=== PATIENT | male | born 1960 | race Caucasian/White ===

== ENCOUNTER 2023-07-12 06:28 | Outpatient (OUT) | payer OTHER, SELFPAY ==
--- NOTE | 2023-07-12 07:52 | CA_ITS ---
Patient Name: GINA DAVIES MR#: [id number] : 1960 Exam Date: 07/12/2023 Ordering Doctor: CAROL CONTRERAS ECHOCARDIOGRAM REPORT PROCEDURE: CA ECHO DOPPLER COMPLETE INDICATIONS: Paroxysmal atrial fibrillation COMPARISON: None. DESCRIPTION: COMPLETE ECHOCARDIOGRAM Real-time transthoracic echocardiography with 2D, M-mode, spectral and color flow Doppler performed. QUALITY: Technical quality was good. LEFT VENTRICLE: Normal chamber size. Normal left ventricular wall thickness. LV EF: Global left ventricular systolic function is low normal limits; visually estimated ejection fraction is 50 to 55%. The septum is abnormal and motion; this is not an unusual finding in the post open palpation. DIASTOLIC: Unable to assess diastolic function given history of mitral valve ring. ATRIAL SEPTUM: Visually appears intact. LEFT ATRIUM: Moderate dilatation. RIGHT ATRIUM: Mild dilatation. RIGHT VENTRICLE: Mild dilatation. Normal right ventricular systolic function. TRICUSPID VALVE: Normal mobility and thickness. No stenosis with trivial regurgitation. No evidence of pulmonary hypertension. RVSP 21mmHg MITRAL VALVE: Trivial mitral regurgitation. 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 Mean gradient is 3mmHg at a heart rate of 50 bpm. AORTIC VALVE: Normal trileaflet appearance. No visible sclerosis. Normal leaflet mobility. No evidence of aortic valve stenosis. Trivial aortic regurgitation. AORTIC ROOT: Moderately dilated. Measuring 4.4 cm which is unchanged from previous exam. Ascending aorta measures 4.1 cm. PULMONIC VALVE: Normal thickness and mobility. Trivial regurgitation. PERICARDIUM: Anterior free space; trivial effusion versus fat pad. IVC: Collapses with inspirations. Normal size. CONCLUSION: 1. Global left ventricular systolic function is lower normal limits; visually estimated ejection fraction is 50 to 55% 2. The right ventricle is mildly dilated with normal systolic function 3. Biatrial enlargement 4. Mitral valve annuloplasty ring is seen; no significant regurgitation or stenosis 5. The aortic root is is moderately dilated; ascending aorta is mildly dilated 6. Anterior free space; trivial effusion versus fat pad Adult Echocardiography Procedure Report Left Ventricle LVEDD (3.7 - 5.6 cm): 5.48 cm LVESD (2.2 - 4.0 cm): 4.30 cm LVIVS thickness (0.6 - 1.2 cm): 1.24 cm LVPW thickness (0.5 - 1.0 cm): 0.95 cm e': 0.09 m/s E - e': 14.00 LVOT Max Gradient: 3.34 mm[Hg] LVOT Area (cm2): 0.91 m/s Peak Velocity (LVOT): 0.91 m/s Mean Velocity (LVOT): 0.64 m/s LVOT Diameter 2.32 cm Left Ventricular Ejection Fraction: 51.29 % Left Atrium LA Volume Index (2D A2C): 45.69 ml/m2 Left Atrium Systolic Dimension: 4.80 cm Mitral Valve MV E to A Ratio: 1.08 Mitral Valve A-Wave Peak Velocity: 1.17 m/s Mitral Valve E-Wave Peak Velocity: 1.27 m/s Right Ventricle RV Internal Diastolic Dimension: 4.19 cm Aorta AO Root Diam: 4.38 cm Ascending Ao Diam: 4.14 cm Aortic Valve AoV Area (Peak Martin): 3.48 cm2, 3.48 cm2 AoV Area (VTI): 3.48 cm2, 3.48 cm2 Peak Velocity(Antegrade Flow): 1.11 m/s Peak Gradient(Antegrade Flow): 4.95 mm[Hg] Mean Velocity(Antegrade Flow): 0.79 m/s Mean Gradient(Antegrade Flow): 2.73 mm[Hg] Velocity Time Integral: 24.37 cm Tricuspid Valve Peak Velocity (Regurgitant Flow): 1.43 m/s, 2.14 m/s Pulmonic Valve Mean Gradient: 1.86 mm[Hg], 1.78 mm[Hg] Mean Velocity: 0.64 m/s, 0.62 m/s Peak Velocity: 0.92 m/s Peak Gradient: 3.48 mm[Hg], 3.27 mm[Hg] Right Atrium Right Atrium Systolic Pressure: 54.62 ml, 54.62 ml Dictated by: Julissa Quintana M.D. on 07/14/2023 at 11:16 Approved by: Julissa Quintana M.D. on 07/14/2023 at 11:22
== END 2023-07-12 06:29 | disposition home or self-care (01) ==
LOC: CARD 06:33
PROVIDERS: PCP Family Medicine; Visit Provider Internal Medicine Cardiovascular Disease
DX: I48.0 Paroxysmal atrial fibrillation (principal)
CPT/HCPCS: 93306; 93356

== ENCOUNTER 2023-08-09 08:02 | Outpatient (OUT) | payer OTHER, SELFPAY ==
--- OUTSIDE RECORDS SUMMARY | 2023-08-09 08:05 | XMS_ITS | CCD ---
Author Name Unknown Address [address] [place] [address] Organization [facility] Care Team Providers Care Supervisor Cemetery Workers Name Role Phone COMPANY, [employer] Unavailable Unavailable COMPANY, [employer] Unavailable Unavailable NO, DR Unavailable Unavailable PHYSICIAN, DEFAULT Admitting Unavailable PHYSICIAN, DEFAULT Attending Unavailable KIRSTIN HUGHES Admitting Unavailable KIRSTIN HUGHES Attending Unavailable KIRSTIN HUGHES Admitting Unavailable KIRSTIN HUGHES Attending Unavailable MISC, DR HSIEH Attending Unavailable MISC, DR HSIEH Consulting Unavailable MISC, DR HSIEH Admitting Unavailable HOUSE, DR CONNORS Primary Care Unavailable HOUSE, DR CONNORS Consulting Unavailable HOUSE, DR CONNORS Primary Care Unavailable HOUSE, DR CONNORS Admitting Unavailable HOUSE, DR CONNORS Attending Unavailable [place], DR ROSY Muhammad Consulting Unavailable HOUSE, DR CONNORS Primary Care Unavailable MOUKARBEL, DR BERNSTEIN Attending Unavailable MOUKARBEL, DR BERNSTEIN Admitting Unavailable MOUKARBEL, DR BERNSTEIN Consulting Unavailable MISC, DR HSIEH Attending Unavailable MISC, DR HSIEH Admitting Unavailable HOUSE, DR CONNORS Primary Care Unavailable SHERYL ., MIHAI Attending Unavailable SHERYL ., MIHAI Consulting Unavailable SHERYL ., MIHAI Admitting Unavailable HOUSE, DR CONNORS Primary Care Unavailable PAULINO, IGOR Consulting Unavailable WILLI, DR KOKO Canales Admitting Unavailabl e MACIEL, DR CONNORS Primary Care Unavailable SHANTHI ., DARRICK TIMMONS Consulting Unavailsandor MÁRQUEZ, DR KOKO Canales Attending Unavailabl e MINERVA, BRENDA Consulting Unavailable ERICA ., DR PECK Attending Unavailable ERICA ., DR PECK Consulting Unavailable ERICA ., DR PECK Admitting Unavailable MACIEL, DR CONNORS Primary Care Unavailable MACIEL, DR CONNORS Primary Care Unavailable WILLI, DR KOKO Canales Attending Unavailabl josé miguel MÁRQUEZ, DR KOKO Canales Consulting Unavailabl josé miguel MÁRQUEZ, DR KOKO Canales Admitting UnavailRANULFO Schultz Consulting Unavailable Jake St Primary Care Physician [phone] Amy Goldstein Referring Unavailable Timmis, Amy H Attending Unavailable Amy Goldstein H Admitting Unavailable DIANE, NIKHIL Referring Unavailable CARRIZO, LIZETH Referring Unavailable CARRIZO, LIZETH Attending Unavailable DENISE HIGGINS Attending Unavailable DIANE, NIKHIL Attending Unavailable DIANE, NIKHIL Admitting Unavailable DIANE, NIKHIL Attending Unavailable DIANE, NIKHIL Attending Unavailable AURELIO COYNE Attending Unavailable DIANE, NIKHIL Referring Unavailable DIANE, NIKHIL Referring Unavailable Allergies Allergy Classification Reported Allergen(s) Allergy Type Date of Onset Reaction(s) Facility (1 source) Erythromycin Drug Allergy 02-07-2015 [facility] Repository (1 source) Niacin Drug Allergy 05-11-2014 [facility] Repository (1 source) Azithromycin; Translations: [AZITHROMYCIN] Drug Allergy 07-28-2022 [facility] Repository Problems Active Problems Problem Classification Problem Date Documented Da te Episodic/Chronic Abdominal pain (5 sources) Unspecified abdominal pain; Translations: [UNSPECIFIED ABDOMINAL PAIN] Onset: 06-25-2022 Episodic Administrative/social admission (1 source) Encounter for pre-employment examination; Translations: [Encounter for pre-employment examination] Onset: 11-03-2017 Episodic Cardiac dysrhythmias (5 sources) Unspecified atrial fibrillation; Translations: [Paroxysmal atrial fibrillation] Onset: 09-15-2022 Chronic Cataract (2 sources) Cataract; Translations: [AGE RELATED NUCLEAR CATARACT-LEFT EYE, 2+NS 2+CS] Onset: 08-01-2018 Chronic obstructive pulmonary disease and bronchiectasis (3 sources) Chronic obstructive pulmonary disease, unspecified; Translations: [COPD UNSPECIFIED] Onset: 04-28-2022 Chronic Congestive heart failure; nonhypertensive (2 sources) Unspecified systolic (congestive) heart failure; Translations: [Unspecified systolic (congestive) heart failure] Onset: 10-20-2022 Chronic Essential hypertension (2 sources) Essential (primary) hypertension; Translations: [Essential (primary) hypertension] Onset: 04-28-2022 Chronic Heart valve disorders (1 source) Presence of prosthetic heart valve; Translations: [PRESENCE OF PROSTHETIC HEART VALVE] Onset: 09-15-2022 Chronic Hypertension with complications and secondary hypertension (2 sources) Hypertensive heart disease without heart failure; Translations: [Hypertensive heart disease without heart failure] Onset: 10-20-2022 Chronic Nausea and vomiting (5 sources) Nausea; Translations: [Vomiting, unspecified] Onset: 06-23-2022 Episodic Other aftercare (1 source) Other sports team manager (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; Translations: [OTH INSECTICIDE MIXER CURRENT DRUG THERAPY] Onset: 09-15-2022 Episodic Other lower respiratory disease (1 source) Personal history of pneumonia (recurrent); Translations: [PERSONAL HX OF PNEUMONIA RECURRENT] Onset: 09-15-2022 Episodic Norma-; endo-; and myocarditis; cardiomyopathy (except that caused by tuberculosis or sexually transmitted disease) (2 sources) Cardiomyopathy, unspecified; Translations: [Cardiomyopathy, unspecified] Onset: 10-12-2022 Chronic Unclassified (2 sources) AGE RELATED NUCLEAR CAT- 2+NS, 2+CS; Translations: [AGE RELATED NUCLEAR CAT- 2+NS, 2+CS] Onset: 08-22-2018 Unclassified (3 sources) THORAC AORTC ANEURYSM W/O RUPTR UNS; Translations: [THORAC AORTC ANEURYSM W/O RUPTR UNS] Onset: 09-25-2022 Unclassified (3 sources) CONTACT W/AND (SUSP) EXPOS COVID-19; Translations: [CONTACT W/AND (SUSP) EXPOS COVID-19] Onset: 01-27-2022 Unclassified (2 sources) COUGH, UNSPECIFIED; Translations: [COUGH, UNSPECIFIED] Onset: 01-19-2022 Unclassified (2 sources) Other persistent atrial fibrillation; Translations: [Other persistent atrial fibrillation] Onset: 04-12-2023 Unclassified (1 source) Aneurysm of the ascending aorta, without rupture; Translations: [Aneurysm of the ascending aorta, without rupture] Onset: 04-28-2022 Viral infection (1 source) COVID-19; Translations: [COVID-19] Onset: 01-19-2022 Past or Other Problems Problem Classification Problem Date Documented Da te Episodic/Chronic Malaise and fatigue (4 sources) Other malaise; Translations: [Other fatigue] Onset: 09-14-2022 Episodic Other gastrointestinal disorders (1 source) Diarrhea, unspecified; Translations: [DIARRHEA UNSPECIFIED] Onset: 06-25-2022 Episodic Other lower respiratory disease (2 sources) Other forms of dyspnea; Translations: [Other forms of dyspnea] Onset: 09-14-2022 Episodic Other male genital disorders (1 source) Scrotal pain; Translations: [SCROTAL PAIN] Onset: 04-23-2022 Episodic Other upper respiratory disease (3 sources) Nasal congestion; Translations: [NASAL CONGESTION] Onset: 04-21-2022 Episodic Other upper respiratory infections (1 source) Acute sinusitis, unspecified; Translations: [ACUTE SINUSITIS UNSPECIFIED] Onset: 04-23-2022 Episodic Residual codes; unclassified (2 sources) Other specified postprocedural states; Translations: [Other specified postprocedural states] Onset: 04-28-2022 Episodic Unclassified (1 source) THORAC AORTC ANEURYSM W/O RUPTR UNS; Translations: [THORAC AORTC ANEURYSM W/O RUPTR UNS] Onset: 09-21-2022 Unclassified (1 source) CONTACT W/AND (SUSP) EXPOS COVID-19; Translations: [CONTACT W/AND (SUSP) EXPOS COVID-19] Onset: 01-23-2022 Unclassified (1 source) COUGH, UNSPECIFIED; Translations: [COUGH, UNSPECIFIED] Onset: 01-18-2022 Unclassified (1 source) Aneurysm of the ascending aorta, without rupture; Translations: [Aneurysm of the ascending aorta, without rupture] Onset: 10-20-2022 Urinary tract infections (1 source) Tubulo-interstitial nephritis, not specified as acute or chronic; Translations: [TUBULO-INTERST NEPHRIT NOT AC/CHRN] Onset: 06-25-2022 Episodic Results Test Name Value Interpretation Reference Range Facility Prep for Procedureon 024 Prep for Procedure [id number] Lilibeth Daviesy D 1960 M Date Provider Department Center [facility] Family History Problem Relation Age of Onset Other Mother Coronary artery disease Mother Family Status - Relation Status Age at Mother Normal [facility] Prep for Procedureon 024 Prep for Procedure [id number] Lilibeth Daviesy D 1960 M Date Provider Department Center 07/22/20[facility] Family History Problem Relation Age of Onset Other Mother Coronary artery disease Mother Family Status - Relation Status Age at Mother Normal [facility] Prep for Procedureon 024 Prep for Procedure [id number] Lilibeth Davies cky D 1960 M Date Provider Department Center 06/10/2023 [facility] Family History Problem Relation Age of Onset Other Mother Coronary artery disease Mother Family Status - Relation Status Age at Mother Normal [facility] Orders Onlyon 06-08-2023 Orders Only [id number] NabilRi cky D 1960 M Date Provider Department Center 06/08/2023 MARIBETH GUAMAN [facility]URIE [facility] Family History Problem Relation Age of Onset Other Mother Coronary artery disease Mother Family Status - Relation Status Age at Mother Normal [facility] Telemedicineon 06-08-2023 Telemedicine [id number] NabilRi cky D 1960 M Date Provider Department Center 06/08/2023 NIKHIL SANDERS [facility]URIE [facility] Family History Problem Relation Age of Onset Other Mother Coronary artery disease Mother Family Status - Relation Status Age at Mother Level of Service:98340 SC PHYS/QHP TELEPHONE EVALUATION 5-10 MIN Normal [facility] BASIC METABOLIC PANELon 12-1 Anion gap [Moles/Vol] 11 mmol/L Normal 7-20 [facility] Comment on above: Performed By: #### L [id number] ####[facility] (BEAKER)[address] [place] [address] Calcium [Mass/Vol] 8.1 mg/dL Low 8.6-10.3 [facility] Comment on above: Performed By: #### L [id number] ####[facility] (BEAKER)[address] [place] [address] Chloride [Moles/Vol] 109 mmol/L High 98-107 [facility] Comment on above: Performed By: #### L [id number] ####[facility] (BE[facility]ER)[address] [place] [address] CO2 [Moles/Vol] 22 mmol/L Normal 21-31 [facility] Comment on above: Performed By: #### L [id number] ####[facility] ([facility])[address] [place] [address] Creatinine [Mass/Vol] 1.38 mg/dL High 0.70-1.30 [facility] Comment on above: Performed By: #### L [id number] ####[facility] ([facility])[address] [place] [address] Performed By: #### L [id number] ####[facility] ([facility])[address] [place] [address] GLOMERULAR FILTRATION RATE ML/MIN/1.73 SQ M.PREDICTED 56.7 mL/min/1.73m*2 Low >60.0 [facility] Comment on above: Result Comment: The [facility]???s estimated glomerular filtration rate (eGFR) will no longer include consideration of race in its calculation. The National Kidney Foundation???s eGFR Task Force developed new recommendations for the estimation of the glomerular filtration rate in the [place] They recommend immediate implementation of the new equation refit without the race variable in all laboratories because the calculation does not include race. In addition to not including race in the calculation and reporting, it included diversity in its development, and has acceptable performance characteristics and potential consequences that do not disproportionately affect any one group of individuals. Performed By: #### L [id number] ####[facility] ([facility])[address] [place] [address] Performed By: #### L [id number] ####[facility] ([facility])[address] [place] [address] Glucose [Mass/Vol] 91 mg/dL Normal 70-100 [facility] Comment on above: Performed By: #### L [id number] ####[facility] ([facility])[address] [place] [address] Potassium [Moles/Vol] 4.1 mmol/L Normal 3.5-5.1 [facility] Comment on above: Performed By: #### L [id number] ####[facility] ([facility])[address] [place] [address] Sodium [Moles/Vol] 138 mmol/L Normal 136-145 [facility] Comment on above: Performed By: #### L [id number] ####[facility] ([facility])[address] [place] [address] Urea nitrogen [Mass/Vol] 16 mg/dL Normal 7-25 [facility] Comment on above: Performed By: #### L [id number] ####[facility] ([facility])[address] [place] [address] UREA NITROGEN/CREATININ E (MASS RATIO) IN SER/PLAS 11.6 Normal [facility] Comment on above: Performed By: #### L [id number] ####[facility] ([facility])[address] [place] [address] CBCon 05-10-2023 Erythrocyte distribution width (RBC) [Ratio] 13.9 % Normal 11.5-15.0 [facility] Comment on above: Performed By: #### L [id number] ####[facility] ([facility])[address] [place] [address] ERYTHROCYTE MEAN CORPUSCULAR HEMOGLOBIN CONCENTRATION (G/DL) BY AUTOMATED 32.8 g/dL Normal 32.0-35.0 [facility] Comment on above: Performed By: #### L [id number] ####[facility] ([facility])[address] [place] [address] Hematocrit (Bld) [Volume fraction] 44.8 % Normal 39.0-55.0 [facility] Comment on above: Performed By: #### L [id number] ####[facility] ([facility])[address] [place] [address] Hemoglobin (Bld) [Mass/Vol] 14.7 g/dL Normal 13.0-17.0 [facility] Comment on above: Performed By: #### L [id number] ####[facility] (BEAKER)[address] [place] [address] MCH (RBC) [Entitic mass] 29.3 pg Normal 27.0-33.0 [facility] Comment on above: Performed By: #### L [id number] ####[facility] ([facility])[address] [place] [address] MCV (RBC) [Entitic vol] 89.4 fL Normal 82.0-98.0 [facility] Comment on above: Performed By: #### L [id number] ####[facility] ([facility])[address] [place] [address] PLATELETS (10*3/UL) IN BLOOD AUTOMATED COUNT 256 10*3/uL Normal 150-400 [facility] Comment on above: Performed By: #### L [id number] ####[facility] ([facility])[address] [place] [address] RBC (Bld) [#/Vol] 5.01 10*6/uL Normal 4.20-5.70 [facility] Comment on above: Performed By: #### L [id number] ####[facility] ([facility])[address] [place], [place] [address] WBC (Bld) [#/Vol] 6.76 10*3/uL Normal 4.00-10.60 [facility] Comment on above: Performed By: #### L [id number] ####[facility] ([facility])[address] [place] [address] HPon 05-10-2023 --- Attestation signed by Nikhil Benson MD at 05/19/2023 5:43 PM By using the attestations below, the signing clinician agrees that I have read and verify that the documentation has been personally reviewed by me and ensure that the documentation accurately reflects the encounter. GC: I personally saw this patient on the day of the encounter, performed the parker portion(s) of the service and participated in the management and confirm the resident's documentation. Please note there may be an additional personal documentation from me. H&P reviewed. The patient was examined and there are no changes to the H&P. Normal [facility] LIPID PANELon 05-10-2023 CHOL/HDL 5.4 mg/dL Normal [facility] Comment on above: Performed By: #### L [id number] #### [facility] ([facility]) [address] [place] [address] Cholesterol [Mass/Vol] 135 mg/dL Normal 120-200 [facility] Comment on above: Performed By: #### L [id number] #### [facility] ([facility]) [address] [place] [address] Magnesium [Mass/Vol] 126 mg/dL Normal 40-149 [facility] Comment on above: Result Comment: TRIG LYCERIDE REFERENCE RANGE: 20 YEARS AND OLDER CARDIOVASCULAR RISK LESS THAN 150 mg/dL LOW RISK 150 TO 199 mg/dL BORDERLINE RISK 200 mg/dL AND GREATER HIGH RISK Performed By: #### L [id number] #### [facility] ([facility]) [address] [place] [address] Magnesium [Mass/Vol] 85 mg/dL Normal 0-160 [facility] Comment on above: Performed By: #### L [id number] #### [facility] ([facility]) [address] [place] [address] Magnesium [Mass/Vol] 25 mg/dL Normal 23-92 [facility] Comment on above: Performed By: #### L [id number] #### [facility] ([facility]) [address] [place] [address] NON HDL CHOL. (LDL+VLDL) 110 Normal [facility] Comment on above: Performed By: #### L [id number] #### [facility] ([facility]) [address] [place] [address] TOTAL VLDL-C 25 mg/dL Normal 0-40 [facility] Comment on above: Performed By: #### L [id number] #### [facility] ([facility]) [address] [place] [address] NURSNOTEon 05-10-2023 NURSNOTE RN educated pt on d/ c instructions. RN encouraged pt to voice any questions or concerns. Pt verbalizes no questions or concerns at this time. Pt was wheeled off of unit with all of belongings. Normal [facility] TSH3 REFLEX TO FT4on 023 THYROTROPIN (MIU/L) IN SER/PLAS BY DETECTION LIMIT <= 0.05 MIU/L 5.16 mIU/L Normal 0.34-5.60 [facility] Comment on above: Performed By: #### L [id number] #### [facility] ([facility]) [address] [place] [address] HPon 04-12-2023 [facility] Electrophysiology Consult Note Reason for visit: 6 month follow up 04/12/23: He is here for 6-month follow-up Previously was started on amiodarone with plans for cardioversion. Patient was started on amiodarone but for some reason no cardioversion done He has been feeling well with complaints of CP, SOTOMAYOR, LE edema, palpitations ECG 04/12/2023 AF VR controlled 09/22/22 dr. benson HPI: Ede Davies is a 63 y.o. year old with past medical history of ascending aortic aneurysm, mitral valve repair at [facility] 2004 and hypertension seen in ED follow-up for new onset atrial fibrillation. He presented to the [facility] emergency department where he was found to be in rate controlled atrial fibrillation. He reports experiencing left flank symptoms consistent with his prior urinary tract infection prior to ED presentation. He reports feeling poorly intermittently, having to take aspirin once in a while unable to describe symptoms, reports his general malaise/fatigue. Denies chest pain, shortness of breath or palpitations. He was seen by the nurse practitioner Jj who had ordered an echocardiogram as well as stress test. stress test was denied by the insurance company but the echo which has not been officially read is suggestive of cardiomyopathy as well as ascending aortic aneurysm. he is unsure as to how long he has been in A-fib. today's pulse check revealed that he is in A-fib with variable ventricular rate. He has moderate dyspnea on exertion, relived by rest and by inhalers. He has no leg swelling. No claudication. PMH: Past Medical History: Diagnosis Date Abnormal ECG Aneurysm ([facility]/HCC) Arrhythmia Atrial fibrillation ([facility]/HCC) COPD (chronic obstructive pulmonary disease) ([facility]) Heart valve disease Hypertension PSH: Past Surgical History: Procedure Laterality Date CARDIAC VALVE REPLACEMENT CATARACT EXTRACTION SH: Social Determinants of Health Tobacco Use: Low Risk (10/20/2022) Patient History Smoking Tobacco Use: Never Smokeless Tobacco Use: Never Passive Exposure: Not on file Alcohol Use: Not on file Financial Resource Strain: Not on file Food Insecurity: Not on file Transportation Needs: Not on file Physical Activity: Not on file Stress: Not on file Social Connections: Not on file Intimate Partner Violence: Not on file Depression: Not on file Housing Stability: Not on file Allergies: Allergies Allergen Reactions Azithromycin Weight: 113kg Visit Vitals Ht 1.829 m (6') Wt 113 kg (249 lb) BMI 33.77 kg/m??? Smoking Status Never BSA 2.4 m??? Meds: Current Outpatient Medications on File Prior to Visit Medication Sig Dispense Refill amiodarone (Pacerone) 200 mg tablet Take 2 tablets (400 mg) by mouth in the morning and at bedtime for 10 days, THEN 1 tablet (200 mg) in the morning. 400 each 0 apixaban (Eliquis) 5 mg tablet Take 1 tablet (5 mg) by mouth in the morning and at bedtime. 180 tablet 3 aspirin 81 mg chewable tablet Chew 1 tablet every day by oral route. ipratropium-albuteroL (Duo-Neb) 0.5-2.5 mg/3 mL nebulizer solution INHALE 1 vial BY MOUTH via NEBULIZER EVERY 8 HOURS NEEDED for SHORTNESS OF BREATH lisinopril 5 mg tablet Take 1 tablet (5 mg) by mouth twice a day. 180 tablet 3 metoprolol tartrate (Lopressor) 25 mg tablet Take 1 tablet (25 mg) by mouth in the morning and at bedtime. 180 tablet 3 No current facility-administered medications on file prior to visit. ROS: Constitutional: Positive for malaise/fatigue. Musculoskeletal: Positive for arthritis, back pain and joint pain. All other systems reviewed and are negative. Physical Exam: Constitutional General Appearance: well-nourished, well-developed, appears stated age Level of Distress: comfortable Psychiatric Mental Status: alert, normal affect Orientation: oriented to time, place, and person Insight: good judgement Eyes Lids and Conjunctivae: non-injected, no xanthelasma ENMT Ears: no lesions on external ear Nose: no lesions on external nose Oropharynx: no cyanosis, no pallor Neck Neck: supple, trachea midline Carotid Arteries: bilateral normal upstroke, no bruits Jugular Veins: normal jugular venous pressure Thyroid: not enlarged Lungs Respiratory Effort: unlabored Chest Exam: normal curvature, no thoracic deformity Auscultation: clear, no wheezing, no rales, no rhonchi Cardiovascular Rate And Rhythm: regular Heart Sounds: normal S1, normal s2, no gallop Systolic Murmur: not heard Diastolic Murmur: not heard Extremities: no cyanosis, no edema, no peripheral signs of emboli Peripheral Pulses Radial Pulse: normal Abdomen Inspection and Palpation: soft, non distended, no bruit, non tender Musculoskeletal Inspection: no joint swelling Neurologic Gait: normal gait Skin Inspection and Palpation: warm and dry Nails: no clubbing Labs: @LABRESULTS@ No results found for: (more content not included)... Normal [facility] Office Visiton 04-12-2023 Follow-up visit [id number] Lilibeth Davies 1960 M Date Provider Department Center 04/12/2023 [facility] Family History Problem Relation Age of Onset Other Mother Coronary artery disease Mother Family Status - Relation Status Age at Mother Level of Service:03960 SC OFFICE/OUTPATIENT ESTABLISHED MOD MDM 30-39 MIN Normal [facility] CT Maxillofacial w/o Contras ton 11-23-2022 CT Maxillofacial w/o Contrast Exam Date/Time: 11/23/2022 07:03 EDT Reason for Exam: J32.[address] maxillofacial without intravenous contrast medium. HISTORY: Surgery. FINDINGS: Imaging guidance was obtained for surgical procedure. Radiopaque marker was placed on the right lateral cheek beneficial and just inferior to the right zygomaticomaxillary junction. IMPRESSION: Imaging guidance for surgery as discussed. Ordering Provider: Amy Goldstein FINAL REPORT Dictated: 11/23/2022 3:10 pm Toney Kamara MD Signed (Electronic Signature): 11/23/2022 3:10 pm Signed by: Toney Kamara MD Transcribed by: ERWIN Technologist: [facility] Consent for Treatmenton Consent for Treatment [id number] D:127 [facility] Physician Orderon 11-05-2022 Physician Order [id number] D:127 [facility] Office Visiton 10-20-2022 Follow-up visit [id number] Lilibeth Davies D 1960 M Date Provider Department Center 10/20/2022 [id number]-CRKMYVALIZETH FLORES HVCVASENDO [facility] Family History Problem Relation Age of Onset Other Mother Coronary artery disease Mother Family Status - Relation Status Age at Mother Level of Service:98133 SC IP/OBS CONSLTJ NEW/EST PT HIGH MDM 80 MINUTES Reason for Visit and Comments: New Patient [632] - Thoracic Aortic Aneurysm Normal [facility] Orders Onlyon 10-13-2022 Orders Only [id number] Lilibeth Davies D 1960 M Date Provider Department Center 10/13/2022 Wanda8-MADHAVI MORENO LAURIE Day Family History Problem Relation Age of Onset Other Mother Coronary artery disease Mother Family Status - Relation Status Age at Mother Normal [facility] Office Visiton 09-22-2022 Follow-up visit [id number] Lilibeth Daviesy D 1960 M Date Provider Department Center 09/22/2022 NIKHIL SANDERS LAURIE Day Family History Problem Relation Age of Onset Other Mother Coronary artery disease Mother Family Status - Relation Status Age at Mother Level of Service:84673 SC OFFICE/OUTPATIENT NEW HIGH [facility] 60-74 MINUTES Reason for Visit and Comments: Atrial Fibrillation [80] Normal [facility] ECHOCARDIO M/2D COMPLETEon 0 09-21-2022 ECHOCARDIO M/2D COMPLETE Patient: EDE DAVIES Exam Date: 09/21/2022 : 1960 Gender:M Ordering : MRS. DENISE MALDONADOMARCO ANTONIO LEWIS Admission #: [id number] Family : DR JAKE ST D.OMague Order #: [id number] CLICK HERE TO VIEW EXAM ECHOCARDIOGRAM REPORT PROCEDURE: CARDIO PULMONARY ECHOCARDIO M/2D COMP INDICATIONS: Aortic aneurysm with no rupture, mitral valve repair, hypertension COMPARISON: None. DESCRIPTION: COMPLETE ECHOCARDIOGRAM Real-time transthoracic echocardiography with 2D, M-mode, spectral and color flow Doppler performed. QUALITY: Technical quality was good. LEFT VENTRICLE: Mild dilatation. Borderline left ventricular hypertrophy. RWT is 0.41 which is suggestive of eccentric LVH. LV EF: Moderately reduced left ventricular ejection fraction, (35-40%). DIASTOLIC: Not adequately assessed due to heart rhythm (Afib). ATRIAL SEPTUM: Visually appears intact. LEFT ATRIUM: Mild dilatation. RIGHT ATRIUM: Moderate dilatation. RIGHT VENTRICLE: Normal chamber size. Decreased right ventricular systolic function. TRICUSPID VALVE: Normal mobility and thickness. No stenosis with trivial regurgitation. No evidence of pulmonary hypertension.RVSP 28 mmHg MITRAL VALVE: Mitral Valve is status post repair. Trivial mitral regurgitation. Mean gradient is 4 mmHg at heart rate of 72. AORTIC VALVE: Normal trileaflet appearance. No visible sclerosis. Normal leaflet mobility. No evidence of aortic valve stenosis. Trivial aortic regurgitation. AORTIC ROOT: Aortic root is dilated (4.5 cm) which is known from prior study PULMONIC VALVE: Normal thickness and mobility. No stenosis. Trivial regurgitation. PERICARDIUM: No evidence of pericardial effusion. IVC: Collapes with inspirations. PLEURA: CONCLUSION: LV function is reduced with EF 35-40% visually. s/p Mitral valve repair with functional MS Dilated ascending aorta and aortic root. Adult Echocardiography Procedure Report Left Ventricle LVEDD (3.7 - 5.6 cm): 6.08 cm LVESD (2.2 - 4.0 cm): 5.07 cm LVIVS thickness (0.6 - 1.2 cm): 1.15 cm LVPW thickness (0.5 - 1.0 cm): 1.04 cm LVOT Max Gradient: 2.03 mm[Hg] Peak Velocity (LVOT): 0.71 m/s Mean Velocity (LVOT): 0.50 m/s LVOT Diameter 2.51 cm Left Ventricular Ejection Fraction: 34.17 %, 34.17 % Left Atrium LA Volume Index (2D A2C): 83.84 ml, 83.84 ml Left Atrium Systolic Dimension: 5.55 cm Mitral Valve Mitral Valve E-Wave Peak Velocity: 1.49 m/s Right Ventricle Aorta AO Root Diam: 4.47 cm Aortic Valve AoV Area (Peak Martin): 3.74 cm2, 3.74 cm2 AoV Area (VTI): 3.52 cm2, 3.52 cm2 Peak Velocity(Antegrade Flow): 0.94 m/s Peak Gradient(Antegrade Flow): 3.55 mm[Hg] Mean Velocity(Antegrade Flow): 0.69 m/s Mean Gradient(Antegrade Flow): 2.18 mm[Hg] Velocity Time Integral: 19.57 cm Tricuspid Valve Peak Velocity (Regurgitant Flow): 2.49 m/s Pulmonic Valve Peak Velocity: 0.84 m/s, 0.68 m/s Peak Gradient: 2.80 mm[Hg], 1.84 mm[Hg] Right Atrium Right Atrium Systolic Pressure: 69.40 ml, 69.40 ml Dictated by: Nikhil Benson on 09/22/2022 at 12:04 Approved by: Nikhil Benson on 09/22/2022 at 12:18 Normal [facility] Office Visiton 09-14-2022 Follow-up visit [id number] Lilibeth Davies 1960 M Date Provider Department Center 09/14/2022 [id number]-NPVEUWKDCDENISE HIGGINS [facility] Family History Problem Relation Age of Onset Other Mother Coronary artery disease Mother Family Status - Relation Status Age at Mother Level of Service:57974 SC OFFICE/OUTPATIENT ESTABLISHED MOD MDM 30-39 MIN Reason for Visit and Comments: Atrial Fibrillation [80] Hypertension [187898] Valve Disorder [3372] Normal [facility] CBC AUTO DIFFon 09-13-2022 BASO # 0.1 103/ul Normal 0.0-0.1 [facility] Comment on above: Performed By: #### C BC #### [facility] [address] [address] [address] Reynaldo Liu Basophils/100 WBC (Bld) 0.6 % Normal 0.2-2.0 [facility] Comment on above: Performed By: #### C BC #### [facility] [address] [address] [address] Reynaldo Liu EO # 0.5 103/ul Normal 0.0-0.7 [facility] Comment on above: Performed By: #### C BC #### [facility] [address] [address] [address] Reynaldo Liu Eosinophils/100 WBC (Bld) 4.4 % Normal 0.9-7.0 [facility] Comment on above: Performed By: #### C BC #### [facility] [address] [address] [address] Reynaldo Liu Erythrocyte distribution width (RBC) [Ratio] 13.5 % Normal 11.0-15.0 [facility] Comment on above: Performed By: #### C BC #### [facility] [address] [place] [address] Dr. Reynaldo Liu Hematocrit (Bld) [Volume fraction] 44.5 % Normal 42.0-54.0 [facility] Comment on above: Performed By: #### C BC #### [facility] [address] [address] [address] Reynaldo Liu Hemoglobin (Bld) [Mass/Vol] 14.5 g/dL Normal 14.0-18.0 [facility] Comment on above: Performed By: #### C BC #### [facility] [address] [address] [address] Reynaldo Liu IG # 0.03 10e3/ul Normal 0.00-0.03 [facility] Comment on above: Performed By: #### C BC #### [facility] [address] [place] [address] Dr. Reynaldo Liu IG % 0.3 % Normal 0.0-0.5 [facility] Comment on above: Performed By: #### C BC #### [facility] [address] [place] [address] Dr. Reynaldo Liu LYMPH # 2.7 103/ul Normal 1.2-3.8 [facility] Comment on above: Performed By: #### C BC #### [facility] [address] [place] [address] Dr. Reynaldo Liu Lymphocytes/100 WBC (Bld) 25.0 % Normal 20.5-60.0 [facility] Comment on above: Performed By: #### C BC #### [facility] [address] [place] [address] Dr. Reynaldo Liu MANUAL DIFF REQ NO Normal [facility] Comment on above: Performed By: #### C BC #### [facility] [address] [place] [address] Dr. Reynaldo Liu MCH (RBC) [Entitic mass] 29.6 pg Normal 25.9-34.0 [facility] Comment on above: Performed By: #### C BC #### [facility] [address] [place] [address] Dr. Reynaldo Liu MCHC (RBC) [Mass/Vol] 32.6 g/dL Normal 29.9-35.2 [facility] Comment on above: Performed By: #### C BC #### [facility] [address] [place] [address] Dr. Reynaldo Liu MCV (RBC) [Entitic vol] 90.8 fL Normal 80.0-94.0 [facility] Comment on above: Performed By: #### C BC #### [facility] [address] [place] [address] Dr. Reynaldo Liu MONO # 1.0 103/ul Critically high 0.3-0.8 [facility] Comment on above: Performed By: #### C BC #### [facility] [address] [address] [address] Reynaldo Liu Monocytes/100 WBC (Bld) 9.3 % Normal 1.7-12.0 [facility] Comment on above: Performed By: #### C BC #### [facility] [address] [address] [address] Reynaldo Liu NEUT # 6.6 103/ul Critically high 1.4-6.5 [facility] Comment on above: Performed By: #### C BC #### [facility] [address] [address] [address] Reynaldo Liu Neutrophils/100 WBC (Bld) 60.4 % Normal 43.0-75.0 [facility] Comment on above: Performed By: #### C BC #### [facility] [address] [place] [address] Dr. Reynaldo Liu Platelet mean volume (Bld) [Entitic vol] 10.6 fL Normal 9.5-13.5 [facility] Comment on above: Performed By: #### C BC #### [facility] [address] [address] [address] Reynaldo Liu PLT 298 103/ul Normal 150-450 [facility] Comment on above: Performed By: #### C BC #### [facility] [address] [place] [address] Dr. Reynaldo Liu RBC 4.90 106/ul Normal 4.70-6.10 [facility] Comment on above: Performed By: #### C BC #### [facility] [address] [place] [address] Dr. Reynaldo Liu WBC 10.9 103/ul Normal 4.0-11.0 [facility] Comment on above: Performed By: #### C BC #### [facility] [address] [place] [address] Dr. Reynaldo Liu ER URINE PROFILEon 3 Bilirubin Ql (U) Negative Normal NEGATIVE [facility] Comment on above: Performed By: #### E RUR ####[facility] [address] [place], [place] [address]Dr. Reynaldo Liu Clarity (U) CLEAR Normal CLEAR [facility] Comment on above: Performed By: #### E RUR ####[facility] [address] [place], [place] [address]Dr. Randimolly Liu Color (U) LT. YELLOW Normal YELLOW [facility] Comment on above: Performed By: #### E RUR ####[facility] [address] [place], [place] [address]Dr. Reynaldo Liu ERUAHD A micrscopic examination will be performed if indicated. Normal [facility] Comment on above: Performed By: #### E RUR ####[facility] Empmoa[address] [place], [place] [address]Dr. Randimolly Noe Glucose Ql (U) Negative Normal NEGATIVE [facility] Comment on above: Performed By: #### E RUR ####[facility] Sz[address]ow[address] [place], [place] [address]Dr. Reynaldo Liu Hemoglobin Ql (U) Negative Normal NEGATIVE [facility] Comment on above: Performed By: #### E RUR ####[facility] J[address]ert[address] [place], [place] [address]Dr. Reynaldo Liu Ketones Ql (U) Negative Normal NEGATIVE [facility] Comment on above: Performed By: #### E RUR ####[facility] [address] [place], [place] [address]Dr. Reynaldo Liu LEUKOCYTES Negative Normal NEGATIVE [facility] Comment on above: Performed By: #### E RUR ####[facility] I[address] [place], [place] [address]Dr. Reynaldo Liu Nitrite Ql (U) Negative Normal NEGATIVE [facility] Comment on above: Performed By: #### E RUR ####[facility] Eovhteimpr[address] [place], [place] [address]Dr. Reynaldo Liu pH (U) 6.5 [pH] Normal 5-9 [facility] Comment on above: Performed By: #### E RUR ####[facility] [address] [place], [place] [address]DrMague Liu SPEC GRAVITY 1.015 Normal 1.005-<=1.025 [facility] Comment on above: Performed By: #### E RUR ####[facility] [address] [address]DrMague Liu UA PROTEIN Negative Normal NEGATIVE/ TRACE [facility] Comment on above: Performed By: #### E RUR ####[facility] [address] [address]DrMague Liu UR MICRO IND NOT INDICATED Normal [facility] Comment on above: Performed By: #### E RUR ####[facility] [address] [address]DrMague Liu Urobilinogen Qn (U) 0.2 {Pastor'U}/dL Normal 0.2 - 1.0 [facility] Comment on above: Performed By: #### E RUR ####[facility] [address] [address]DrMague Liu PROF CHEM 8 (BAS METB)on Anion gap [Moles/Vol] 11.9 mmol/L Normal [facility] Comment on above: Performed By: #### B MP #### [facility] [address] [address] [address] Reynaldo Liu Calcium [Mass/Vol] 8.7 mg/dL Normal 8.5-10.1 [facility] Comment on above: Performed By: #### B MP #### [facility] [address] [address] [address] Reynaldo Liu Chloride [Moles/Vol] 105 mmol/L Normal 98-107 [facility] Comment on above: Performed By: #### B MP #### [facility] [address] [address] [address] Reynaldo Liu CO2 [Moles/Vol] 27.5 mmol/L Normal 21.0-32.0 [facility] Comment on above: Performed By: #### B MP #### [facility] [address] [address] [address] Reynaldo Liu Creatinine [Mass/Vol] 1.67 mg/dL Critically high 0.70-1.30 [facility] Comment on above: Performed By: #### B MP #### [facility] [address] [address] [address] Reynaldo Liu EGFR-AF JAMAICAN 50 mL/min/1.73m2 Critically low >=60 [facility] Comment on above: Performed By: #### B MP #### [facility] [address] [address] [address] Reynaldo Liu EGFR-NON AF JAMAICAN 42 mL/min/1.73m2 Critically low >=60 [facility] Comment on above: Performed By: #### B MP #### [facility] [address] [address] [address] Reynaldo Liu Glucose [Mass/Vol] 96 mg/dL Normal 74-106 [facility] Comment on above: Performed By: #### B MP #### [facility] [address] [address] [address] Reynaldo Liu Potassium [Moles/Vol] 4.4 mmol/L Normal 3.5-5.1 [facility] Comment on above: Performed By: #### B MP #### [facility] [address] [address] [address] Reynaldo Liu Sodium [Moles/Vol] 140 mmol/L Normal 136-145 [facility] Comment on above: Performed By: #### B MP #### [facility] [address] [address] [address] Reynaldo Liu Urea nitrogen [Mass/Vol] 18.0 mg/dL Normal 7.0-18.0 [facility] Comment on above: Performed By: #### B MP #### [facility] [address] [place] [address] Dr. Reynaldo Liu Urea nitrogen/Creatinin e [Mass ratio] 10.8 mg/mg Normal [facility] Comment on above: Performed By: #### B MP #### [facility] [address] [place] [address] Dr. Reynaldo Liu CREATININEon 07-24-2022 Creatinine [Mass/Vol] 1.34 mg/dL Critically high 0.70-1.30 [facility] Comment on above: Performed By: #### C JAQUI #### [facility] [address] [address] [address] Reynaldo Liu EGFR-AF JAMAICAN >60 Normal >=60 [facility] Comment on above: Performed By: #### C JAQUI #### [facility] [address] [address] [address] Reynaldo Liu EGFR-NON AF JAMAICAN 54 mL/min/1.73m2 Critically low >=60 [facility] Comment on above: Performed By: #### C JAQUI #### [facility] [address] [address] [address] Reynaldo Liu CTA CHEST WO W CONon 023 CTA CHEST WO W CON EXAMINATION: CTA JUMA ST WO W CON HISTORY: Thoracic aortic aneurysm without rupture COMPARISON: 08/19/2021 TECHNIQUE: Axial, Coronal, and Sagittal images were created without and with IV contrast. Dose reduction techniques were achieved by using automated exposure control and/or adjustment of mA and/or kV according to patient size and/or use of iterative reconstruction technique. FINDINGS: LUNGS: 8mm solid noncalcified pulmonary nodule left lower lobe axial image 75, stable. No new significant pulmonary nodule or mass PLEURA: No mass, effusion, or pneumothorax. VASCULATURE: No abnormality. GIANLUCA: Small lymph nodes. No pathologic lymphadenopathy MEDIASTINUM: No pathologic lymphadenopathy CARDIAC: No enlargement, pericardial thickening, or significant calcification. AORTA: Aneurysm of the ascending thoracic aorta measuring a maximum of 4.3 cm in diameter. No aortic dissection. CHEST WALL: No mass or axillary adenopathy. BONES: No bone lesion or fracture. LIMITED ABDOMEN: No suspicious findings. Limited images of the upper abdomen. OTHER: Negative. IMPRESSION: 4.3 cm aneurysm of the ascending thoracic aorta Stable 8 mm left lower lobe pulmonary nodule Electronically authenticated by: ROSY ROLAND Date: 2022-07-24 15:42 Normal [facility] CBC W MANUAL DIFFon 06-23-19 23 ATYPICAL LYMPH # Normal [facility] Comment on above: Performed By: #### C BCMAN ####[facility] [address] [address]Dr. Reynaldo Liu ATYPICAL LYMPH % Normal [facility] Comment on above: Performed By: #### C BCMAN ####[facility] [address] [address]Dr. Yilan Liu BAND # 0.0 103/ul Normal 0.0-0.3 [facility] Comment on above: Performed By: #### C BCMAN ####[facility] [address] [address]Dr. Yilan Liu BAND % 0 % Normal 0-5 [facility] Comment on above: Performed By: #### C BCMAN ####[facility] [address] [place], [place] [address]Dr. Yimolly Liu BASOM # 0.00 103/ul Normal 0.00-0.10 [facility] Comment on above: Performed By: #### C BCANDIE ####[facility] [address] [place], [place] [address]Dr. Reynaldo Liu BASOM % 0.0 % Critically low 0.2-2.0 [facility] Comment on above: Performed By: #### C DEVONTE ####[facility] [address] [place], [place] [address]Dr. Yimloly Liu BLAST # Normal [facility] Comment on above: Performed By: #### C DEVONTE ####[facility] [address] [place], [place] [address]Dr. Reynaldo Liu BLAST % Normal [facility] Comment on above: Performed By: #### C BCANDIE ####[facility] [address] [place], [place] [address]Dr. Reynaldo Liu CORRECTED WBC Normal 4.0-11.0 [facility] Comment on above: Performed By: #### C BCANDIE ####[facility] [address] [place], [place] [address]Dr. Reynaldo Liu EOS # 0.00 103/ul Normal 0.00-0.70 [facility] Comment on above: Performed By: #### C BCANDIE ####[facility] [address] [id number]. Reynaldo Liu EOS% 0.0 % Critically low 0.9-7.0 [facility] Comment on above: Performed By: #### C DEVONTE ####[facility] [address] [id number]. Reynaldo Liu HCT 43.6 % Normal 42.0-54.0 [facility] Comment on above: Performed By: #### C DEVONTE ####[facility] [address] [id number]. Reynaldo Liu HGB 14.5 g/dl Normal 14.0-18.0 [facility] Comment on above: Performed By: #### C DEVONTE ####[facility] [address] [place], [place] [address]Dr. Reynaldo Liu LYMPHM # 1.34 103/ul Normal 1.20-3.80 [facility] Comment on above: Performed By: #### C DEVONTE ####[facility] [address] [id number]. Reynaldo Liu LYMPHM% 7.0 % Critically low 20.5-60.0 [facility] Comment on above: Performed By: #### C DEVONTE ####[facility] [address] [place], [place] [address]Dr. Reynaldo Liu MCH 29.0 pg Normal 25.9-34.0 [facility] Comment on above: Performed By: #### C DEVONTE ####[facility] [address] [id number]. Reynaldo Liu MCHC 33.3 g/dl Normal 29.9-35.2 [facility] Comment on above: Performed By: #### C DEVONTE ####[facility] [address] [place], [place] [address]Dr. Reynaldo Liu MCV 87.2 fL Normal 80.0-94.0 [facility] Comment on above: Performed By: #### C DEVONTE ####[facility] [address] [place], [place] [address]Dr. Reynaldo Liu METAMYELOCYTE # Normal [facility] Comment on above: Performed By: #### Shola WHITNEY ####[facility] [address] [id number]. Reynaldo Liu METAMYELOCYTE % Normal [facility] Comment on above: Performed By: #### C DEVONTE ####[facility] [address] [id number]. Randimolly Liu MONOM# 1.72 103/ul Critically high 0.30-0.80 [facility] Comment on above: Performed By: #### C DEVONTE ####[facility] [address] [id number]. Reynaldo Liu MONOM% 9.0 % Normal 1.7-12.0 [facility] Comment on above: Performed By: #### C DEVONTE ####[facility] [address] [id number]. Reynaldo Liu MPV 10.9 fL Normal 9.5-13.5 [facility] Comment on above: Performed By: #### Shola WHITNEY ####[facility] [address] [id number]. Reynaldo Liu MYELOCYTE # Normal [facility] Comment on above: Performed By: #### Shola WHITNEY ####[facility] [address] [id number]. Reynaldo Liu MYELOCYTE % Normal [facility] Comment on above: Performed By: #### Shola WHITNEY ####[facility] [address] [phone]. Reynaldo Liu NRBC Normal [facility] Comment on above: Performed By: #### Shola WHITNEY ####[facility] [address] [id number]. Reynaldo Liu PLT 279 103/ul Normal 150-450 [facility] Comment on above: Performed By: #### C DEVONTE ####[facility] [address] [id number]. Reynaldo Liu RBC 5.00 106/ul Normal 4.70-6.10 [facility] Comment on above: Performed By: #### C DEVONTE ####[facility] [address] [place] [address]Dr. Reynaldo Liu RDW 14.7 % Normal 11.0-15.0 [facility] Comment on above: Performed By: #### C DEVONTE ####[facility] [address] [place] [id number]. Reynaldo Liu SEG # 16.04 103/ul Critically high 1.40-6.50 [facility] Comment on above: Performed By: #### C DEVONTE ####[facility] [address] [place] [address]Dr. Reynaldo Liu SEG % 84.0 % Critically high 43.0-75.0 [facility] Comment on above: Performed By: #### C DEVONTE ####[facility] [address] [place] [address]Dr. Reynaldo Liu TOXIC GRANULATION 2+ Normal [facility] Comment on above: Performed By: #### C DEVONTE ####[facility] [address] [place] [address]Dr. Reynaldo Liu WBC 19.1 103/ul Critically high 4.0-11.0 [facility] Comment on above: Performed By: #### C DEVONTE ####[facility] Xkl[address] [place] [address]DrMague Liu ER URINE PROFILEon 3 Bilirubin Ql (U) Negative Normal NEGATIVE [facility] Comment on above: Performed By: #### U MICRO, ERUR #### [facility] [address] [address] [address] Reynaldo Liu Clarity (U) CLEAR Normal CLEAR [facility] Comment on above: Performed By: #### U MICRO, ERUR #### [facility] [address] [address] [address] Reynaldo Liu Color (U) LT. YELLOW Normal YELLOW [facility] Comment on above: Performed By: #### U MICRO, ERUR #### [facility] [address] [address] [address] Reynaldo HIRSCH A micrscopic examination will be performed if indicated. Normal [facility] Comment on above: Performed By: #### U MICRO, ERUR #### [facility] [address] [place] [address] Dr. Reynaldo Liu Glucose Ql (U) Negative Normal NEGATIVE [facility] Comment on above: Performed By: #### U MICRO, ERUR #### [facility] [address] [address] [address] Reynaldo Liu Hemoglobin Ql (U) TRACE-INTACT Abnormal NEGATIVE [facility] Comment on above: Performed By: #### U MICRO, ERUR #### [facility] [address] [place] [address] Dr. Reynaldo Liu Ketones Ql (U) 15 mg/dl Abnormal NEGATIVE [facility] Comment on above: Performed By: #### U MICRO, ERUR #### [facility] [address] [place] [address] Dr. Reynaldo Liu LEUKOCYTES Negative Normal NEGATIVE [facility] Comment on above: Performed By: #### U MICRO, ERUR #### [facility] [address] [address] [address] Reynaldo Liu Nitrite Ql (U) Negative Normal NEGATIVE [facility] Comment on above: Performed By: #### U MICRO, ERUR #### [facility] [address] [place] [address] Dr. Reynaldo Liu pH (U) 6.0 [pH] Normal 5-9 [facility] Comment on above: Performed By: #### U MICRO, ERUR #### [facility] [address] [place] [address] Dr. Reynaldo Liu Protein (U) [Mass/Vol] 30 mg/dL Abnormal NEGATIVE/ TRACE [facility] Comment on above: Performed By: #### U MICRO, ERUR #### [facility] [address] [place] [address] Dr. Reynaldo Liu SPEC GRAVITY 1.010 Normal 1.005-<=1.025 [facility] Comment on above: Performed By: #### U MICRO, ERUR #### [facility] [address] [address] [address] Reynaldo Liu UR MICRO IND INDICATED Normal [facility] Comment on above: Performed By: #### U MICRO, ERUR #### [facility] [address] [address] [address] Reynaldo Liu Urobilinogen Qn (U) 0.2 {Pastor'U}/dL Normal 0.2 - 1.0 [facility] Comment on above: Performed By: #### U MICRO, ERUR #### [facility] [address] [address] [address] Reynaldo Liu LACTATE/LACTIC ACIDon 2022 Lactate [Moles/Vol] 1.4 mmol/L Normal 0.4-1.9 [facility] Comment on above: Performed By: #### L ACT #### [facility] [address] [place] [address] Dr. Reynaldo Liu LIPASEon 06-23-2022 Lipase [Catalytic activity/Vol] 80.0 U/L Normal 73.0-393.0 [facility] Comment on above: Performed By: #### C MP, LIPA ####[facility] [address] [place] [address]DrMague Liu PROF 14(COMP METB)on 023 Albumin [Mass/Vol] 3.8 g/dL Normal 3.4-5.0 [facility] Comment on above: Performed By: #### C MP, LIPA ####[facility] [address] [place] [address]DrMague Liu Albumin/Globulin [Mass ratio] 1.0 {ratio} Normal [facility] Comment on above: Performed By: #### C MP, LIPA ####[facility] [address] [place] [address]DrMague Liu ALP [Catalytic activity/Vol] 72 U/L Normal 46-116 [facility] Comment on above: Performed By: #### C MP, LIPA ####[facility] [address] [place] [address]Dr. Reynaldo Liu ALT [Catalytic activity/Vol] 71 U/L Critically high 16-63 [facility] Comment on above: Performed By: #### C WINNIE, LIPA ####[facility] [address] [place], [place] [address]Dr. Reynaldo Liu Anion gap [Moles/Vol] 19.5 mmol/L Normal [facility] Comment on above: Performed By: #### C WINNIE, LIPA ####[facility] X[address] [place], [place] [address]Dr. Reynaldo Liu AST [Catalytic activity/Vol] 96 U/L Critically high 15-37 [facility] Comment on above: Performed By: #### C WINNIE, LIPA ####[facility] Lv[address] [place], [place] [address]Dr. Reynaldo Liu Bilirubin [Mass/Vol] 1.0 mg/dL Normal 0.2-1.0 [facility] Comment on above: Performed By: #### C WINNIE, LIPA ####[facility] [address] [place], [place] [address]Dr. Reynaldo Liu Calcium [Mass/Vol] 9.1 mg/dL Normal 8.5-10.1 [facility] Comment on above: Performed By: #### C WINNIE, LIPA ####[facility] [address] [place], [place] [address]Dr. Reynaldo Liu Chloride [Moles/Vol] 100 mmol/L Normal 98-107 [facility] Comment on above: Performed By: #### C WINNIE, LIPA ####[facility] We[address] [place], [place] [address]Dr. Reynaldo Liu CO2 [Moles/Vol] 21.5 mmol/L Normal 21.0-32.0 [facility] Comment on above: Performed By: #### C WINNIE, LIPA ####[facility] [address] [place], [place] [address]Dr. Reynaldo Liu Creatinine [Mass/Vol] 1.89 mg/dL Critically high 0.70-1.30 [facility] Comment on above: Performed By: #### C WINNIE, LIPA ####[facility] [address] [place] [id number]. Reynaldo Liu EGFR-AF JAMAICAN 44 mL/min/1.73m2 Critically low >=60 [facility] Comment on above: Performed By: #### C MP, LIPA ####[facility] [address] [place] [id number]. Reynaldo Liu EGFR-NON AF JAMAICAN 36 mL/min/1.73m2 Critically low >=60 [facility] Comment on above: Performed By: #### C MP, LIPA ####[facility] [address] [place] [address]Dr. Reynaldo Liu Globulin (S) [Mass/Vol] 3.9 g/dL Normal [facility] Comment on above: Performed By: #### C MP, LIPA ####[facility] [address] [place] [address]Dr. Reynaldo Liu Glucose [Mass/Vol] 117 mg/dL Critically high 74-106 [facility] Comment on above: Performed By: #### C MP, LIPA ####[facility] [address] [place] [address]Dr. Reynaldo Liu Potassium [Moles/Vol] 4.0 mmol/L Normal 3.5-5.1 [facility] Comment on above: Performed By: #### C MP, LIPA ####[facility] [address] [place] [address]Dr. Reynaldo Liu Protein [Mass/Vol] 7.7 g/dL Normal 6.4-8.2 [facility] Comment on above: Performed By: #### C MP, LIPA ####[facility] [address] [place] [address]Dr. Reynaldo Liu Sodium [Moles/Vol] 137 mmol/L Normal 136-145 [facility] Comment on above: Performed By: #### C MP, LIPA ####[facility] [address] [place] [address]Dr. Reynaldo Liu Urea nitrogen [Mass/Vol] 22.0 mg/dL Critically high 7.0-18.0 [facility] Comment on above: Performed By: #### C MP, LIPA ####[facility] [address] [place] [address]Dr. Reynaldo Liu Urea nitrogen/Creatinin e [Mass ratio] 11.6 mg/mg Normal [facility] Comment on above: Performed By: #### C MP, LIPA ####[facility] [address] [place] [id number]. Reynaldo Liu URINE MICROSCOPIC ONLYon BACTERIA NONE SEEN Normal NONE SEEN [facility] Comment on above: Performed By: #### U MICRO, ERUR #### [facility] [address] [place] [address] Dr. Reynaldo Liu Bacteria identified Cx Nom (U) NOT INDICATED Normal [facility] Comment on above: Performed By: #### U MICRO, ERUR #### [facility] [address] [place] [address] Dr. Reynaldo Liu CAST NONE SEEN Normal NONE SEEN [facility] Comment on above: Performed By: #### U MICRO, ERUR #### [facility] [address] [address] [address] Reynaldo Liu Crystals LM Nom (Urine sed) NONE SEEN Normal NONE SEEN [facility] Comment on above: Performed By: #### U MICRO, ERUR #### [facility] [address] [place] [address] Dr. Reynaldo Liu Epithelial cells LM Ql (Urine sed) FEW Abnormal NONE SEEN /RARE [facility] Comment on above: Performed By: #### U MICRO, ERUR #### [facility] [address] [address] [address] Reynaldo Liu MUCOUS NONE SEEN Normal NONE SEEN [facility] Comment on above: Performed By: #### U MICRO, ERUR #### [facility] [address] [place] [address] Dr. Reynaldo Liu RBC 2-5 Abnormal 0-2 [facility] Comment on above: Performed By: #### U MICRO, ERUR #### [facility] [address] [address] [address] Reynaldo Liu WBC 5-10 Abnormal NONE SEEN [facility] Comment on above: Performed By: #### U MICRO, ERUR #### [facility] [address] [place] [address] Dr. Reynaldo Liu Covid-19 PCR (CVDTBH)on SARS-CoV-2 (COVID-19) RNA SARANYA+probe Ql (Unsp spec) Not detected Normal NOT DETECTED [facility] Comment on above: Result Comment: This test is not yet approved or cleared by the [place] FDA. When there are no FDA-approved or cleared tests available, and other criteria are met, FDA can make tests available under an emergency access mechanism called an Emergency Use Authorization (EUA). The EUA for this test is supported by the [place] of Health and Human Service's (HHS's) declaration that circumstances exist to justify the emergency use of in vitro diagnostics for the detection and/or diagnosis of the virus that causes COVID-19. This EUA will remain in effect (meaning this test can be used) for the duration of the COVID-19 declaration justifying emergency of IVDs, unless it is terminated or revoked by FDA (after which the test may no longer be used). When diagnostic testing is negative, the possibility of a false negative should be considered in the context of a patient's recent exposures and the presence of clinical signs and symptoms consistent with SARS-CoV-2. Performed By: #### C VDTBH #### [facility] [address] [place] [address] Dr. Reynaldo Liu Covid-19 PCR (CVDTB)on 12-23 SARS-CoV-2 (COVID-19) RNA SARANYA+probe Ql (Unsp spec) Detected Critically abnormal NOT DETECTED [facility] Comment on above: Result Comment: This test is not yet approved or cleared by the [place] FDA. When there are no FDA-approved or cleared tests available, and other criteria are met, FDA can make tests available under an emergency access mechanism called an Emergency Use Authorization (EUA). The EUA for this test is supported by the [place] of Health and Human Service's declaration that circumstances exist to justify the emergency use of in vitro diagnostics for the detection and/or diagnosis of the virus that causes COVID-19. This EUA will remain in effect for the duration of the COVID-19 declaration justifying emergency of IVDs, unless it is terminated or revoked by the FDA (after which the test may no longer be used). Performed By: #### C VDTB #### [facility] [address] [place], [place] [address] Dr. Reynaldo Liu PROF CHEM 8 (BAS METB)on Anion gap [Moles/Vol] 16.2 mmol/L Normal [facility] Comment on above: Performed By: #### B MP ####[facility] [address] [place] [address]Dr. Reynaldo Liu Calcium [Mass/Vol] 8.3 mg/dL Critically low 8.5-10.1 Th e [facility] Comment on above: Performed By: #### B MP ####[facility] [address] [place] [address]Dr. Reynaldo Liu Chloride [Moles/Vol] 101 mmol/L Normal 98-107 [facility] Comment on above: Performed By: #### B MP ####[facility] [address] [place] [address]DrMague Liu CO2 [Moles/Vol] 20.9 mmol/L Critically low 21.0-32.0 [facility] Comment on above: Performed By: #### B MP ####[facility] [address] [place] [address]Dr. Reynaldo Liu Creatinine [Mass/Vol] 1.55 mg/dL Critically high 0.70-1.30 [facility] Comment on above: Performed By: #### B MP ####[facility] [address] [place] [address]Dr. Reynaldo Liu EGFR-AF JAMAICAN 55 mL/min/1.73m2 Critically low >=60 [facility] Comment on above: Performed By: #### B MP ####[facility] [address] [place] [address]Dr. Reynaldo Liu EGFR-NON AF JAMAICAN 46 mL/min/1.73m2 Critically low >=60 [facility] Comment on above: Performed By: #### B MP ####[facility] [address] [place] [address]Dr. Reynaldo Liu Glucose [Mass/Vol] 110 mg/dL Critically high 74-106 [facility] Comment on above: Performed By: #### B MP ####[facility] [address] [place] [id number]. Reynaldo Noe Potassium [Moles/Vol] 4.1 mmol/L Normal 3.5-5.1 [facility] Comment on above: Performed By: #### B MP ####[facility] [address] [place] [address]Dr. Randimolly Noe Sodium [Moles/Vol] 134 mmol/L Critically low 136-145 [facility] Comment on above: Performed By: #### B MP ####[facility] [address] [place] [address]Dr. Reynaldo Liu Urea nitrogen [Mass/Vol] 23.0 mg/dL Critically high 7.0-18.0 [facility] Comment on above: Performed By: #### B MP ####[facility] Cl[address]ks[address] [place], [place] [address]Dr. Reynaldo Liu Urea nitrogen/Creatinin e [Mass ratio] 14.8 mg/mg Normal [facility] Comment on above: Performed By: #### B MP ####[facility] [address] [place], [place] [address]Dr. Reynaldo Liu XR CHEST 1 Von 01-18-2022 XR CHEST 1 V EXAM: XR CHEST 1 V INDICATION: SHORTNESS OF BREATH. COMPARISON: Chest radiograph 09/30/2019 TECHNIQUE: Single frontal view of the chest FINDINGS: Changes of median sternotomy and valvuloplasty. Normal cardiomediastinal contours. Clear lungs. No pleural effusion or pneumothorax. No acute osseous abnormality. IMPRESSION: No acute cardiopulmonary process. Electronically authenticated by: RANULFO BREWER Date: 2022-01-18 14:27 Normal [facility] DRUG SCREEN DOT COMPANYon Age at Specimen Collection = Normal [facility] Comment on above: Order Comment: [employer] Performed By: #### [id number] ####[facility] [place] [id number] [employer] Sent to reference lab. See separate report. [facility] Comment on above: Order Comment: [facility] Performed By: #### [id number] ####[address] [address] Encounters Encounter Date Encounter Type Care Provider Facility Start: 06-08-2023 End: 06-08-2023 ambulatory [facility] Start: 05-10-2023 ambulatory [facility] Start: 05-10-2023 End: 05-10-2023 ambulatory [facility] Start: 05-10-2023 End: 05-10-2023 Encounter for preprocedural laboratory examination [facility] Start: 04-12-2023 End: 04-12-2023 [facility] Start: 11-23-2022 End: 11-24-2022 ambulatory Amy Goldstein Facility:[facility] Start: 11-23-2022 End: 11-23-2022 Patient encounter procedure Amy Goldstein [facility] Start: 10-20-2022 ambulatory LIZETH FLOR[facility] Start: 10-14-2022 End: 10-15-2022 ambulatory LIZETH [facility] Start: 10-12-2022 End: 10-13-2022 ambulatory [facility] Start: 09-22-2022 End: 09-22-2022 ambulatory [facility] Start: 09-21-2022 End: 09-22-[address] DOCTOR BREWSTER Facility: Start: 09-14-2022 End: 09-14-2022 ambulatory DENISE HIGGINS [facility] Start: 09-13-2022 End: 09-13-2022 ambulatory MIHAI SAUCEDO . Facility:[facility] Start: 08-17-[address] DOCTOR BREWSTER Facility :[facility] Start: 07-27-2022 Encounter for preprocedural laboratory examination DR AMANDEEP STONE [facility] Start: 07-24-2022 End: 07-25-[address] ROSY ROLAND Facility:[facility] Start: 06-23-2022 End: 06-24-[address] KOKO MÁRQUEZ Facility:[facility] Start: 04-21-2022 End: 04-21-[address] LIV MALDONADO . Facility:[facility] Start: 01-23-2022 End: 01-23-[address] Facility:[facility] Start: 01-18-2022 End: 01-18-[address] Facility:[facility] Start: 08-22-2018 End: 08-22-2018 Patient encounter procedure KIRSTIN Denney [facility] Start: 08-01-2018 End: 08-01-2018 Patient encounter procedure KIRSTIN Y [facility] Start: 07-26-2018 End: 07-27-2018 Patient encounter procedure DEFAULT PHYSICIAN Facility:[facility] Start: 11-03-2017 End: 11-03-2017 Unknown [employer] Facility:[facility] Procedures Date Procedure Procedure Detail Performing Clinician Start: 08-22-2018 DIET GENERAL KIRSTIN CLAR K Start: 08-22-2018 FULL CODE KIRSTIN CLAR K Start: 08-22-2018 INITIATE OXYGEN THER APY PROTOCOL KIRSTIN ELLEN Start: 08-22-2018 NURSING COMMUNICATION B ELIZABETH HUGHES Start: 08-22-2018 VITAL SIGNS KIRSTIN CLAR K Start: 08-22-2018 DISCHARGE PATIENT KIRSTIN ELLEN Start: 08-22-2018 INITIATE OXYGEN THER APY PROTOCOL KIRSTIN ELLEN Start: 08-22-2018 NURSING COMMUNICATION B CECIR ELLEN Start: 08-22-2018 VERIFY INFORMED CONSENT KIRSTIN ELLEN Start: 08-01-2018 DIET GENERAL KIRSTIN CLAR K Start: 08-01-2018 DISCHARGE PATIENT KIRSTIN ELLEN Start: 08-01-2018 FULL CODE KIRSTIN CLAR K Start: 08-01-2018 INITIATE OXYGEN THER APY PROTOCOL KIRSTIN ELLEN Start: 08-01-2018 NURSING COMMUNICATION B CECIR ELLEN Start: 08-01-2018 VITAL SIGNS KIRSTIN CLAR K Start: 08-01-2018 INITIATE OXYGEN THER APY PROTOCOL KIRSTIN ELLEN Start: 08-01-2018 NURSING COMMUNICATION B ELIZABETH HUGHES Start: 08-01-2018 VERIFY INFORMED CONSENT KIRSTIN HUGHES Payers Date Payer Category Payer Medicare [id number] 2018 Medicaid [id number] 2017 Unknown 1961 Private Health Insurance [id number] 1960 Unknown [id number] 2.16.8 [id number] 1958 Unknown [id number] 2.16.8 [id number] 1958 Unknown [id number] 2.16.8 [id number] 1958 Unknown [id number] 2.16.84 [id number] 1958 Unknown [id number] 2.16.84 [id number] 1958 Unknown [id number] 2.16.84 [id number] 1958 Unknown [id number] 2.16.84 [id number] 1958 Unknown [id number] 2.16.84 [id number] 1958 Unknown [id number] 2.16.84 [id number] 1958 Unknown [id number] 2.16.84 [id number] 1958 Unknown [id number] 2.16.84 [id number] 1958 Unknown [id number] 2.16.8 [id number] Social History Date Type Detail Facility Tobacco smoking status No Smoking Status Entered [facility] Sex Assigned At Male [facility] Clinical Notes 06-23-2022 to 06-08-2023 Note Date & Type Note Facility 06-08-2023 Note [place] Electrophysiology Consult Note Reason for visit: s/p DCCV Date of Telehealth Visit: 06/08/2023 The patient was notified that using 3rd green party telecommunication application (e.g., FireScope) is not HIPPA compliant and may carry some privacy risks. Yes The visit was conducted [id number] with the use of audio and video technology Paula. between patient and provider for a virtual visit. Verbal consent to provide and bill this service was obtained on 06/08/2023. No signature was obtained due to the COVID-19 pandemic. Patient Location: Outpatient [facility] I spent 9 minutes of total time on the day of the visit. This time was spent preparing for the visit, obtaining and reviewing any outside history/data, taking a history, performing an exam/evaluation, counseling and educating patient/family about the diagnosis and plan, performing medical decision making, referring to and communicating with other health care referrals, independently interpreting results and documenting in the EMR, and coordinating care. Please see the additional documentation in this note for specific details. 06/08/23 Pt is s/p DCCV and is doing better. Has more energy and ability to do. He is symptomatic with Afib and feels much better in sinus. He is concerned about Amio and given adverse side effects would like to proceed with alternative choice of ablation. EKG : 04/08/24 SR 04/12/23: He is here for 6-month follow-up Previously was started on amiodarone with plans for cardioversion. Patient was started on amiodarone but no cardioversion done as he reverted to SR. He has been feeling well with complaints of CP, SOTOMAYOR, LE edema, palpitations ECG 06/08/23 SR 04/12/2023 AF VR controlled 09/22/22 HPI: Ede Davies is a 63 y.o. year old with past medical history of ascending aortic aneurysm, mitral valve repair at [facility] 2004 and hypertension seen in ED follow-up for new onset atrial fibrillation. He presented to the [facility] emergency department where he was found to be in rate controlled atrial fibrillation. He reports experiencing left flank symptoms consistent with his prior urinary tract infection prior to ED presentation. He reports feeling poorly intermittently, having to take aspirin once in a while unable to describe symptoms, reports his general malaise/fatigue. Denies chest pain, shortness of breath or palpitations. He was seen by the nurse practitioner Jj who had ordered an echocardiogram as well as stress test. stress test was denied by the insurance company but the echo which has not been officially read is suggestive of cardiomyopathy as well as ascending aortic aneurysm. he is unsure as to how long he has been in A-fib. today's pulse check revealed that he is in A-fib with variable ventricular rate. He has moderate dyspnea on exertion, relived by rest and by inhalers. He has no leg swelling. No claudication. PMH: Past Medical History: Diagnosis Date Abnormal ECG Aneurysm (CMS/HCC) Arrhythmia Atrial fibrillation (CMS/HCC) COPD (chronic obstructive pulmonary disease) (CMS/HCC) Heart valve disease Hypertension PSH: Past Surgical History: Procedure Laterality Date CARDIAC VALVE REPLACEMENT CATARACT EXTRACTION SH: Social Determinants of Health Tobacco Use: Low Risk (10/20/2022) Patient History Smoking Tobacco Use: Never Smokeless Tobacco Use: Never Passive Exposure: Not on file Alcohol Use: Not on file Financial Resource Strain: Not on file Food Insecurity: Not on file Transportation Needs: Not on file Physical Activity: Not on file Stress: Not on file Social Connections: Not on file Intimate Partner Violence: Not on file Depression: Not on file Housing Stability: Not on file Utilities: Not on file Allergies: Allergies Allergen Reactions Azithromycin Weight: 115kg Visit Vitals BP 143/88 (BP Location: Left arm, Patient Position: Sitting) Pulse 50 Ht 1.829 m (6') Wt 115 kg (253 lb) SpO2 99% BMI 34.31 kg/m??? Smoking Status Never BSA 2.42 m??? Meds: Current Outpatient Medications on File Prior to Visit Medication Sig Dispense Refill amiodarone (Pacerone) 200 mg tablet Take 2 tablets (400 mg) by mouth in the morning and at bedtime for 10 days, THEN 1 tablet (200 mg) in the morning. (Patient taking differently: Take 1 tablet twice a day) 400 each 0 apixaban (Eliquis) 5 mg tablet Take 1 tablet (5 mg) by mouth in the morning and at bedtime. 180 tablet 3 aspirin 81 mg chewable tablet Chew 1 tablet every day by oral route. Dupixent Pen 300 mg/2 mL pen injector ipratropium-albuteroL (Duo-Neb) 0.5-2.5 mg/3 mL nebulizer solution INHALE 1 vial BY MOUTH via NEBULIZER EVERY 8 HOURS NEEDED for SHORTNESS OF BREATH lisinopril 5 mg tablet Take 1 tablet (5 mg) by mouth twice a day. 180 tablet 3 metoprolol tartrate (Lopressor) 25 mg tablet Take 1 tablet (25 mg) by mouth in the morning and at bedtime. 180 tab (more content not included)... [facility] 05-10-2023 Note Patient: Ede kim Procedure Information Date/Time: 05/10/23 1030 Procedure: Cardioversion Location: [facility] EXERCISE EQUIPMENT REPAIR TECHNICIAN HOLDING ROOM / [facility] (Cath) Providers: Nikhil Benson MD Clinical information reviewed: Allergies Meds Physical Exam Airway Mallampati: III Cardiovascular Rhythm: irregular Rate: normal Dental Pulmonary Breath sounds clear to auscultation Abdominal Anesthesia Plan ASA 3 other (Moderate sedation) Anesthetic plan and risks discussed with patient. Use of blood products discussed with patient who consented to blood products. Plan discussed with fellow and attending. Additional Equipment Requests [facility] 04-12-2023 Note Patient here for 6 m o follow up persistent afib and hx of mitral valve repair. He is tolerating Eliquis and amiodarone well. Denies chest pain, palpitations, and bleeding on Eliquis. His SOB w/ exertion remains unchanged. No recent labs/imaging. Review of Systems Constitutional: Positive for malaise/fatigue. Cardiovascular: Positive for dyspnea on exertion. All other systems reviewed and are negative. [facility] 04-12-2023 Note [place] Electrophysiology Consult Note Reason for visit: 6 month follow up 04/12/23: He is here for 6-month follow-up Previously was started on amiodarone with plans for cardioversion. Patient was started on amiodarone but for some reason no cardioversion done He has been feeling well with complaints of CP, SOTOMAYOR, LE edema, palpitations ECG 04/12/2023 AF VR controlled 09/22/22 dr. benson HPI: Ede Davies is a 63 y.o. year old with past medical history of ascending aortic aneurysm, mitral valve repair at [facility] 2004 and hypertension seen in ED follow-up for new onset atrial fibrillation. He presented to the [facility] emergency department where he was found to be in rate controlled atrial fibrillation. He reports experiencing left flank symptoms consistent with his prior urinary tract infection prior to ED presentation. He reports feeling poorly intermittently, having to take aspirin once in a while unable to describe symptoms, reports his general malaise/fatigue. Denies chest pain, shortness of breath or palpitations. He was seen by the nurse practitioner Jj who had ordered an echocardiogram as well as stress test. stress test was denied by the insurance company but the echo which has not been officially read is suggestive of cardiomyopathy as well as ascending aortic aneurysm. he is unsure as to how long he has been in A-fib. today's pulse check revealed that he is in A-fib with variable ventricular rate. He has moderate dyspnea on exertion, relived by rest and by inhalers. He has no leg swelling. No claudication. PMH: Past Medical History: Diagnosis Date Abnormal ECG Aneurysm ([facility]/HCC) Arrhythmia Atrial fibrillation ([facility]/HCC) COPD (chronic obstructive pulmonary disease) ([facility]) Heart valve disease Hypertension PSH: Past Surgical History: Procedure Laterality Date CARDIAC VALVE REPLACEMENT CATARACT EXTRACTION SH: Social Determinants of Health Tobacco Use: Low Risk (10/20/2022) Patient History Smoking Tobacco Use: Never Smokeless Tobacco Use: Never Passive Exposure: Not on file Alcohol Use: Not on file Financial Resource Strain: Not on file Food Insecurity: Not on file Transportation Needs: Not on file Physical Activity: Not on file Stress: Not on file Social Connections: Not on file Intimate Partner Violence: Not on file Depression: Not on file Housing Stability: Not on file Allergies: Allergies Allergen Reactions Azithromycin Weight: 113kg Visit Vitals Ht 1.829 m (6') Wt 113 kg (249 lb) BMI 33.77 kg/m??? Smoking Status Never BSA 2.4 m??? Meds: Current Outpatient Medications on File Prior to Visit Medication Sig Dispense Refill amiodarone (Pacerone) 200 mg tablet Take 2 tablets (400 mg) by mouth in the morning and at bedtime for 10 days, THEN 1 tablet (200 mg) in the morning. 400 each 0 apixaban (Eliquis) 5 mg tablet Take 1 tablet (5 mg) by mouth in the morning and at bedtime. 180 tablet 3 aspirin 81 mg chewable tablet Chew 1 tablet every day by oral route. ipratropium-albuteroL (Duo-Neb) 0.5-2.5 mg/3 mL nebulizer solution INHALE 1 vial BY MOUTH via NEBULIZER EVERY 8 HOURS NEEDED for SHORTNESS OF BREATH lisinopril 5 mg tablet Take 1 tablet (5 mg) by mouth twice a day. 180 tablet 3 metoprolol tartrate (Lopressor) 25 mg tablet Take 1 tablet (25 mg) by mouth in the morning and at bedtime. 180 tablet 3 No current facility-administered medications on file prior to visit. ROS: Constitutional: Positive for malaise/fatigue. Musculoskeletal: Positive for arthritis, back pain and joint pain. All other systems reviewed and are negative. Physical Exam: Constitutional General Appearance: well-nourished, well-developed, appears stated age Level of Distress: comfortable Psychiatric Mental Status: alert, normal affect Orientation: oriented to time, place, and person Insight: good judgement Eyes Lids and Conjunctivae: non-injected, no xanthelasma ENMT Ears: no lesions on external ear Nose: no lesions on external nose Oropharynx: no cyanosis, no pallor Neck Neck: supple, trachea midline Carotid Arteries: bilateral normal upstroke, no bruits Jugular Veins: normal jugular venous pressure Thyroid: not enlarged Lungs Respiratory Effort: unlabored Chest Exam: normal curvature, no thoracic deformity Auscultation: clear, no wheezing, no rales, no rhonchi Cardiovascular Rate And Rhythm: regular Heart Sounds: normal S1, normal s2, no gallop Systolic Murmur: not heard Diastolic Murmur: not heard Extremities: no cyanosis, no edema, no peripheral signs of emboli Peripheral Pulses Radial Pulse: normal Abdomen Inspection and Palpation: soft, non distended, no bruit, non tender Musculoskeletal Inspection: no joint swelling Neurologic Gait: normal gait Skin Inspection and Palpation: warm and dry Nails: no clubbing Labs: @LABRESULTS@ No results found for: (more content not included)... [facility] 10-20-2022 Note Subjective Patient ID: Ede Davies is a 62 y.o. male who presents for New Patient (Thoracic Aortic Aneurysm ). HPI 62-year-old male with past medical history of COPD, asthma, hypertension, and new onset atrial fibrillation (diagnosed 3 weeks ago, on apixaban for stroke prophylaxis). He has a known ascending thoracic aneurysm for which he has been getting surveillance CT scans of the chest. He is here for new patient evaluation He has no complaints today. Denies dizziness lightheadedness. Denies chest pain. No back or shoulder pain. No syncopal history. No numbness, tingling, or weakness of bilateral upper or lower extremities. No family history of connective tissue disorder or family history of an aneurysm. He does not smoke, quit in 1984. Take all medications daily as prescribed. Does not check blood pressure at home. Measurements of aneurysm by CT Chest: 2013 4.0cm 2016 4.7cm 2021 4.3cm 2022 4.3cm Review of Systems Constitutional: Negative for chills, diaphoresis, fatigue and fever. HENT: Negative. Eyes: Negative. Respiratory: Negative for chest tightness, shortness of breath and wheezing. Cardiovascular: Negative for chest pain, palpitations and leg swelling. Gastrointestinal: Negative for abdominal distention, abdominal pain, nausea and vomiting. Endocrine: Negative. Musculoskeletal: Negative. Negative for back pain and neck pain. Skin: Negative for wound. Neurological: Negative for dizziness, syncope, weakness, light-headedness, numbness and headaches. Hematological: Does not bruise/bleed easily. Psychiatric/Behavioral: Negative. Objective Visit Vitals BP 162/81 (BP Location: Right arm, Patient Position: Sitting, BP Cuff Size: Large adult) Pulse 75 Temp 36.3 ???C (97.3 ???F) (temporal artery) Resp 16 Physical Exam Constitutional: Appearance: Normal appearance. HENT: Head: Normocephalic. Mouth/Throat: Mouth: Mucous membranes are moist. Eyes: Extraocular Movements: Extraocular movements intact. Pupils: Pupils are equal, round, and reactive to light. Cardiovascular: Rate and Rhythm: Normal rate and regular rhythm. Heart sounds: No murmur heard. Pulmonary: Effort: Pulmonary effort is normal. No respiratory distress. Breath sounds: Normal breath sounds. No wheezing or rales. Abdominal: General: Abdomen is flat. Palpations: Abdomen is soft. Musculoskeletal: General: No swelling or deformity. Normal range of motion. Cervical back: Normal range of motion. Skin: General: Skin is warm and dry. Capillary Refill: Capillary refill takes less than 2 seconds. Coloration: Skin is not jaundiced. Neurological: General: No focal deficit present. Mental Status: He is alert and oriented to person, place, and time. Psychiatric: Mood and Affect: Mood normal. Behavior: Behavior normal. Assessment/Plan Diagnosis Plan 1. Aneurysm of ascending aorta without rupture ([facility]) 2. Atrial fibrillation, unspecified type ([facility]) 3. Primary hypertension 4. Benign hypertensive heart disease without congestive heart failure lisinopril 5 mg tablet 5. Chronic obstructive pulmonary disease, unspecified COPD type ([facility]/HCC) 6. HFrEF (heart failure with reduced ejection fraction) ([facility]) Plan: --Available medical records, Report for CT Scan of the chest, echocardiogram and other diagnostics reviewed. Patient has a stable ascending thoracic aneurysm. Was referred to CT surgery for new patient evaluation. He has no complaints today. Findings discussed with the patient. Education provided on thoracic aneurysm and treatment options. The aneurysm measures 4.3cm. No indication for surgery at this time. -Blood pressure 162/81 today. Will increase Lisinopril from 5mg once a day to 5mg twice daily for better blood pressure control. Explained importance of good blood pressure control with aneurysm. Recommend SBP 120mmHg or less. -Encouraged patient to get blood pressure cuff for home use and monitor blood pressure daily. Keep close follow up with PCP for blood pressure management. -Recommend follow up in [address] Surgery, CT Chest with contrast prior. -Request recent CT Chest from [facility], from 07/2022 [facility] 09-22-2022 Note [facility] 09-22-2022 Note [place] Electrophysiology Consult Note Reason for visit: HPI: Ede Davies is a 62 y.o. year old with past medical history of ascending aortic aneurysm, mitral valve repair at [facility] 2004 and hypertension seen in ED follow-up for new onset atrial fibrillation. He presented to the [facility] emergency department where he was found to be in rate controlled atrial fibrillation. He reports experiencing left flank symptoms consistent with his prior urinary tract infection prior to ED presentation. He reports feeling poorly intermittently, having to take aspirin once in a while unable to describe symptoms, reports his general malaise/fatigue. Denies chest pain, shortness of breath or palpitations. He was seen by the nurse practitioner Jj who had ordered an echocardiogram as well as stress test. stress test was denied by the insurance company but the echo which has not been officially read is suggestive of cardiomyopathy as well as ascending aortic aneurysm. he is unsure as to how long he has been in A-fib. today's pulse check revealed that he is in A-fib with variable ventricular rate. He has moderate dyspnea on exertion, relived by rest and by inhalers. He has no leg swelling. No claudication. PMH: Past Medical History: Diagnosis Date Abnormal ECG Aneurysm (CMS/HCC) Arrhythmia Atrial fibrillation (CMS/HCC) COPD (chronic obstructive pulmonary disease) (CMS/HCC) Heart valve disease Hypertension PSH: Past Surgical History: Procedure Laterality Date CARDIAC VALVE REPLACEMENT CATARACT EXTRACTION SH: Social Determinants of Health Tobacco Use: Low Risk Smoking Tobacco Use: Never Smokeless Tobacco Use: Never Passive Exposure: Not on file Alcohol Use: Not on file Financial Resource Strain: Not on file Food Insecurity: Not on file Transportation Needs: Not on file Physical Activity: Not on file Stress: Not on file Social Connections: Not on file Intimate Partner Violence: Not on file Depression: Not on file Housing Stability: Not on file Allergies: Allergies Allergen Reactions Azithromycin Weight: 110kg Visit Vitals BP 141/86 (BP Location: Right arm, Patient Position: Sitting) Pulse 61 Ht 1.803 m (5' 11 ) Wt 110 kg (243 lb) SpO2 97% BMI 33.89 kg/m??? Smoking Status Never BSA 2.35 m??? Meds: Current Outpatient Medications on File Prior to Visit Medication Sig Dispense Refill apixaban (Eliquis) 5 mg tablet Take 1 tablet (5 mg) by mouth in the morning and at bedtime. 180 tablet 3 aspirin 81 mg chewable tablet Chew 1 tablet every day by oral route. ipratropium-albuteroL (Duo-Neb) 0.5-2.5 mg/3 mL nebulizer solution INHALE 1 vial BY MOUTH via NEBULIZER EVERY 8 HOURS NEEDED for SHORTNESS OF BREATH lisinopril 5 mg tablet Take 1 tablet (5 mg) by mouth in the morning. 90 tablet 2 metoprolol tartrate (Lopressor) 25 mg tablet Take 1 tablet (25 mg) by mouth in the morning and at bedtime. 180 tablet 3 No current facility-administered medications on file prior to visit. ROS: Constitutional: Positive for malaise/fatigue. Musculoskeletal: Positive for arthritis, back pain and joint pain. All other systems reviewed and are negative. Physical Exam: Constitutional General Appearance: well-nourished, well-developed, appears stated age Level of Distress: comfortable Psychiatric Mental Status: alert, normal affect Orientation: oriented to time, place, and person Insight: good judgement Eyes Lids and Conjunctivae: non-injected, no xanthelasma ENMT Ears: no lesions on external ear Nose: no lesions on external nose Oropharynx: no cyanosis, no pallor Neck Neck: supple, trachea midline Carotid Arteries: bilateral normal upstroke, no bruits Jugular Veins: normal jugular venous pressure Thyroid: not enlarged Lungs Respiratory Effort: unlabored Chest Exam: normal curvature, no thoracic deformity Auscultation: clear, no wheezing, no rales, no rhonchi Cardiovascular Rate And Rhythm: regular Heart Sounds: normal S1, normal s2, no gallop Systolic Murmur: not heard Diastolic Murmur: not heard Extremities: no cyanosis, no edema, no peripheral signs of emboli Peripheral Pulses Radial Pulse: normal Abdomen Inspection and Palpation: soft, non distended, no bruit, non tender Musculoskeletal Inspection: no joint swelling Neurologic Gait: normal gait Skin Inspection and Palpation: warm and dry Nails: no clubbing Labs: @LABRESULTS@ No results found for: CHOLESTEROL TOTAL, HDL, LDL CALC, LDL DIRECT, TRIGLYCERIDES, TSH, T3 TOTAL, T4 TOTAL, THYROID PEROXIDASE AB, BNP, BNP, BNP Recent Labs 09/13/2022 WBC 10.9, hemoglobin 14.5, hematocrit 44.5, platelets 298 Sodium 140, potassium 4.4, chloride 105, CO2 27.5, BUN 18, creatinine 1.67 06/23/2022 CBC: WBC 19.1, hemoglobin 14.5, hematocrit 43.6, platelets 279 CMP: Sodium 137, potassium 4.0, chloride 100, CO2 21.5, creatinine 1.89, GFR 36 (more content not included)... [facility] 09-14-2022 Note Cardiology Clinic No te Subjective Ede Davies is a 62 y.o. year old male patient with ascending aortic aneurysm, valve repair, and hypertension seen in ED follow-up for new onset atrial fibrillation. He felt poorly yesterday and presented to the [facility] emergency department where he was found to be in rate controlled atrial fibrillation. He reports experiencing left flank symptoms consistent with his prior urinary tract infection prior to ED presentation. He reports feeling poorly intermittently, having to take aspirin once in a while unable to describe symptoms, reports his general malaise/fatigue. Denies chest pain, shortness of breath or palpitations. Patient Active Problem List Diagnosis Aneurysm of thoracic aorta (CMS/HCC) Chronic obstructive lung disease (CMS/HCC) History of repair of mitral valve Hypertensive disorder Solitary pulmonary nodule Family History Problem Relation Name Age of Onset Other (CABG) Mother Coronary artery disease Mother Social History Tobacco Use Smoking status: Never Smokeless tobacco: Never Substance Use Topics Alcohol use: Not Currently HPI Ede is seen in follow-up. He is a 62-year-old man with prior history of hypertension, aneurysm of the ascending aorta, and mitral valve repair in [address] [facility]. Visit of 07/25/2018: Mr Davies is seen as new patient. He has history of ascending aortic aneurysm, measured 4 cm in 2013 by CTA at the [facility]. He most recently had a CTA on 03/25/2018 in [facility] that showed it to be 4.7 cm, stable from the study of 12/10/2016. He was also found to have lung nodules that he is to follow up with Dr Skaggs for that. He has COPD and is on treatment. 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 He has no chest pain. He has moderate dyspnea on exertion, relived by rest and by inhalers. He has no leg swelling. No claudication. Update: 07/28/2022 He reports he is doing quite well without cardiac concerns. Reviewed recent chest CTA which showed stable thoracic aneurysm. Reports good BP control. Review of Systems Constitutional: Positive for malaise/fatigue. Cardiovascular: Negative for chest pain, claudication, dyspnea on exertion, irregular heartbeat, leg swelling, near-syncope, orthopnea, palpitations, paroxysmal nocturnal dyspnea and syncope. Objective Visit Vitals BP 136/82 (BP Location: Right arm, Patient Position: Sitting) Pulse 64 Ht 1.803 m (5' 11 ) Wt 112 kg (246 lb) SpO2 96% BMI 34.31 kg/m??? Smoking Status Never BSA 2.37 m??? Physical Exam General: Awake, alert, good spirits. NAD Pulm: Breath sounds clear to ascultation bilaterally with no wheeze, crackles or rhonchi Cards: Regular rate and rhythm, S1, S2. No S3 or S4 gallop. Murmur: none Abd: Soft, Nontender, physiologic bowel sounds are present Extr: Lower extremity edema: None. Skin: warm, dry, well perfused Neuro: A&Ox3, No gross deficits Allergies Allergies Allergen Reactions Azithromycin Medications Current Outpatient Medications: apixaban (Eliquis) 5 mg tablet, Take 1 tablet (5 mg) by mouth in the morning and at bedtime., Disp: 180 tablet, Rfl: 3 aspirin 81 mg chewable tablet, Chew 1 tablet every day by oral route., Disp: , Rfl: ipratropium-albuteroL (Duo-Neb) 0.5-2.5 mg/3 mL nebulizer solution, INHALE 1 vial BY MOUTH via NEBULIZER EVERY 8 HOURS NEEDED for SHORTNESS OF BREATH, Disp: , Rfl: lisinopril 5 mg tablet, Take 1 tablet (5 mg) by mouth in the morning., Disp: 90 tablet, Rfl: 2 metoprolol tartrate (Lopressor) 25 mg tablet, Take 1 tablet (25 mg) by mouth in the morning and at bedtime., Disp: 180 tablet, Rfl: 3 Recent Labs 09/13/2022 WBC 10.9, hemoglobin 14.5, hematocrit 44.5, platelets 298 Sodium 140, potassium 4.4, chloride 105, CO2 27.5, BUN 18, creatinine 1.67 06/23/2022 CBC: WBC 19.1, hemoglobin 14.5, hematocrit 43.6, platelets 279 CMP: Sodium 137, potassium 4.0, chloride 100, CO2 21.5, creatinine 1.89, GFR 36% 01/18/2022 Sodium 134, potassium 4.1, chloride 101, CO2 20.9, glucose 110, BUN 23, serum creatinine 1.55, GFR 46% Imaging and other tests Chest CTA: 07/24/2022 4.3 cm aneurysm of the ascending thoracic aorta Stable 8 mm left lower lobe pulmonary nodule Echocardiogram 07/26/2020: 1. Low normal LV systolic function- 50-55% 2. Normal RV ventricular systolic function 3. Mitral valve s/p repair, mild MV stenosis- mean gradient 5 mmhg 4. Normal right sided pressures 5. no pericardial effusion Stress test 08/14/2019: Abnormal myocardial perfusion study. There is a small moderate intensity apical perfusion defect without reversibility and with associated regional motion abnormalities suggestive of a prior apical infarct without superimposed ischemia. Otherwise normal left ventricular function ejection fraction estimated at 60%. No TID noted. Treadmill stress test 08/19/2018: - Overall interpretation: Normal ECG stress test - intermediate R (more content not included)... [facility] 09-13-2022 Note PROCEDURE: CT ABD/PE LVIS WO CON DATE: 09/13/2022 12:22 PM CDT COMPARISONS: 06/23/2022 CLINICAL INDICATION: 62 years Male Left flank pain TECHNIQUE: Axial images were obtained. Coronal and sagittal reformations were created. Individualized dose optimization technique was used for the procedure performed. FINDINGS: There is a 10 mm nodule of the posterior lower left chest which is stable from multiple previous exams even dating back to 12/16/2019. Its stability is consistent with benign finding. The lower lungs are otherwise clear. There are no focal hepatic abnormalities. The liver has a normal appearance on these unenhanced images. The spleen, pancreas and adrenals are within normal limits. The gallbladder and biliary tree appear normal. There is no evidence of significant renal cysts. No renal masses are identified on these unenhanced images. There was evidence of heterogeneity of the left kidney on postcontrast images done 06/23/2022. These findings cannot be identified on today's unenhanced images. Correlation with clinical history is necessary with respect to these previous findings. If there is concern for ongoing findings of this left kidney based on clinical history, a follow-up CT with contrast should be carried out. There is no hydronephrosis. There is no evidence of nephrolithiasis. There is no ureterolithiasis. The urinary bladder shows no abnormalities on these unenhanced images. The aorta is normal in caliber. The inferior vena cava appears unremarkable. There is no evidence of abdominal or pelvic adenopathy. The visualized bowel loops show no abnormal dilatation or wall thickening. There is no evidence of colitis, enteritis or appendicitis. There is no evidence of significant free fluid, no evidence of abnormal fluid collections and no evidence of free intraperitoneal air. No significant abnormalities are identified of the visualized osseous structures. IMPRESSION: There is no evidence of significant abnormalities on this CT of the abdomen and pelvis. On the previous enhanced studies there was abnormality of the left kidney. This cannot be seen on today's unenhanced images as discussed above. Follow-up imaging as clinically felt necessary. Today's exam does not show evidence of nephrolithiasis, ureterolithiasis or hydronephrosis. Electronically authenticated by: IGOR BOB Date: 2022-09-13 14:23 [facility] 06-23-2022 Note Indication: Divertic ulitis. Comparison: 05/22/2019 exam. Procedure: Axial images were made from the diaphragms through the symphysis pubis. No oral contrast was given prior to scanning. 100 mL Omnipaque 300 Intravenous contrast was given. Dose reduction techniques were achieved by using automated exposure control and/or adjustment of mA and/or kV according to patient size and/or use of iterative reconstruction technique. Findings: Liver/Biliary System: No liver masses. Mild diffuse fatty infiltration of the liver. No intra or extrahepatic biliary dilatation. No gallstones or cholecystitis. Pancreas/Spleen: No pancreatic masses. No pancreatic ductal dilatation. No evidence of acute pancreatitis. No splenomegaly or splenic lesions. Kidneys/Adrenals: Diffusely heterogeneous nephrogram bilaterally, more marked in the left kidney, concerning for pyelonephritis. Please correlate clinically. No renal stones or hydronephrosis. No adrenal nodules. Aorta/Vessels: No evidence of aortic aneurysm. Patent renal arteries bilaterally. Patent SMA, celiac artery and DOTTIE. Patent IVC, renal veins, hepatic veins and portal venous system. Bowel/Fluid/Nodes: No bowel dilatation. No bowel wall thickening. Colonic diverticulosis with no evidence of diverticulitis. Small hiatus hernia. Normal appendix. No ascites or fluid collections. No adenopathy. Lung bases: Clear. Other findings: No aggressive osseous lesions are seen. Pelvis: No pelvic masses or adenopathy. Bladder, seminal vesicles and prostate are unremarkable. Small left fat-containing inguinal hernia. Other Findings: No aggressive osseous lesions are seen. Impression: 1. Diffusely heterogeneous nephrogram bilaterally, more marked in the left kidney, concerning for pyelonephritis. Please correlate clinically. I would recommend follow-up CT in 2 months to confirm resolution of findings in the kidneys and to rule out less likely possibility of infiltrative process in the kidneys which may give same picture. 2. Colonic diverticulosis with no evidence of diverticulitis. 3. Mild diffuse fatty infiltration of the liver. Small hiatus hernia. Small left fat-containing inguinal hernia. Electronically authenticated by: BRENDA PALMA Date: 2022-06-23 20:47 [facility] Evaluation + Plan note No data available for this section [facility] Hospital Discharge instructions No data available for this section [facility] Progress note No data available for this section [facility] Summary Purpose Family History No Family History Records FoundNo Family History Records FoundNo Family History Records FoundNo Family History Records FoundNo Family History Records FoundNo Family History Records Found Advance Directives No Advanced Directives Records FoundNo Advanced Directives Records FoundNo Advanced Directives Records FoundNo Advanced Directives Records FoundNo Advanced Directives Records FoundNo Advanced Directives Records Found Additional Source Comments (unrecognized sect ion and content) No Status Records FoundNo Status Records FoundNo Status Records FoundNo Status Records FoundNo Status Records FoundNo Status Records Found INFORMATION SOURCE (unrecogn ized section and content) DATE CREATED AUTHOR 11/09/2017 [facility] DATE CREATED AUTHOR AUTHOR'S ORGANIZ ATION 07/28/2018 [facility] DATE CREATED AUTHOR AUTHOR'S ORGANIZ ATION 08/25/2018 [facility] DATE CREATED AUTHOR AUTHOR'S ORGANIZ ATION 10/02/2022 [facility] DATE CREATED AUTHOR AUTHOR'S ORGANIZ ATION 11/24/2022 [facility] DATE CREATED AUTHOR AUTHOR'S ORGANIZ ATION 08/02/2023 [facility] Patient Care team informatio n (unrecognized section and content) Personnel Name: Jake St DO Address: Address: [address] [place] [address] FOR RECORDS PERTAINING TO PATIENTS WHO ARE OR HAVE BEEN ENROLLED IN A CHEMICAL DEPENDENCY/SUBSTANCEABUSE PROGRAM, SOME INFORMATION MAY BE OMITTED. This clinical summary was aggregated from multiple sources. Caution should be exercised in using it in the provision of clinical care. This summary normalizes information from multiple sources, and as a consequence, information in this document may materially change the coding, format and clinical context of patient data. In addition, data may be omitted in some cases. CLINICAL DECISIONS SHOULD BE BASED ON THE PRIMARY CLINICAL RECORDS. [facility] [employer] [facility]. provides no warranty or guarantee of the accuracy or completeness of information in this document.
== END 2023-08-09 08:03 | disposition home or self-care (01) ==
LOC: SLEEP 08:02
PROVIDERS: PCP Internal Medicine Cardiovascular Disease; Visit Provider Internal Medicine Cardiovascular Disease
DX: G47.33 Obstructive sleep apnea (adult) (pediatric) (principal)

== ENCOUNTER 2023-08-17 20:57 | Outpatient (OUT) | payer OTHER, SELFPAY ==
--- OUTSIDE RECORDS SUMMARY | 2023-08-17 21:00 | XMS_ITS | CCD ---
Author Organization [facility] Care Team Providers Care Conference Producer Name Role Phone COMPANY, [employer] Unavailable Unavailable COMPANY, [employer] Unavailable Unavailable NO, DR Unavailable Unavailable PHYSICIAN, DEFAULT Admitting Unavailable PHYSICIAN, DEFAULT Attending Unavailable KIRSTIN HUGHES Admitting Unavailable KIRSTIN HUGHES Attending Unavailable KIRSTIN HUGHES Admitting Unavailable KIRSTIN HUGHES Attending Unavailable MISC, DR HSIEH Attending Unavailable MISC, DR HSIEH Consulting Unavailable MISC, DR HSIEH Admitting Unavailable HOUSE, DR CONNORS Primary Care Unavailable MACIEL, DR CONNORS Consulting Unavailable MACIEL, DR CONNORS Primary Care Unavailable MACIEL, DR CONNORS Admitting Unavailable HOUSE, DR CONNORS Attending Unavailable GASSVILLE, DR ROSY Muhammad Consulting Unavailable HOUSE, DR CONNORS Primary Care Unavailable MOUKARBEL, DR BERNSTEIN Attending Unavailable MOUKARBEL, DR BERNSTEIN Admitting Unavailable MOUKARBEL, DR BERNSTEIN Consulting Unavailable MISC, DR HSIEH Attending Unavailable MISC, DR HSIEH Admitting Unavailable HOUSE, DR CONNORS Primary Care Unavailable SHERYL ., MIHAI Attending Unavailable SHERYL ., MIHAI Consulting Unavailable SHERYL ., MIHAI Admitting Unavailable MACIEL, DR CONNORS Primary Care Unavailable IGOR BOB Consulting Unavailable WILLI, DR KOKO Canales Admitting Unavailsandor ST, DR CONNORS Primary Care Unavailable SHANTHI ., DARRICK TIMMONS Consulting Unavailsandor MÁRQUEZ, DR KOKO Canales Attending Unavailabl BRENDA Rees Consulting Unavailable ERICA ., DR PECK Attending Unavailable ERICA ., DR PECK Consulting Unavailable ERICA ., DR PECK Admitting Unavailable MACIEL, DR CONNORS Primary Care Unavailable MACIEL, DR CONNORS Primary Care Unavailable WILLI, DR KOKO Canales Attending Unavailsandor MÁRQUEZ, DR KOKO Canales Consulting Unavailsandor MÁRQUEZ, DR KOKO Canales Admitting UnavailRANULFO Schultz Consulting Unavailable Jake St Primary Care Physician [phone] Amy Goldstein Referring Unavailable Danycinthias, Amy Pearson Attending Unavailable Amy Goldstein Admitting Unavailable NIKHIL BENSON Referring Unavailable CARRIZO, LIZETH Referring Unavailable MARK, LIZETH Attending Unavailable DENISE HIGGINS Attending Unavailable NIKHIL BENSON Attending Unavailable NIKHIL BENSON Admitting Unavailable DIANE, NIKHIL Attending Unavailable NIKHIL BENSON Attending Unavailable AURELIO COYNE Attending Unavailable DIANE, NIKHIL Referring Unavailable DIANE, NIKHIL Referring Unavailable Allergies Allergy Classification Reported Allergen(s) Allergy Type Date of Onset Reaction(s) Facility (1 source) Erythromycin Drug Allergy 02-07-2015 [facility] Repository (1 source) Niacin Drug Allergy 05-11-2014 [facility] Repository (1 source) Azithromycin; Translations: [AZITHROMYCIN] Drug Allergy 07-28-2022 [facility] Repository Problems Active Problems Problem Classification Problem [...] 06-23-2022 Episodic Other aftercare (1 source) 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; Translations: [OTH RESIDENTIAL CURRENT DRUG THERAPY] Onset: 09-15-2022 Episodic Other [...] Prep for Procedureon 024 Prep for Procedure [id number] Lilibeth Davies cky D 1960 M Date Provider Department Center 07/28/20231986-[facility] VASC LAB CT [facility] Family History Problem Relation Age of Onset Other Mother Coronary artery disease Mother Family Status - Relation Status Age at Mother Normal [facility] Prep for Procedureon 024 Prep for Procedure [id number] Lilibeth Davies cky D 1960 M Date Provider Department Center 07/22/20231986-WILLIS RUBALCAVA [facility] VASC LAB CT Heart[facility]AS Family History Problem Relation Age of Onset Other Mother Coronary artery disease Mother Family Status - Relation Status Age at Mother Normal [facility] Prep for Procedureon 024 Prep for Procedure [id number] Lilibeth Davies cky D 1960 M Date Provider Department Center 06/10/2023 1987-[facility]IS [facility]AL[facility] VASC LAB CT [facility] Family History Problem Relation Age of Onset Other Mother Coronary artery disease Mother Family Status - Relation Status Age at Mother Normal [facility] Orders Onlyon 06-08-2023 Orders Only [id number] Lilibeth Davies cky D 1960 M Date Provider Department Center 06/08/2023 89Eddie-MARIBETH ROBLERO [facility] Family History Problem Relation Age of Onset Other Mother Coronary artery disease Mother Family Status - Relation Status Age at Mother Normal [facility] Telemedicineon 06-08-2023 Telemedicine [id number] iLlibeth Davies cky D 1960 M Date Provider Department Center 06/08/2023 241-NIKHIL BENSON [facility] Family History Problem Relation Age of Onset Other Mother Coronary artery disease Mother Family Status - Relation Status Age at Mother Level of Service:90662 NC PHYS/QHP TELEPHONE EVALUATION 5-10 MIN Normal [facility] BASIC METABOLIC PANELon 12- Anion gap [Moles/Vol] 11 mmol/L Normal 7-20 [facility] Comment on above: Performed By: #### L AB15 ####[facility] (BEAKER)[address] [place] [address] Calcium [Mass/Vol] 8.1 mg/dL Low 8.6-10.3 [facility] Comment on above: Performed By: #### L AB15 ####[facility] ([facility])[address] [place] [address] Chloride [Moles/Vol] 109 mmol/L High 98-107 [facility] Comment on above: Performed By: #### L AB15 ####[facility] ([facility]ER)[address] [place] [address] CO2 [Moles/Vol] 22 mmol/L Normal 21-31 [facility] Comment on above: Performed By: #### L AB15 ####[facility] ([facility])[address] [place] [address] Creatinine [Mass/Vol] 1.38 mg/dL High 0.70-1.30 [facility] Comment on above: Performed By: #### L AB15 ####[facility] ([facility])[address] [place] [address] Performed By: #### L [id number] ####[facility] ([facility])[address] [place] [address] GLOMERULAR FILTRATION RATE ML/MIN/1.73 SQ M.PREDICTED 56.7 mL/min/1.73m*2 Low >60.0 [facility] Comment on above: Result Comment: [facility]???s estimated glomerular filtration rate (eGFR) will no [...] of individuals. Performed By: #### L AB15 ####[facility] ([facility])[address] [place] [address] Performed By: #### L [id number] ####[facility] ([facility])[address] [place] [address] Glucose [Mass/Vol] 91 mg/dL Normal 70-100 [facility] Comment on above: Performed By: #### L AB15 ####[facility] ([facility])[address] [place] [address] Potassium [Moles/Vol] 4.1 mmol/L Normal 3.5-5.1 [facility] Comment on above: Performed By: #### L AB15 ####[facility] ([facility]ER)[address] [place] [address] Sodium [Moles/Vol] 138 mmol/L Normal 136-145 [facility] Comment on above: Performed By: #### L AB15 ####[facility] ([facility]ER)[address] [place] [address] Urea nitrogen [Mass/Vol] 16 mg/dL Normal 7-25 [facility] Comment on above: Performed By: #### L AB15 ####[facility] [place] [address] UREA NITROGEN/CREATININ E (MASS RATIO) IN SER/PLAS 11.6 Normal [facility] Comment on above: Performed By: #### L AB15 ####[facility] ([facility])[address] [place] [address] CBCon 05-10-2023 Erythrocyte distribution width (RBC) [Ratio] 13.9 % Normal 11.5-15.0 [facility] Comment on above: Performed By: #### L AB294 ####[facility] ([facility])[address] [place] [address] ERYTHROCYTE MEAN CORPUSCULAR HEMOGLOBIN CONCENTRATION (G/DL) BY AUTOMATED 32.8 g/dL Normal 32.0-35.0 [facility] Comment on above: Performed By: #### L [id number] ####[facility] ([facility])[address] [place], [place] [address] Hematocrit (Bld) [Volume fraction] 44.8 % Normal 39.0-55.0 [facility] Comment on above: Performed By: #### L [id number] ####[facility] ([facility] [place], [place] [address] Hemoglobin (Bld) [Mass/Vol] 14.7 g/dL Normal 13.0-17.0 [facility] Comment on above: Performed By: #### L AB294 ####[facility] ([facility]ER)[address] [place] [address] MCH (RBC) [Entitic mass] 29.3 pg Normal 27.0-33.0 [facility] Comment on above: Performed By: #### L AB294 ####[facility] ([facility])[address] [place] [address] MCV (RBC) [Entitic vol] 89.4 fL Normal 82.0-98.0 [facility] Comment on above: Performed By: #### L [id number] ####[facility] ([facility])[address] [place] [address] PLATELETS (10*3/UL) IN BLOOD AUTOMATED COUNT 256 10*3/uL Normal 150-400 [facility] Comment on above: Performed By: #### L [id number] ####[facility] ([facility])[address] [place] [address] RBC (Bld) [#/Vol] 5.01 10*6/uL Normal 4.20-5.70 [facility] Comment on above: Performed By: #### L [id number] ####[facility] ([facility])[address] [place] [address] WBC (Bld) [#/Vol] 6.76 10*3/uL Normal 4.00-10.60 [facility] Comment on above: Performed By: #### L AB294 ####[facility] ([facility])[address] [place] [address] HP 05-10-2023 --- Attestation signed by Nikhil Benson [...] are no changes to the H&P. Normal [facility] LIPID PANELon 05-10-2023 CHOL/HDL 5.4 mg/dL Normal [facility] Comment on above: Performed By: #### L AB18 #### [facility] ([facility]) [address] [place] [address] Cholesterol [Mass/Vol] 135 mg/dL Normal 120-200 [facility] Comment on above: Performed By: #### L AB18 #### [facility] ([facility]) [address] [place] [address] Magnesium [Mass/Vol] 126 mg/dL Normal 40-149 [facility] Comment on above: Result Comment: TRIG LYCERIDE REFERENCE RANGE: 20 YEARS AND OLDER CARDIOVASCULAR RISK LESS THAN 150 mg/dL LOW RISK 150 TO 199 mg/dL BORDERLINE RISK 200 mg/dL AND GREATER HIGH RISK Performed By: #### L AB18 #### [facility] ([facility]) [address] [place] [address] Magnesium [Mass/Vol] 85 mg/dL Normal 0-160 [facility] Comment on above: Performed By: #### L AB18 #### [facility] ([employer]) [address] [place] [address] Magnesium [Mass/Vol] 25 mg/dL Normal 23-92 [facility] Comment on above: Performed By: #### L AB18 #### [facility] ([employer]) [address] [place] [address] NON HDL CHOL. (LDL+VLDL) 110 Normal [facility] Comment on above: Performed By: #### L AB18 #### [facility] ([facility]) [address] [place] [address] TOTAL VLDL-C 25 mg/dL Normal 0-40 [facility] Comment on above: Performed By: #### L AB18 #### [facility] ([facility]) [address] [place] [address] NURSNOTEon 05-10-2023 NURSNOTE RN educated pt on d/ c instructions. RN encouraged pt to voice any questions or concerns. Pt verbalizes no questions or concerns at this time. Pt was wheeled off of unit with all of belongings. Normal [facility] TSH3 REFLEX TO FT4on 023 THYROTROPIN (MIU/L) IN SER/PLAS BY DETECTION LIMIT <= 0.05 MIU/L 5.16 mIU/L Normal 0.34-5.60 [facility] Comment on above: Performed By: #### L [id number] #### [facility] ([facility]) [address] [place] [address] HPon 04-12-2023 [facility] Electrophysiology Consult Note Reason for visit: 6 [...] ascending aortic aneurysm, mitral valve repair at [facility] 2004 and hypertension seen in ED follow-up for new onset atrial fibrillation. He presented to the [facility] emergency department where he was found [...] found for: (more content not included)... Normal [facility] Office Visiton 04-12-2023 Follow-up visit [id number] Lilibeth Davies 1960 M Date Provider Department Center 04/12/2023 Jose M-AURELIO COYNE Family History Problem Relation Age of Onset Other Mother Coronary artery disease Mother Family Status - Relation Status Age at Mother Level of Service:31655 NC OFFICE/OUTPATIENT ESTABLISHED MOD MDM 30-39 MIN Normal [facility] CT Maxillofacial w/o Contras ton 11-23-2022 CT [...] Kamara MD Transcribed by: ERWIN Technologist: [place] [facility] Consent for Treatmenton Consent for Treatment [id number] D:127 [facility] Physician Orderon 11-05-2022 Physician Order [id number] D:127 [facility] Office Visiton 10-20-2022 Follow-up visit [id number] Lilibeth Daviesy D 1960 Date Provider Department Center 10/20/2022 84212-OILQENGLIZETH FLORES HVCVASENDAyad [facility] Family History Problem Relation Age of Onset Other Mother Coronary artery disease Mother Family Status - Relation Status Age at Mother Level of Service:10028 NC IP/OBS CONSLTJ NEW/EST PT HIGH MDM 80 MINUTES Reason for Visit and Comments: New Patient [632] - Thoracic Aortic Aneurysm Normal [facility] Orders Onlyon 10-13-2022 Orders Only [id number] Lilibeth Davies D 1960 Date Provider Department Center 10/13/2022 Wanda8-MADHAVI MORENO LAURIE Day Family History Problem Relation Age of Onset Other Mother Coronary artery disease Mother Family Status - Relation Status Age at Mother Normal [facility] Office Visiton 09-22-2022 Follow-up visit [id number] Lilibeth Davies D 1960 Date Provider Department Center 09/22/2022 NIKHIL SANDERS [facility] Family History Problem Relation Age of Onset Other Mother Coronary artery disease Mother Family Status - Relation Status Age at Mother Level of Service:50752 NC OFFICE/OUTPATIENT [facility] 60-74 MINUTES Reason for Visit and Comments: Atrial Fibrillation [80] Normal [facility] ECHOCARDIO M/2D COMPLETEon 0 09-21-2022 ECHOCARDIO M/2D COMPLETE Patient: EDE DAVIES Exam Date: 09/21/2022 : 1960 Gender:M Ordering : MRS. DENISE HIGGINS [employer] Admission #: [id number] Family : DR JAKE ST D.[place] Order #: [id number] CLICK HERE TO VIEW EXAM ECHOCARDIOGRAM REPORT [...] Nikhil Benson on 09/22/2022 at 12:18 Normal [facility] Office Visiton 09-14-2022 Follow-up visit [id number] Lilibeth Davies 1960 M Date Provider Department Center 09/14/2022 07604-LRXQWOVZHDENISE HIGGINS [facility] Family History Problem Relation Age of Onset Other Mother Coronary artery disease Mother Family Status - Relation Status Age at Mother Level of Service:39304 NC OFFICE/OUTPATIENT ESTABLISHED MOD MDM 30-39 MIN Reason for Visit and Comments: Atrial Fibrillation [80] Hypertension [245175] Valve Disorder [8782] Normal [facility] CBC AUTO DIFFon 09-13-2022 BASO # 0.1 103/ul Normal 0.0-0.1 [facility] Comment on above: Performed By: #### C BC #### [facility] [address] [address] [address] Reynaldo Liu Basophils/100 WBC (Bld) 0.6 % Normal 0.2-2.0 [facility] Comment on above: Performed By: #### C BC #### [facility] [address] [address] [address] Reynaldo Liu EO # 0.5 103/ul Normal 0.0-0.7 [facility] Comment on above: Performed By: #### C BC #### [facility] [address] [place] [address] Dr. Reynaldo Liu Eosinophils/100 WBC (Bld) 4.4 % Normal 0.9-7.0 [facility] Comment on above: Performed By: #### C BC #### [facility] [address] [address] [address] Reynaldo Liu Erythrocyte distribution width (RBC) [Ratio] 13.5 % Normal 11.0-15.0 [facility] Comment on above: Performed By: #### C BC #### [facility] [address] [place] [address] Dr. Reynaldo Liu Hematocrit (Bld) [Volume fraction] 44.5 % Normal 42.0-54.0 [facility] Comment on above: Performed By: #### C BC #### [facility] [address] [address] [address] Reynaldo Liu Hemoglobin (Bld) [Mass/Vol] 14.5 g/dL Normal 14.0-18.0 [facility] Comment on above: Performed By: #### C BC #### [facility] [address] [address] [address] Reynaldo Liu IG # 0.03 10e3/ul Normal 0.00-0.03 [facility] Comment on above: Performed By: #### C BC #### [facility] [address] [place] [address] Dr. Reynaldo Liu IG % 0.3 % Normal 0.0-0.5 [facility] Comment on above: Performed By: #### C BC #### [facility] [address] [place] [address] Dr. Reynaldo Liu LYMPH # 2.7 103/ul Normal 1.2-3.8 [facility] Comment on above: Performed By: #### C BC #### [facility] [address] [place] [address] Dr. Reynaldo Liu Lymphocytes/100 WBC (Bld) 25.0 % Normal 20.5-60.0 [facility] Comment on above: Performed By: #### C BC #### [facility] [address] [place] [address] Dr. Reynaldo Liu MANUAL DIFF REQ NO Normal [facility] Comment on above: Performed By: #### C BC #### [facility] [address] [place] [address] Dr. Reynaldo Liu MCH (RBC) [Entitic mass] 29.6 pg Normal 25.9-34.0 [facility] Comment on above: Performed By: #### C BC #### [facility] [address] [place] [address] Dr. Reynaldo Liu MCHC (RBC) [Mass/Vol] 32.6 g/dL Normal 29.9-35.2 [facility] Comment on above: Performed By: #### C BC #### [facility] [address] [place] [address] Dr. Reynaldo Liu MCV (RBC) [Entitic vol] 90.8 fL Normal 80.0-94.0 [facility] Comment on above: Performed By: #### C BC #### [facility] [address] [place] [address] Dr. Reynaldo Liu MONO # 1.0 103/ul Critically high 0.3-0.8 [facility] Comment on above: Performed By: #### C BC #### [facility] [address] [place] [address] Dr. Reynaldo Liu Monocytes/100 WBC (Bld) 9.3 % Normal 1.7-12.0 [facility] Comment on above: Performed By: #### C BC #### [facility] [address] [address] [address] Reynaldo Liu NEUT # 6.6 103/ul Critically high 1.4-6.5 [facility] Comment on above: Performed By: #### C BC #### [facility] [address] [address] [address] Reynaldo Liu Neutrophils/100 WBC (Bld) 60.4 % Normal 43.0-75.0 [facility] Comment on above: Performed By: #### C BC #### [facility] [address] [place] [address] Dr. Reynaldo Liu Platelet mean volume (Bld) [Entitic vol] 10.6 fL Normal 9.5-13.5 [facility] Comment on above: Performed By: #### C BC #### [facility] [address] [place] [address] Dr. Reynaldo Liu PLT 298 103/ul Normal 150-450 [facility] Comment on above: Performed By: #### C BC #### [facility] [address] [place] [address] Dr. Reynaldo Liu RBC 4.90 106/ul Normal 4.70-6.10 [facility] Comment on above: Performed By: #### C BC #### [facility] [address] [place] [address] Dr. Reynaldo Liu WBC 10.9 103/ul Normal 4.0-11.0 [facility] Comment on above: Performed By: #### C BC #### [facility] [address] [place], [place] [address] Dr. Reynaldo Liu ER URINE PROFILEon 3 Bilirubin Ql (U) Negative Normal NEGATIVE [facility] Comment on above: Performed By: #### E RUR ####[facility] [address] [address]Dr. Reynaldo Liu Clarity (U) CLEAR Normal CLEAR [facility] Comment on above: Performed By: #### E RUR ####[facility] [address] [place], [place] [address]Dr. Reynaldo Liu Color (U) LT. YELLOW Normal YELLOW [facility] Comment on above: Performed By: #### E RUR ####[facility] [address] [place], [place] [address]Dr. Reynaldo Liu ERUAHD A micrscopic examination will be performed if indicated. Normal [facility] Comment on above: Performed By: #### E RUR ####[facility] [address] [place], [place] [address]Dr. Randimolly Liu Glucose Ql (U) Negative Normal NEGATIVE The [facility] Comment on above: Performed By: #### E RUR ####[facility] [address] [place], [place] [address]Dr. Reynaldo Liu Hemoglobin Ql (U) Negative Normal NEGATIVE [facility] Comment on above: Performed By: #### E RUR ####[facility] [address] [place], [place] [address]Dr. Reynaldo Liu Ketones Ql (U) Negative Normal NEGATIVE [facility] Comment on above: Performed By: #### E RUR ####[facility] [address] [place], [place] [address]Dr. Reynaldo Liu LEUKOCYTES Negative Normal NEGATIVE [facility] Comment on above: Performed By: #### E RUR ####[facility] [address] [place], [place] [address]Dr. Reynaldo Liu Nitrite Ql (U) Negative Normal NEGATIVE The [facility] Comment on above: Performed By: #### E RUR ####[facility] [address] [place], [place] [address]Dr. Reynaldo Liu pH (U) 6.5 [pH] Normal 5-9 [facility] Comment on above: Performed By: #### E RUR ####[facility] [address] [place], [place] [address]Dr. Reynaldo Liu SPEC GRAVITY 1.015 Normal 1.005-<=1.025 [facility] Comment on above: Performed By: #### E RUR ####[facility] [address] [address]Dr. Reynaldo Liu UA PROTEIN Negative Normal NEGATIVE/ TRACE [facility] Comment on above: Performed By: #### E RUR ####[facility] [address] [address]Dr. Reynaldo Liu UR MICRO IND NOT INDICATED Normal [facility] Comment on above: Performed By: #### E RUR ####[facility] [address] [address]Dr. Reyanldo Liu Urobilinogen Qn (U) 0.2 {Pastor'U}/dL Normal 0.2 - 1.0 [facility] Comment on above: Performed By: #### E RUR ####[facility] [address] [address]Dr. Reynaldo Liu PROF CHEM 8 (BAS METB)on Anion gap [Moles/Vol] 11.9 mmol/L Normal [facility] Comment on above: Performed By: #### B MP #### [facility] [address] [address] [address] Reynaldo Liu Calcium [Mass/Vol] 8.7 mg/dL Normal 8.5-10.1 [facility] Comment on above: Performed By: #### B MP #### [facility] [address] [address] [address] Reynaldo Liu Chloride [Moles/Vol] 105 mmol/L Normal 98-107 [facility] Comment on above: Performed By: #### B MP #### [facility] [address] [address] [address] Reynaldo Liu CO2 [Moles/Vol] 27.5 mmol/L Normal 21.0-32.0 [facility] Comment on above: Performed By: #### B MP #### [facility] [address] [address] [address] Reynaldo Liu Creatinine [Mass/Vol] 1.67 mg/dL Critically high 0.70-1.30 [facility] Comment on above: Performed By: #### B MP #### [facility] [address] [address] [address] Reynaldo Liu EGFR-AF SPANISH 50 mL/min/1.73m2 Critically low >=60 [facility] Comment on above: Performed By: #### B MP #### [facility] [address] [address] [address] Reynaldo Liu EGFR-NON AF SPANISH 42 mL/min/1.73m2 Critically low >=60 [facility] Comment on above: Performed By: #### B MP #### [facility] [address] [address] [address] Reynaldo Liu Glucose [Mass/Vol] 96 mg/dL Normal 74-106 [facility] Comment on above: Performed By: #### B MP #### [facility] [address] [address] [address] Reynaldo Liu Potassium [Moles/Vol] 4.4 mmol/L Normal 3.5-5.1 [facility] Comment on above: Performed By: #### B MP #### [facility] Laboratory [address] [address] [address] Reynaldo Liu Sodium [Moles/Vol] 140 mmol/L Normal 136-145 [facility] Comment on above: Performed By: #### B MP #### [facility] [address] [address] [address] Reynaldo Liu Urea nitrogen [Mass/Vol] 18.0 mg/dL Normal 7.0-18.0 [facility] Comment on above: Performed By: #### B MP #### [facility] [address] [address] [address] Reynaldo Liu Urea nitrogen/Creatinin e [Mass ratio] 10.8 mg/mg Normal [facility] Comment on above: Performed By: #### B MP #### [facility] [address] [address] [address] Reynaldo Liu CREATININEon 07-24-2022 Creatinine [Mass/Vol] 1.34 mg/dL Critically high 0.70-1.30 [facility] Comment on above: Performed By: #### C JAQUI #### [facility] [address] [address] [address] Reynaldo Liu EGFR-AF SPANISH >60 Normal >=60 [facility] Comment on above: Performed By: #### C JAQUI #### [facility] [address] [place], [place] [address] Dr. Reynaldo Liu EGFR-NON AF SPANISH 54 mL/min/1.73m2 Critically low >=60 [facility] Comment on above: Performed By: #### C JAQUI #### [facility] [id number] Reynaldo Liu CTA CHEST WO W [...] ROSY ROLAND Date: 2022-07-24 15:42 Normal [facility] CBC W MANUAL DIFFon 06-23-19 23 ATYPICAL LYMPH # Normal [facility] Comment on above: Performed By: #### C BCMAN ####[facility] [address] [address]Dr. Reynaldo Liu ATYPICAL LYMPH % Normal [facility] Comment on above: Performed By: #### C BCMAN ####[facility] [address] [address]Dr. Yilan Liu BAND # 0.0 103/ul Normal 0.0-0.3 [facility] Comment on above: Performed By: #### C BCMAN ####[facility] [address] [address]Dr. Yilan Liu BAND % 0 % Normal 0-5 [facility] Comment on above: Performed By: #### C BCMAN ####[facility] [address] [address]Dr. Yilan Liu BASOM # 0.00 103/ul Normal 0.00-0.10 [facility] Comment on above: Performed By: #### C BCANDIE ####[facility] [address] [address]Dr. Yilan Liu BASOM % 0.0 % Critically low 0.2-2.0 The [facility] Comment on above: Performed By: #### C BCANDIE ####[facility] [address] [address]Dr. Yilan Liu BLAST # Normal [facility] Comment on above: Performed By: #### C BCANDIE ####[facility] [address] [address]Dr. Yilan Liu BLAST % Normal [facility] Comment on above: Performed By: #### C BCANDIE ####[facility] [address] [address]Dr. Yilan Liu CORRECTED WBC Normal 4.0-11.0 The [facility] Comment on above: Performed By: #### C BCANDIE ####[facility] Z[address] [place], [place] [address]Dr. Yilan Liu EOS # 0.00 103/ul Normal 0.00-0.70 [facility] Comment on above: Performed By: #### C BCMAN ####[facility] [address] [place], [place] [address]Dr. Yilan Liu EOS% 0.0 % Critically low 0.9-7.0 [facility] Comment on above: Performed By: #### C DEVONTE ####[facility] [address] [address]Dr. Renyaldo Liu HCT 43.6 % Normal 42.0-54.0 [facility] Comment on above: Performed By: #### C DEVONTE ####[facility] [address]onpslpp[address] [place], [place] [address]Li. Reynaldo Liu HGB 14.5 g/dl Normal 14.0-18.0 [facility] Comment on above: Performed By: #### C DEVONTE ####[facility] [address] [address]Dr. Reynaldo Liu LYMPHM # 1.34 103/ul Normal 1.20-3.80 [facility] Comment on above: Performed By: #### C DEVONTE ####[facility] [address] [address]Dr. Reynaldo Liu LYMPHM% 7.0 % Critically low 20.5-60.0 [facility] Comment on above: Performed By: #### C DEVONTE ####[facility] [address] [address]Dr. Reynaldo Liu MCH 29.0 pg Normal 25.9-34.0 [facility] Comment on above: Performed By: #### C DEVONTE ####[facility] [address] [address]Dr. Reynaldo Liu MCHC 33.3 g/dl Normal 29.9-35.2 [facility] Comment on above: Performed By: #### C DEVONTE ####[facility] [address]oz[address] [place], [place] [address]Gf. Reynaldo Liu MCV 87.2 fL Normal 80.0-94.0 [facility] Comment on above: Performed By: #### C DEVONTE ####[facility] [address] [address]Dr. Reynaldo Liu METAMYELOCYTE # Normal [facility] Comment on above: Performed By: #### C DEVONTE ####[facility] [address] [address]Dr. Reynaldo Liu METAMYELOCYTE % Normal The [facility] Comment on above: Performed By: #### C DEVONTE ####[facility] [address] [address]Dr. Reynaldo Liu MONOM# 1.72 103/ul Critically high 0.30-0.80 [facility] Comment on above: Performed By: #### C DEVONTE ####[facility] X[address] [address]Dr. Reynaldo Liu MONOM% 9.0 % Normal 1.7-12.0 [facility] Comment on above: Performed By: #### C DEVONTE ####[facility] [address] [address]Dr. Reynaldo Liu MPV 10.9 fL Normal 9.5-13.5 [facility] Comment on above: Performed By: #### C DEVONTE ####[facility] [address] [place], [place] [address]Dr. Reynaldo Liu MYELOCYTE # Normal [facility] Comment on above: Performed By: #### C DEVONTE ####[facility] O[address] [place], [place] [address]Dr. Reynaldo Liu MYELOCYTE % Normal [facility] Comment on above: Performed By: #### C DEVONTE ####[facility] [address] [place], [place] [address]Dr. Reynaldo Liu NRBC Normal [facility] Comment on above: Performed By: #### C DEVONTE ####[facility] [address] [address]Dr. Reynaldo Liu PLT 279 103/ul Normal 150-450 [facility] Comment on above: Performed By: #### C DEVONTE ####[facility] [address]xf[address] [place], [place] [address]Dr. Reynaldo Liu RBC 5.00 106/ul Normal 4.70-6.10 [facility] Comment on above: Performed By: #### C DEVONTE ####[facility] [address] [address]Dr. Reynaldo Liu RDW 14.7 % Normal 11.0-15.0 [facility] Comment on above: Performed By: #### C DEVONTE ####[facility] [address] [address]Dr. Reynaldo Liu SEG # 16.04 103/ul Critically high 1.40-6.50 The [facility] Comment on above: Performed By: #### C DEVONTE ####[facility] [address] [address]Dr. Reynaldo Liu SEG % 84.0 % Critically high 43.0-75.0 The [facility] Comment on above: Performed By: #### C DEVONTE ####[facility] [address] [address]Dr. Reynaldo Liu TOXIC GRANULATION 2+ Normal [facility] Comment on above: Performed By: #### C DEVONTE ####[facility] [address] [address]Dr. Reynaldo Liu WBC 19.1 103/ul Critically high 4.0-11.0 The [facility] Comment on above: Performed By: #### C DEVONTE ####[facility] [address]uc[address] [place], [place] [address]Dr. Reynaldo Liu ER URINE PROFILEon 3 Bilirubin Ql (U) Negative Normal NEGATIVE [facility] Comment on above: Performed By: #### U MICRO, ERUR #### [facility] [address] [place] [address] Dr. Reynaldo Liu Clarity (U) CLEAR Normal CLEAR [facility] Comment on above: Performed By: #### U MICRO, ERUR #### [facility] [address] [address] [address] Reynaldo Liu Color (U) LT. YELLOW Normal YELLOW [facility] Comment on above: Performed By: #### U MICRO, ERUR #### [facility] [address] [place] [address] Dr. Reynaldo Liu ERUAHD A micrscopic examination will be performed if indicated. Normal [facility] Comment on above: Performed By: #### U MICRO, ERUR #### [facility] [address] [address] [address] Reynaldo Liu Glucose Ql (U) Negative Normal NEGATIVE [facility] Comment on above: Performed By: #### U MICRO, ERUR #### [facility] [address] [place] [address] Dr. Reynaldo Liu Hemoglobin Ql (U) TRACE-INTACT Abnormal NEGATIVE [facility] Comment on above: Performed By: #### U MICRO, ERUR #### [facility] [address] [address] [address] Reynaldo Liu Ketones Ql (U) 15 mg/dl Abnormal NEGATIVE [facility] Comment on above: Performed By: #### U MICRO, ERUR #### [facility] [address] [place] [address] Dr. Reyanldo Liu LEUKOCYTES Negative Normal NEGATIVE [facility] Comment on above: Performed By: #### U MICRO, ERUR #### [facility] [address] [place] [address] Dr. Reynaldo Liu Nitrite Ql (U) Negative Normal NEGATIVE [facility] Comment on above: Performed By: #### U MICRO, ERUR #### [facility] [address] [place] [address] Dr. Reynaldo Liu pH (U) 6.0 [pH] Normal 5-9 [facility] Comment on above: Performed By: #### U MICRO, ERUR #### [facility] [address] [address] [address] Reynaldo Liu Protein (U) [Mass/Vol] 30 mg/dL Abnormal NEGATIVE/ TRACE [facility] Comment on above: Performed By: #### U MICRO, ERUR #### [facility] [address] [place] [address] Dr. Reynaldo Liu SPEC GRAVITY 1.010 Normal 1.005-<=1.025 [facility] Comment on above: Performed By: #### U MICRO, ERUR #### [facility] [address] [place] [address] Dr. Reynaldo Liu UR MICRO IND INDICATED Normal [facility] Comment on above: Performed By: #### U MICRO, ERUR #### [facility] [address] [place] [address] Dr. Reynaldo Liu Urobilinogen Qn (U) 0.2 {Pastor'U}/dL Normal 0.2 - 1.0 [facility] Comment on above: Performed By: #### U MICRO, ERUR #### [facility] [address] [address] [address] Reynaldo Liu LACTATE/LACTIC ACIDon 2022 Lactate [Moles/Vol] 1.4 mmol/L Normal 0.4-1.9 [facility] Comment on above: Performed By: #### L ACT #### [facility] [address] [place] [address] Dr. Reynaldo Liu LIPASEon 06-23-2022 Lipase [Catalytic activity/Vol] 80.0 U/L Normal 73.0-393.0 [facility] Comment on above: Performed By: #### C MP, LIPA ####[facility] [address] [address]DrMague Liu PROF 14(COMP METB)on 023 Albumin [Mass/Vol] 3.8 g/dL Normal 3.4-5.0 [facility] Comment on above: Performed By: #### C MP, LIPA ####[facility] [address] [address]DrMague Liu Albumin/Globulin [Mass ratio] 1.0 {ratio} Normal [facility] Comment on above: Performed By: #### C MP, LIPA ####[facility] [address]cl[address] [address]DrMague Liu ALP [Catalytic activity/Vol] 72 U/L Normal 46-116 [facility] Comment on above: Performed By: #### C MP, LIPA ####[facility] [address] [address]DrMague Liu ALT [Catalytic activity/Vol] 71 U/L Critically high 16-63 [facility] Comment on above: Performed By: #### C MP, LIPA ####[facility] [address] [address]Dr. Reynaldo Liu Anion gap [Moles/Vol] 19.5 mmol/L Normal [facility] Comment on above: Performed By: #### C MP, LIPA ####[facility] [address] [address]Dr. Reynaldo Liu AST [Catalytic activity/Vol] 96 U/L Critically high 15-37 [facility] Comment on above: Performed By: #### C MP, LIPA ####[facility] Hzp[address]wkxy[address] [place], [place] [address]Dr. Reynaldo Liu Bilirubin [Mass/Vol] 1.0 mg/dL Normal 0.2-1.0 [facility] Comment on above: Performed By: #### C MP, LIPA ####[facility] Utnib[address]om[address] [place], [place] [address]Dr. Reynaldo Liu Calcium [Mass/Vol] 9.1 mg/dL Normal 8.5-10.1 [facility] Comment on above: Performed By: #### C MP, LIPA ####[facility] F[address] [place], [place] [address]Dr. Reynaldo Liu Chloride [Moles/Vol] 100 mmol/L Normal 98-107 [facility] Comment on above: Performed By: #### C MP, LIPA ####[facility] Es[address]sermzn[address] [place], [place] [address]Dr. Reynaldo Liu CO2 [Moles/Vol] 21.5 mmol/L Normal 21.0-32.0 The [facility] Comment on above: Performed By: #### C MP, LIPA ####[facility] [address]mi[address] [place], [place] [address]Dr. Reynaldo Liu Creatinine [Mass/Vol] 1.89 mg/dL Critically high 0.70-1.30 [facility] Comment on above: Performed By: #### C MP, LIPA ####[facility] [address] [place], [place] [address]Dr. Reynaldo Liu EGFR-AF SPANISH 44 mL/min/1.73m2 Critically low >=60 [facility] Comment on above: Performed By: #### C MP, LIPA ####[facility] [address] [address]Dr. Reynaldo Liu EGFR-NON AF SPANISH 36 mL/min/1.73m2 Critically low >=60 [facility] Comment on above: Performed By: #### C MP, LIPA ####[facility] X[address]ae[address] [place], [place] [address]Dr. Reynaldo Liu Globulin (S) [Mass/Vol] 3.9 g/dL Normal [facility] Comment on above: Performed By: #### C MP, LIPA ####[facility] F[address]om[address] [place], [place] [address]Dr. Reynaldo Liu Glucose [Mass/Vol] 117 mg/dL Critically high 74-106 [facility] Comment on above: Performed By: #### C MP, LIPA ####[facility] Cl[address]tyvi[address] [place], [place] [address]Dr. Reynaldo Liu Potassium [Moles/Vol] 4.0 mmol/L Normal 3.5-5.1 [facility] Comment on above: Performed By: #### C MP, LIPA ####[facility] J[address]qdzzy[address] [place], [place] [address]Dr. Reynaldo Liu Protein [Mass/Vol] 7.7 g/dL Normal 6.4-8.2 The [facility] Comment on above: Performed By: #### C MP, LIPA ####[facility] [address]lic[address]jtei[address] [place], [place] [address]Dr. Reynaldo Liu Sodium [Moles/Vol] 137 mmol/L Normal 136-145 [facility] Comment on above: Performed By: #### C MP, LIPA ####[facility] [address] [address]Dr. Reynaldo Liu Urea nitrogen [Mass/Vol] 22.0 mg/dL Critically high 7.0-18.0 [facility] Comment on above: Performed By: #### C MP, LIPA ####[facility] [address] [address]Dr. Reynaldo Liu Urea nitrogen/Creatinin e [Mass ratio] 11.6 mg/mg Normal [facility] Comment on above: Performed By: #### C MP, LIPA ####[facility] [address] [place], [place] [address]RpDr. Reynaldo Liu URINE MICROSCOPIC ONLYon BACTERIA NONE SEEN Normal NONE SEEN [facility] Comment on above: Performed By: #### U MICRO, ERUR #### [facility] [address] [address] [address] Reynaldo Liu Bacteria identified Cx Nom (U) NOT INDICATED Normal [facility] Comment on above: Performed By: #### U MICRO, ERUR #### [facility] [address] [address] [address] Reynaldo Liu CAST NONE SEEN Normal NONE SEEN [facility] Comment on above: Performed By: #### U MICRO, ERUR #### [facility] [address] [address] [address] Reynaldo Liu Crystals LM Nom (Urine sed) NONE SEEN Normal NONE SEEN [facility] Comment on above: Performed By: #### U MICRO, ERUR #### [facility] [address] [address] [address] Reynaldo Liu Epithelial cells LM Ql (Urine sed) FEW Abnormal NONE SEEN /RARE [facility] Comment on above: Performed By: #### U MICRO, ERUR #### [facility] [address] [address] [address] Reynaldo Liu MUCOUS NONE SEEN Normal NONE SEEN [facility] Comment on above: Performed By: #### U MICRO, ERUR #### [facility] [address] [address] [address] Reynaldo Liu RBC 2-5 Abnormal 0-2 [facility] Comment on above: Performed By: #### U MICRO, ERUR #### [facility] [address] [address] [address] Reynaldo Liu WBC 5-10 Abnormal NONE SEEN [facility] Comment on above: Performed By: #### U MICRO, ERUR #### [facility] [address] [address] [address] Reynaldo Liu Covid-19 PCR (CVDTB)on SARS-CoV-2 (COVID-19) RNA SARANYA+probe Ql (Unsp spec) Not detected Normal NOT DETECTED [facility] Comment on above: Result Comment: This test is not yet approved or cleared by the [place] FDA. When there are no FDA-approved or cleared tests available, and other criteria are met, FDA can make tests available under an emergency access mechanism called an Emergency Use Authorization (EUA). The EUA for this test is supported by the [place] of Health and Human Service's (HHS's) declaration [...] SARS-CoV-2. Performed By: #### C VDTBH #### [facility] [address] [address] [address] Reynaldo Liu Covid-19 PCR (CVDTB)on 12-23 SARS-CoV-2 (COVID-19) RNA SARANYA+probe Ql (Unsp spec) Detected Critically abnormal NOT DETECTED [facility] Comment on above: Result Comment: This test is not yet approved or cleared by the [place] FDA. When there are no FDA-approved or cleared tests available, and other criteria are met, FDA can make tests available under an emergency access mechanism called an Emergency Use Authorization (EUA). The EUA for this test is supported by the [place] of Health and Human Service's declaration that [...] used). Performed By: #### C VDTB #### [facility] [id number] Reynaldo Liu PROF CHEM 8 (BAS METB)on Anion gap [Moles/Vol] 16.2 mmol/L Normal [facility] Comment on above: Performed By: #### B MP ####[facility] [address] [address]Dr. Reynaldo Liu Calcium [Mass/Vol] 8.3 mg/dL Critically low 8.5-10.1 [facility] Comment on above: Performed By: #### B MP ####[facility] [address] [address]Dr. Reynaldo Liu Chloride [Moles/Vol] 101 mmol/L Normal 98-107 [facility] Comment on above: Performed By: #### B MP ####[facility] [address] [address]Dr. Reynaldo Liu CO2 [Moles/Vol] 20.9 mmol/L Critically low 21.0-32.0 [facility] Comment on above: Performed By: #### B MP ####[facility] [address] [address]Dr. Reynaldo Liu Creatinine [Mass/Vol] 1.55 mg/dL Critically high 0.70-1.30 [facility] Comment on above: Performed By: #### B MP ####[facility] [address] [address]Dr. Reynaldo Liu EGFR-AF SPANISH 55 mL/min/1.73m2 Critically low >=60 [facility] Comment on above: Performed By: #### B MP ####[facility] [address] [address]Dr. Reynaldo Liu EGFR-NON AF SPANISH 46 mL/min/1.73m2 Critically low >=60 [facility] Comment on above: Performed By: #### B MP ####[facility] [address] [place], [place] [address]Qu. Reynaldo Liu Glucose [Mass/Vol] 110 mg/dL Critically high 74-106 [facility] Comment on above: Performed By: #### B MP ####[facility] [address] [address]Dr. Reynaldo Liu Potassium [Moles/Vol] 4.1 mmol/L Normal 3.5-5.1 [facility] Comment on above: Performed By: #### B MP ####[facility] [address] [address]Dr. Reynaldo Liu Sodium [Moles/Vol] 134 mmol/L Critically low 136-145 [facility] Comment on above: Performed By: #### B MP ####[facility] [address] [address]Dr. Reynaldo Liu Urea nitrogen [Mass/Vol] 23.0 mg/dL Critically high 7.0-18.0 [facility] Comment on above: Performed By: #### B MP ####[facility] [address]ib[address] [address]Dr. Reynaldo Liu Urea nitrogen/Creatinin e [Mass ratio] 14.8 mg/mg Normal [facility] Comment on above: Performed By: #### B MP ####[facility] [address] [place], [place] [address]Dr. 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 See separate report. Normal [facility] Comment on above: Order Comment: tri n ational [employer] Performed By: #### [id number] ####[address] [address] Encounters Encounter Date Encounter Type Care Provider Facility Start: 06-08-2023 End: 06-08-2023 ambulatory [facility] Start: 05-10-2023 ambulatory [facility] Start: 05-10-2023 End: 05-10-2023 ambulatory [facility] Start: 05-10-2023 End: 05-10-2023 Encounter for preprocedural laboratory examination [facility] Start: 04-12-2023 End: 04-12-2023 ambulatory AURELIO [facility] Start: 11-23-2022 End: 11-24-2022 ambulatory Amy Goldstein Facility:[facility] [place] [place] Start: 11-23-2022 End: 11-23-2022 Patient encounter procedure Amy Goldstein [facility] Start: 10-20-2022 ambulatory LIZETH FLORES [facility] Start: 10-14-2022 End: 10-15-2022 ambulatory LIZETH [facility] Start: 10-12-2022 End: 10-13-2022 ambulatory [facility] Start: 09-22-2022 End: 09-22-2022 ambulatory NIKHIL [facility] Start: 09-21-2022 End: 09-22-[address] DOCTOR BREWSTER Facility:[facility] Start: 09-14-2022 End: 09-14-2022 ambulatory DENISE HIGGINS [facility] Start: 09-13-2022 End: 09-13-2022 ambulatory MIHAI Bowser Facility:[facility] Start: 08-17-[address] DOCTOR BREWSTER Facility :[facility] Start: 07-27-2022 Encounter for preprocedural laboratory examination DR AMANDEEP STONE [facility] Start: 07-24-2022 End: 07-25-[address] ROSY ROLAND Facility:[facility] Start: 06-23-2022 End: 06-24-[address] KOKO MÁRQUEZ Facility:[facility] Start: 04-21-2022 End: 04-21-[address] LIV Bowser Facility:[facility] Start: 01-23-2022 End: 01-23-[address] Facility:[facility] Start: 01-18-2022 End: 01-18-[address] Facility:[facility] Start: 08-22-2018 End: 08-22-2018 Patient encounter procedure KIRSTIN Denney [facility] Start: 08-01-2018 End: 08-01-2018 Patient encounter procedure KIRSTIN Denney [facility] Start: 07-26-2018 End: 07-27-2018 Patient encounter procedure DEFAULT PHYSICIAN Facility:[facility] Start: 11-03-2017 End: 11-03-2017 Unknown [employer] Facility:[facility] Procedures Date Procedure Procedure Detail Performing Clinician [...] NURSING COMMUNICATION B ELIZABETH HUGHES Start: 08-22-2018 VERIFY INFORMED CONSENT KIRSTIN HUGHES Start: 08-01-2018 DIET GENERAL KIRSTIN CLAR K Start: 08-01-2018 DISCHARGE PATIENT KIRSTIN ELLEN Start: 08-01-2018 FULL CODE KIRSTIN CLAR K Start: 08-01-2018 INITIATE OXYGEN THER APY PROTOCOL KIRSTIN ELLEN Start: 08-01-2018 NURSING COMMUNICATION B CECIR ELLEN Start: 08-01-2018 VITAL SIGNS KIRSTIN CLAR K Start: 08-01-2018 INITIATE OXYGEN THER APY PROTOCOL KIRSTIN HUGHES Start: 08-01-2018 NURSING COMMUNICATION B ELIZABETH HUGHES Start: 08-01-2018 VERIFY INFORMED CONSENT KIRSTIN HUGHES Payers Date Payer Category Payer Medicare [id number] 2018 Medicaid [id number] 2017 Unknown 1961 Private Health Insurance [id number] 1960 Unknown [id number] 2.16.8 [id number] 1958 Unknown [id number] 2.16.8 [id number] 1958 Unknown [id number] 2.16.8 [id number] 1958 Unknown [id number] 2.16.84 [id number] 1958 Unknown [id number] 2.16.84 [id number] 1958 Unknown [id number] 2.16.84 [id number] 1958 Unknown [id number] 2.16.84 [id number] 1958 Unknown [id number] 2.16.84 [id number] 1958 Unknown [id number] 2.16.84 [id number] 1958 Unknown [id number] 2.16.84 [id number] 1958 Unknown [id number] 2.16.84 [id number] 1958 Unknown [id number] 2.16.8 [id number] Social History Date Type Detail Facility Tobacco smoking status No Smoking Status Entered [facility] Sex Assigned At Male [facility] Clinical Notes 06-23-2022 to 06-08-2023 Note Date & Type Note Facility 06-08-2023 Note [facility] Electrophysiology Consult Note Reason for visit: s/p DCCV Date of Telehealth Visit: 06/08/2023 The patient was notified that using 3rd republican telecommunication application (e.g., [employer]il) is not HIPPA compliant and may carry some privacy risks. Yes The visit was conducted [id number] with the use of audio and video technology between patient and provider for a virtual [...] ascending aortic aneurysm, mitral valve repair at [facility] 2004 and hypertension seen in ED follow-up for new onset atrial fibrillation. He presented to the [facility] emergency department where he was found [...] bedtime. 180 tab (more content not included)... 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 Additional Equipment Requests [facility] 04-12-2023 Note Patient here for 6 m o follow up persistent afib and hx of mitral valve repair. He is tolerating Eliquis and amiodarone well. Denies chest pain, palpitations, and bleeding on Eliquis. His SOB w/ exertion remains unchanged. No recent labs/imaging. Review of Systems Constitutional: Positive for malaise/fatigue. Cardiovascular: Positive for dyspnea on exertion. All other systems reviewed and are negative. [facility] 04-12-[address] Electrophysiology Consult Note Reason for visit: 6 [...] ascending aortic aneurysm, mitral valve repair at [facility] 2004 and hypertension seen in ED follow-up for new onset atrial fibrillation. He presented to the [facility] emergency department where he was found [...] Medical History: Diagnosis Date Abnormal ECG Aneurysm ([facility]/HCC) Arrhythmia Atrial fibrillation ([facility]/HCC) COPD (chronic obstructive pulmonary disease) ([facility]) Heart valve disease Hypertension PSH: Past Surgical [...] results found for: (more content not included)... [facility] 10-20-2022 Note Subjective Patient ID: Ede Davies [...] 1. Aneurysm of ascending aorta without rupture ([facility]/HCC) 2. Atrial fibrillation, unspecified type (CMS/HCC) 3. Primary hypertension 4. Benign hypertensive heart disease without congestive heart failure lisinopril 5 mg tablet 5. Chronic obstructive pulmonary disease, unspecified COPD type (CMS/HCC) 6. HFrEF (heart failure with reduced ejection fraction) ([facility]) Plan: --Available medical records, Report for CT [...] contrast prior. -Request recent CT Chest from [facility], from 07/2022 [facility] 09-22-2022 Note ca [facility] 09-22-[address] Electrophysiology Consult Note Reason for visit: HPI: Ede Davies is a 62 y.o. year old with past medical history of ascending aortic aneurysm, mitral valve repair at [facility] 2004 and hypertension seen in ED follow-up for new onset atrial fibrillation. He presented to the [facility] emergency department where he was found [...] 1.89, GFR 36 (more content not included)... [facility] 09-14-2022 Note Cardiology Clinic No te Subjective Ede Davies is a 62 y.o. year old male patient with ascending aortic aneurysm, valve repair, and hypertension seen in ED follow-up for new onset atrial fibrillation. He felt poorly yesterday and presented to the [facility] emergency department where he was found [...] and mitral valve repair in 2004 at [facility]. Visit of 07/25/2018: Mr Davies is seen as new patient. He has history of ascending aortic aneurysm, measured 4 cm in 2013 by CTA at the [facility]. He most recently had a CTA on 03/25/2018 in [facility] that showed it to be 4.7 cm, stable from the study of 12/10/2016. He was also found to have lung nodules that he is to follow up with Dr Skaggs for that. He has COPD and is on treatment. 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 He has no chest pain. He has [...] - intermediate R (more content not included)... [facility] 09-13-2022 Note PROCEDURE: CT ABD/PE LVIS WO [...] authenticated by: IGOR BOB Date: 2022-09-13 14:23 [facility] 06-23-2022 Note Indication: Divertic ulitis. Comparison: 05/22/2019 [...] by: BRENDA PALMA Date: 2022-06-23 20:47 [facility] Evaluation + Plan note No data available for this section [facility] Discharge instructions No data available for this section [facility] Progress note No data available for this section [facility] Summary Purpose Family History No Family History [...] section and content) DATE CREATED AUTHOR 11/09/2017 [facility] DATE CREATED AUTHOR AUTHOR'S ORGANIZ ATION 07/28/2018 [facility] DATE CREATED AUTHOR AUTHOR'S ORGANIZ ATION 08/25/2018 [facility] DATE CREATED AUTHOR AUTHOR'S ORGANIZ ATION 10/02/2022 [facility] DATE CREATED AUTHOR AUTHOR'S ORGANIZ ATION 11/24/2022 [facility] DATE CREATED AUTHOR AUTHOR'S ORGANIZ ATION 08/02/2023 [facility] Patient Care team informatio n (unrecognized section and content) Personnel Name: Jake St DO Address: Address: [address] [place] [address] FOR RECORDS PERTAINING TO PATIENTS WHO ARE [...] BE BASED ON THE PRIMARY CLINICAL RECORDS. [facility] [employer] [facility]. provides no warranty or guarantee of the accuracy or completeness of information in this document.
== END 2023-08-17 20:58 | disposition home or self-care (01) ==
LOC: SLEEP 20:57
PROVIDERS: PCP Internal Medicine Cardiovascular Disease; Visit Provider Internal Medicine Cardiovascular Disease
DX: G47.33 Obstructive sleep apnea (adult) (pediatric) (principal)
CPT/HCPCS: 95810

== ENCOUNTER 2024-02-29 11:46 | Outpatient (OUT) | payer OTHER, SELFPAY ==
--- NOTE | 2024-02-29 11:57 | XR_ITS ---
[address] [address] Patient Name: GINA DAVIES MRN: [id number] date: 1960 Sex: M Assigned Patient Location: [facility] Current Patient Location: [facility] Accession/Order Number: [id number] Exam Date: 02/29/2024 12:03 Report Date: 02/29/2024 16:35 At the request of: CAROL CONTRERAS Procedure: XR chest 2V EXAM: XR chest 2V CLINICAL INDICATION: Other Longterm Drug Therapy COMPARISON: None TECHNIQUE: 2 views of chest performed. FINDINGS: Lungs: No convincing focal infiltrates. No pleural effusion or pneumothorax. Heart: Stable enlargement of the cardiomediastinal silhouette. No overt pulmonary vascular congestion. Osseous structures: No acute abnormalities. XR/XR chest 2V IMPRESSION: No acute cardiopulmonary process. Electronically authenticated by: YANELI COCHRAN Date: 02/29/2024 16:35
--- OUTSIDE RECORDS SUMMARY | 2024-02-29 12:00 | XMS_ITS | CCD ---
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 Name Role Phone COMPANY, [employer] Unavailable Unavailable [...] Care Unavailable MACIEL, DR CONNORS Admitting Unavailable HENRICO, DR CONNORS Attending Unavailable LA HABRA, DR ROSY Muhammad Consulting Unavailable HENRICO, DR CONNORS Primary Care Unavailable MOUKARBEL, DR [...] Unavailable WILLI, DR KOKO Canales Admitting Unavailsandor e MACIEL, DR CONNORS Primary Care Unavailable SHANTHI ., DARRICK TIMMONS Consulting Unavailabl josé miguel MÁRQUEZ, DR KOKO Canales Attending Unavailabl e BRENDA PALMA Consulting Unavailable ERICA ., DR PECK Attending Unavailable ERICA ., DR PECK Consulting Unavailable ERICA ., DR PECK Admitting Unavailable MACIEL, DR CONNORS Primary Care Unavailable MACIEL, DR CONNORS Primary Care Unavailable WILLI, DR KOKO Canales Attending Unavailsandor MÁRQUEZ, DR KOKO Canales Consulting Unavailabl josé miguel MÁRQUEZ, DR KOKO Canales Admitting Unavailabl e RANULFO BREWRE Consulting Unavailable Jake St Primary Care Physician Amy Goldstein Referring Unavailable Timmis, Amy Pearson Attending Unavailable DanymisAmy Admitting Unavailable DIANE, NIKHIL Admitting Unavailable DIANE, NIKHIL Attending Unavailable ALLI PASCUAL Attending Unavailable AURELIO COYNE Attending Unavailable DIANE, NIKHIL Attending Unavailable CARRIZO, LIZETH Referring Unavailable DIANE, NIKHIL Referring Unavailable CARRIZO, LIZETH Referring Unavailable DIANE, NIKHIL Attending Unavailable DIANE, NIKHIL Referring Unavailable DIANE, NIKHIL Referring Unavailable CARRIZO, LIZETH Attending Unavailable TIMMIS, AMY Pearson Attending Unavailable TIMMIS, AMY Pearson Attending Unavailable NICOLAS MEJIA Attending Unavailable Allergies Allergy Classification Reported Allergen(s) Allergy Type Date of Onset Reaction(s) Facility (1 source) Erythromycin Drug Allergy 02-07-2015 [facility] Repository (1 source) Niacin Drug Allergy 05-11-2014 [facility] Repository (1 source) Azithromycin; Translations: [AZITHROMYCIN] Drug Allergy 07-28-2022 [facility] Repository Problems Active Problems Problem Classification Problem [...] 06-23-2022 Episodic Other aftercare (1 source) Other oil heaterman (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; Translations: [OTH RISK CONTROL FIELD REPRESENTATIVE CURRENT DRUG THERAPY] Onset: 09-15-2022 Episodic Other lower respiratory disease (1 source) Personal history of pneumonia (recurrent); Translations: [PERSONAL HX OF PNEUMONIA RECURRENT] Onset: 09-15-2022 Episodic Norma-; endo-; and myocarditis; cardiomyopathy (except that caused by tuberculosis or sexually transmitted disease) (2 sources) Cardiomyopathy, unspecified; Translations: [Cardiomyopathy, unspecified] Onset: 10-12-2022 Chronic Residual codes; unclassified (2 sources) Other specified postprocedural states; Translations: [Other specified postprocedural states] Onset: 04-28-2022 Episodic Unclassified (2 sources) AGE RELATED NUCLEAR CAT- 2+NS, 2+CS; Translations: [AGE RELATED NUCLEAR CAT- 2+NS, 2+CS] Onset: 08-22-2018 Unclassified (3 sources) THORAC AORTC ANEURYSM W/O RUPTR UNS; Translations: [THORAC AORTC ANEURYSM W/O RUPTR UNS] Onset: 09-25-2022 Unclassified (3 sources) CONTACT W/AND (SUSP) EXPOS COVID-19; Translations: [CONTACT W/AND (SUSP) EXPOS COVID-19] Onset: 01-27-2022 Unclassified (2 sources) COUGH, UNSPECIFIED; Translations: [COUGH, UNSPECIFIED] Onset: 01-19-2022 Unclassified (1 source) Aneurysm of the ascending aorta, without rupture; Translations: [Aneurysm of the ascending aorta, without rupture] Onset: 04-28-2022 Unclassified (2 sources) Other persistent atrial fibrillation; Translations: [Other persistent atrial fibrillation] Onset: 06-10-2023 Viral infection (1 source) COVID-19; Translations: [COVID-19] Onset: 01-19-2022 Past or Other Problems Problem Classification Problem Date Documented Da te Episodic/Chronic Other gastrointestinal disorders (1 source) Diarrhea, unspecified; Translations: [DIARRHEA UNSPECIFIED] Onset: 06-25-2022 Episodic Other male genital disorders (1 source) Scrotal pain; Translations: [SCROTAL PAIN] Onset: 04-23-2022 Episodic Other upper respiratory disease (3 sources) Nasal congestion; Translations: [NASAL CONGESTION] Onset: 04-21-2022 Episodic Other upper respiratory infections (1 source) Acute sinusitis, unspecified; Translations: [ACUTE SINUSITIS UNSPECIFIED] Onset: 04-23-2022 Episodic Unclassified (1 source) THORAC AORTC ANEURYSM [...] of the ascending aorta, without rupture] Onset: 10-05-2023 Urinary tract infections (1 source) Tubulo-interstiti al nephritis, not specified as acute or chronic; Translations: [TUBULO-INTERST NEPHRIT NOT AC/CHRN] Onset: 06-25-2022 Episodic Results Test Name Value Interpretation Reference Range Facility Orders Onlyon 10-08-2023 Orders Only [id number] Lilibeth Davies D 1960 M Date Provider Department Center 10/08/2023 2020-WALTER ALAN [facility] [place] [facility] Family History Problem Relation Age of Onset Other Mother Coronary artery disease Mother Family Status - Relation Status Age at Mother Normal [facility] Telemedicineon 10-05-2023 Telemedicine [id number] Lilibeth Davies D 1960 M Date Provider Department Center 10/05/2023 54495-YOBOLALLI PASCUAL [facility] [place] [facility] Family History Problem Relation Age of Onset Other Mother Coronary artery disease Mother Family Status - Relation Status Age at Mother Level of Service:74186 DC OFFICE/OP CONSLTJ NEW/EST PT LOW MDM 30 MINUTES Reason for Visit and Comments: Follow-up [[id number]] [facility] [id number] 09-23-2023 [id number] ARRIVAL TIME GIVEN 1 030 HOLD ELIQUIS 5/7 MEDICATIONS TO TAKE DAY OF SURGERY WITH SIP OF WATER AMIODARONE METOPROLOL HOLD VITAMINS AND SUPPLEMENTS 5 DAYS PRIOR TO PROCEDURE HOLD ALL ANTI INFLAMMATORIES ETC:MOTRIN, ADVIL, ALEVE, FOR 5 DAYS PRIOR TO PROCEDURE IF YOU ARE GOING HOME AFTER YOUR SURGERY OR PROCEDURE, FOR YOUR SAFETY, YOUR SURGERY WILL BE CANCELLED IF BOTH OF THE FOLLOWING ARE NOT AVAILABLE: An adult piledriver carpenter over the age of 18, that can receive information about your care after surgery, and drive you home. A responsible adult to stay with you for 24 hours in case of an emergency. Can be same as above. The highest risk of complications is within the first 24 hours after sedation/anesthesia. Nothing to eat or drink after midnight the night before surgery. This includes gum, candy, mints, and lozenges. No alcohol, marijuana, or tobacco products including vaping for 24 hours. Please brush your teeth; don't swallow the toothpaste or water. If you use dentures, wear them but do not use paste. Please leave any other removable dental hardware at home. Do not put in contact lenses. Do not wear perfume, make-up, nail luxembourgish, or lotions on the day of your surgery or procedure. Follow skin-prep/wipe instructions as below if required. Bring with you: *Insurance card *Photo ID *Medication list *Co-pay for visit/prescriptions If applicable: *Rescue inhalers *Green bracelet from lab *CPAP or BiPAP machine, if staying overnight *Any braces, splints, or equipment ordered preoperatively *Remote controls for implanted devices Leave at home: *Purse/Wallet/Mathew- unless needed for co-pay *Cell phone (can leave with family/friend or place in locker if needed) *Jewelry (including piercings and wedding bands) *If not possible, ask the person who is waiting with you to keep them Children under the age of 12 will not be allowed into patient care areas. We will call you between 3pm and 4pm the day before your surgery to give you an arrival time. If you do not receive this call, have any questions, or need to make any changes, please call [phone]. Notify your surgeon if you develop any illness such as a cold, cough, fever, sore throat or vomiting between now and your surgery. Thank you for entrusting us with your care. [facility] Surgical Services Team Normal [facility] BASIC METABOLIC PANELon 04-2 Anion gap [Moles/Vol] 11 mmol/L Normal 7-20 [facility] Comment on above: Performed By: #### L [id number] #### [facility] (BEAKER) [address] [place] [address] Calcium [Mass/Vol] 9.0 mg/dL Normal 8.6-10.3 [facility] Comment on above: Performed By: #### L [id number] #### [facility] (BEAKER) [address] [place] [address] Chloride [Moles/Vol] 105 mmol/L Normal 98-107 [facility] Comment on above: Performed By: #### L [id number] #### [facility] (BEAKER) [address] [place] [address] CO2 [Moles/Vol] 25 mmol/L Normal 21-31 [facility] Comment on above: Performed By: #### L [id number] #### [facility] (BEAKER) [address] [place] [address] Creatinine [Mass/Vol] 1.59 mg/dL High 0.70-1.30 [facility] Comment on above: Performed By: #### L [id number] #### [facility] (BEAKER) [address] [facility] [place] [address] GLOMERULAR FILTRATION RATE ML/MIN/1.73 SQ M.PREDICTED 47.9 mL/min/1.73m*2 Low >60.0 [facility] Comment on above: Result Comment: The [facility]???s estimated glomerular filtration rate (eGFR) will no [...] of individuals. Performed By: #### L [id number] #### [facility] ([facility]) [address] [place] [address] Glucose [Mass/Vol] 102 mg/dL High 70-100 [facility] Comment on above: Performed By: #### L [id number] #### [facility] ([facility]) [address] [place] [address] Potassium [Moles/Vol] 4.9 mmol/L Normal 3.5-5.1 [facility] Comment on above: Performed By: #### L [id number] #### [facility] ([facility]) [address] [place] [address] Sodium [Moles/Vol] 136 mmol/L Normal 136-145 [facility] Comment on above: Performed By: #### L [id number] #### [facility] ([facility]) [address] [place] [address] Urea nitrogen [Mass/Vol] 24 mg/dL Normal 7-25 [facility] Comment on above: Performed By: #### L [id number] #### [facility] ([facility]) [address] [place] [address] UREA NITROGEN/CREATININ E (MASS RATIO) IN SER/PLAS 15.1 Normal [facility] Comment on above: Performed By: #### L [id number] #### [facility] ([facility]) [address] [place] [address] CBCon 09-17-2023 Erythrocyte distribution width (RBC) [Ratio] 14.1 % Normal 11.5-15.0 [facility] Comment on above: Performed By: #### L [id number] #### [facility] ([facility]) [address] [place] [address] ERYTHROCYTE MEAN CORPUSCULAR HEMOGLOBIN CONCENTRATION (G/DL) BY AUTOMATED 33.8 g/dL Normal 32.0-35.0 [facility] Comment on above: Performed By: #### L [id number] #### [facility] [address] [place] [address] Hematocrit (Bld) [Volume fraction] 40.2 % Normal 39.0-55.0 [facility] Comment on above: Performed By: #### L [id number] #### [facility] ([facility]) [address] [place] [address] Hemoglobin (Bld) [Mass/Vol] 13.6 g/dL Normal 13.0-17.0 [facility] Comment on above: Performed By: #### L [id number] #### [facility] ([facility]) [address] [address] MCH (RBC) [Entitic mass] 30.1 pg Normal 27.0-33.0 [facility] Comment on above: Performed By: #### L [id number] #### [facility] ([facility]) [address] [place] [address] MCV (RBC) [Entitic vol] 88.9 fL Normal 82.0-98.0 [facility] Comment on above: Performed By: #### L [id number] #### [facility] ([facility]) [address] [place] [address] PLATELETS (10*3/UL) IN BLOOD AUTOMATED COUNT 255 10*3/uL Normal 150-400 [facility] Comment on above: Performed By: #### L [id number] #### [facility] ([facility]) [address] [place] [address] RBC (Bld) [#/Vol] 4.52 10*6/uL Normal 4.20-5.70 [facility] Comment on above: Performed By: #### L [id number] #### [facility] ([facility]) [address] [place] [address] WBC (Bld) [#/Vol] 8.28 10*3/uL Normal 4.00-10.60 [facility] Comment on above: Performed By: #### L [id number] #### [facility] ([place]) [address] [place] [address] CTA CHEST W IV CONTRASTon CTA CHEST W IV CONTRAST CTA CHEST HISTORY: History of mitral valve repair, ascending aortic aneurysm COMPARISON: 12/10/2016 TECHNIQUE: Routine CTA chest. 3-D maximum intensity projection reconstructions constructed under concurrent physician supervision on a independent workstation. 3-D images obtained to improve visualization of vascular detail. All CT scans at this facility use dose modulation, iterative reconstruction, and/or weight based dosing when appropriate to reduce radiation dose to as low as reasonably achievable. FINDINGS: Aortic measurements are as follows: Aortic sinuses 4.9 cm Sinotubular junction 3.5 cm Mid ascending aorta 4.3 cm Mid descending thoracic aorta 2.9 cm Coronary artery calcifications. Postoperative changes from previous mitral valve repair. Visualized portions of the great vessels are patent. Sternotomy wires. Cortical scarring in the right and left kidneys No pleural or pericardial effusions. The central pulmonary arteries are unremarkable. No enlarged thoracic lymph nodes. Visualized structures in the lower neck are unremarkable. Visualized chest wall structures are unremarkable. Noncalcified left lower lobe nodule measuring 0.8 cm, larger than on previous study. No acute osseous abnormalities or aggressive osseous lesions. 3D reformatted images confirm the source data findings. IMPRESSION: *Fusiform ascending thoracic aortic aneurysm measuring 4.9 cm at the level of the sinuses and 4.3 cm in the mid ascending aorta. Aortic sinus measurement appears minimally larger than on previous study (previously 4.7 cm). *Left lower lobe lung nodule measuring 0.8 cm appears slightly larger than on previous study. This nodule is likely too small for PET assessment (particularly given lower lobe location near the diaphragm). Therefore recommend follow-up chest CT in 3 months to reassess. Electronically signed: Lucas Craig. Normal [facility] Comment on above: Order Comment: To be completed in 1 year 09/2023 Labon 09-17-2023 Lab [id number] Lilibeth Davies 1960 Date Provider Department Center 09/17/2023 2245-[facility] OPD LAB RESOURCE [facility] OPD [facility] C Family History Problem Relation Age of Onset Other Mother Coronary artery disease Mother Family Status - Relation Status Age at Mother Normal [facility] T4, FREEon 09-17-2023 THYROXINE (T4) FREE (NG/DL) IN SER/PLAS 0.84 ng/dL Normal 0.71-1.85 [facility] Comment on above: Performed By: #### L [id number] #### [facility] (BEAKER) [address] [place] [address] TSH3 REFLEX TO FT4on 024 THYROTROPIN (MIU/L) IN SER/PLAS BY DETECTION LIMIT <= 0.05 MIU/L 6.13 mIU/L High 0.34-5.60 [facility] Comment on above: Performed By: #### L [id number] #### [facility] (BEAKER) [address] [place] [address] Prep for Procedureon 024 Prep for Procedure [id number] Lilibeth Davies cky D 1960 M Date Provider Department Center 09/07/20231986-[facility]UB[facility] [place] [facility] Family History Problem Relation Age of Onset Other Mother Coronary artery disease Mother Family Status - Relation Status Age at Mother Normal [facility] Office Visiton 08-17-2023 Follow-up visit [id number] Lilibeth Davies cky D 1960 M Date Provider Department Center 08/17/2023 241-[facility]IL BENSON [facility] Family History Problem Relation Age of Onset Other Mother Coronary artery disease Mother Family Status - Relation Status Age at Mother Level of Service:37980 DC OFFICE/OUTPATIENT ESTABLISHED MOD MDM 30 MIN Normal [facility] Prep for Procedureon 024 Prep for Procedure [id number] Lilibeth Davies cky D 1960 M Date Provider Department Center 07/28/2023 1987-W[facility]IS [facility]CA[facility] [place] [facility] Family History Problem Relation Age of Onset Other Mother Coronary artery disease Mother Family Status - Relation Status Age at Mother Normal [facility] Prep for Procedureon 024 Prep for Procedure [id number] Lilibeth Davies cky D 1960 M Date Provider Department Center 07/22/20231986-WILLIS RUBALCAVA [facility] [place] [facility] Family History Problem Relation Age of Onset Other Mother Coronary artery disease Mother Family Status - Relation Status Age at Mother Normal [facility] Prep for Procedureon 024 Prep for Procedure [id number] NabilRi cky D 1960 M Date Provider Department Center 06/10/2023 1987-WILLIS [facility]UBALCA[facility] [place] [facility] Family History Problem Relation Age of Onset Other Mother Coronary artery disease Mother Family Status - Relation Status Age at Mother Normal [facility] Orders Onlyon 06-08-2023 Orders Only [id number] Lilibeth Davies cky D 1960 M Date Provider Department Center 06/08/2023 MARIBETH GUAMAN [facility] Family History Problem Relation Age of Onset Other Mother Coronary artery disease Mother Family Status - Relation Status Age at Mother Normal [facility] Telemedicineon 06-08-2023 Telemedicine [id number] Lilibeth Davies cky D 1960 M Date Provider Department Center 06/08/2023 NIKHIL SANDERS [facility] Family History Problem Relation Age of Onset Other Mother Coronary artery disease Mother Family Status - Relation Status Age at Mother Level of Service:27176 DC PHYS/QHP TELEPHONE EVALUATION 5-10 MIN Normal [facility] BASIC METABOLIC PANELon 12- Anion gap [Moles/Vol] 11 mmol/L Normal 7-20 [facility] Comment on above: Performed By: #### L [id number] #### [facility] ([facility]) [address] [place] [address] Calcium [Mass/Vol] 8.1 mg/dL Low 8.6-10.3 [facility] Comment on above: Performed By: #### L [id number] #### [facility] (BEAKER) [address] [place] [address] Chloride [Moles/Vol] 109 mmol/L High 98-107 [facility] Comment on above: Performed By: #### L [id number] #### [facility] ([facility]) [address] [place] [address] CO2 [Moles/Vol] 22 mmol/L Normal 21-31 [facility] Comment on above: Performed By: #### L [id number] #### [facility] ([facility]) [address] [place] [address] Glucose [Mass/Vol] 91 mg/dL Normal 70-100 [facility] Comment on above: Performed By: #### L [id number] #### [facility] ([facility]) [address] [place] [address] Potassium [Moles/Vol] 4.1 mmol/L Normal 3.5-5.1 [facility] Comment on above: Performed By: #### L [id number] #### [facility] ([facility]) [address] [place] [address] Sodium [Moles/Vol] 138 mmol/L Normal 136-145 [facility] Comment on above: Performed By: #### L [id number] #### [facility] ([facility]) [address] [place] [address] Urea nitrogen [Mass/Vol] 16 mg/dL Normal 7-25 [facility] Comment on above: Performed By: #### L [id number] #### [facility] ([facility]) [address] [place] [address] UREA NITROGEN/CREATININ E (MASS RATIO) IN SER/PLAS 11.6 Normal [facility] Comment on above: Performed By: #### L [id number] #### [facility] ([facility]) [address] [place] [address] CBCon 05-10-2023 Erythrocyte distribution width (RBC) [Ratio] 13.9 % Normal 11.5-15.0 [facility] Comment on above: Performed By: #### L [id number] ####[facility] (BEAKER)[address] [place] [address] ERYTHROCYTE MEAN CORPUSCULAR HEMOGLOBIN CONCENTRATION (G/DL) BY AUTOMATED 32.8 g/dL Normal 32.0-35.0 [facility] Comment on above: Performed By: #### L [id number] ####[facility] (BEAKER)[address] [place] [address] Hematocrit (Bld) [Volume fraction] 44.8 % Normal 39.0-55.0 [facility] Comment on above: Performed By: #### L [id number] ####[facility] ([facility] [place] [address] Hemoglobin (Bld) [Mass/Vol] 14.7 g/dL Normal 13.0-17.0 [facility] Comment on above: Performed By: #### L [id number] ####[facility] ([facility])[address] [place] [address] MCH (RBC) [Entitic mass] 29.3 pg Normal 27.0-33.0 [facility] Comment on above: Performed By: #### L [id number] ####[facility] ([facility])[address] [place] [address] MCV (RBC) [Entitic vol] 89.4 fL Normal 82.0-98.0 [facility] Comment on above: Performed By: #### L [id number] ####[facility] (BEAKER)[address] [place] [address] PLATELETS (10*3/UL) IN BLOOD AUTOMATED COUNT 256 10*3/uL Normal 150-400 [facility] Comment on above: Performed By: #### L [id number] ####[facility] (BEAKER)[address] [place] [address] RBC (Bld) [#/Vol] 5.01 10*6/uL Normal 4.20-5.70 [facility] Comment on above: Performed By: #### L [id number] ####[facility] ([facility])[place] [address] WBC (Bld) [#/Vol] 6.76 10*3/uL Normal 4.00-10.60 [facility] Comment on above: Performed By: #### L [id number] ####[facility] ([facility])[place] [address] CREATININE, SERUMon 05-10-20 Creatinine [Mass/Vol] 1.38 mg/dL High 0.70-1.30 [facility] Comment on above: Performed By: #### L [id number] #### [facility] ([facility]) [place] [address] Performed By: #### L [id number] #### [facility] ([facility]) [place] [address] GLOMERULAR FILTRATION RATE ML/MIN/1.73 SQ M.PREDICTED 56.7 mL/min/1.73m*2 Low >60.0 [facility] Comment on above: Result Comment: The [facility]???s estimated glomerular filtration rate (eGFR) will no [...] group of individuals. Performed By: #### L [id number] #### [facility] ([facility]) [place] [address] Performed By: #### L [id number] #### [facility] ([facility]) [place] [address] HPon 05-10-2023 HP --- Attestation signed by Nikhil Benson MD [...] are no changes to the H&P. Normal [facility] LIPID PANELon 05-10-2023 CHOL/HDL 5.4 mg/dL Normal [facility] Comment on above: Performed By: #### L [id number] ####[facility] ([facility])[address] [place] [address] Cholesterol [Mass/Vol] 135 mg/dL Normal 120-200 [facility] Comment on above: Performed By: #### L [id number] ####[facility] ([facility])[address] [place] [address] Magnesium [Mass/Vol] 126 mg/dL Normal 40-149 [facility] Comment on above: Result Comment: TRIG LYCERIDE REFERENCE RANGE: 20 YEARS AND OLDER CARDIOVASCULAR RISK LESS THAN 150 mg/dL LOW RISK 150 TO 199 mg/dL BORDERLINE RISK 200 mg/dL AND GREATER HIGH RISK Performed By: #### L [id number] ####[facility] (BEOdimax)[address] [facility] [address] Magnesium [Mass/Vol] 85 mg/dL Normal 0-160 [facility] Comment on above: Performed By: #### L [id number] ####[facility] ([facility])[address] [place] [address] Magnesium [Mass/Vol] 25 mg/dL Normal 23-92 [facility] Comment on above: Performed By: #### L [id number] ####[facility] ([facility])[address] [place] [address] NON HDL CHOL. (LDL+VLDL) 110 Normal [facility] Comment on above: Performed By: #### L AB18 ####[facility] ([facility])[address] [place] [address] TOTAL VLDL-C 25 mg/dL Normal 0-40 [facility] Comment on above: Performed By: #### L AB18 ####[facility] ([facility])[address] [place] [address] NURSNOTEon 05-10-2023 NURSNOTE RN educated pt on d/ c instructions. RN encouraged pt to voice any questions or concerns. Pt verbalizes no questions or concerns at this time. Pt was wheeled off of unit with all of belongings. Normal [facility] TSH3 REFLEX TO FT4on 023 THYROTROPIN (MIU/L) IN SER/PLAS BY DETECTION LIMIT <= 0.05 MIU/L 5.16 mIU/L Normal 0.34-5.60 [facility] Comment on above: Performed By: #### L [id number] #### [facility] ([facility]) [address] [place] [address] HPon 04-12-2023 [facility] Electrophysiology Consult Note Reason for visit: [...] ascending aortic aneurysm, mitral valve repair at [facility] 2004 and hypertension seen in ED follow-up for new onset atrial fibrillation. He presented to the [facility] emergency department where he was found to [...] He was seen by the nurse practitioner jJ who had ordered an echocardiogram as well [...] Medical History: Diagnosis Date Abnormal ECG Aneurysm ([facility]) Arrhythmia Atrial fibrillation ([facility]) COPD (chronic obstructive pulmonary disease) ([facility]) Heart valve disease Hypertension PSH: Past Surgical [...] found for: (more content not included)... Normal [facility] Office Visiton 04-12-2023 Follow-up visit [id number] Lilibeth Davies 1960 M Date Provider Department Center 04/12/2023 AURELIO JUAN LAURIE [facility] Family History Problem Relation Age of Onset Other Mother Coronary artery disease Mother Family Status - Relation Status Age at Mother Level of Service:23792 DC OFFICE/OUTPATIENT ESTABLISHED MOD MDM 30-39 MIN Normal [facility] CT Maxillofacial w/o Contras ton [...] Kamara MD Transcribed by: ERWIN Technologist: [place] Normal [facility] Consent for Treatmenton Consent for Treatment [id number] D:127 [facility] Physician Orderon 11-05-2022 Physician Order [id number] D:127 Normal [facility] Office Visiton 10-20-2022 Follow-up visit [id number] Lilibeth Davies D 1960 M Date Provider Department Center 10/20/2022 [id number]-VKQSNPALIZETH FLORES HVCVASENDO [facility] Family History Problem Relation Age of Onset Other Mother Coronary artery disease Mother Family Status - Relation Status Age at Mother Level of Service:34750 DC IP/OBS CONSLTJ NEW/EST PT HIGH MDM 80 MINUTES Reason for Visit and Comments: New Patient [632] - Thoracic Aortic Aneurysm Normal [facility] Orders Onlyon 10-13-2022 Orders Only [id number] Lilibeth Davies D 1960 M Date Provider Department Center 10/13/2022 8-MADHAVI MORENO CARD [facility] Family History Problem Relation Age of Onset Other Mother Coronary artery disease Mother Family Status - Relation Status Age at Mother Normal [facility] ECHOCARDIO M/2D COMPLETEon 0 09-21-2022 ECHOCARDIO M/2D COMPLETE Patient: EDE DAVIES Exam Date: 09/21/2022 : 1960 Gender:M 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 Order #: [id number] CLICK HERE TO VIEW EXAM ECHOCARDIOGRAM REPORT [...] Nikhil Benson on 09/22/2022 at 12:18 Normal The [facility] CBC AUTO DIFFon 09-13-2022 BASO # 0.1 103/ul Normal 0.0-0.1 [facility] Comment on above: Performed By: #### C BC #### [facility] Laboratory [address] [address] [address] Reynaldo Liu Basophils/100 WBC (Bld) 0.6 % Normal 0.2-2.0 [facility] Comment on above: Performed By: #### C BC #### [facility] Laboratory [address] [address] [address] Reynaldo Liu EO # 0.5 103/ul Normal 0.0-0.7 [facility] Comment on above: Performed By: #### C BC #### [facility] Laboratory [address] [place] [address] Dr. Reynaldo Liu Eosinophils/100 WBC (Bld) 4.4 % Normal 0.9-7.0 [facility] Comment on above: Performed By: #### C BC #### [facility] Laboratory [address] [place] [address] Dr. Reynaldo Liu Erythrocyte distribution width (RBC) [Ratio] 13.5 % Normal 11.0-15.0 [facility] Comment on above: Performed By: #### C BC #### [facility] Laboratory [address] [place] [address] Dr. Reynaldo Liu Hematocrit (Bld) [Volume fraction] 44.5 % Normal 42.0-54.0 [facility] Comment on above: Performed By: #### C BC #### [facility] Laboratory [address] [place] [address] Dr. Reynaldo Liu Hemoglobin (Bld) [Mass/Vol] 14.5 g/dL Normal 14.0-18.0 [facility] Comment on above: Performed By: #### C BC #### [facility] Laboratory [address] [place] [address] Dr. Reynaldo Liu IG # 0.03 10e3/ul Normal 0.00-0.03 [facility] Comment on above: Performed By: #### C BC #### [facility] Laboratory [address] [place] [address] Dr. Reynaldo iLu IG % 0.3 % Normal 0.0-0.5 [facility] Comment on above: Performed By: #### C BC #### [facility] Laboratory [address] [place] [address] Dr. Reynaldo Liu LYMPH # 2.7 103/ul Normal 1.2-3.8 [facility] Comment on above: Performed By: #### C BC #### [facility] Laboratory [address] [place] [address] Dr. Reynaldo Liu Lymphocytes/100 WBC (Bld) 25.0 % Normal 20.5-60.0 [facility] Comment on above: Performed By: #### C BC #### [facility] Laboratory [address] [place] [address] Dr. Reynaldo Liu MANUAL DIFF REQ NO Normal [facility] Comment on above: Performed By: #### C BC #### [facility] Laboratory [address] [place] [address] Dr. Reynaldo Liu MCH (RBC) [Entitic mass] 29.6 pg Normal 25.9-34.0 [facility] Comment on above: Performed By: #### C BC #### [facility] Laboratory [address] [place] [address] Dr. Reynaldo Liu MCHC (RBC) [Mass/Vol] 32.6 g/dL Normal 29.9-35.2 [facility] Comment on above: Performed By: #### C BC #### [facility] Laboratory [address] [place] [address] Dr. Reynaldo Liu MCV (RBC) [Entitic vol] 90.8 fL Normal 80.0-94.0 [facility] Comment on above: Performed By: #### C BC #### [facility] Laboratory [address] [place] [address] Dr. Reynaldo Liu MONO # 1.0 103/ul Critically high 0.3-0.8 [facility] Comment on above: Performed By: #### C BC #### [facility] Laboratory [address] [place] [address] Dr. Reynaldo Liu Monocytes/100 WBC (Bld) 9.3 % Normal 1.7-12.0 [facility] Comment on above: Performed By: #### C BC #### [facility] [address] [place] [address] Dr. Reynaldo Liu NEUT # 6.6 103/ul Critically high 1.4-6.5 [facility] Comment on above: Performed By: #### C BC #### [facility] Laboratory [address] [place] [address] Dr. Reynaldo Liu Neutrophils/100 WBC (Bld) 60.4 % Normal 43.0-75.0 [facility] Comment on above: Performed By: #### C BC #### [facility] Laboratory [address] [address] [address] Reynaldo Liu Platelet mean volume (Bld) [Entitic vol] 10.6 fL Normal 9.5-13.5 [facility] Comment on above: Performed By: #### C BC #### [facility] Laboratory [address] [address] [address] Reynaldo Liu PLT 298 103/ul Normal 150-450 [facility] Comment on above: Performed By: #### C BC #### [facility] Laboratory [address] [address] [address] Reynaldo Liu RBC 4.90 106/ul Normal 4.70-6.10 [facility] Comment on above: Performed By: #### C BC #### [facility] Laboratory [address] [place] [address] Dr. Reynaldo Liu WBC 10.9 103/ul Normal 4.0-11.0 [facility] Comment on above: Performed By: #### C BC #### [facility] Laboratory [address] [address] [address] Reynaldo Liu ER URINE PROFILEon 3 Bilirubin Ql (U) Negative Normal NEGATIVE [facility] Comment on above: Performed By: #### E RUR ####[facility] [address] [place], [place] [address]DrMague Liu Clarity (U) CLEAR Normal CLEAR [facility] Comment on above: Performed By: #### E RUR ####[facility] [address] [place], [place] [address]DrMague Liu Color (U) LT. YELLOW Normal YELLOW [facility] Comment on above: Performed By: #### E RUR ####[facility] [address] [place], [place] [address]DrMague Liu ERUAHD A micrscopic examination will be performed if indicated. Normal [facility] Comment on above: Performed By: #### E RUR ####[facility] [address] [place], [place] [address]Dr. Reynaldo Liu Glucose Ql (U) Negative Normal NEGATIVE [facility] Comment on above: Performed By: #### E RUR ####[facility] [address] [address]Dr. Reynaldo Liu Hemoglobin Ql (U) Negative Normal NEGATIVE [facility] Comment on above: Performed By: #### E RUR ####[facility] [address] [address]Dr. Reynaldo Liu Ketones Ql (U) Negative Normal NEGATIVE [facility] Comment on above: Performed By: #### E RUR ####[facility] [address] [place], [place] [address]Dr. Reynaldo Noe LEUKOCYTES Negative Normal NEGATIVE [facility] Comment on above: Performed By: #### E RUR ####[facility] [address]iae[address] [place], [place] [address]Dr. Reynaldo Liu Nitrite Ql (U) Negative Normal NEGATIVE [facility] Comment on above: Performed By: #### E RUR ####[facility] [address] [place], [place] [address]Dr. Reynaldo Liu pH (U) 6.5 [pH] Normal 5-9 [facility] Comment on above: Performed By: #### E RUR ####[facility] [address] [place], [place] [address]Dr. Reynaldo Liu SPEC GRAVITY 1.015 Normal 1.005-<=1.025 [facility] Comment on above: Performed By: #### E RUR ####[facility] [address]hs[address] [place], [place] [address]Dr. Reynaldo Noe UA PROTEIN Negative Normal NEGATIVE/ TRACE [facility] Comment on above: Performed By: #### E RUR ####[facility] [address] [place], [place] [address]Dr. Reynaldo Liu UR MICRO IND NOT INDICATED Normal [facility] Comment on above: Performed By: #### E RUR ####[facility] [address] [place], [place] [address]Dr. Reynaldo Liu Urobilinogen Qn (U) 0.2 {Pastor'U}/dL Normal 0.2 - 1.0 [facility] Comment on above: Performed By: #### E RUR ####[facility] [address] [address]Dr. Reynaldo Liu PROF CHEM 8 (BAS METB)on Anion gap [Moles/Vol] 11.9 mmol/L Normal [facility] Comment on above: Performed By: #### B MP #### [facility] Laboratory [address] [address] [address] Reynaldo Liu Calcium [Mass/Vol] 8.7 mg/dL Normal 8.5-10.1 [facility] Comment on above: Performed By: #### B MP #### [facility] Laboratory [address] [address] [address] Reynaldo Liu Chloride [Moles/Vol] 105 mmol/L Normal 98-107 [facility] Comment on above: Performed By: #### B MP #### [facility] Laboratory [address] [address] [address] Reynaldo Liu CO2 [Moles/Vol] 27.5 mmol/L Normal 21.0-32.0 [facility] Comment on above: Performed By: #### B MP #### [facility] Laboratory [address] [address] [address] Reynaldo Liu Creatinine [Mass/Vol] 1.67 mg/dL Critically high 0.70-1.30 [facility] Comment on above: Performed By: #### B MP #### [facility] Laboratory [address] [address] [address] Reynaldo Liu EGFR-AF ZAMBIAN 50 mL/min/1.73m2 Critically low >=60 [facility] Comment on above: Performed By: #### B MP #### [facility] Laboratory [address] [address] [address] Reynaldo Liu EGFR-NON AF ZAMBIAN 42 mL/min/1.73m2 Critically low >=60 [facility] Comment on above: Performed By: #### B MP #### [facility] Laboratory [address] [address] [address] Reynaldo Liu Glucose [Mass/Vol] 96 mg/dL Normal 74-106 [facility] Comment on above: Performed By: #### B MP #### [facility] Laboratory [address] [address] [address] Reynaldo Liu Potassium [Moles/Vol] 4.4 mmol/L Normal 3.5-5.1 [facility] Comment on above: Performed By: #### B MP #### [facility] Laboratory [address] [address] [address] Reynaldo Liu Sodium [Moles/Vol] 140 mmol/L Normal 136-145 [facility] Comment on above: Performed By: #### B MP #### [facility] Laboratory [address] [place] [address] Dr. Reynaldo Liu Urea nitrogen [Mass/Vol] 18.0 mg/dL Normal 7.0-18.0 [facility] Comment on above: Performed By: #### B MP #### [facility] Laboratory [address] [place] [address] Dr. Reynaldo Liu Urea nitrogen/Creatinin e [Mass ratio] 10.8 mg/mg Normal [facility] Comment on above: Performed By: #### B MP #### [facility] Laboratory [address] [place] [address] Dr. Reynaldo Liu CREATININEon 07-24-2022 Creatinine [Mass/Vol] 1.34 mg/dL Critically high 0.70-1.30 [facility] Comment on above: Performed By: #### C JAQUI #### [facility] Laboratory [address] [place] [address] Dr. Reynaldo Liu EGFR-AF ZAMBIAN >60 Normal >=60 [facility] Comment on above: Performed By: #### C JAQUI #### [facility] Laboratory [address] [place] [address] Dr. Reynaldo Liu EGFR-NON AF ZAMBIAN 54 mL/min/1.73m2 Critically low >=60 [facility] Comment on above: Performed By: #### C JAQUI #### [facility] Laboratory [address] [place] [address] Dr. Reynaldo Liu CTA CHEST WO W [...] ROSY ROLAND Date: 2022-07-24 15:42 Normal [facility] CBC W MANUAL DIFFon 06-23-19 23 ATYPICAL LYMPH # Normal [facility] Comment on above: Performed By: #### Shola WHITNEY ####[facility] [address] [place], [place] [address]Dr. Reynaldo Liu ATYPICAL LYMPH % Normal [facility] Comment on above: Performed By: #### Shola WHITNEY ####[facility] [address] [address]DrMague Liu BAND # 0.0 103/ul Normal 0.0-0.3 [facility] Comment on above: Performed By: #### Shola WHITNEY ####[facility] [address] [address]DrMague Liu BAND % 0 % Normal 0-5 [facility] Comment on above: Performed By: #### Shola WHITNEY ####[facility] [address] [address]DrMague Liu BASOM # 0.00 103/ul Normal 0.00-0.10 [facility] Comment on above: Performed By: #### C DEVONTE ####[facility] [address] [address]Dr. Reynaldo Liu BASOM % 0.0 % Critically low 0.2-2.0 [facility] Comment on above: Performed By: #### C DEVONTE ####[facility] [address] [address]Dr. Reynaldo Liu BLAST # Normal [facility] Comment on above: Performed By: #### C DEVONTE ####[facility] [address] [address]Dr. Reynaldo Liu BLAST % Normal [facility] Comment on above: Performed By: #### C DEVONTE ####[facility] Dr[address] [place], [place] [address]Dr. Reynaldo Liu CORRECTED WBC Normal 4.0-11.0 [facility] Comment on above: Performed By: #### C DEVONTE ####[facility] [address] [place], [place] [address]Dr. Reynaldo Liu EOS # 0.00 103/ul Normal 0.00-0.70 [facility] Comment on above: Performed By: #### C DEVONTE ####[facility] [address] [place], [place] [address]Dr. Reynaldo Liu EOS% 0.0 % Critically low 0.9-7.0 [facility] Comment on above: Performed By: #### C DEVONTE ####[facility] [address] [place], [place] [address]Dr. Reynaldo Liu HCT 43.6 % Normal 42.0-54.0 [facility] Comment on above: Performed By: #### C DEVONTE ####[facility] [address] [place], [place] [address]Dr. Reyanldo Liu HGB 14.5 g/dl Normal 14.0-18.0 [facility] Comment on above: Performed By: #### C DEVONTE ####[facility] [address] [place], [place] [address]Dr. Reynaldo Liu LYMPHM # 1.34 103/ul Normal 1.20-3.80 [facility] Comment on above: Performed By: #### C DEVONTE ####[facility] [address] [address]Dr. Reynaldo Liu LYMPHM% 7.0 % Critically low 20.5-60.0 [facility] Comment on above: Performed By: #### C DEVONTE ####[facility] [address] [address]Dr. Reynaldo Liu MCH 29.0 pg Normal 25.9-34.0 [facility] Comment on above: Performed By: #### C DEVONTE ####[facility] [address] [address]Dr. Reynaldo Liu MCHC 33.3 g/dl Normal 29.9-35.2 [facility] Comment on above: Performed By: #### Shola WHITNEY ####[facility] [address] [place], [place] [address]Dr. Reynaldo Liu MCV 87.2 fL Normal 80.0-94.0 [facility] Comment on above: Performed By: #### Shola WHITNEY ####[facility] [address] [place], [place] [address]Dr. Reynaldo Liu METAMYELOCYTE # Normal [facility] Comment on above: Performed By: #### C DEVONTE ####[facility] [address] [address]Dr. Reynaldo Liu METAMYELOCYTE % Normal [facility] Comment on above: Performed By: #### C DEVONTE ####[facility] [address] [address]Dr. Reynaldo Liu MONOM# 1.72 103/ul Critically high 0.30-0.80 [facility] Comment on above: Performed By: #### C DEVONTE ####[facility] [address] [address]Dr. Reynaldo Liu MONOM% 9.0 % Normal 1.7-12.0 [facility] Comment on above: Performed By: #### C DEVONTE ####[facility] [address] [place], [place] [address]Jv. Reynaldo Liu MPV 10.9 fL Normal 9.5-13.5 [facility] Comment on above: Performed By: #### C DEVONTE ####[facility] [address] [place], [place] [address]Fi. Reynaldo Liu MYELOCYTE # Normal [facility] Comment on above: Performed By: #### C DEVONTE ####[facility] [address] [address]Dr. Reynaldo Liu MYELOCYTE % Normal [facility] Comment on above: Performed By: #### C DEVONTE ####[facility] [address] [address]Dr. Reynaldo Liu NRBC Normal [facility] Comment on above: Performed By: #### C DEVONTE ####[facility] [address] [address]Dr. Reynaldo Liu PLT 279 103/ul Normal 150-450 [facility] Comment on above: Performed By: #### C DEVONTE ####[facility] [address] [address]Dr. Reynaldo Liu RBC 5.00 106/ul Normal 4.70-6.10 [facility] Comment on above: Performed By: #### C DEVONTE ####[facility] [address] [address]Dr. Reynaldo Liu RDW 14.7 % Normal 11.0-15.0 [facility] Comment on above: Performed By: #### C DEVONTE ####[facility] [address] [address]Dr. Reynaldo Liu SEG # 16.04 103/ul Critically high 1.40-6.50 [facility] Comment on above: Performed By: #### C DEVONTE ####[facility] [address] [address]Dr. Reynaldo Liu SEG % 84.0 % Critically high 43.0-75.0 [facility] Comment on above: Performed By: #### C DEVONTE ####[facility] [address] [address]DrMague Liu TOXIC GRANULATION 2+ Normal [facility] Comment on above: Performed By: #### C DEVONTE ####[facility] [address] [address]DrMague Liu WBC 19.1 103/ul Critically high 4.0-11.0 [facility] Comment on above: Performed By: #### C DEVONTE ####[facility] [address] [id number] Liu ER URINE PROFILEon 3 Bilirubin Ql (U) Negative Normal NEGATIVE [facility] Comment on above: Performed By: #### U MICRO, ERUR #### [facility] Laboratory [address] [address] [address] Reynaldo Liu Clarity (U) CLEAR Normal CLEAR [facility] Comment on above: Performed By: #### U MICRO, ERUR #### [facility] Laboratory [address] [address] [address] Reynaldo Liu Color (U) LT. YELLOW Normal YELLOW [facility] Comment on above: Performed By: #### U MICRO, ERUR #### [facility] Laboratory [address] [address] [address] Reynaldo HIRSCH A micrscopic examination will be performed if indicated. Normal The [facility] Comment on above: Performed By: #### U MICRO, ERUR #### [facility] Laboratory [address] [address] [address] Reynaldo Liu Glucose Ql (U) Negative Normal NEGATIVE [facility] Comment on above: Performed By: #### U MICRO, ERUR #### [facility] Laboratory [address] [address] [address] Reynaldo Liu Hemoglobin Ql (U) TRACE-INTACT Abnormal NEGATIVE [facility] Comment on above: Performed By: #### U MICRO, ERUR #### [facility] Laboratory [address] [address] [address] Reynaldo Liu Ketones Ql (U) 15 mg/dl Abnormal NEGATIVE [facility] Comment on above: Performed By: #### U MICRO, ERUR #### [facility] Laboratory [address] [place] [address] Dr. Reynaldo Liu LEUKOCYTES Negative Normal NEGATIVE [facility] Comment on above: Performed By: #### U MICRO, ERUR #### [facility] Laboratory [address] [place] [address] Dr. Reynaldo Liu Nitrite Ql (U) Negative Normal NEGATIVE [facility] Comment on above: Performed By: #### U MICRO, ERUR #### [facility] Laboratory [address] [place] [address] Dr. Reynaldo Liu pH (U) 6.0 [pH] Normal 5-9 [facility] Comment on above: Performed By: #### U MICRO, ERUR #### [facility] Laboratory [address] [place] [address] Dr. Reynaldo Liu Protein (U) [Mass/Vol] 30 mg/dL Abnormal NEGATIVE/ TRACE The [facility] Comment on above: Performed By: #### U MICRO, ERUR #### [facility] Laboratory [address] [place] [address] Dr. Reynaldo Liu SPEC GRAVITY 1.010 Normal 1.005-<=1.025 [facility] Comment on above: Performed By: #### U MICRO, ERUR #### [facility] [address] [place] [address] Dr. Reynaldo Liu UR MICRO IND INDICATED Normal The [facility] Comment on above: Performed By: #### U MICRO, ERUR #### [facility] Laboratory [address] [place] [address] Dr. Reynaldo Liu Urobilinogen Qn (U) 0.2 {Pastor'U}/dL Normal 0.2 - 1.0 [facility] Comment on above: Performed By: #### U MICRO, ERUR #### [facility] Laboratory [address] [place] [address] Dr. Reynaldo Liu LACTATE/LACTIC ACIDon 2022 Lactate [Moles/Vol] 1.4 mmol/L Normal 0.4-1.9 [facility] Comment on above: Performed By: #### L ACT #### [facility] Laboratory [address] [address] [address] Reynaldo Liu LIPASEon 06-23-2022 Lipase [Catalytic activity/Vol] 80.0 U/L Normal 73.0-393.0 [facility] Comment on above: Performed By: #### C MP, LIPA ####[facility] [address] [address]DrMague Liu PROF 14(COMP METB)on 023 Albumin [Mass/Vol] 3.8 g/dL Normal 3.4-5.0 [facility] Comment on above: Performed By: #### C WINNIE LIPA ####[facility] [address] [address]DrMague Liu Albumin/Globulin [Mass ratio] 1.0 {ratio} Normal [facility] Comment on above: Performed By: #### C WINNIE, LIPA ####[facility] [address] [address]DrMague Liu ALP [Catalytic activity/Vol] 72 U/L Normal 46-116 [facility] Comment on above: Performed By: #### C WINNIE, LIPA ####[facility] [address] [address]Dr. Reynaldo Liu ALT [Catalytic activity/Vol] 71 U/L Critically high 16-63 [facility] Comment on above: Performed By: #### C MP, LIPA ####[facility] [address] [address]DrMague Liu Anion gap [Moles/Vol] 19.5 mmol/L Normal [facility] Comment on above: Performed By: #### C MP, LIPA ####[facility] [address] [address]Dr. Reynaldo Liu AST [Catalytic activity/Vol] 96 U/L Critically high 15-37 [facility] Comment on above: Performed By: #### C MP, LIPA ####[facility] [address] [address]Dr. Reynaldo Liu Bilirubin [Mass/Vol] 1.0 mg/dL Normal 0.2-1.0 The [facility] Comment on above: Performed By: #### C MP, LIPA ####[facility] [address] [place], [place] [address]Dr. Reynaldo Liu Calcium [Mass/Vol] 9.1 mg/dL Normal 8.5-10.1 [facility] Comment on above: Performed By: #### C MP, LIPA ####[facility] [address] [place], [place] [address]Dr. Reynaldo Liu Chloride [Moles/Vol] 100 mmol/L Normal 98-107 [facility] Comment on above: Performed By: #### C MP, LIPA ####[facility] [address] [place], [place] [address]Dr. Reynaldo Liu CO2 [Moles/Vol] 21.5 mmol/L Normal 21.0-32.0 [facility] Comment on above: Performed By: #### C MP, LIPA ####[facility] [address] [place], [place] [address]Dr. Reynaldo Liu Creatinine [Mass/Vol] 1.89 mg/dL Critically high 0.70-1.30 [facility] Comment on above: Performed By: #### C MP, LIPA ####[facility] [address] [place], [place] [address]Dr. Reynaldo Liu EGFR-AF ZAMBIAN 44 mL/min/1.73m2 Critically low >=60 The [facility] Comment on above: Performed By: #### C MP, LIPA ####[facility] [address] [place], [place] [address]Dr. Reynaldo Liu EGFR-NON AF ZAMBIAN 36 mL/min/1.73m2 Critically low >=60 The [facility] Comment on above: Performed By: #### C MP, LIPA ####[facility] [address] [place], [place] [address]Dr. Reynaldo Liu Globulin (S) [Mass/Vol] 3.9 g/dL Normal [facility] Comment on above: Performed By: #### C MP, LIPA ####[facility] [address] [id number]. Reynaldo Liu Glucose [Mass/Vol] 117 mg/dL Critically high 74-106 [facility] Comment on above: Performed By: #### C MP, LIPA ####[facility] [address] [address]Dr. Reynaldo Liu Potassium [Moles/Vol] 4.0 mmol/L Normal 3.5-5.1 [facility] Comment on above: Performed By: #### C MP, LIPA ####[facility] [address] [address]Dr. Reynaldo Liu Protein [Mass/Vol] 7.7 g/dL Normal 6.4-8.2 [facility] Comment on above: Performed By: #### C WINNIE, LIPA ####[facility] [address] [address]Dr. Reynaldo Liu Sodium [Moles/Vol] 137 mmol/L Normal 136-145 [facility] Comment on above: Performed By: #### C MP, LIPA ####[facility] [address] [address]Dr. Reynaldo Liu Urea nitrogen [Mass/Vol] 22.0 mg/dL Critically high 7.0-18.0 [facility] Comment on above: Performed By: #### C WINNIE, LIPA ####[facility] [address] [address]Dr. Reynaldo Liu Urea nitrogen/Creatinin e [Mass ratio] 11.6 mg/mg Normal [facility] Comment on above: Performed By: #### C MP, LIPA ####[facility] [address] [address]DrMague Liu URINE MICROSCOPIC ONLYon BACTERIA NONE SEEN Normal NONE SEEN The [facility] Comment on above: Performed By: #### U MICRO, ERUR #### [facility] Laboratory [address] [address] [address] Reynaldo Liu Bacteria identified Cx Nom (U) NOT INDICATED Normal The [facility] Comment on above: Performed By: #### U MICRO, ERUR #### [facility] Laboratory [address] [place] [address] Dr. Reynaldo Liu CAST NONE SEEN Normal NONE SEEN The [facility] Comment on above: Performed By: #### U MICRO, ERUR #### [facility] Laboratory [address] [place] [address] Dr. Reynaldo Liu Crystals LM Nom (Urine sed) NONE SEEN Normal NONE SEEN The [facility] Comment on above: Performed By: #### U MICRO, ERUR #### [facility] Laboratory [address] [place] [address] Dr. Reynaldo Liu Epithelial cells LM Ql (Urine sed) FEW Abnormal NONE SEEN /RARE The [facility] Comment on above: Performed By: #### U MICRO, ERUR #### [facility] [address] [place] [address] Dr. Reynaldo Liu MUCOUS NONE SEEN Normal NONE SEEN The [facility] Comment on above: Performed By: #### U MICRO, ERUR #### [facility] [address] [place] [address] Dr. Reynaldo Liu RBC 2-5 Abnormal 0-2 The [facility] Comment on above: Performed By: #### U MICRO, ERUR #### [facility] [address] [place] [address] Dr. Reynaldo Liu WBC 5-10 Abnormal NONE SEEN The [facility] Comment on above: Performed By: #### U MICRO, ERUR #### [facility] [address] [place] [address] Dr. Reynaldo iLu Covid-19 PCR (CVDTBH)on SARS-CoV-2 (COVID-19) RNA SARANYA+probe Ql (Unsp spec) Not detected Normal NOT DETECTED The [facility] Comment on above: Result Comment: This test is not yet approved or cleared by the [place] FDA. When there are no FDA-approved or cleared tests available, and other criteria are met, FDA can make tests available under an emergency access mechanism called an Emergency Use Authorization (EUA). The EUA for this test is supported by the Project Development Manager of Health and Human Service's (HHS's) declaration [...] SARS-CoV-2. Performed By: #### C VDTBH #### [facility] [address] [address] [address] Reynaldo Liu Covid-19 PCR ([facility])on 12-23 SARS-CoV-2 (COVID-19) RNA SARANYA+probe Ql (Unsp spec) Detected Critically abnormal NOT DETECTED The [facility] Comment on above: Result Comment: This test is not yet approved or cleared by the [place] FDA. When there are no FDA-approved or cleared tests available, and other criteria are met, FDA can make tests available under an emergency access mechanism called an Emergency Use Authorization (EUA). The EUA for this test is supported by the Project Development Manager of Health and Human Service's declaration that [...] longer be used). Performed By: #### C VDTBH #### [facility] [address] [place], [place] [address] Dr. Reynaldo Liu PROF CHEM 8 (BAS METB)on Anion gap [Moles/Vol] 16.2 mmol/L Normal The [facility] Comment on above: Performed By: #### B MP ####[facility] [address] [place], [place] [address]Dr. Reynaldo Liu Calcium [Mass/Vol] 8.3 mg/dL Critically low 8.5-10.1 Th e [facility] Comment on above: Performed By: #### B MP ####[facility] [address] [address]Dr. Reynaldo Liu Chloride [Moles/Vol] 101 mmol/L Normal 98-107 [facility] Comment on above: Performed By: #### B MP ####[facility] [address] [place], [place] [address]Dr. Reynaldo Liu CO2 [Moles/Vol] 20.9 mmol/L Critically low 21.0-32.0 [facility] Comment on above: Performed By: #### B MP ####[facility] [address] [place], [place] [address]Dr. Reynaldo Liu Creatinine [Mass/Vol] 1.55 mg/dL Critically high 0.70-1.30 [facility] Comment on above: Performed By: #### B MP ####[facility] [address] [place], [place] [address]Dr. Reynaldo Liu EGFR-AF ZAMBIAN 55 mL/min/1.73m2 Critically low >=60 [facility] Comment on above: Performed By: #### B MP ####[facility] [address] [place], [place] [address]Dr. Reynaldo Liu EGFR-NON AF ZAMBIAN 46 mL/min/1.73m2 Critically low >=60 [facility] Comment on above: Performed By: #### B MP ####[facility] [address] [place], [place] [address]Dr. Reynaldo Liu Glucose [Mass/Vol] 110 mg/dL Critically high 74-106 [facility] Comment on above: Performed By: #### B MP ####[facility] [address] [place], [place] [address]Dr. Reynaldo Liu Potassium [Moles/Vol] 4.1 mmol/L Normal 3.5-5.1 [facility] Comment on above: Performed By: #### B MP ####[facility] [address] [place], [place] [address]Dr. Reynaldo Liu Sodium [Moles/Vol] 134 mmol/L Critically low 136-145 Th e [facility] Comment on above: Performed By: #### B MP ####[facility] [address] [place], [place] [address]Ej. Reynaldo Liu Urea nitrogen [Mass/Vol] 23.0 mg/dL Critically high 7.0-18.0 [facility] Comment on above: Performed By: #### B MP ####[facility] [address] [place], [place] [address]Jp. Reynaldo Liu Urea nitrogen/Creatinin e [Mass ratio] 14.8 mg/mg Normal [facility] Comment on above: Performed By: #### B MP ####[facility] [address] [place], [place] [address]Kq. 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 Comment on above: Order Comment: tri n ational inc Performed By: #### [id number] ####[facility] [place], [place] [address] [employer] Sent to reference lab. See separate report. Normal [facility] Comment on above: Order Comment: tri n ational inc Performed By: #### [id number] ####[facility] [place], [place] [address] Encounters Encounter Date Encounter Type Care Provider Facility Start: 01-26-2024 End: 01-26-2024 ambulatory NICOLAS MEJIA Not Available Start: 01-19-2024 End: 01-19-2024 ambulatory AMY H TIMMIS Not Available Start: 12-21-2023 End: 12-21-2023 ambulatory AMY H TIMMIS Not Available Start: 10-05-2023 ambulatory ALLI PASCUAL [facility] Start: 09-17-2023 End: 09-18-[address] [facility] Start: 08-17-2023 End: 08-17-2023 ambulatory [facility] Start: 06-08-2023 End: 06-08-2023 ambulatory [facility] Start: 05-10-2023 ambulatory [facility] Start: 05-10-2023 End: 05-10-2023 ambulatory [facility] Start: 05-10-2023 End: 05-10-2023 Encounter for preprocedural laboratory examination [facility] Start: 04-12-2023 End: 04-12-2023 [facility]: 11-23-2022 End: 11-24-2022 ambulatory Amy Goldstein Facility:[facility] Start: 11-23-2022 End: 11-23-2022 Patient encounter procedure Amy Goldstein [facility] Start: 10-20-2022 ambulatory LIZETH WALLACESOCORRO [facility] Start: 10-14-2022 End[facility]: 10-12-2022 End: 10-13-2022 ambulatory NIKHIL [facility] Start: 09-21-2022 End: 09-22-[address] DOCTOR BREWSTER Facility:[facility] Start: 09-13-2022 End: 09-13-2022 ambulatory MIHAI Bowser Facility:[facility] Start: 08-17-[address] DOCTOR BREWSTER Facility :[facility] Start: 07-27-2022 Encounter for preprocedural laboratory examination DR AMANDEEP STONE [facility] Start: 07-24-2022 End: 07-25-[address] ROSY ROLAND Facility:[facility] Start: 06-23-2022 End: 02-01-[address] KOKO MÁRQUEZ Facility:[facility] Start: 04-21-2022 End: 04-21-[address] LIV Bowser Facility:[facility] Start: 01-23-2022 End: 01-23-[address] Facility:[facility] Start: 01-18-2022 End: 01-18-[address] Facility:[facility] Start: 08-22-2018 End: 08-22-2018 Patient encounter procedure KIRSTIN HUGHES [facility] Start: 08-01-2018 End: 08-01-2018 Patient encounter procedure KIRSTIN Y ELLEN [facility] Start: 07-26-2018 End: 07-27-2018 Patient encounter procedure DEFAULT PHYSICIAN Facility:[facility] Start: 11-03-2017 End: 11-03-2017 Unknown [employer] Facility:[facility] Procedures Date Procedure Procedure Detail Performing Clinician Start: 08-22-2018 DIET GENERAL KIRSTIN CLAR K Start: 08-22-2018 FULL CODE KIRSTIN CLAR K Start: 08-22-2018 INITIATE OXYGEN THER APY PROTOCOL KIRSTIN HUGHES Start: 08-22-2018 NURSING COMMUNICATION B ELIZABETH HUGHES Start: 08-22-2018 VITAL SIGNS IKRSTIN CLAR K Start: 08-22-2018 DISCHARGE PATIENT KIRSTIN [...] NURSING COMMUNICATION B ELIZABETH HUGHES Start: 08-01-2018 VITAL SIGNS KIRSTIN CLAR K Start: 08-01-2018 INITIATE OXYGEN THER APY PROTOCOL KIRSTIN ELLEN Start: 08-01-2018 NURSING COMMUNICATION B ELIZABETH HUGHES Start: 08-01-2018 VERIFY INFORMED CONSENT KIRSTIN HUGHES Payers Date Payer Category Payer Medicare [id number] 2018 Medicaid [id number] 2017 Unknown 1961 Private Health Insurance [id number] 1960 Unknown [id number] 2.16.8 [id number] 1958 Unknown [id number] 2.16.8 [id number] 1958 Unknown [id number] 2.16.8 [id number] 1958 Unknown [id number] 2.16.84 [id number] 1958 Unknown [id number] 2.16.84 [id number] 1958 Unknown [id number] 2.16.84 0.1.426392.3.579.2.593 1958 Unknown [id number] 2.16.84 0.1.120618.3.579.2.593 1958 Unknown [id number] 2.16.84 0.1.079528.3.579.2.593 1958 Unknown [id number] 2.16.84 0.1.923065.3.579.2.593 1958 Unknown [id number] 2.16.84 0.1.893766.3.579.2.593 1958 Unknown [id number] 2.16.84 0.1.445975.3.579.2.593 1958 Unknown [id number] 2.16.8 40.1.913483.3.579.2.727 1958 Unknown [id number] 2.16.84 0.1.402445.3.579.2.1259 1958 Unknown [id number] 2.16.84 0.1.514014.3.579.2.1259 1958 Unknown [id number] 2.16.84 [id number] Social History Date Type Detail Facility Tobacco smoking status No Smoking Status Entered [facility] Sex Assigned At Male [facility] Clinical Notes 06-23-2022 to 10-05-2023 Note Date & Type Note Facility 10-05-2023 Note ARRIVAL GIVEN 0700 F OR PROCEDURE DATE 10/12 HOLD ELIQUIS 10/10 MEDICATIONS TO TAKE DAY OF SURGERY WITH SIP OF WATER AMIODARONE USE DUO NEB METOPROLOL HOLD VITAMINS AND SUPPLEMENTS 5 DAYS PRIOR TO PROCEDURE HOLD ALL ANTI INFLAMMATORIES ETC:MOTRIN, ADVIL, ALEVE, FOR 5 DAYS PRIOR TO PROCEDURE IF YOU ARE GOING HOME AFTER YOUR SURGERY OR PROCEDURE, FOR YOUR SAFETY, YOUR SURGERY WILL BE CANCELLED IF BOTH OF THE FOLLOWING ARE NOT AVAILABLE: An adult piledriver carpenter over the age of 18, that can receive information about your care after surgery, and drive you home. A responsible adult to stay with you for 24 hours in case of an emergency. Can be same as above. The highest risk of complications is within the first 24 hours after sedation/anesthesia. Nothing to eat or drink after midnight the night before surgery. This includes gum, candy, mints, and lozenges. No alcohol, marijuana, or tobacco products including vaping for 24 hours. Please brush your teeth; don't swallow the toothpaste or water. If you use dentures, wear them but do not use paste. Please leave any other removable dental hardware at home. Do not put in contact lenses. Do not wear perfume, make-up, nail luxembourgish, or lotions on the day of your surgery or procedure. Follow skin-prep/wipe instructions as below if required. Bring with you: *Insurance card *Photo ID *Medication list *Co-pay for visit/prescriptions If applicable: *Rescue inhalers *Green bracelet from lab *CPAP or BiPAP machine, if staying overnight *Any braces, splints, or equipment ordered preoperatively *Remote controls for implanted devices Leave at home: *Purse/Wallet/Mathew- unless needed for co-pay *Cell phone (can leave with family/friend or place in locker if needed) *Jewelry (including piercings and wedding bands) *If not possible, ask the person who is waiting with you to keep them Children under the age of 12 will not be allowed into patient care areas. We will call you between 3pm and 4pm the day before your surgery to give you an arrival time. If you do not receive this call, have any questions, or need to make any changes, please call [phone]. Notify your surgeon if you develop any illness such as a cold, cough, fever, sore throat or vomiting between now and your surgery. Thank you for entrusting us with your care. [facility] Surgical Services Team [facility] 10-05-2023 Note Attestation signed by Alli Pascual MD at 10/06/2023 8:57 AM I agree with the above findings and plan of care. 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 He follows with cardiology which he underwent cardioversion in April 2023. He is scheduled for an ablation in September. He has a known ascending thoracic aneurysm for which he has been getting surveillance CT scans of the chest. He is here via televisit for yearly follow up for the thoracic aortic aneurysm. CTA chest was done in the end of August 2023 showing Fusiform ascending thoracic aortic aneurysm measuring 4.9 cm at the level of the sinuses and 4.3 cm in the mid ascending aorta. Aortic sinus measurement appears minimally larger than on previous study (previously 4.7 cm). Left lower lobe lung nodule measuring 0.8 cm appears slightly larger than on previous study. Echo done [facility] 07[facility]17 showing EF of 50-55%, mitral valve annuloplasty is seen, no significant regurgitation or stenosis. The aortic root is moderately dilated, ascending aorta is mildly dilated. He has no complaints today. Denies dizziness lightheadedness. Denies chest pain or shortness of breath. No syncopal history. No numbness, tingling, or weakness of bilateral upper or lower extremities. No family history of connective tissue disorder or family history of an aneurysm. He does not smoke, quit in 1984. Take all medications daily as prescribed. Does not check blood pressure at home. Objective ROS General: No fever, chills Eyes: No headaches, vision changes, blurry vision ENT: No sore throat, cough or runny nose Neuro: No focal deficits Neck: No lymphadenopathy, no pain CV: No chest pain, palpitations Lungs: No shortness of breath, no wheezing Abd: no abdominal pain. No nausea, vomiting, diarrhea, melena, hematochezia. : Denies any dysuria, hematuria Skin: Denies any new rashes/lesions/ulcerations Endo: No heat or cold intolerance MS: Denies any myalgias, gross deformities Psych: No depression, no anxiety Heme: No easy bruising Lymph: Denies any lymphadenopathy Physical Exam Unable to obtain over the phone Lab Results Component Value Date NA 136 09/17/2023 K 4.9 09/17/2023 CL 105 09/17/2023 ANIONGAP 11 09/17/2023 BUN 24 09/17/2023 CREATININE 1.59 (H) 09/17/2023 CALCIUM 9.0 09/17/2023 No results found for: BILITOT , BILIDIR , ALKPHOS , AST , ALT , PROT , ALBUMIN Lab Results Component Value Date WBC 8.28 09/17/2023 RBC 4.52 09/17/2023 HGB 13.6 09/17/2023 HCT 40.2 09/17/2023 PLT 255 09/17/2023 No results found for this or any previous visit from the past 1 day. Assessment/Plan Active Problems: There are no active Hospital Problems. Ede Davies is a 63 year old M presenting for follow up of a Thoracic aortic aneurysm measuring 4.9 cm and also found to have a left lobe nodule measure 0.8 cm. Plan: - Maintain blood pressure control. Follow up with PCP for blood pressure management - Obtain genetic testing - Repeat CTA chest and AP to follow up size of TAA in 6 months and rule out abdominal aneurysm - Follow up in the Clinic in 6 months Cardiothoracic Surgery outpatient Office Number [phone]. Cardiothoracic Surgery outpatient . 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 His insurance denied his afib ablation, which was planned for mid July 2023. Denies chest pain, SOB, palpitations, lightheadedness/syncope, and bleeding on Eliquis. He completed a home sleep study but was told by the sleep center that it wasn't able to get the correct data. His repeat echocardiogram done in June 2023 has shown improvement of EF to normal levels having maintain sinus rhythm. patient is currently on amiodarone and wants to come off the medication due to the concern of adverse effects. he wants to proceed with ablation ECHO 07/22/23 06/08/23 Pt is s/p DCCV and is [...] ascending aortic aneurysm, mitral valve repair at [facility] 2004 and hypertension seen in ED follow-up for new onset atrial fibrillation. He presented to the [facility] emergency department where he was found to [...] fibrillation (CMS/HCC) COPD (chronic obstructive pulmonary disease) (CMS/[facility]) Heart valve disease Hypertension PSH: Past Surgical [...] Connections: Not on file Intimate Partner Violence: Unknown (07/15/2023) [place] Safety & Environment Fear of Current or Ex-Partner: Not on file Emotionally Abused: Not on file Physically Abused: Not on file Sexually Abused: Not on file Physically or Sexually Abused: Not on file Depression: Not on file Housing Stability: Not on file Utilities: Not on file Allergies: Allergies Allergen Reactions Azithromycin Weight: 114kg Visit Vitals BP 144/85 (BP Location: Left arm, Patient Position: Sitting) Pulse 51 Ht 1.829 m (6') Wt 114 kg (251 lb) SpO2 96% BMI 34.04 kg/m??? Smoking Status Never BSA 2.41 m??? Meds: Current Outpatient Medications on File Prior to Visit Medication Sig Dispense Refill amiodarone (Pacerone) 200 mg tablet TAKE 1 TABLET BY MOUTH IN THE MORNING 90 tablet 3 apixaban (Eliquis) 5 mg tablet Take 1 [...] medications on file prior to visit. ROS: Review of Systems Constitutional: Positive for malaise/fatigue. Cardiovascular: Positive for dyspnea on exertion. All other systems reviewed and are negative. Physical Exam: Telemed Labs: @LABRESULTS@ Lab Results (more content not included)... [facility] 06-08-2023 Note [facility] Consult Note Reason for visit: s/p DCCV Date of Telehealth Visit: 06/08/2023 The patient was notified that using 3rd alliance party telecommunication application (e.g., [employer]) is not HIPPA compliant and may carry some privacy risks. Yes The visit was conducted [id number] with the use of audio and video technology Doxy.me between patient and provider for a virtual [...] ascending aortic aneurysm, mitral valve repair at [facility] 2004 and hypertension seen in ED follow-up for new onset atrial fibrillation. He presented to the [facility] emergency department where he was found to [...] bedtime. 180 tab (more content not included)... [facility] 05-10-2023 Note Patient: Ede kim Procedure Information Date/Time: 05/10/23 1030 Procedure: Cardioversion Location: [facility]ING RO[facility] / [facility]ULAR [facility] (Cath) Providers: Nikhil Benson MD [...] with fellow and attending. Additional Equipment Requests [facility] 04-12-2023 Note [place] Electrophysiology Consult Note Reason for visit: 6 [...] ascending aortic aneurysm, mitral valve repair at [facility] 2004 and hypertension seen in ED follow-up for new onset atrial fibrillation. He presented to the [facility] emergency department where he was found to [...] results found for: (more content not included)... [facility] 04-12-2023 Note Patient here for 6 m o follow up persistent afib and hx of mitral valve repair. He is tolerating Eliquis and amiodarone well. Denies chest pain, palpitations, and bleeding on Eliquis. His SOB w/ exertion remains unchanged. No recent labs/imaging. Review of Systems Constitutional: Positive for malaise/fatigue. Cardiovascular: Positive for dyspnea on exertion. All other systems reviewed and are negative. [facility] 10-20-2022 Note Subjective Patient ID: Ede Davies [...] 1. Aneurysm of ascending aorta without rupture (CMS/HCC) 2. Atrial fibrillation, unspecified type (CMS/HCC) 3. Primary hypertension 4. Benign hypertensive heart disease without congestive heart failure lisinopril 5 mg tablet 5. Chronic obstructive pulmonary disease, unspecified COPD type (CMS/HCC) 6. HFrEF (heart failure with reduced ejection fraction) (CMS/HCC) Plan: --Available medical records, Report for CT [...] contrast prior. -Request recent CT Chest from [facility], from 07/2022 [facility] 09-13-2022 Note PROCEDURE: CT ABD/PE LVIS WO [...] authenticated by: IGOR BOB Date: 2022-09-13 14:23 [facility] 06-23-2022 Note Indication: Divertic ulitis. Comparison: 05/22/2019 [...] authenticated by: BRENDA PALMA Date: 2022-06-23 20:47 [facility] Evaluation + Plan note No data available for this section [facility] Hospital Discharge instructions No data available for this section [facility] Progress note No data available for this section [facility] Summary Purpose Family History No Family [...] section and content) DATE CREATED AUTHOR 11/09/[address] [facility] DATE CREATED AUTHOR AUTHOR'S ORGANIZ ATION 07/28/2018 [facility] DATE CREATED AUTHOR AUTHOR'S ORGANIZ ATION 08/25/2018 [facility] DATE CREATED AUTHOR AUTHOR'S ORGANIZ ATION 10/02/2022 [facility] DATE CREATED AUTHOR AUTHOR'S ORGANIZ ATION 11/24/2022 [facility] DATE CREATED AUTHOR AUTHOR'S ORGANIZ ATION 10/11/2023 [facility] DATE CREATED AUTHOR AUTHOR'S ORGANIZ ATION 01/27/2024 [facility] EPIC Patient Care team informatio n (unrecognized section and content) Personnel Name: Maciel YANG Jake Óscar Address: Address: [address] [place] [address] FOR RECORDS PERTAINING TO PATIENTS WHO ARE [...] BE BASED ON THE PRIMARY CLINICAL RECORDS. [facility] [employer] [facility]. provides no warranty or guarantee of the accuracy or completeness of information in this document.
== END 2024-02-29 11:47 | disposition home or self-care (01) ==
LOC: RAD 11:49
PROVIDERS: PCP Family Medicine; Visit Provider Internal Medicine Cardiovascular Disease
DX: Z79.899 Other long term (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 (principal)
CPT/HCPCS: 71046

== ENCOUNTER 2024-04-03 09:08 | Outpatient (OUT) | payer OTHER, SELFPAY ==
--- NOTE | 2024-04-03 09:26 | CT_ITS ---
The [address] [address] Patient Name: GINA DAVIES MRN: [id number] date: 1960 Sex: M Assigned Patient Location: LAB Current Patient Location: LAB Accession/Order Number: [id number] Exam Date: 04/03/2024 10:08 Report Date: 04/05/2024 10:29 At the request of: LUCIEN PASCUAL Procedure: CT angio abdomen pelvis EXAM: CT angio abdomen pelvis HISTORY: Aneurysm Of Ascending Aorta Without Rupture. COMPARISON: CT abdomen and pelvis 09/13/2022. TECHNIQUE: Contrast enhanced CT scans were obtained of the abdomen and pelvis. CTA is performed. Dose reduction techniques were achieved by using automated exposure control and/or adjustment of mA and/or kV according to patient size and/or use of iterative reconstruction technique. FINDINGS: Coronary artery calcifications are noted. Patient is status post mitral valve replacement. Within the splenic bed there are 2 probable splenules adjacent to the spleen. The adrenal glands are unremarkable. No biliary dilatation is seen. No renal hydronephrosis is present. No fluid is seen within the abdomen or pelvis. Colonic diverticula are noted. Calcifications are noted of the vas deferens. CTA: The celiac and superior mesenteric arteries are widely patent. No significant renal artery stenosis is noted. Plaque is seen within the infrarenal aorta. No aneurysm is seen. The inferior mesenteric artery is widely patent. No significant common or external iliac stenosis is present. Common femoral and profunda femoris bilaterally are widely patent. CT/CT angio abdomen pelvis IMPRESSION: 1. No abdominal aortic aneurysm. 2. No visceral artery stenosis. 3. No renal hydronephrosis. 4. Coronary artery calcifications. 5. Mitral valve replacement. 6. See above for details. Electronically authenticated by: Jordan MELGOZA Date: 04/05/2024 10:29
--- NOTE | 2024-04-03 09:26 | CT_ITS ---
The [address] [address] Patient Name: GINA DAVIES MRN: [id number] date: 1960 Sex: M Assigned Patient Location: LAB Current Patient Location: LAB Accession/Order Number: [id number] Exam Date: 04/03/2024 10:08 Report Date: 04/05/2024 10:28 At the request of: LUCIEN PASCUAL Procedure: CT angio chest EXAM: CT angio chest HISTORY: Aneurysm Of Ascending Aorta Without Rupture. COMPARISON: 07/24/2022. TECHNIQUE: Contrast enhanced CT of the chest obtained. CTA is performed. Dose reduction techniques were achieved by using automated exposure control and/or adjustment of mA and/or kV according to patient size and/or use of iterative reconstruction technique. FINDINGS: CT CHEST: There is redemonstration of an 8 mm left lower lobe pulmonary nodule. Stable since the previous examination. No pleural effusions are seen. Postoperative changes are seen consistent with median sternotomy. Coronary artery calcifications are present. Patient is status post mitral valve replacement. CTA: There is ectasia of the ascending aorta measuring 4.3 cm. Stable since the prior examination. No dissection is noted. The great vessel origins are tortuous but widely patent. The descending thoracic aorta is unremarkable. No dissection is seen. CT/CT angio chest IMPRESSION: 1. Stable ectasia of the ascending aorta measuring 4.3 cm. 2. Stable 8 mm nodule within the left lower lobe. 3. Status post median sternotomy and mitral valve replacement. 4. See above for details. Electronically authenticated by: Jordan MELGOZA Date: 04/05/2024 10:28
[2024-04-03 09:34] LABS: Estimated GFR (African America 42 (>=60 mL/min/1.73m^2); Estimated GFR (Non-African Ame 35 (>=60 mL/min/1.73m^2)
== END 2024-04-03 09:09 | disposition home or self-care (01) ==
LOC: LAB 09:08
PROVIDERS: PCP Family Medicine; Visit Provider Surgery
DX: I71.21 Aneurysm of the ascending aorta, without rupture (principal); Z95.4 Presence of other heart-valve replacement; R91.1 Solitary pulmonary nodule
CPT/HCPCS: 36415; 71275; 74174; 82565; 84520; Q9966

== ENCOUNTER 2024-04-18 13:48 | Outpatient (OUT) | payer OTHER, SELFPAY ==
[2024-04-18 14:32] LABS: Basophils Absolute Auto 0.1 10^3/uL (0.0-0.1); Basophils Percent Auto 0.9 % (0.2-2.0); Eosinophils Absolute Auto 0.2 10^3/uL (0.0-0.7); Eosinophils Percent Auto 2.3 % (0.9-7.0); Hematocrit 44.1 % (42.0-54.0); Hemoglobin 14.4 g/dL (14.0-18.0); Immature Granulocytes Abs Auto 0.02 10^3/uL (0.00-0.03); Immature Granulocytes Pct Auto 0.3 % (0.0-0.5); Lymphocytes Absolute Auto 2.1 10^3/uL (1.2-3.8); Lymphocytes Percent Auto 29.3 % (20.5-60.0); Mean Corpuscular HGB Conc 32.7 g/dL (29.9-35.2); Mean Corpuscular Hemoglobin 30.8 pg (25.9-34.0); Mean Corpuscular Volume 94.2 fL (80.0-94.0); Mean Platelet Volume 12.6 fL (9.5-13.5); Monocytes Absolute Auto 1.1 10^3/uL (0.3-0.8); Monocytes Percent Auto 15.3 % (1.7-12.0); Neutrophils Absolute Auto 3.7 10^3/uL (1.4-6.5); Neutrophils Percent Auto 51.9 % (43.0-75.0); Platelet Count 176 10^3/uL (150-450); Red Blood Count 4.68 10^6/uL (4.70-6.10); Red Cell Distribution Width 13.4 % (11.0-15.0)
[2024-04-18 14:45] LABS: Anion Gap 13.1; BUN Creatinine Ratio 11.7; Calcium 8.7 mg/dL (8.5-10.1); Carbon Dioxide 26.7 mmol/L (21.0-32.0); Chloride 106 mmol/L (98-107); Estimated GFR (African America 46 (>=60 mL/min/1.73m^2); Estimated GFR (Non-African Ame 38 (>=60 mL/min/1.73m^2); Glucose 86 mg/dL (74-106); Potassium 4.8 mmol/L (3.5-5.1); Sodium 141 mmol/L (136-145)
== END 2024-04-18 13:49 | disposition home or self-care (01) ==
LOC: LAB 13:49
PROVIDERS: PCP Family Medicine; Visit Provider Internal Medicine Cardiovascular Disease
DX: I48.0 Paroxysmal atrial fibrillation (principal)
CPT/HCPCS: 36415; 80048; 85025

== ENCOUNTER 2024-04-19 10:25 | Outpatient (OUT) | payer OTHER, SELFPAY ==
--- NOTE | 2024-04-19 10:40 | XR_ITS ---
The [address] [address] Patient Name: GINA DAVIES MRN: [id number] date: 1960 Sex: M Assigned Patient Location: LAB Current Patient Location: Accession/Order Number: [id number] Exam Date: 04/19/2024 10:45 Report Date: 04/22/2024 11:20 At the request of: CAROL CONTRERAS Procedure: XR chest 2V PROCEDURE: XR chest 2V DATE: 04/19/2024 10:45 AM EST COMPARISONS: 02/29/2024 CLINICAL INDICATION: 64 years Male Care Home Use Of Amiodarone FINDINGS: The heart is mildly prominent and stable. Poststernotomy changes are again identified. There is evidence of diffuse increase interstitial markings throughout all lung rodarte likely representing mild chronic lung changes. There is no evidence of pleural effusion or pneumothorax. XR/XR chest 2V IMPRESSION: Evidence of mild chronic lung changes, stable. Stable cardiomegaly and stable poststernotomy chest. Electronically authenticated by: IGOR BOB Date: 04/22/2024 11:20
[2024-04-19 11:18] LABS: Free T4 0.98 ng/dL (0.76-1.46)
== END 2024-04-19 10:26 | disposition home or self-care (01) ==
LOC: LAB 10:27
PROVIDERS: PCP Family Medicine; Visit Provider Internal Medicine Cardiovascular Disease
DX: I48.0 Paroxysmal atrial fibrillation (principal); Z79.899 Other long term (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; I51.7 Cardiomegaly
CPT/HCPCS: 36415; 71046; 84439; 84443

== ENCOUNTER 2024-07-04 09:20 | Emergency (ER) | payer BC, SELFPAY ==
[2024-07-04 09:25] VITALS: BP 117/81; PULSE 74; TEMP 36.4; O2SAT 96; BMI 35.3
[2024-07-04 09:32] VITALS: PULSE 72
--- NOTE | 2024-07-04 09:36 | ED_ITS ---
HPI HPI - General Adult General Chief complaint: Shortness of Breath/Dyspnea Stated complaint: UPPER EXTREMITY PAIN Time Seen by Provider: 07/04/24 09:23 Source: patient Mode of arrival: walk-in Limitations: no limitations History of Present Illness HPI narrative: Patient presents to the emergency department with a 2-week history of dry cough. Today when he coughed he felt a sharp pain in the right lateral chest wall. He denies hemoptysis, chills, fever or bodyaches. 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 He is on anticoagulant therapy as well as a beta-belen. Related Data Home Medications ?Medication ?Instructions ?Recorded ?Confirmed albuterol sulfate 90 mcg/actuation inhalation 07/04/24 aerosol inhaler apixaban 5 mg tablet (Eliquis) mg 07/04/24 famotidine 20 mg tablet mg 07/04/24 lisinopril 20 mg tablet mg 07/04/24 metoprolol tartrate 25 mg tablet mg 07/04/24 omeprazole 40 mg capsule,delayed mg 07/04/24 release Previous Rx's ?Medication ?Instructions ?Recorded dextromethorphan-guaifenesin 30 1 tab PO BID PRN cough #20 tabs 07/04/24 mg-600 mg tablet extended ltovycy90 hr (Mucinex DM) hydrocodone 5 mg-acetaminophen 325 1 tab PO TID PRN pain #15 tabs 07/04/24 mg tablet Allergies Allergy/AdvReac Type Severity Reaction Status Date / Time erythromycin base Allergy Anaphylaxis Verified 07/04/24 09:28 Opioid HPI Opioid Management Most Recent Opioid Data: Last Pain Scale 4 07/04/24 09:32 07/04/24 Review of Systems ROS Status of ROS 10 or more systems reviewed and unremark able except as noted in history and below [facility] Social History Little interest or pleasure in doing things: not at all Feeling down, depressed, or hopeless: not at all Exam Narrative Exam Narrative: Obese in appearance, nondistressed. Vital signs are stable and are as documented. Oxygen saturation is 96% on room air. There is no conversational dyspnea. HEENT exam is normal to inspection. Neck is supple. Lung sounds are grossly clear to auscultation bilaterally. Patient localizes tenderness over the right lateral and posterior lateral chest wall. There is no overlying skin rash and no underlying soft tissue or bony crepitus. Heart has regular rate and rhythm. Abdomen is protuberant, soft nontender. Patient does not have unilateral leg swelling or pedal edema. Speech and mentation are clear and intact. There is no facial asymmetry. He moves all extremities actively. Constitutional Vital Signs, click to edit/add: Last Vital Signs Temp 97.6 F 07/04/24 09:25 Pulse 66 07/04/24 10:51 Resp 18 07/04/24 10:51 BP 121/78 07/04/24 10:51 Pulse Ox 96 07/04/24 10:51 O2 Del Method Room Air 07/04/24 09:25 Course Vital Signs Vital signs: Vital Signs Temperature 97.6 F 07/04/24 09:25 Pulse Rate 74 07/04/24 09:25 Respiratory Rate 20 07/04/24 09:25 Blood Pressure 117/81 07/04/24 09:25 Pulse Oximetry 96 07/04/24 09:25 Oxygen Delivery Method Room Air 07/04/24 09:25 Temperature 97.6 F 07/04/24 09:25 Pulse Rate 66 07/04/24 10:51 Respiratory Rate 18 07/04/24 10:51 Blood Pressure 121/78 07/04/24 10:51 Pulse Oximetry 96 07/04/24 10:51 Oxygen Delivery Method Room Air 07/04/24 09:[address] [facility] Narrative Medical decision making narrative: Patient presents with sharp right-sided chest pain after a bout of coughing there is felt to be musculoskeletal in etiology. I interpreted his twelve-lead EKG and it shows sinus rhythm with a rate of 74 bp m. There is first-degree AV block and incomplete left bundle branch block pattern with no acute ST elevation noted. Chest x-ray does not reveal effusion, infiltrate, pneumothorax or rib fracture. The rest of the patient's workup is benign. My impression is that he has chest wall strain secondary to cough. I am placing him on [place] for pain and Mucinex DM for cough and congestion. Outpatient follow-up with PCP is advised and he may return anytime for worsening symptoms. Lab Data Labs: Lab Results 07/04/24 Range/Units 09:40 WBC 4.3 (4.0-11.0) 10^3/uL RBC 4.92 (4.70-6.10) 10^6/uL Hgb 14.8 (14.0-18.0) g/dL Hct 44.4 (42.0-54.0) % MCV 90.2 (80.0-94.0) fL MCH 30.1 (25.9-34.0) pg MCHC 33.3 (29.9-35.2) g/dL RDW 14.3 (11.0-15.0) % Plt Count 193 (150-450) 10^3/uL MPV 11.0 (9.5-13.5) fL Neut % (Auto) 55.9 (43.0-75.0) % Lymph % (Auto) 24.6 (20.5-60.0) % [place] % (Auto) 18.3 H (1.7-12.0) % Eos % (Auto) 0.7 L (0.9-7.0) % Baso % (Auto) 0.5 (0.2-2.0) % Neut # (Auto) 2.4 (1.4-6.5) 10^3/uL Lymph # (Auto) 1.1 L (1.2-3.8) 10^3/uL [place] # (Auto) 0.8 (0.3-0.8) 10^3/uL Eos # (Auto) 0.0 (0.0-0.7) 10^3/uL Baso # (Auto) 0.0 (0.0-0.1) 10^3/uL Abs Immat Gran (auto) 0.00 (0.00-0.03) 10^3/uL Imm/Tot Granulo (auto) 0.0 (0.0-0.5) % Sodium 138 (136-145) mmol/L Potassium 4.0 (3.5-5.1) mmol/L Chloride 101 (98-107) mmol/L Carbon Dioxide 21.9 (21.0-32.0) mmol/L Anion Gap 19.1 BUN 18.0 (7.0-18.0) mg/dL Creatinine 2.16 H (0.70-1.30) mg/dL Est GFR ( Amer) 37 L (>=60 mL/min/1.73m^2) Est GFR (Non-Af Amer) 31 L (>=60 mL/min/1.73m^2) BUN/Creatinine Ratio 8.3 Glucose 117 H (74-106) mg/dL Calcium 8.6 (8.5-10.1) mg/dL Total Bilirubin 0.7 (0.2-1.0) mg/dL AST 106 H (15-37) U/L ALT 88 H (16-63) U/L Alkaline Phosphatase 65 (46-116) U/L Troponin I High Sens 9.5 (4.0-76.1) pg/mL Total Protein 7.8 (6.4-8.2) g/dL Albumin 3.7 (3.4-5.0) g/dL Globulin 4.1 g/dL Albumin/Globulin Ratio 0.9 Discharge Plan Discharge Chief Complaint: Shortness of Breath/Dyspnea Clinical Impression: Acute chest wall pain URI (upper respiratory infection) Qualifiers: URI type: unspecified viral URI Qualified Code(s): J06.9 - Acute upper respiratory infection, unspecified CKD (chronic kidney disease) Qualifiers: Chronic kidney disease stage: unspecified stage Qualified Code(s): N18.9 - Chronic kidney disease, unspecified Patient Disposition: Home, Self-Care Condition: Good Mode of Transportation: Private Vehicle Prescriptions / Home Meds: New Mucinex DM 30-600 mg tablet extended release 12 hr 1 tab PO BID PRN (Reason: cough) Qty: 20 0RF hydrocodone-acetaminophen 5-325 mg tablet 1 tab PO TID PRN (Reason: pain) Qty: 15 0RF No Action lisinopril 20 mg tablet omeprazole 40 mg capsule,delayed release(DR/EC) famotidine 20 mg tablet albuterol sulfate 90 mcg/actuation HFA aerosol inhaler INHALATION metoprolol tartrate 25 mg tablet Eliquis 5 mg tablet Print Language: Guamanian Instructions: Chronic Kidney Disease (ED), Chronic Kidney Disease Diet (DC), Upper Respiratory Infection (ED), Chest Wall Pain (ED) Additional Instructions: [place] for pain as needed. This medication will cause some sedation and constipation. Take a stool softener if needed. Mucinex DM as prescribed for cough and congestion. You may take it twice a day as needed. Your kidney function is abnormal and I recommend follow-up with a mill roll rewinder. Return anytime for worsening symptoms. Referrals: DORY ST [Primary Care Provider] - 1 week MADIE JARAMILLO [Physician] - 1 week [phone] NEPHROLOGY) Discharge Date/Time: 07/04/24 11:48
--- NOTE | 2024-07-04 09:37 | ECG_ITS ---
The [facility] Test Date: 2024-07-04 Pat Name: GINA DAVIES Department: Room: - Gender: Male Press Assistant: : 1960 Requested By: [id number] Order Number: [id number] Reading MD: LIZY TIM Measurements Intervals [place] Rate: 74 P: 72 [place]: 234 QRS: 45 QRSD: 124 T: 19 QT: 418 QTc: 445 Interpretive Statements 1100 Sinus rhythm 2231 First degree AV block 2540 Incomplete left bundle branch block 9150 abnormal ECG Compared to ECG 09/30/2019 16:24:02 First degree AV block now present Left bundle-branch block now present Sinus tachycardia no longer present Left anterior fascicular block no longer present Myocardial infarct finding no longer present Electronically Signed On 07-07-2024 5:23:47 EST by LIZY TIM
--- OUTSIDE RECORDS SUMMARY | 2024-07-04 09:43 | XMS_ITS | CCD ---
Author Organization [facility] CliniSyva Care Team Providers Care Certified Professional Coder Name Role Phone COMPANY, [employer] Unavailable Unavailable COMPANY, [employer] Unavailable Unavailable NO, Unavailable Unavailable PHYSICIAN, DEFAULT Admitting Unavailable PHYSICIAN, DEFAULT Attending Unavailable KIRSTIN HUGHES Admitting Unavailable KIRSTIN HUGHES Attending Unavailable KIRSTIN HUGHES Admitting Unavailable KIRSTIN HUGHES Attending Unavailable MISC, DR HSIEH Attending Unavailable MISC, DR HSIEH Consulting Unavailable MISC, DR HSIEH Admitting Unavailable HOUSE, DR CONNORS Primary Care Unavailable MACIEL, DR CONNORS Consulting Unavailable FREEPORT, DR CONNORS Primary Care Unavailable FREEPORT, DR CONNORS Admitting Unavailable HOUSE, DR CONNORS Attending Unavailable SEATTLE, DR ROSY Muhammad Consulting Unavailable HOUSE, DR [...] MACIEL, DR CONNORS Primary Care Unavailable SHANTHI .DARRICK Consulting Unavailabl e WILLI, DR KOKO Canales Attending Unavailabl e BRENDA PALMA Consulting Unavailable ERICA ., DR PECK Attending Unavailable ERICA ., DR PECK Consulting Unavailable ERICA ., DR PECK Admitting Unavailable MACIEL, DR CONNORS Primary Care Unavailable MACIEL, DR CONNORS Primary Care Unavailable WILLI, DR KOKO Canales Attending Unavailabl e WILLI, DR KOKO Canales Consulting Unavailabl josé miguel MÁRQUEZ, DR KOKO Canales Admitting Unavailabl RANULFO Hein Consulting Unavailable Maciel, Jake Cantrell Primary Care Physician Juan Barahona Referring Unavailable BulmarosJuan Attending Unavailable Timmis, Juan H Admitting Unavailable TIMMIS, JUAN H Attending Unavailable TIMMIS, JUAN H Attending Unavailable NICOLAS MEJIA Attending Unavailable Jake St MD Primary Care Provider GILBERTO WELSH Attending Unavailable LUCIEN PASCUAL Attending Unavailable JE, CONNIE Referring Unavailable CARRIZOLIZETH Referring Unavailable DERISO, TAMEKA Referring Unavailable JE, CONNIE Attending Unavailable BRODERICK PACK Attending Unavailable DIANE, NIKHIL Attending Unavailable DIANE, NIKHIL Attending Unavailable DIANE, NIKHIL Attending Unavailable DIANE, NIKHIL Referring Unavailable DIANE, NIKHIL Referring Unavailable DIANE, NIKHIL Admitting Unavailable DIANE, NIKHIL Attending Unavailable Allergies Allergy Classification Reported Allergen(s) Allergy Type Date of Onset Reaction(s) Facility (8 sources) Erythromycin Drug Allergy 02-07-2015 [facility] Repository (1 source) Niacin Drug Allergy 05-11-2014 [facility] Repository (8 sources) Azithromycin; Translations: [AZITHROMYCIN] Drug Allergy 07-28-2022 [facility] Healthcare Work Phone: (7 sources) Niacin Drug Allergy 10-13-2022 [facility] (1 source) Erythromycin; Translations: [ERYTHROMYCIN] Drug Allergy 04-27-2024 [facility] Repository Medications Current Medications Medication Drug Class(es) Dates Sig (Normalized) Sig (Original) albuterol 0.833 mg/ml / ipratropium bromide 0.167 mg/ml inhalation solution (7 sources) Anticholinergic, beta2-Adrenergic Agonist ipratropium-albute rol (Duo-Neb) 0.5-2.5 mg/3 mL nebulizer solution Take 3 mL by nebulization in the morning and 3 mL in the evening and 3 mL before bedtime. Active amiodarone hydrochloride 200 mg oral tablet (3 sources) Antiarrhythmic Start: 09-22-2022 End: 01-19-2024 amiodarone (Pacerone) 200 MG tablet Take by mouth. 09/22/2022 01/19/2024 Discontinued (Therapy completed) apixaban 5 mg oral tablet (7 sources) Factor Xa Inhibitor Start: 09-14-2022 apixaban (Eliquis) 5 MG tablet Take by mouth twice a day. 09/14/2022 Active aspirin 81 mg chewable tablet (7 sources) Platelet Aggregation Inhibitor, Nonsteroidal Anti-inflammatory Drug aspirin 81 MG chewable tablet Chew 81 mg 1 (one) time. Active atorvastatin 20 mg oral tablet (3 sources) HMG-CoA Reductase Inhibitor End: 01-19-2024 take 1 tablet by mouth once daily atorvastatin (Lipitor) 20 MG tablet Take 20 mg by mouth 1 (one) time each day at the same time. 01/19/2024 Discontinued (Therapy completed) 2 ml dupilumab 150 mg/ml auto-injector (7 sources) Interleukin-4 Receptor alpha Antagonist Start: 03-18-2023 Dupixent 300 MG/2ML injection Inject 300 mg under the skin every 14 (fourteen) days 03/18/2023 Active fluticasone propionate 0.05 mg/actuat metered dose nasal spray (7 sources) Corticosteroid Start: 12-21-2023 End: 12-20-2024 take 2 spray(s) nasal route once daily fluticasone (Flonase) 50 MCG/ACT nasal spray Indications: Nasal polyposis Administer 2 sprays into each nostril Daily Shake gently. Before first use, prime pump. After use, clean tip and replace cap. 48 g 3 12/21/2023 12/20/2024 Active lisinopril 5 mg oral tablet (7 sources) Angiotensin Converting Enzyme Inhibitor take 1 tablet by mouth in the morning lisinopril 5 MG tablet Take 5 mg by mouth in the morning and 5 mg before bedtime. Active metoprolol tartrate 25 mg oral tablet (7 sources) beta-Adrenergic Dyan Start: 08-27-2022 take 1 tablet by mouth in the morning metoprolol tartrate (Lopressor) 25 MG tablet Take 25 mg by mouth in the morning and 25 mg before bedtime. 08/27/2022 Active montelukast 10 mg oral tablet (3 sources) Leukotriene Receptor Antagonist Start: 12-21-2023 End: 12-20-2024 take 1 tablet by mouth at bedtime montelukast (Singulair) 10 MG tablet Indications: Nasal polyposis Take 1 tablet (10 mg) by mouth at bedtime 90 tablet 3 12/21/2023 01/19/2024 Discontinued (Therapy completed) saccharomyces boulardii 250 mg oral capsule (3 sources) Start: 10-04-2019 End: 01-19-2024 take 1 capsule by mouth in the morning saccharomyces boulardii (Florastor) 250 MG capsule Take 250 mg by mouth in the morning and 250 mg before bedtime. 10/04/2019 01/19/2024 Discontinued (Therapy completed) Problems Active Problems Problem Classification Problem Date Documented Da te Episodic/Chronic Abdominal pain (5 sources) Unspecified abdominal pain; Translations: [UNSPECIFIED ABDOMINAL PAIN] Onset: 06-25-2022 Episodic Administrative/social admission (1 source) Encounter for pre-employment examination; Translations: [Encounter for pre-employment examination] Onset: 11-03-2017 Episodic Aortic; peripheral; and visceral artery aneurysms (7 sources) Aneurysm of thoracic aorta; Translations: [Aneurysm of thoracic aorta] Onset: 01-12-2017 10-13-2022 Chronic Cardiac dysrhythmias (3 sources) Unspecified atrial fibrillation; Translations: [Paroxysmal atrial fibrillation] Onset: 09-15-2022 Chronic Cataract (2 sources) Cataract; Translations: [AGE RELATED NUCLEAR CATARACT-LEFT EYE, 2+NS 2+CS] Onset: 08-01-2018 Chronic obstructive pulmonary disease and bronchiectasis (8 sources) Chronic obstructive pulmonary disease, unspecified; Translations: [Chronic obstructive lung disease] Onset: 09-16-2021 10-13-2022 Chronic Essential hypertension (7 sources) Hypertensive disorder; Translations: [Essential (primary) hypertension] Onset: 09-16-2021 10-13-2022 Chronic Heart valve disorders (1 source) Presence of prosthetic heart valve; Translations: [PRESENCE OF PROSTHETIC HEART VALVE] Onset: 09-15-2022 Chronic Hypertension with complications and secondary hypertension (2 sources) Hypertensive heart disease without heart failure; Translations: [Hypertensive heart disease without heart failure] Onset: 06-05-2024 Chronic Nausea and vomiting (5 sources) Nausea; Translations: [Vomiting, unspecified] Onset: 06-23-2022 Episodic Other lower respiratory disease (1 source) Personal history of pneumonia (recurrent); Translations: [PERSONAL HX OF PNEUMONIA RECURRENT] Onset: 09-15-2022 Episodic Other nervous system disorders (2 sources) Circadian rhythm sleep disorder of shift work type; Translations: [Circadian rhythm sleep disorder, shift work type] 01-26-2024 Chronic Other upper respiratory infections (7 sources) Chronic pansinusitis; Translations: [Chronic pansinusitis] Onset: 10-13-2022 10-13-2022 Chronic Residual codes; unclassified (2 sources) Obstructive sleep apnea syndrome; Translations: [Obstructive sleep apnea (adult) (pediatric)] 01-26-2024 Chronic Residual codes; unclassified (2 sources) Hypersomnia; Translations: [Hypersomnia, unspecified] 01-26-2024 Chronic Unclassified (2 sources) AGE RELATED NUCLEAR [...] Problem Date Documented Da te Episodic/Chronic Other aftercare (3 sources) Other intermodal dispatcher (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; Translations: [OTH CARE HOME CURRENT DRUG THERAPY] Onset: 09-15-2022 Episodic Other aftercare (7 sources) Drug therapy finding; Translations: [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) use of anticoagulants] Onset: 12-07-2022 12-07-2022 Episodic Other gastrointestinal disorders (1 source) Diarrhea, unspecified; Translations: [DIARRHEA UNSPECIFIED] Onset: 06-25-2022 Episodic Other lower respiratory disease (7 sources) Solitary nodule of lung; Translations: [Solitary pulmonary nodule] Onset: 09-16-2021 10-13-2022 Episodic Other lower respiratory disease (2 sources) Snoring; Translations: [Snoring] 01-26-2024 Episodic Other male genital disorders (1 source) Scrotal pain; Translations: [SCROTAL PAIN] Onset: 04-23-2022 Episodic Other non-traumatic joint disorders (7 sources) Arthralgia of the upper arm; Translations: [Pain in unspecified elbow] Onset: 10-13-2022 Resolved: 10-13-2022 10-13-2022 Episodic Other upper respiratory disease (3 sources) Nasal congestion; Translations: [NASAL CONGESTION] Onset: 04-21-2022 Episodic Other upper respiratory disease (9 sources) Polyp of nasal cavity and/or nasal sinus; Translations: [Nasal polyp, unspecified] Onset: 12-07-2022 01-19-2024 Episodic Other upper respiratory infections (1 source) Acute sinusitis, unspecified; Translations: [ACUTE SINUSITIS UNSPECIFIED] Onset: 04-23-2022 Episodic Residual codes; unclassified (7 sources) History of repair of mitral valve; Translations: [Other specified postprocedural states] Onset: 09-16-2021 Resolved: 10-13-2022 10-13-2022 Episodic Residual codes; unclassified (2 sources) Other [...] Onset: 10-05-2023 Urinary tract infections (1 source) Tubulo-interstitial nephritis, not specified as acute or chronic; Translations: [TUBULO-INTERST NEPHRIT NOT AC/CHRN] Onset: 06-25-2022 Episodic Results Test Name Value Interpretation Reference Range Facility Office Visiton 06-05-2024 Follow-up visit [id number] Lilibeth Daviesy D 1960 M Date Provider Department Center 06/05/2024 [id number]-[facility]O [facility] Family History Problem Relation Age of Onset Other Mother Coronary artery disease Mother Family Status - Relation Status Age at Mother Level of Service:36996 AR OFFICE/OUTPATIENT ESTABLISHED MOD MDM 30 MIN Reason for Visit and Comments: Atrial Fibrillation [80] - Denies palpitations, lightheadedness/syncope , and bleeding on Eliquis. Follow up afib ablation [Other] - 1 mo s/p afib ablation on 04/27/2024 Hypertension [036751] - Takes lisinopril and metoprolol both bid. Thoracic aortic aneurysm [Other] [facility] Abstracton 05-25-2024 Abstract [id number] Lilibeth Davies christyy D 1960 M Date Provider Department Center 05/25/2024 [facility] Family History Problem Relation Age of Onset Other Mother Coronary artery disease Mother Family Status - Relation Status Age at Mother [facility] Follow-Upon 05-23-2024 Follow-Up [id number] Lilibeth Davies christyy D 1960 M Date Provider Department Center 05/23/2024 [id number] Family History Problem Relation Age of Onset Other Mother Coronary artery disease Mother Family Status - Relation Status Age at Mother Level of Service:13741 AR OFFICE/OP CONSLTJ NEW/EST PT MOD MDM 40 MINUTES Reason for Visit and Comments: Follow-up [365239] - Aortic Aneurysm Surveilance CT 04/03/24 @ [facility] Reports in Media and images uploaded under imaging. 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 Patient confused and had moved up cardiology appointment not our appointment. I reviewed appointment details again with patient. [facility] 37on 05-05-2024 37 Continue all medications as prescribed. Return to clinic in 2 months. [facility] Follow-Upon 05-05-2024 Follow-Up [id number] Lilibeth Davies cky D 1960 M Date Provider Department Center 05/05/2024 [id number]-VFRMJGYRCONNIE WOOTEN [facility] CARD NM [facility] Family History Problem Relation Age of Onset Other Mother Coronary artery disease Mother Family Status - Relation Status Age at Mother Level of Service:98266 AR OFFICE/OUTPATIENT ESTABLISHED LOW [facility] 20 MIN [facility] HPon 04-27-2024 [facility] Electrophysiology Consult Note Reason for visit: s/p DCCV frp Afib 04/27/24 Pt here for Afib ablation. 04/18/24 Patient here to discuss upcoming afib ablation scheduled on 04/27/2024. Denies chest pain, SOB, palpitations, lightheadedness/syncope , and bleeding on Eliquis. 02/29/24 Pt is here for a six month follow up.Pt denies, sob, chest pain, palpatations . His insuranc e had denied Afib ablation previously. He is using his CPAP but unable to keep it on due to poor contact. His TSH is high from [facility]. 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 His insurance denied his afib ablation, which was planned for mid July 2023. Denies chest pain, SOB, palpitations, lightheadedness/syncope , and bleeding on Eliquis. He completed a [...] controlled 09/22/22 HPI: Ede Davies is a 64 y.o. year old with past medical history of ascending aortic aneurysm, mitral valve repair at [facility] 2004 and hypertension seen in ED follow-up for new onset atrial fibrillation. He presented to the [facility] emergency department where he was found [...] History: Diagnosis Date Abnormal ECG Aneurysm (CMS/HCC) ASCENDING THORACIC AORTA 4.3 CM Arrhythmia Atrial fibrillation (CMS/HCC) COPD (chronic obstructive pulmonary disease) (CMS/HCC) Heart valve disease Hypertension Obesity BMI 34.04 PSH: Past Surgical History: Procedure Laterality Date CARDIAC VALVE REPLACEMENT CATARACT EXTRACTION SH: Social Determinants of Health Tobacco Use: Low Risk (04/27/2024) Patient History Smoking Tobacco Use: Never Smokeless Tobacco Use: Never Passive Exposure: Not on file Alcohol Use: Not At Risk (2018) [facility] Frequency of Alcohol Consumption: Never Average Number of Drinks: Not on file Frequency of Binge Drinking: Not on file Financial Resource Strain: Not on file Food Insecurity: Not on file Transportation Needs: Not on file Physical Activity: Not on file Stress: Not on file Social Connections: Not on file Intimate Partner Violence: Unknown (07/15/2023) NM Safety & Environment Fear of Current or Ex-Partner: Not on file Emotionally Abused: Not on file Physically Abused: Not on file Sexually Abused: Not on file Physically or Sexually Abused: Not on file Depression: Not on file Housing Stability: Not on file Utilities: Not on file Health Literacy: Not on file Allergies: Allergies Allergen Reactions Erythromycin Shortness of breath Azithromycin Weight: 117kg Visit Vitals BP 142/76 Pulse 63 Temp 36.5 ???C (97.7 ???F) (Temporal) Resp 16 Ht 1.829 m (6') Wt 118 kg (259 lb 14.8 oz) SpO2 97% BMI 35.25 kg/m??? Smoking Status Never BSA 2.45 m??? Meds: No current facility-administered medications on file prior to encounter. Current Outpatient Medications on File Prior to Encounter Medication Sig Dispense Refill Dupixent Pen 300 mg/2 mL pen injector 300 mg every 14 (fourteen) days. Last dose 09/20 ipratropium (more content not included)... [facility] NURSNOTEon 04-27-2024 ZANDRA Imeds is at bedside delivering prescriptions [facility] ZANDRA Gave discharge instructions to patient and family [facility] NURSERA Family is at bedside Normal [facility] NURSERA EKG is at bedside Normal [facility] POCT GLUCOSE METER UNSOLICIT ED RESULTSon 04-27-2024 Glucose [Mass/Vol] 108 mg/dL High 70-105 [facility] Comment on above: Order Comment: Waive d Testing in the ED is performed under the ED CLIA certificate #[id number]. Result Comment: brock ng12 Performed By: #### L [id number] #### [facility] (BEAKER) [address] [place] [address] PROTIME-INRon 04-27-2024 INR IN PPP BY COAGULATION ASSAY 1.08 Normal 0.90-1.10 [facility] Comment on above: Result Comment: ACCC P RECOMMENDED INR FOR WARFARIN THERAPY CONDITION INR PROPHYLAXIS OF VENOUS THROMBOSIS 2-3 (HIGH-RISK SURGERY) TREATMENT OF VENOUS THROMBOSIS 2-3 TREATMENT OF PULMONARY EMBOLISM 2-3 PREVENTION OF SYSTEMIC EMBOLISM: 2-3 ACUTE MYOCARDIAL INFARCTION TISSUE HEART VALVES VALVULAR HEART DISEASE ATRIAL FIBRILLATION RECURRENT SYSTEMIC EMBOLISM MECHANICAL HEART VALVE 2.5-3.5 FROM: ORAL ANTICOAGULANTS. MECHANISM OF ACTION, CLINICAL EFFECTIVENESS, AND OPTIMAL THERAPEUTIC RANGE. CHEST 1995;108:231S-246S. Performed By: #### L [id number] #### [facility] ([facility]) [address] [place] [address] PROTHROMBIN TIME (PT) IN PPP BY COAGULATION ASSAY 14.0 Seconds Normal 12.3-14.8 [facility] Comment on above: Performed By: #### L [id number] #### [facility] ([facility]) [address] [place] [address] Prep for Procedureon 024 Prep for Procedure [id number] Lilibeth Davies D 1960 M Date Provider Department Center 04/27/20241986-WILLIS RUBALCAVA [facility] VASC LAB [facility] Family History Problem Relation Age of Onset Other Mother Coronary artery disease Mother Family Status - Relation Status Age at Mother [facility] Follow-Upon 04-18-2024 Follow-Up [id number] Lilibeth Davies D 1960 M Date Provider Department Center 04/18/2024 241-[facility]SON [facility] Family History Problem Relation Age of Onset Other Mother Coronary artery disease Mother Family Status - Relation Status Age at Mother Level of Service:66586 AR OFFICE/OUTPATIENT ESTABLISHED HIGH MDM 40 MIN [facility] Abstracton 03-28-2024 Abstract [id number] Lilibeth Davies cky D 1960 M Date Provider Department Center 03/28/2024 2020-WALTER ALAN [facility] Family History Problem Relation Age of Onset Other Mother Coronary artery disease Mother Family Status - Relation Status Age at Mother [facility] Prep for Procedureon 024 Prep for Procedure [id number] Davies,Ri cky D 1960 M Date Provider Department Center 03/01/2024 1987-WILLIS RUBALCAVA C [facility]ASC LAB [facility] Family History Problem Relation Age of Onset Other Mother Coronary artery disease Mother Family Status - Relation Status Age at Mother [facility] Office Visiton 02-29-2024 Follow-up visit [id number] Davies,Ri cky D 1960 M Date Provider Department Center 02/29/2024 241-NIKHIL [facility]SON [facility] Family History Problem Relation Age of Onset Other Mother Coronary artery disease Mother Family Status - Relation Status Age at Mother Level of Service:40881 AR OFFICE/OUTPATIENT ESTABLISHED LOW MDM 20 MIN [facility] Orders Onlyon 10-08-2023 Orders Only [id number] Davies,Ri cky D 1960 M Date Provider Department Center 10/08/2023 2020-WALTER ALAN HVCVASENDO [facility] Family History Problem Relation Age of Onset Other Mother Coronary artery disease Mother Family Status - Relation Status Age at Mother [facility] Telemedicineon 10-05-2023 Telemedicine [id number] Davies,Ri cky D 1960 M Date Provider Department Center 10/05/2023 [id number]-KWTGBLUCIEN PASCUAL HVCVASENDO [facility] Family History Problem Relation Age of Onset Other Mother Coronary artery disease Mother Family Status - Relation Status Age at Mother Level of Service:18912 AR OFFICE/OP CONSLTJ NEW/EST PT LOW MDM 30 MINUTES Reason for Visit and Comments: Follow-up [[id number]] [facility] [id number] 09-23-2023 [id number] ARRIVAL TIME GIVEN 1 030 HOLD ELIQUIS [...] THE FOLLOWING ARE NOT AVAILABLE: An adult swing driver over the age of 18, that can [...] lenses. Do not wear perfume, make-up, nail telugu, or lotions on the day of your [...] need to make any changes, please call [phone]. Notify your surgeon if you develop any illness such as a cold, cough, fever, sore throat or vomiting between now and your surgery. Thank you for entrusting us with your care. [facility] Surgical Services Team [facility] BASIC METABOLIC PANELon 04-2 Anion gap [Moles/Vol] 11 mmol/L Normal 7-20 [facility] Comment on above: Performed By: #### L [id number] ####[facility] ([facility]ER)[address] [place] [address] Calcium [Mass/Vol] 9.0 mg/dL Normal 8.6-10.3 [facility] Comment on above: Performed By: #### L [id number] ####[facility] (BEAKER)[address] [place] [address] Chloride [Moles/Vol] 105 mmol/L Normal 98-107 [facility] Comment on above: Performed By: #### L [id number] ####[facility] (BEAKER)[address] [place] [address] CO2 [Moles/Vol] 25 mmol/L Normal 21-31 [facility] Comment on above: Performed By: #### L [id number] ####[facility] (BEAKER)[address] [place] [address] Creatinine [Mass/Vol] 1.59 mg/dL High 0.70-1.30 [facility] Comment on above: Performed By: #### L [id number] ####[facility] (BEAKER)[address] [place] [address] GLOMERULAR FILTRATION RATE ML/MIN/1.73 SQ M.PREDICTED 47.9 mL/min/1.73m*2 Low >60.0 [facility] Comment on above: Result Comment: [facility]???s estimated glomerular filtration rate (eGFR) will [...] of individuals. Performed By: #### L [id number] ####[facility] ([facility])[address] [place] [address] Glucose [Mass/Vol] 102 mg/dL High 70-100 [facility] Comment on above: Performed By: #### L [id number] ####[facility] ([facility])[address] [facility] [place] [address] Potassium [Moles/Vol] 4.9 mmol/L Normal 3.5-5.1 [facility] Comment on above: Performed By: #### L [id number] ####[facility] ([facility])[address] [facility] [place] [address] Sodium [Moles/Vol] 136 mmol/L Normal 136-145 [facility] Comment on above: Performed By: #### L [id number] ####[facility] ([facility])[address] [place] [address] Urea nitrogen [Mass/Vol] 24 mg/dL Normal 7-25 [facility] Comment on above: Performed By: #### L [id number] ####[facility] ([facility])[address] [place] [address] UREA NITROGEN/CREATININ E (MASS RATIO) IN SER/PLAS 15.1 [facility] Comment on above: Performed By: #### L [id number] ####[facility] ([facility])[address] [facility] [place] [address] CBCon 09-17-2023 Erythrocyte distribution width (RBC) [Ratio] 14.1 % Normal 11.5-15.0 [facility] Comment on above: Performed By: #### L [id number] #### [facility] ([facility]) [address] [place] [address] ERYTHROCYTE MEAN CORPUSCULAR HEMOGLOBIN CONCENTRATION (G/DL) BY AUTOMATED 33.8 g/dL Normal 32.0-35.0 [facility] Comment on above: Performed By: #### L [id number] #### [facility] [address] [place] [address] Hematocrit (Bld) [Volume fraction] 40.2 % Normal 39.0-55.0 [facility] Comment on above: Performed By: #### L [id number] #### [facility] ([facility]) [address] [place] [address] Hemoglobin (Bld) [Mass/Vol] 13.6 g/dL Normal 13.0-17.0 [facility] Comment on above: Performed By: #### L [id number] #### [facility] ([facility]) [address] [place] [address] MCH (RBC) [Entitic mass] 30.1 pg Normal 27.0-33.0 [facility] Comment on above: Performed By: #### L [id number] #### [facility] ([facility]) [address] [place] [address] MCV (RBC) [Entitic vol] 88.9 fL Normal 82.0-98.0 [facility] Comment on above: Performed By: #### L [id number] #### [facility] ([facility]) [address] [place] [address] PLATELETS (10*3/UL) IN BLOOD AUTOMATED COUNT 255 10*3/uL Normal 150-400 [facility] Comment on above: Performed By: #### L [id number] #### [facility] ([facility]) [address] [place] [address] RBC (Bld) [#/Vol] 4.52 10*6/uL Normal 4.20-5.70 [facility] Comment on above: Performed By: #### L [id number] #### [facility] ([facility] [address] [place] [address] WBC (Bld) [#/Vol] 8.28 10*3/uL Normal 4.00-10.60 [facility] Comment on above: Performed By: #### L [id number] #### [facility] ([place]) [address] [place] [address] CTA CHEST W IV CONTRASTon CTA CHEST [...] to reassess. Electronically signed: Lucas Craig. Normal [facility] Comment on above: Order Comment: To be completed in 1 year 09/2023 Labon 09-17-2023 Lab [id number] Lilibeth Davies 1960 Date Provider Department Center 09/17/2023 2245-[facility] OPD LAB RESOURCE [facility] OPD [facility] C Family History Problem Relation Age of Onset Other Mother Coronary artery disease Mother Family Status - Relation Status Age at Mother Normal [facility] T4, FREEon 09-17-2023 THYROXINE (T4) FREE (NG/DL) IN SER/PLAS 0.84 ng/dL Normal 0.71-1.85 [facility] Comment on above: Performed By: #### L [id number] #### [facility] ([facility]) [address] [place] [address] TSH3 REFLEX TO FT4on 024 THYROTROPIN (MIU/L) IN SER/PLAS BY DETECTION LIMIT <= 0.05 MIU/L 6.13 mIU/L High 0.34-5.60 [facility] Comment on above: Performed By: #### L [id number] ####[facility] ([facility])[address] [place] [address] Prep for Procedureon 024 Prep for Procedure [id number] Lilibeth Davies cky D 1960 M Date Provider Department Center 09/07/2023[facility] V[facility] LAB NM Heart[facility]AS Family History Problem Relation Age of Onset Other Mother Coronary artery disease Mother Family Status - Relation Status Age at Mother Normal [facility] Office Visiton 08-17-2023 Follow-up visit [id number] Lilibeth Davies cky D 1960 M Date Provider Department Center 08/17/2023 [facility]-NIKHIL BENSON LAURIE Day Family History Problem Relation Age of Onset Other Mother Coronary artery disease Mother Family Status - Relation Status Age at Mother Level of Service:20353 AR OFFICE/OUTPATIENT ESTABLISHED MOD MDM 30 MIN Normal [facility] Prep for Procedureon 024 Prep for Procedure [id number] Lilibeth Davies cky D 1960 M Date Provider Department Center 07/28/20231986[facility]ASC [facility] Family History Problem Relation Age of Onset Other Mother Coronary artery disease Mother Family Status - Relation Status Age at Mother Normal [facility] Prep for Procedureon 024 Prep for Procedure [id number] Lilibeth Davies cky D 1960 M Date Provider Department Center 07/22/2023 [facility] NM [facility] Family History Problem Relation Age of Onset Other Mother Coronary artery disease Mother Family Status - Relation Status Age at Mother Normal [facility] Prep for Procedureon 024 Prep for Procedure [id number] Lilibeth Davies cky D 1960 M Date Provider Department Center 06/10/2023 [facility] NM [facility] Family History Problem Relation Age of Onset Other Mother Coronary artery disease Mother Family Status - Relation Status Age at Mother Normal [facility] CT Maxillofacial w/o Contras ton 11-23-2022 CT [...] guidance for surgery as discussed. Ordering Provider: Juan Barahona FINAL REPORT Dictated: 11/23/2022 3:10 pm Toney Kamara MD Signed (Electronic Signature): 11/23/2022 3:10 pm Signed by: Toney Kamara MD Transcribed by: ERWIN Technologist: [place] [facility] Consent for Treatmenton 07- Consent for Treatment [id number] D:127 [facility] Physician Orderon 11-05-2022 Physician Order [id number] D:127 [facility] ECHOCARDIO M/2D COMPLETEon 0 09-21-2022 ECHOCARDIO M/2D COMPLETE Patient: EDE DAVIES Exam Date: 09/21/2022 : 1960 Gender:M 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 Order #: [id number] CLICK HERE TO VIEW EXAM ECHOCARDIOGRAM REPORT [...] Benson on 09/22/2022 at 12:18 Normal [facility] CBC AUTO DIFFon 09-13-2022 BASO # 0.1 103/ul Normal 0.0-0.1 [facility] Comment on above: Performed By: #### C BC #### [facility] [address] [address] [address] Reynaldo Liu Basophils/100 WBC (Bld) 0.6 % Normal 0.2-2.0 [facility] Comment on above: Performed By: #### C BC #### [facility] [address] [address] [address] Reynaldo Liu EO # 0.5 103/ul Normal 0.0-0.7 [facility] Comment on above: Performed By: #### C BC #### [facility] [address] [address] [address] Reynaldo Liu Eosinophils/100 WBC (Bld) 4.4 % Normal 0.9-7.0 [facility] Comment on above: Performed By: #### C BC #### [facility] [address] [place] [address] Dr. Reynaldo Liu Erythrocyte distribution width (RBC) [Ratio] 13.5 % Normal 11.0-15.0 [facility] Comment on above: Performed By: #### C BC #### [facility] [address] [place] [address] Dr. Reynaldo Liu Hematocrit (Bld) [Volume fraction] 44.5 % Normal 42.0-54.0 [facility] Comment on above: Performed By: #### C BC #### [facility] [address] [place] [address] Dr. Reynaldo Liu Hemoglobin (Bld) [Mass/Vol] 14.5 g/dL Normal 14.0-18.0 [facility] Comment on above: Performed By: #### C BC #### [facility] [address] [place] [address] Dr. Reynaldo Liu IG # 0.03 10e3/ul Normal 0.00-0.03 [facility] Comment on above: Performed By: #### C BC #### [facility] [address] [place] [address] Dr. Reynaldo Liu IG % 0.3 % Normal 0.0-0.5 [facility] Comment on above: Performed By: #### C BC #### [facility] [address] [place] [address] Dr. Reynaldo Liu LYMPH # 2.7 103/ul Normal 1.2-3.8 [facility] Comment on above: Performed By: #### C BC #### [facility] [address] [place] [address] Dr. Reynaldo Liu Lymphocytes/100 WBC (Bld) 25.0 % Normal 20.5-60.0 [facility] Comment on above: Performed By: #### C BC #### [facility] [address] [place] [address] Dr. Reynaldo Liu MANUAL DIFF REQ NO Normal [facility] Comment on above: Performed By: #### C BC #### [facility] [address] [place] [address] Dr. Reynaldo Liu MCH (RBC) [Entitic mass] 29.6 pg Normal 25.9-34.0 [facility] Comment on above: Performed By: #### C BC #### [facility] [address] [address] [address] Reynaldo Liu MCHC (RBC) [Mass/Vol] 32.6 g/dL Normal 29.9-35.2 [facility] Comment on above: Performed By: #### C BC #### [facility] [address] [place] [address] Dr. Reynaldo Liu MCV (RBC) [Entitic vol] 90.8 fL Normal 80.0-94.0 [facility] Comment on above: Performed By: #### C BC #### [facility] [address] [place] [address] Dr. Reynaldo Liu MONO # 1.0 103/ul Critically high 0.3-0.8 [facility] Comment on above: Performed By: #### C BC #### [facility] [address] [place] [address] Dr. Reynaldo Liu Monocytes/100 WBC (Bld) 9.3 % Normal 1.7-12.0 [facility] Comment on above: Performed By: #### C BC #### [facility] [address] [place] [address] Dr. Reynaldo Liu NEUT # 6.6 103/ul Critically high 1.4-6.5 [facility] Comment on above: Performed By: #### C BC #### [facility] [address] [place] [address] Dr. Reynaldo Liu Neutrophils/100 WBC (Bld) 60.4 % Normal 43.0-75.0 [facility] Comment on above: Performed By: #### C BC #### [facility] [address] [place] [address] Dr. Reynaldo Liu Platelet mean volume (Bld) [Entitic vol] 10.6 fL Normal 9.5-13.5 [facility] Comment on above: Performed By: #### C BC #### [facility] [address] [address] [address] Reynaldo Liu PLT 298 103/ul Normal 150-450 [facility] Comment on above: Performed By: #### C BC #### [facility] [address] [address] [address] Reynaldo Liu RBC 4.90 106/ul Normal 4.70-6.10 [facility] Comment on above: Performed By: #### C BC #### [facility] [address] [address] [address] Reynaldo Liu WBC 10.9 103/ul Normal 4.0-11.0 [facility] Comment on above: Performed By: #### C BC #### [facility] [address] [place] [address] Dr. Reynaldo Liu ER URINE PROFILEon 3 Bilirubin Ql (U) Negative Normal NEGATIVE [facility] Comment on above: Performed By: #### E RUR ####[facility] Y[address] [place], [place] [address]Dr. Reynaldo Liu Clarity (U) CLEAR Normal CLEAR [facility] Comment on above: Performed By: #### E RUR ####[facility] [address] [place], [place] [address]Dr. Reynaldo Liu Color (U) LT. YELLOW Normal YELLOW [facility] Comment on above: Performed By: #### E RUR ####[facility] [address] [place], [place] [address]DrMague JACQUESD A micrscopic examination will be performed if indicated. Normal [facility] Comment on above: Performed By: #### E RUR ####[facility] [address] [address]Dr. Reynaldo Liu Glucose Ql (U) Negative Normal NEGATIVE [facility] Comment on above: Performed By: #### E RUR ####[facility] Oz[address] [place], [place] [address]Dr. Reynaldo Liu Hemoglobin Ql (U) Negative Normal NEGATIVE [facility] Comment on above: Performed By: #### E RUR ####[facility] [address] [address]Dr. Reynaldo Liu Ketones Ql (U) Negative Normal NEGATIVE [facility] Comment on above: Performed By: #### E RUR ####[facility] [address] [address]Dr. Reynaldo Liu LEUKOCYTES Negative Normal NEGATIVE [facility] Comment on above: Performed By: #### E RUR ####[facility] [address] [place], [place] [address]Dr. Reynaldo Liu Nitrite Ql (U) Negative Normal NEGATIVE [facility] Comment on above: Performed By: #### E RUR ####[facility] [address] [place], [place] [address]Dr. Reynaldo Liu pH (U) 6.5 [pH] Normal 5-9 [facility] Comment on above: Performed By: #### E RUR ####[facility] [address] [place], [place] [address]Dr. Reynaldo Liu SPEC GRAVITY 1.015 Normal 1.005-<=1.025 [facility] Comment on above: Performed By: #### E RUR ####[facility] W[address] [place], [place] [address]Dr. Reynaldo Liu UA PROTEIN Negative Normal NEGATIVE/ TRACE [facility] Comment on above: Performed By: #### E RUR ####[facility] [address] [place], [place] [address]Dr. Reynaldo Liu UR MICRO IND NOT INDICATED Normal [facility] Comment on above: Performed By: #### E RUR ####[facility] [address] [place], [place] [address]Dr. Reynaldo Liu Urobilinogen Qn (U) 0.2 {Pastor'U}/dL Normal 0.2 - 1.0 [facility] Comment on above: Performed By: #### E RUR ####[facility] [address] [place], [place] [address]Dr. Reynaldo Liu PROF CHEM 8 (BAS METB)on Anion gap [Moles/Vol] 11.9 mmol/L Normal [facility] Comment on above: Performed By: #### B MP #### [facility] [address] [address] [address] Reynaldo Liu Calcium [Mass/Vol] 8.7 mg/dL Normal 8.5-10.1 [facility] Comment on above: Performed By: #### B MP #### [facility] [address] [address] [address] Reynaldo Liu Chloride [Moles/Vol] 105 mmol/L Normal 98-107 [facility] Comment on above: Performed By: #### B MP #### [facility] [address] [address] [address] Reynaldo Liu CO2 [Moles/Vol] 27.5 mmol/L Normal 21.0-32.0 [facility] Comment on above: Performed By: #### B MP #### [facility] [address] [address] [address] Reynaldo Liu Creatinine [Mass/Vol] 1.67 mg/dL Critically high 0.70-1.30 [facility] Comment on above: Performed By: #### B MP #### [facility] [address] [address] [address] Reynaldo Liu EGFR-AF EQUATORIAL GUINEAN 50 mL/min/1.73m2 Critically low >=60 [facility] Comment on above: Performed By: #### B MP #### [facility] [address] [address] [address] Reynaldo Liu EGFR-NON AF EQUATORIAL GUINEAN 42 mL/min/1.73m2 Critically low >=60 [facility] Comment on above: Performed By: #### B MP #### [facility] [address] [address] [address] Reynaldo Liu Glucose [Mass/Vol] 96 mg/dL Normal 74-[address] [facility] Comment on above: Performed By: #### B MP #### [facility] [address] [address] [address] Reynaldo Liu Potassium [Moles/Vol] 4.4 mmol/L Normal 3.5-5.1 [facility] Comment on above: Performed By: #### B MP #### [facility] [address] [address] [address] Reynaldo Liu Sodium [Moles/Vol] 140 mmol/L Normal 136-145 [facility] Comment on above: Performed By: #### B MP #### [facility] [address] [address] [address] Reynaldo Liu Urea nitrogen [Mass/Vol] 18.0 mg/dL Normal 7.0-18.0 [facility] Comment on above: Performed By: #### B MP #### [facility] [address] [address] [address] Reynaldo Liu Urea nitrogen/Creatinin e [Mass ratio] 10.8 mg/mg Normal [facility] Comment on above: Performed By: #### B MP #### [facility] [address] [place] [address] Dr. Reynaldo Liu CREATININEon 07-24-2022 Creatinine [Mass/Vol] 1.34 mg/dL Critically high 0.70-1.30 [facility] Comment on above: Performed By: #### C JAQUI #### [facility] [address] [place] [address] Dr. Reynaldo Liu EGFR-AF EQUATORIAL GUINEAN >60 Normal >=60 [facility] Comment on above: Performed By: #### C JAQUI #### [facility] [address] [place] [address] Dr. Reynaldo Liu EGFR-NON AF EQUATORIAL GUINEAN 54 mL/min/1.73m2 Critically low >=60 [facility] Comment on above: Performed By: #### C JAQUI #### [facility] [address] [place] [address] Dr. Reynaldo Liu CTA CHEST WO W [...] mass, effusion, or pneumothorax. VASCULATURE: No abnormality. RENEE: Small lymph nodes. No pathologic lymphadenopathy MEDIASTINUM: [...] ROSY [place]AND Date: 2022-07-24 15:42 Normal [facility] CBC W MANUAL DIFFon 06-23-19 23 ATYPICAL LYMPH # Normal [facility] Comment on above: Performed By: #### C DEVONTE ####[facility] [address] [address]Dr. Randilan Liu ATYPICAL LYMPH % Normal [facility] Comment on above: Performed By: #### C DEVONTE ####[facility] [address] [address]Dr. Yilan Liu BAND # 0.0 103/ul Normal 0.0-0.3 [facility] Comment on above: Performed By: #### C DEVONTE ####[facility] [address] [address]Dr. Randilan Liu BAND % 0 % Normal 0-5 [facility] Comment on above: Performed By: #### C DEVONTE ####[facility] [address] [address]Dr. Yilan Liu BASOM # 0.00 103/ul Normal 0.00-0.10 [facility] Comment on above: Performed By: #### C DEVONTE ####[facility] [address] [address]Dr. Randilan Liu BASOM % 0.0 % Critically low 0.2-2.0 [facility] Comment on above: Performed By: #### C DEVONTE ####[facility] [address] [address]Dr. Reynaldo Liu BLAST # Normal [facility] Comment on above: Performed By: #### C BCANDIE ####[facility] [address] [address]Dr. Reynaldo Liu BLAST % Normal [facility] Comment on above: Performed By: #### C BCANDIE ####[facility] [address] [address]Dr. Reynaldo Liu CORRECTED WBC Normal 4.0-11.0 [facility] Comment on above: Performed By: #### C BCANDIE ####[facility] [address] [address]Dr. Reynaldo Liu EOS # 0.00 103/ul Normal 0.00-0.70 [facility] Comment on above: Performed By: #### C DEVONTE ####[facility] [address] [address]Dr. Reynaldo Liu EOS% 0.0 % Critically low 0.9-7.0 [facility] Comment on above: Performed By: #### C DEVONTE ####[facility] [address] [place], [place] [address]Dr. Reynaldo Liu HCT 43.6 % Normal 42.0-54.0 [facility] Comment on above: Performed By: #### C DEVONTE ####[facility] [address] [place], [place] [address]Dr. Reynaldo Liu HGB 14.5 g/dl Normal 14.0-18.0 [facility] Comment on above: Performed By: #### C BCANDIE ####[facility] [address] [place], [place] [address]Dr. Reynaldo Liu LYMPHM # 1.34 103/ul Normal 1.20-3.80 [facility] Comment on above: Performed By: #### C BCANDIE ####[facility] [address] [address]Dr. Reynaldo Liu LYMPHM% 7.0 % Critically low 20.5-60.0 [facility] Comment on above: Performed By: #### C DEVONTE ####[facility] [address] [address]Dr. Reynaldo Liu MCH 29.0 pg Normal 25.9-34.0 [facility] Comment on above: Performed By: #### C DEVONTE ####[facility] [address] [place], [place] [address]Pb. Reynaldo Liu MCHC 33.3 g/dl Normal 29.9-35.2 [facility] Comment on above: Performed By: #### C DEVONTE ####[facility] [address] [address]Dr. Reynaldo Liu MCV 87.2 fL Normal 80.0-94.0 [facility] Comment on above: Performed By: #### Shola WHITNEY ####[facility] [address] [address]Dr. Reynaldo Liu METAMYELOCYTE # Normal [facility] Comment on above: Performed By: #### Shola WHITNEY ####[facility] [address] [address]Dr. Reynaldo Liu METAMYELOCYTE % Normal [facility] Comment on above: Performed By: #### Shola WHITNEY ####[facility] [address] [address]Dr. Reynaldo Liu MONOM# 1.72 103/ul Critically high 0.30-0.80 [facility] Comment on above: Performed By: #### Shola WHITNEY ####[facility] [address] [address]Dr. Reynaldo Noe MONOM% 9.0 % Normal 1.7-12.0 [facility] Comment on above: Performed By: #### Shola WHITNEY ####[facility] [address] [address]Dr. Reynaldo Liu MPV 10.9 fL Normal 9.5-13.5 [facility] Comment on above: Performed By: #### Shola WHITNEY ####[facility] [address] [address]Dr. Reynaldo Liu MYELOCYTE # Normal [facility] Comment on above: Performed By: #### C DEVONTE ####[facility] [address] [place], [place] [address]Nm. Reynaldo Liu MYELOCYTE % Normal [facility] Comment on above: Performed By: #### C DEVONTE ####[facility] [address] [address]Dr. Reynaldo Liu NRBC Normal [facility] Comment on above: Performed By: #### C DEVONTE ####[facility] [address] [address]Dr. Reynaldo Liu PLT 279 103/ul Normal 150-450 [facility] Comment on above: Performed By: #### C DEVONTE ####[facility] [address] [address]Dr. Reynaldo Liu RBC 5.00 106/ul Normal 4.70-6.10 [facility] Comment on above: Performed By: #### C DEVONTE ####[facility] [address] [address]Dr. Reynaldo Liu RDW 14.7 % Normal 11.0-15.0 [facility] Comment on above: Performed By: #### C DEVONTE ####[facility] [address] [address]Dr. Reynaldo Liu SEG # 16.04 103/ul Critically high 1.40-6.50 [facility] Comment on above: Performed By: #### Shola WHITNEY ####[facility] [address] [address]Dr. Reynaldo Liu SEG % 84.0 % Critically high 43.0-75.0 [facility] Comment on above: Performed By: #### C DEVONTE ####[facility] [address] [address]Dr. Reynaldo Liu TOXIC GRANULATION 2+ Normal [facility] Comment on above: Performed By: #### Shola WHITNEY ####[facility] [address] [address]Dr. Reynaldo Liu WBC 19.1 103/ul Critically high 4.0-11.0 [facility] Comment on above: Performed By: #### C BCMAN ####[facility] [address] [address]Dr. Reynaldo Liu ER URINE PROFILEon 3 Bilirubin Ql (U) Negative Normal NEGATIVE [facility] Comment on above: Performed By: #### U MICRO, ERUR #### [facility] [address] [address] [address] Reynaldo Liu Clarity (U) CLEAR Normal CLEAR [facility] Comment on above: Performed By: #### U MICRO, ERUR #### [facility] [address] [address] [address] Reynaldo Liu Color (U) LT. YELLOW Normal YELLOW [facility] Comment on above: Performed By: #### U MICRO, ERUR #### [facility] [address] [address] [address] Reynaldo JACQUESD A micrscopic examination will be performed if indicated. Normal [facility] Comment on above: Performed By: #### U MICRO, ERUR #### [facility] [address] [address] [address] Reynaldo Liu Glucose Ql (U) Negative Normal NEGATIVE [facility] Comment on above: Performed By: #### U MICRO, ERUR #### [facility] [address] [address] [address] Reynaldo Liu Hemoglobin Ql (U) TRACE-INTACT Abnormal NEGATIVE [facility] Comment on above: Performed By: #### U MICRO, ERUR #### [facility] [address] [address] [address] Reynaldo Liu Ketones Ql (U) 15 mg/dl Abnormal NEGATIVE [facility] Comment on above: Performed By: #### U MICRO, ERUR #### [facility] [address] [address] [address] Reynaldo Liu LEUKOCYTES Negative Normal NEGATIVE [facility] Comment on above: Performed By: #### U MICRO, ERUR #### [facility] [address] [place] [address] Dr. Reynaldo Liu Nitrite Ql (U) Negative Normal NEGATIVE [facility] Comment on above: Performed By: #### U MICRO, ERUR #### [facility] [address] [place] [address] Dr. Reynaldo Liu pH (U) 6.0 [pH] Normal 5-9 [facility] Comment on above: Performed By: #### U MICRO, ERUR #### [facility] [address] [place] [address] Dr. Reynaldo Liu Protein (U) [Mass/Vol] 30 mg/dL Abnormal NEGATIVE/ TRACE [facility] Comment on above: Performed By: #### U MICRO, ERUR #### [facility] [address] [place] [address] Dr. Reynaldo Liu SPEC GRAVITY 1.010 Normal 1.005-<=1.025 [facility] Comment on above: Performed By: #### U MICRO, ERUR #### [facility] [address] [place] [address] Dr. Reynaldo Liu UR MICRO IND INDICATED Normal [facility] Comment on above: Performed By: #### U MICRO, ERUR #### [facility] [address] [place] [address] Dr. Reynaldo Liu Urobilinogen Qn (U) 0.2 {Pastor'U}/dL Normal 0.2 - 1.0 [facility] Comment on above: Performed By: #### U MICRO, ERUR #### [facility] [address] [place] [address] Dr. Reynaldo Liu LACTATE/LACTIC ACIDon 2022 Lactate [Moles/Vol] 1.4 mmol/L Normal 0.4-1.9 [facility] Comment on above: Performed By: #### L ACT #### [facility] [address] [place] [address] Dr. Reynaldo Liu LIPASEon 06-23-2022 Lipase [Catalytic activity/Vol] 80.0 U/L Normal 73.0-393.0 [facility] Comment on above: Performed By: #### C MP, LIPA ####[facility] [address] [address]Dr. Reynaldo Liu PROF 14(COMP METB)on 023 Albumin [Mass/Vol] 3.8 g/dL Normal 3.4-5.0 [facility] Comment on above: Performed By: #### C MP, LIPA ####[facility] [address] [address]Dr. Reynaldo Liu Albumin/Globulin [Mass ratio] 1.0 {ratio} Normal [facility] Comment on above: Performed By: #### C MP, LIPA ####[facility] [address] [address]Dr. Reynaldo Liu ALP [Catalytic activity/Vol] 72 U/L Normal 46-116 [facility] Comment on above: Performed By: #### C MP, LIPA ####[facility] [address] [address]Dr. Reynaldo Liu ALT [Catalytic activity/Vol] 71 U/L Critically high 16-63 [facility] Comment on above: Performed By: #### C MP, LIPA ####[facility] [address] [address]Dr. Reynaldo Liu Anion gap [Moles/Vol] 19.5 mmol/L Normal [facility] Comment on above: Performed By: #### C MP, LIPA ####[facility] [address] [address]Dr. Reynaldo Liu AST [Catalytic activity/Vol] 96 U/L Critically high 15-37 [facility] Comment on above: Performed By: #### C MP, LIPA ####[facility] [address] [address]Dr. Reynaldo Liu Bilirubin [Mass/Vol] 1.0 mg/dL Normal 0.2-1.0 [facility] Comment on above: Performed By: #### C MP, LIPA ####[facility] [address] [address]Dr. Reynaldo Liu Calcium [Mass/Vol] 9.1 mg/dL Normal 8.5-10.1 [facility] Comment on above: Performed By: #### C MP, LIPA ####[facility] [address] [address]Dr. Reynaldo Liu Chloride [Moles/Vol] 100 mmol/L Normal 98-107 [facility] Comment on above: Performed By: #### C MP, LIPA ####[facility] [address] [address]Dr. Reynaldo Liu CO2 [Moles/Vol] 21.5 mmol/L Normal 21.0-32.0 [facility] Comment on above: Performed By: #### C WINNIE, LIPA ####[facility] [address] [place], [place] [address]Dr. Reynaldo Lui Creatinine [Mass/Vol] 1.89 mg/dL Critically high 0.70-1.30 [facility] Comment on above: Performed By: #### C WINNIE, LIPA ####[facility] [address] [place], [place] [address]Dr. Reynaldo Liu EGFR-AF EQUATORIAL GUINEAN 44 mL/min/1.73m2 Critically low >=60 [facility] Comment on above: Performed By: #### C MP, LIPA ####[facility] [address] [place], [place] [address]Dr. Reynaldo Liu EGFR-NON AF EQUATORIAL GUINEAN 36 mL/min/1.73m2 Critically low >=60 [facility] Comment on above: Performed By: #### C MP, LIPA ####[facility] [address] [place], [place] [address]Dr. Reynaldo Liu Globulin (S) [Mass/Vol] 3.9 g/dL Normal [facility] Comment on above: Performed By: #### C MP, LIPA ####[facility] [address] [place], [place] [address]Dr. Reynaldo Liu Glucose [Mass/Vol] 117 mg/dL Critically high 74-106 [facility] Comment on above: Performed By: #### C MP, LIPA ####[facility] [address] [address]Dr. Reynaldo Liu Potassium [Moles/Vol] 4.0 mmol/L Normal 3.5-5.1 [facility] Comment on above: Performed By: #### C MP, LIPA ####[facility] [address] [address]Dr. Reynaldo Liu Protein [Mass/Vol] 7.7 g/dL Normal 6.4-8.[address] [facility] Comment on above: Performed By: #### C MP, LIPA ####[facility] [address] [address]Dr. Reynaldo Liu Sodium [Moles/Vol] 137 mmol/L Normal 136-[address] [facility] Comment on above: Performed By: #### C WINNIE, LIPA ####[facility] [address] [address]Dr. Reynaldo Liu Urea nitrogen [Mass/Vol] 22.0 mg/dL Critically high 7.0-18.0 [facility] Comment on above: Performed By: #### C WINNIE, LIPA ####[facility] [address] [address]Dr. Reynaldo Liu Urea nitrogen/Creatinin e [Mass ratio] 11.6 mg/mg Normal [facility] Comment on above: Performed By: #### C WINNIE, LIPA ####[facility] [address] [address]Dr. Reynaldo Liu URINE MICROSCOPIC ONLYon BACTERIA NONE SEEN Normal NONE SEEN [facility] Comment on above: Performed By: #### U MICRO, ERUR #### [facility] [address] [address] [address] Reynaldo Liu Bacteria identified Cx Nom (U) NOT INDICATED Normal [facility] Comment on above: Performed By: #### U MICRO, ERUR #### [facility] [address] [address] [address] Reynaldo Liu CAST NONE SEEN Normal NONE SEEN [facility] Comment on above: Performed By: #### U MICRO, ERUR #### [facility] [address] [place] [address] Dr. Reynaldo Liu Crystals LM Nom (Urine sed) NONE SEEN Normal NONE SEEN [facility] Comment on above: Performed By: #### U MICRO, ERUR #### [facility] [address] [place] [address] Dr. Reynaldo Liu Epithelial cells LM Ql (Urine sed) FEW Abnormal NONE SEEN /RARE [facility] Comment on above: Performed By: #### U MICRO, ERUR #### [facility] [address] [place] [address] Dr. Reynaldo Liu MUCOUS NONE SEEN Normal NONE SEEN [facility] Comment on above: Performed By: #### U MICRO, ERUR #### [facility] [address] [place] [address] Dr. Reynaldo Liu RBC 2-5 Abnormal 0-2 [facility] Comment on above: Performed By: #### U MICRO, ERUR #### [facility] [address] [place] [address] Dr. Reynaldo Liu WBC 5-10 Abnormal NONE SEEN [facility] Comment on above: Performed By: #### U MICRO, ERUR #### [facility] [address] [place] [address] Dr. Reynaldo Liu Covid-19 PCR ([facility])on SARS-CoV-2 (COVID-19) RNA SARANYA+probe Ql (Unsp spec) Not detected Normal NOT DETECTED [facility] Comment on above: Result Comment: This test is not yet approved or cleared by the [place] FDA. When there are no FDA-approved or cleared tests available, and other criteria are met, FDA can make tests available under an emergency access mechanism called an Emergency Use Authorization (EUA). The EUA for this test is supported by the [place] of Health and Human Service's (HHS's) declaration [...] consistent with SARS-CoV-2. Performed By: #### C VDTB #### [facility] [address] [address] [address] Reynaldo Liu Covid-19 PCR ([facility])on 12-23 SARS-CoV-2 (COVID-19) RNA SARANYA+probe Ql (Unsp spec) Detected Critically abnormal NOT DETECTED [facility] Comment on above: Result Comment: This test is not yet approved or cleared by the [place] FDA. When there are no FDA-approved or cleared tests available, and other criteria are met, FDA can make tests available under an emergency access mechanism called an Emergency Use Authorization (EUA). The EUA for this test is supported by the Rehabilitation Program Coordinator of Health and Human Service's declaration that [...] used). Performed By: #### C VDTB #### [facility] [address] [address] [address] Reynaldo Liu PROF CHEM 8 (BAS METB)on Anion gap [Moles/Vol] 16.2 mmol/L Normal [facility] Comment on above: Performed By: #### B MP ####[facility] [address] [address]DrMague Liu Calcium [Mass/Vol] 8.3 mg/dL Critically low 8.5-10.1 [facility] Comment on above: Performed By: #### B MP ####[facility] [address] [address]DrMague Liu Chloride [Moles/Vol] 101 mmol/L Normal 98-107 [facility] Comment on above: Performed By: #### B MP ####[facility] [address] [address]. Reynaldo Liu CO2 [Moles/Vol] 20.9 mmol/L Critically low 21.0-32.0 [facility] Comment on above: Performed By: #### B MP ####[facility] [address] [address]Dr. Reynaldo Liu Creatinine [Mass/Vol] 1.55 mg/dL Critically high 0.70-1.30 [facility] Comment on above: Performed By: #### B MP ####[facility] [address] [address]Dr. Reynaldo Noe EGFR-AF EQUATORIAL GUINEAN 55 mL/min/1.73m2 Critically low >=60 [facility] Comment on above: Performed By: #### B MP ####[facility] [address] [place], [place] [address]Dr. Reynaldo Liu EGFR-NON AF EQUATORIAL GUINEAN 46 mL/min/1.73m2 Critically low >=60 [facility] Comment on above: Performed By: #### B MP ####[facility] [address] [place], [place] [address]Dr. Reynaldo Liu Glucose [Mass/Vol] 110 mg/dL Critically high 74-106 [facility] Comment on above: Performed By: #### B MP ####[facility] [address] [address]Dr. Reynaldo Liu Potassium [Moles/Vol] 4.1 mmol/L Normal 3.5-5.1 [facility] Comment on above: Performed By: #### B MP ####[facility] [address] [address]Dr. Randimolly Liu Sodium [Moles/Vol] 134 mmol/L Critically low 136-145 [facility] Comment on above: Performed By: #### B MP ####[facility] [address] [place], [place] [address]Dr. Reynaldo Liu Urea nitrogen [Mass/Vol] 23.0 mg/dL Critically high 7.0-18.0 [facility] Comment on above: Performed By: #### B MP ####[facility] [address] [place], [place] [address]Pw. Reynaldo Liu Urea nitrogen/Creatinin e [Mass ratio] 14.8 mg/mg Normal [facility] Comment on above: Performed By: #### B MP ####[facility] [address] [place], [place] [address]Ju. Reynaldo Liu XR CHEST 1 Von 01-18-2022 [...] by: RANULFO BREWER Date: 2022-01-18 14:27 Normal [facility] DRUG SCREEN DOT COMPANYon Age at Specimen Collection = Normal [facility] Comment on above: Order Comment: tri n ational inc Performed By: #### [id number] ####[facility] [place] [id number] [employer] Sent to reference lab. See separate report. Normal [facility] Comment on above: Order Comment: tri n ational inc Performed By: #### [id number] ####[facility] [place] [address] Vital Signs Date Time Vital Sign Value Performing Clinician Lilibeth kelly 01-26-2024 10: Body height 182.9 cm Nicolas Monroe DO Work Phone: [facility] 01-26-2024 10: Body mass index (BMI) [Ratio] 33.91 kg/m2 Nicolas Monroe DO Work Phone: [facility] 01-26-2024 10: Body weight 113.4 kg Nicolas Monroe DO Work Phone: [facility] 01-26-2024 10: Diastolic blood pressure 96 mm[Hg] Nicolas Monroe DO Work Phone: [facility] 01-26-2024 10:13-0400 Heart rate 76 /min Nicolas Monroe DO Work Phone: [facility] 01-26-2024 10:13-0400 SaO2% (BldA) [Mass fraction] 95 % Nicolas Monroe DO Work Phone: [facility] 01-26-2024 10:13-0400 Systolic blood pressure 142 mm[Hg] Nicolas Monroe DO Work Phone: [facility] 01-19-2024 08:00-0400 Body height 182.9 cm Juan Barahona MD Work Phone: [facility] 01-19-2024 08:00-0400 Body mass index (BMI) [Ratio] 33.91 kg/m2 Juan Barahona MD Work Phone: [facility] 01-19-2024 08:00-0400 Body weight 113.4 kg Juan Barahona MD Work Phone: [facility] 01-19-2024 08:00-0400 Diastolic blood pressure 79 mm[Hg] Juan Barahona MD Work Phone: [facility] 01-19-2024 08:00-0400 Systolic blood pressure 137 mm[Hg] Juan Barahona MD Work Phone: [facility] Encounters Encounter Date Encounter Type Care Provider Facility Start: 07-03-2024 End: 07-03-2024 Telephone encounter Juan Barahona MD Work Phone: [facility] Comment on above: Med Refill Start: 06-05-2024 End: 06-05-2024 [facility] [place] [facility] Start: 05-23-2024 ambulatory BRODERICK PACK [facility] Start: 05-05-2024 End: 05-05-2024 ambulatory CONNIE [facility] Start: 04-27-2024 ambulatory [facility] Start: 04-27-2024 End: 04-27-2024 ambulatory [facility] Start: 04-26-2024 End: 04-26-2024 [facility]: 04-18-2024 End: 04-18-2024 ambulatory [facility] Start: 02-29-2024 End: 02-29-2024 ambulatory [facility] Start: 01-26-2024 End: 01-26-2024 Bamboo flowsheet Nicolas Monroe DO Work Phone: [facility] Start: 01-26-2024 End: 01-26-2024 Bamboo flowsheet Nicolas Monroe DO Work Phone: [facility] Start: 01-26-2024 End: 01-26-2024 Office outpatient new 45 minutes Nicolas Monroe DO Work Phone: [facility] Comment on above: RANJANA (obstructive sle ep apnea); Hypersomnia; Snoring; Shift work sleep disorder Start: 01-26-2024 End: 01-26-2024 ambulatory NICOLAS MEJIA Not Available Start: 01-19-2024 End: 01-19-2024 Bamboo flowsheet Juan Barahona MD Work Phone: [facility] Start: 01-19-2024 End: 01-19-2024 Yanira Barahona MD Work Phone: [facility] Start: 01-19-2024 End: 01-19-2024 Office outpatient visit 15 minutes Juan Barahona MD Work Phone: [facility] Comment on above: Nasal polyposis (Penelope salima Dx) Start: 01-19-2024 End: 01-19-2024 ambulatory JUAN BARAHONA Not Available Start: 12-21-2023 End: 12-21-2023 ambulatory JUAN BARAHONA Not Available Start: 10-05-2023 ambulatory LUCIEN PASCUAL [facility] Start: 09-17-2023 End: 09-17-2023 ambulatory LIZETH FLORES [facility] Start: 08-17-2023 End: 08-17-2023 ambulatory NIKHIL BENSON [facility] Start: 11-23-2022 End: 11-24-2022 ambulatory Juan Barahona Facility:[facility] [place] Start: 11-23-2022 End: 11-23-2022 Patient encounter procedure Juan Barahona [facility] Start: 09-21-2022 End: 09-22-[address] DOCTOR BREWSTER Facility:[facility] Start: 09-13-2022 End: 09-13-2022 ambulatory MIHAI SAUCEDO . Facility:[facility] Start: 08-17-[address] DOCTOR BREWSTER Facility :[facility] Start: 07-27-2022 Encounter for preprocedural laboratory examination DR AMANDEEP STONE [facility] Start: 07-24-2022 End: 07-25-[address] ROSY ROLAND Facility:[facility] Start: 06-23-2022 End: 06-24-[address] KOKO MÁRQUEZ Facility:[facility] Start: 04-21-2022 End: 04-21-[address] LIV Bowser Facility:[facility] Start: 01-23-2022 End: 01-23-[address] Facility:[facility] Start: 01-18-2022 End: 01-18-[address] Facility:[facility] Start: 08-22-2018 End: 08-22-2018 Patient encounter procedure KIRSTIN Y [facility] Start: 08-01-2018 End: 08-01-2018 Patient encounter procedure KIRSTIN Y [facility] Start: 07-26-2018 End: 07-27-2018 Patient encounter procedure DEFAULT PHYSICIAN Facility:[facility] Start: 11-03-2017 End: 11-03-2017 Unknown [employer] Facility:[facility] Procedures Date Procedure Procedure Detail Performing Clinician Start: 08-22-2018 DIET GENERAL KIRSTIN CLAR K Start: 08-22-2018 FULL CODE KIRSTIN CLAR K Start: 08-22-2018 INITIATE OXYGEN THER APY PROTOCOL KIRSTIN HUGHES Start: 08-22-2018 NURSING COMMUNICATION B ELIZABETH HUGHES Start: 08-22-2018 VITAL SIGNS KIRSTIN CLAR K Start: 08-22-2018 DISCHARGE PATIENT KIRSTIN HUGHES Start: 08-22-2018 INITIATE OXYGEN THER APY PROTOCOL KIRSTIN HUGHES Start: 08-22-2018 NURSING COMMUNICATION B CECISuly ELLEN Start: 08-22-2018 VERIFY INFORMED CONSENT KIRSTIN HUGHES Start: 08-01-2018 DIET GENERAL KIRSTIN Bucio Start: 08-01-2018 DISCHARGE PATIENT KIRSTIN HUGHES Start: 08-01-2018 FULL CODE KIRSTIN Bucio Start: 08-01-2018 INITIATE OXYGEN THER APY PROTOCOL KIRSTIN ELLEN Start: 08-01-2018 NURSING COMMUNICATION B CECISuly HUGHES Start: 08-01-2018 VITAL SIGNS KIRSTIN Bucio Start: 08-01-2018 INITIATE OXYGEN THER APY PROTOCOL KIRSTIN HUGHES Start: 08-01-2018 NURSING COMMUNICATION B CECISuly HUGHES Start: 08-01-2018 VERIFY INFORMED CONSENT KIRSTIN HUGHES Plan of Treatment Date Care Activity Detail Author Start: 11-07-2024 End: 11-07-2024 Patient encounter procedure 11/07/2024 8:00 AM EDT Office Visit [facility] [address] [place] [address] Juan Barahona MD [address] [place] [address] [facility] Start: 07-04-2024 End: 07-04-2024 Patient encounter procedure 07/04/2024 9:00 AM EST Office Visit [facility] [address] [place] [address] Juan Barahona MD [address] [place] [address] [facility] Start: 01-26-2024 End: 01-26-2024 Patient encounter procedure [facility] Comment on above: Arrived Start: 01-23-2024 Influenza vaccination Influenza Vacc ine (#1) [facility] Start: 01-19-2024 End: 01-19-2024 Patient encounter procedure 01/19/2024 8:00 AM EDT Office Visit [facility] [address] [place] [address] Juan Barahona MD [address] [place] [address] Arrived [facility] Comment on above: Arrived Start: 2023 Pneumococcal Vaccine : 65+ Years (1 of 1 - PCV) Pneumococcal Vaccine: 65+ Years (1 of 1 - PCV) [facility] Start: 1960 Screening for malign ant neoplasm of colon [facility] Immunizations Immunization Date Immunization Notes Care Provider Fa cility 11-17-2020 SARS-CoV-2, Unspecified Renee Barahona MD Work Phone: [facility] 09-28-2020 SARS-CoV-2, Unspecified Renee Barahona MD Work Phone: [facility] 2018 influenza virus vacc ine, unspecified formulation Juan Barahona MD Work Phone: [facility] Payers Date Payer Category [facility]ayer [facility] [id number] 2024 Unknown [id number] 2020 Private Health Insurance [facility] [id number] 2020-Present [address] [address] [place] [address] [id number] 2020 Medicare [id number] 2018 Medicaid [id number] 2017 Unknown 1959 Private Health Insurance [id number] 1958 Unknown [id number] [id number]. 647 1958 Unknown [id number] 2.16.840.1.328634.3.579.2. 173 1958 Unknown [id number] 2.16.840.1.004429.3.579.2. 173 1958 Unknown [id number] 2.16.840.1.593199.3.579.2. 593 1958 Unknown [id number] 2.16.840.1.639620.3.579.2. 593 1958 Unknown [id number] 2.16.840.1.961612.3.579.2. 593 1958 Unknown [id number] 2.16.840.1.751957.3.579.2. 593 1958 Unknown [id number] 2.16.840.1.482349.3.579.2. 593 1958 Unknown [id number] 2.16.840.1.067572.3.579.2. 593 1958 Unknown [id number] 2.16.840.1.590087.3.579.2. 593 1958 Unknown [id number] 2.16.840.1.749569.3.579.2. 593 1958 Unknown [id number] 2.16.840.1.478059.3.579.2. 727 1958 Unknown [id number] 2.16.840.1.880550.3.579.2. 1259 1958 Unknown [id number] 2.16.840.1.820967.3.579.2. 1259 1958 Unknown [id number] 2.16.840.1.734780.3.579.2. 1259 Social History Date Type Detail Facility Tobacco smoking status [facility] Start: 12-21-2023 End: 01-26-2024 Sex Assigned At Male Jose Arenas [facility] Start: 10-13-2022 Tobacco smoking stat us UTIS Never smoked tobacco [facility] Start: 10-13-2022 Tobacco use and exposure Smokeless tobacco non-user [facility] Start: 01-19-2024 End: 01-26-2024 Alcoholic beverage intake Lifetime non-drinker (finding) [facility] Start: 12-21-2023 End: 01-26-2024 History of Social function [facility] Start: 1960 Sex assigned at Not on file [facility] Clinical Notes 06-23-2022 to 07-03-2024 Telephone Encounter - Tricia Barahona - 07/03/2024 2:11 PM ESTTelephone Encounter - Tricia Barahona - 07/03/2024 2:11 PM ESTTelephone Encounter - Juan Barahona MD - 07/03/2024 1:19 PM EST Note Date & Type Note Facility 07-03-2024 Telephone encounter Note Pt is scheduled with Dr Barahona 07/04/24. [facility] 07-03-2024 Miscellaneous Notes Pt is scheduled with Dr Barahona 07/04/24. Move up appt As of beginning of this year pt has not used dupixent due to insurance change. He has an appt scheduled for October for the refill but he needs it sooner. Should we reschedule the appt sooner for the refill. He said he was taking it every other week. documented in this encounter [facility] 07-03-2024 Telephone encounter Note Move up appt [facility] 07-03-2024 Telephone encounter Note As of beginning of this year pt has not used dupixent due to insurance change. He has an appt scheduled for October for the refill but he needs it sooner. Should we reschedule the appt sooner for the refill. He said he was taking it every other week. [facility] 06-05-2024 Note [facility] Consult Note Reason for visit: Follow-up, status post A-fib ablation 06/05/2024 Patient is here today for follow-up visit. He states that he has been doing well. Denies any palpitations. Denies chest pain or shortness of breath at rest or with exertion. Denies orthopnea or paroxysmal nocturnal dyspnea. Denies legs edema or leg discomfort on exertion. He does not check his blood pressure at home 05/05/24 Patient states he is feeling well today. States he is feeling as well as he normally does. Denies chest pain or shortness of breath. No dizziness or lightheadedness. EKG today showed NSR with av block 04/18/24 Patient here to discuss upcoming afib ablation scheduled on 04/27/2024. Denies chest pain, SOB, palpitations, lightheadedness/syncope, and bleeding on Eliquis. 02/29/24 Pt is here for a six month follow up.Pt denies, sob, chest pain, palpatations . His insuranc e had denied Afib ablation previously. He is using his CPAP but unable to keep it on due to poor contact. His TSH is high from [facility]. 08/17/23 Patient here to discuss obtaining clearance [...] effects. he wants to proceed with ablation 06/08/23 Pt is s/p DCCV and is [...] controlled 09/22/22 HPI: Ede Davies is a 64 y.o. year old with past medical history of ascending aortic aneurysm, mitral valve repair at [facility] 2004 and hypertension seen in ED follow-up for new onset atrial fibrillation. He presented to the [facility] emergency department where he was found [...] History: Diagnosis Date Abnormal ECG Aneurysm (CMS/HCC) ASCENDING THORACIC AORTA 4.3 CM Arrhythmia Atrial fibrillation (CMS/HCC) COPD (chronic obstructive pulmonary disease) (CMS/HCC) Heart valve disease Hypertension Obesity BMI 34.04 Sleep apnea PSH: Past Surgical History: Procedure Laterality Date CARDIAC VALVE REPLACEMENT CATARACT EXTRACTION : Social Determinants of Health Tobacco Use: Low Risk (05/05/2024) Patient History Smoking Tobacco Use: Never Smokeless Tobacco Use: Never Passive Exposure: Never Alcohol Use: Not At Risk (2018) Received from [employer], [employer] [facility] Frequency of Alcohol Consumption: Never Average Number of Drinks: Not on file Frequency of Binge Drinking: Not on file Financial Resource Strain: Not on file Food Insecurity: Not on file Transportation Needs: Not on file Physical Activity: Not on file Stress: Not on file Social Connections: Not on file Intimate Partner Violence: Not At Risk (05/05/2024) Humiliation, Afraid, Rape, and Kick questionnaire Fear of Current or Ex-Partner: No Emotionally Abused: No Physically Abused: No Sexually Abused: No Depression: Not at risk (05/23/2024) PHQ-2 PHQ-2 Score: 0 Housing Stability: Not on file Utilities: Not on file Health Literacy: Not on file Allergies: Allergies Allergen Reactions Erythromycin Shortness of (more content not included)... [facility] 05-23-2024 Note Cardiac Surgery Foll ow Up: 62-year-old male with past medical history of COPD, asthma, hypertension, and new onset atrial fibrillation (diagnosed 1 year ago, on apixaban for stroke prophylaxis). He has a known ascending thoracic aneurysm for which he has been getting surveillance CT scans of the chest. He has no complaints today. Denies dizziness lightheadedness. Denies chest pain. No back or shoulder pain. CT scan repeated on 04/26/2024: Ascending aorta measures 4.3cm in diameter No dissection or hematoma Incidental stable 8 mm left lung pulmonary nodule A/P: Stable ascending aortic anuerysm BP control No lifting > [address] scan and follow up in our clinic 12 months [facility] 05-05-2024 Note [facility] Electrophysiology Consult Note Reason for visit: s/p DCCV frp Afib 05/05/24 Patient states he is feeling well today. States he is feeling as well as he normally does. Denies chest pain or shortness of breath. No dizziness or lightheadedness. EKG today showed NSR with av block 04/18/24 Patient here to discuss upcoming afib ablation scheduled on 04/27/2024. Denies chest pain, SOB, palpitations, lightheadedness/syncope, and bleeding on Eliquis. 02/29/24 Pt is here for a six month follow up.Pt denies, sob, chest pain, palpatations . His insuranc e had denied Afib ablation previously. He is using his CPAP but unable to keep it on due to poor contact. His TSH is high from [facility]. 08/17/23 Patient here to discuss obtaining clearance [...] controlled 09/22/22 HPI: Ede Davies is a 64 y.o. year old with past medical history of ascending aortic aneurysm, mitral valve repair at [facility] 2004 and hypertension seen in ED follow-up for new onset atrial fibrillation. He presented to the [facility] emergency department where he was found [...] History: Diagnosis Date Abnormal ECG Aneurysm (CMS/HCC) ASCENDING THORACIC AORTA 4.3 CM Arrhythmia Atrial fibrillation (CMS/HCC) COPD (chronic obstructive pulmonary disease) (CMS/HCC) Heart valve disease Hypertension Obesity BMI 34.04 PSH: Past Surgical History: Procedure Laterality Date CARDIAC VALVE REPLACEMENT CATARACT EXTRACTION SH: Social Determinants of Health Tobacco Use: Low Risk (04/27/2024) Patient History Smoking Tobacco Use: Never Smokeless Tobacco Use: Never Passive Exposure: Not on file Alcohol Use: Not At Risk (2018) Received from [employer], [employer] [facility] Frequency of Alcohol Consumption: Never Average Number of Drinks: Not on file Frequency of Binge Drinking: Not on file Financial Resource Strain: Not on file Food Insecurity: Not on file Transportation Needs: Not on file Physical Activity: Not on file Stress: Not on file Social Connections: Not on file Intimate Partner Violence: Unknown (07/15/2023) NM Safety & Environment Fear of Current or Ex-Partner: Not on file Emotionally Abused: Not on file Physically Abused: Not on file Sexually Abused: Not on file Physically or Sexually Abused: Not on file Depression: Not on file Housing Stability: Not on file Utilities: Not on file Health Literacy: Not on file Allergies: Allergies Allergen Reactions Erythromycin Shortness of breath Azithromycin Weight: No weight available Visit Vitals Smoking Status Never Meds: Current Outpatient Medications on File Prior to Visit Medication Sig Dispense Refill amiodarone (Pacerone) 200 mg tablet TAKE 1 TABLET BY MOUTH IN THE MORNING 90 tablet 3 aspirin 81 mg chewable tablet Chew 1 tablet every day by oral (more content not included)... [facility] 04-27-2024 Note Patient: Ede kim Procedure Summary Date: 04/27/24 Room / Location: [facility] 1 EP / [facility] (Cath) Anesthesia Start: 0800 Anesthesia Stop: 1112 Procedure: Ablation a-fib paroxysmal Diagnosis: Paroxysmal atrial fibrillation (CMS/HCC) (Paroxysmal atrial fibrillation (CMS/HCC) [I48.0]) Providers: Nikhil Benson MD Responsible Provider: Emmett Lewis MD Anesthesia Type: general ASA Status: 3 Anesthesia Type: general Vitals Value Taken Time BP 118/72 04/27/24 1158 Temp 36 ???C (96.8 ???F) 04/27/24 1109 Pulse 72 04/27/24 1140 Resp 20 04/27/24 1140 SpO2 97 % 04/27/24 1140 Anesthesia Post Evaluation Patient location during evaluation: PACU Patient participation: complete - patient participated Level of consciousness: awake and alert Pain management: adequate Multimodal analgesia pain management approach Airway patency: patent Two or more strategies used to mitigate risk of obstructive sleep apnea Cardiovascular status: hemodynamically stable Respiratory status: acceptable, spontaneous ventilation, nonlabored ventilation and nasal cannula Hydration status: euvolemic Patient is hemodynamically stable and is able to be discharged from PACU per anesthesia protocol. There were no known notable events for this encounter. [facility] 04-27-2024 Note ATRIAL FIBRILLATION ABLATION PROCEDURE NOTE DATE OF PROCEDURE: 04/27/2024 PERFORMING PHYSICIAN: Dr. Nikhil Benson CONSENT: Patient NAME OF THE PROCEDURE: Pulmonary Vein Isolation and Comprehensive EP study. INDICATIONS FOR PROCEDURE: 1. Persistent atrial fibrillation. FLUROSCOPY: 2.5min/ 38mGy. EBL: 25cc SPECIMEN REMOVED: None PROCEDURES PERFORMED: 1. Sonosite guided venous access as noted below and images stored in PACS. 2. Comprehensive EP study and catheter ablation for persistent atrial fibrillation through the pulmonary vein isolation technique. This includes right atrial recording and pacing, His bundle recording and right ventricular recording and pacing. 3. Intracardiac EP 3D mapping. 4. Intracardiac echocardiogram 5. Left atrial and coronary sinus recording and pacing to assess ablation results. 6. Left heart pressure measurements and LV pacing and recording. 7. Induction of arrhythmia and testing of ablation results using intravenous adenosine infusion. 8. Fluroscopy. INDICATION: 64year old with past medical history of ascending aortic aneurysm, mitral valve repair at [facility] 2004 and hypertension seen in ED follow-up for new onset atrial fibrillation. He presented to the [facility] emergency department where he was found to be in rate controlled atrial fibrillation. He was seen by the nurse practitioner Jj who had ordered an echocardiogram as well as stress test. stress test was denied by the insurance company but the echo was suggestive of cardiomyopathy as well as ascending aortic aneurysm. He was unsure as to how long he has been in A-fib. He was started on amiodarone with self converted to sinus His repeat echocardiogram done in June 2023 has shown improvement of EF to normal levels having maintain sinus rhythm. Patient is currently on amiodarone and wants to come off the medication due to the concern of adverse effects. he wants to proceed with ablation PROCEDURE NOTE: On the day of presentation, he was noted to be in sinus rhythm following which the GAVIN was deferred. Risks, benefits and alternatives of the procedure were discussed with the patient and family who agreed to proceed. Please refer to my consult note for details of the discussion and of indications. The patient was prepped and draped following which four venous access was procured on right side as noted below. Ultrasound was used to determine the course and patency of the femoral veins on both sides and they were noted to be patent and the image stored in PACS. After infiltration with 1% lidocaine, 4 venous sheaths were placed in the right as noted below and a radial arterial line was placed by ma. RFV: 8Fx3, [employer] ThermoCool SF Bi-Directional over SL1/ Vizigo, SL1: Octoray,, CS Catheter (EZ Steer). 9F: ICE catheter, Following venous access, heparin bolus was given followed by continuous intravenous drip to target ACT around 350. An intracardiac ultrasound catheter was inserted into the right atrium to examine the right atrial anatomy, atrial septum, pulmonary vein anatomy and to monitor for pericardial effusion and guide transseptal access. The LA and RA was only moderately dilated. 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 Transeptal access was procured with ICE guidance using a SL-1 sheath and Siddharth needle. LV pacing was performed and no VA conduction was seen. Following this, Octoray,catheter was advanced and the multipolar mapping performed of the LA creating a geometry as well as bipolar voltage assessment was made. The LA was noted to be healthy. After FAM geometry was performed, a 2nd transseptal was performed with an SL1 sheath using a Siddharth needle. Following transseptal, the SL1 sheath was removed and Vizigo sheath was advanced over which the ablation catheter ST-SF thermocol ablation catheter was advanced. Ablation was then performed. A cooling tube was advanced to the stomach and position confirmed with fluoroscopy and cooling initiated to 4C. Ablation was performed using 40 navarrete for 10-12s in the anterior LA and 5-8seconds in the posterior wall and roof area. After completion of the left sided WACA, no signals were noted in the LSPV or LIPV and entrance and exit block was noted. After this, I proceeded to perform ablation of the right-sided vein. Following right WACA, the veins were isolated. I ensured that on the anterior aspect of right WACA and in bertha area, phrenic capture was ruled out before any ablation was performed. After this, perivenous pacing was performed around each individual vein, ensuring there was isolation. Adenosine was given a 12 mg dose and AV delay and hypotension was noted. No reconnection was seen. Patient went into Atrial flutter with CL of 350ms. Entrainment revealed this to (more content not included)... [facility] 04-27-2024 Note Airway Date/Time: 04/27/2024 8:23 AM Urgency: elective Airway not difficult General Information and Staff Patient location during procedure: OR Anesthesiologist: Emmett Lewis MD Resident/ASP NET PROGRAMMER/CAA: Fallon Jones MD Performed: resident/ASP NET PROGRAMMER/CAA Indications and Patient Condition Indications for airway management: anesthesia Spontaneous Ventilation: absent Sedation level: deep Preoxygenated: yes Patient position: sniffing Mask difficulty assessment: 1 - vent by mask Planned trial extubation Final Airway Details Final airway type: endotracheal airway Successful airway: ETT Cuffed: yes Successful intubation technique: video laryngoscopy Facilitating devices/methods: intubating stylet Endotracheal tube insertion site: oral Blade: Trejo Blade size: #4 ETT size (mm): 7.5 Cormack-Lehane Classification: grade I - full view of glottis Placement verified by: chest auscultation and capnometry Measured from: lips ETT to lips (cm): 22 Number of attempts at approach: 1 Number of other approaches attempted: 0 [facility] 04-27-2024 Note Arterial Line: Date/Time: 04/27/2024 7:40 AM An arterial line was placed Procedure performed using surface landmarks.in the pre-op for the following indication(s): continuous blood pressure monitoring and blood sampling needed. A 20 G (size), 2 inch (length), Angiocath (type) catheter was placed, Seldinger technique used , into the Left radial artery, secured by Biodisc/Biopatch, tape and Tegaderm. Events: patient tolerated procedure well with no complications. Medications Administered lidocaine (XYLOCAINE) 1 % SubQ - infiltration 1 mL - 04/27/2024 7:40:00 AM Staffing Performed: resident/ASP NET PROGRAMMER/CAA Anesthesiologist: Emmett Lewis MD Resident/ASP NET PROGRAMMER: Fallno Jones MD Performed by: Fallon Jones MD Authorized by: Emmett Lewis MD [facility] 04-27-2024 Note Patient: Ede kim Procedure Information Date/Time: 04/27/24 0800 Procedure: Ablation a-fib paroxysmal - PC APPROVED Location: [facility] / [facility] (Cath) Providers: Nikhil eBnson MD Relevant Problems Cardio (+) Aneurysm of thoracic aorta (CMS/HCC) (+) Atrial fibrillation (CMS/HCC) (+) Cardiac murmur (+) Hypertensive disorder (+) Nonrheumatic mitral (valve) insufficiency Pulmonary (+) Chronic obstructive lung disease (CMS/HCC) (+) Severe persistent asthma, uncomplicated Echocardiogram - [place] Name: ZE DAVIES Study Date: 07/26/2018 10:44 AM B/P: 124 mmHg/68 mmHg HR: 53 bpm Date of : 1960 Location: [place] Height: 71 in. Age: 58 year(s) Patient Room: Weight: 242 lb. Gender: Male Patient Status: OutPt BSA: 2.29 m2 Indication: Dyspnea on exertion Examination: Echocardiogram (Complete) Patient Consent: Procedure explained to patient [email or web address] Conclusions Global left ventricular systolic function is normal (Visually estimated EF 55%). The left ventricle is normal size. Left ventricular wall thickness is normal. No regional wall motion abnormality. Grade 2, moderate diastolic dysfunction (pseudonormalized LV filling pattern). Normal right ventricular systolic function. The left atrium is moderately enlarged. Unable to assess right sided pressures due to lack of measurable tricuspid regurgitation. Moderate aortic dilatation . No significant valvular abnormalities No previous study to compare. Recommend alternate imaging modality of the aorta (CTA or MRA) for better assessment. Measurements: Name Value Normal Range l1n3 LVEF (estimated): 55% (>=55 %) LVDd (2D): 5.48 cm (4.2 cm-5.9 cm) LVDs (2D): 4.50 cm (2.1 cm-4 cm) IVSd (2D): 1.03 cm (0.6 cm-1.1 cm) LVPWd (2D): 1.05 cm (0.6 cm-1 cm) RWT (2D): 0.38 (< 0.42) LV Mass Index (2D ASE): 97.5 (50-102.4) LADs (2D): 4.36 cm (3 cm-4 cm) LA Volume Index: 48.5 (<35 ml/m2 ) MV E Vmax: 1.60 (<1.25 m/s) MV E/A: 1.40 Name Value Normal Range l1n3 MV E' Lateral: 0.08 m/sec l1n3 MV E/E' Lateral: 21.38 l1n3 RVDbase: 4.21 cm (< 4.2 cm) TAPSE: 2.30 cm (> 1.9)1.31 cm RA Pressure (est): 3 Ao Diam (sinus): 4.23 cm (1.4 cm - 2.6 cm) Ao Ascendin.21 cm (< 3.5 M, <3.2 F) Ao Arch: 4.06 cm Ao Descending:: 1.31 cm AV DVI 0.88 Valvular Assessment LVOT 0.7 - 1.1 m/sec Aortic Valve 1.0 - 1.7 m/sec Mitral Valve 0.6 - 1.3 m/sec Tricuspid Valve 0.3 - 0.7 m/sec Pulmonic Valve 0.6 - 0.9 m/sec Regurgitation Trivial Trivial Trivial Trivial Stenosis No No Max Velocity 0.81 m/sec 0.92 m/sec 1.60 m/sec 0.58 m/sec 0.85 m/sec Max Gradient 3.41 mmHg 13.46 mmHg 1.36 mmHg 2.90 mmHg Mean Gradient 4.31 mmHg Clinical information reviewed: Tobacco Allergies Meds Problems Med Hx Surg Hx Fam Hx Soc Hx Physical Exam Airway Mallampati: II Cardiovascular - normal exam Rhythm: regular Rate: normal Dental Pulmonary Abdominal (+) obese Other findings: Never smoked; does not drink alcohol, denies marijuana; thoracic aortic aneurysm 4.3 cm; Mitral valve replacement TTH. 2019 myocardial perfusion study showed small apical fixed defect without ischemia. 04/27/24 EKG shows SB. Anesthesia Plan ASA 3 general The patient is not a current smoker. Patient was previously instructed to abstain from smoking on day of procedure. Patient did not smoke on day of procedure. intravenous induction Anesthetic plan and risks discussed with patient. Use of blood products discussed with patient who consented to blood products. Plan discussed with resident. Additional Equipment Requests [facility] 04-18-2024 Note [place] Electrophysiology Consult Note Reason for visit: s/p DCCV frp Afib 04/18/24 Patient here to discuss upcoming afib ablation scheduled on 04/27/2024. Denies chest pain, SOB, palpitations, lightheadedness/syncope, and bleeding on Eliquis. 02/29/24 Pt is here for a six month follow up.Pt denies, sob, chest pain, palpatations . His insuranc e had denied Afib ablation previously. He is using his CPAP but unable to keep it on due to poor contact. His TSH is high from [facility]. 08/17/23 Patient here to discuss obtaining clearance [...] controlled 09/22/22 HPI: Ede Davies is a 64 y.o. year old with past medical history of ascending aortic aneurysm, mitral valve repair at [facility] 2004 and hypertension seen in ED follow-up for new onset atrial fibrillation. He presented to the [facility] emergency department where he was found [...] History: Diagnosis Date Abnormal ECG Aneurysm (CMS/HCC) ASCENDING THORACIC AORTA 4.3 CM Arrhythmia Atrial fibrillation (CMS/HCC) COPD (chronic obstructive pulmonary disease) (CMS/HCC) Heart valve disease Hypertension Obesity BMI 34.04 PSH: Past Surgical History: Procedure Laterality Date CARDIAC VALVE REPLACEMENT CATARACT EXTRACTION SH: Social Determinants of Health Tobacco Use: Low Risk (01/26/2024) Received from [facility], [facility] Patient History Smoking Tobacco Use: Never Smokeless Tobacco Use: Never Passive Exposure: Not on file Alcohol Use: Not At Risk (2018) Received from [employer], [facility] [employer] [facility] Frequency of Alcohol Consumption: Never Average Number of Drinks: Not on file Frequency of Binge Drinking: Not on file Financial Resource Strain: Not on file Food Insecurity: Not on file Transportation Needs: Not on file Physical Activity: Not on file Stress: Not on file Social Connections: Not on file Intimate Partner Violence: Unknown (07/15/2023) [place] Safety & Environment Fear of Current or Ex-Partner: Not on file Emotionally Abused: Not on file Physically Abused: Not on file Sexually Abused: Not on file Physically or Sexually Abused: Not on file Depression: Not on file Housing Stability: Not on file Utilities: Not on file Health Literacy: Not on file Allergies: Allergies Allergen Reactions Azithromycin Weight: 117kg Visit Vitals BP 150/86 (BP Location: Right arm, Patient Position: Sitting) Pulse 54 Ht 1.829 m (6') Wt 117 kg (257 lb) SpO2 96% BMI 34.86 kg/m??? Smoking Status Never BSA 2.44 m??? Meds: Current Outpatient Medications on File Prior to Visit Medication Sig Dispense Refill amiodarone (Pacerone) 200 mg tablet TAKE 1 TABLET BY MOUTH IN THE MORNING 90 tablet 3 aspirin 81 mg chewable tablet Chew 1 tablet every day by oral route. Dupixent Pen 300 mg/2 mL pen injector 300 mg every (more content not included)... [facility] 02-29-2024 Note [facility]rophys[facility] Consult Note Reason for visit: s/p DCCV frp Afib 02/29/24 Pt is here for a six month follow up.Pt denies, sob, chest pain, palpatations . His insuranc e had denied Afib ablation previously. He is using his CPAP but unable to keep it on due to poor contact. His TSH is high from [facility]. 08/17/23 Patient here to discuss obtaining clearance [...] ascending aortic aneurysm, mitral valve repair at [facility] 2004 and hypertension seen in ED follow-up for new onset atrial fibrillation. He presented to the [facility] emergency department where he was found [...] History: Diagnosis Date Abnormal ECG Aneurysm (CMS/HCC) ASCENDING THORACIC AORTA 4.3 CM Arrhythmia Atrial fibrillation (CMS/HCC) COPD (chronic obstructive pulmonary disease) (CMS/HCC) Heart valve disease Hypertension Obesity BMI 34.04 PSH: Past Surgical History: Procedure Laterality Date CARDIAC VALVE REPLACEMENT CATARACT EXTRACTION SH: Social Determinants of Health Tobacco Use: Low Risk (10/05/2023) Patient History Smoking Tobacco Use: Never Smokeless Tobacco Use: Never Passive Exposure: Not on file Alcohol Use: Not on file Financial Resource Strain: Not on file Food Insecurity: Not on file Transportation Needs: Not on file Physical Activity: Not on file Stress: Not on file Social Connections: Not on file Intimate Partner Violence: Unknown (07/15/2023) [place] Safety & Environment Fear of Current or Ex-Partner: Not on file Emotionally Abused: Not on file Physically Abused: Not on file Sexually Abused: Not on file Physically or Sexually Abused: Not on file Depression: Not on file Housing Stability: Not on file Utilities: Not on file Allergies: Allergies Allergen Reactions Azithromycin Weight: 117kg Visit Vitals BP 138/79 Pulse 51 Ht 1.829 m (6') Wt 117 kg (258 lb) SpO2 98% BMI 34.99 kg/m??? Smoking Status Never BSA 2.44 m??? Meds: Current Outpatient Medications on File Prior to Visit Medication Sig Dispense Refill amiodarone (Pacerone) 200 mg tablet TAKE 1 TABLET BY MOUTH IN THE MORNING 90 tablet 3 aspirin 81 mg chewable tablet Chew 1 tablet every day by oral route. Dupixent Pen 300 mg/2 mL pen injector 300 mg every 14 (fourteen) days. Last dose 09/20 Eliquis 5 mg tablet TAKE 1 TABLET BY MOUTH IN THE MORNING then TAKE 1 TABLET BY MOUTH AT BEDTIME 180 tablet 3 ipratropium-albuteroL (Duo-Neb) 0.5-2.5 mg/3 mL nebulizer solution INHALE 1 vial BY MOUTH via NEBULIZER EVERY 8 HOURS NEEDED for SHORTNESS OF BREATH lisinopril 5 mg tablet Take 1 tablet (5 mg) by mouth twice a day. 180 tablet 3 metoprolol tartrate (Lopressor) 25 mg tablet TAKE 1 TABLET BY MOUTH IN THE MORNING then TAKE 1 TABLET BY MOUTH AT BEDTIME 180 (more content not included)... [facility] 01-26-2024 History of Present illness Narrative Images from the original note were not included. Chief Complaint Patient presents with Sleep Apnea Subjective Ede Davies, 63 y.o., male being seen in Sleep Consultation at the request of Dr. Benson. Dr. St was his pcp but he has not found a new one yet. HPI He states he was tired. He has all different sleep schedules. 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 He has AAA and he had A-fib. Sleep ND The patient states that he sleeps well at night. He is sleeping about 9-10 hours. He will have times where he only sleeps 4 hours due to having to get up and go to the bathroom or get a drink. He is sleeping in a truck stop and sometimes the noise outside will wake him up. He is able to go back to sleep after waking up. His sleeping times vary. 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 He has a CPAP machine. He is trying to wear it nightly but has difficulty due to varying sleep times. The patient states that he is having issues with the mask. It is better since he was changed to the smaller mask but thinks that he needs his pressure adjusted lower. He feels like it blows up his cheeks. He has some sinus polyps and was put on a medication and that is better. He was previously sleeping with his mouth open but has been doing better. He states that he needs filters for his machine. 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 Is it hard or easy to fall asleep: Easy Takes naps: Yes Feels better after napping: Yes Sleepwalk: No Sleeptalk: No Vivid Dreams: No Acts out dreams: No Sleep related hallucinations: No Sleep paralysis: No Cataplexy: No Restless Leg: No Kicking/Jerking at night: No TV on while sleeping: Yes Smoke before bed: No Caffeine within 3 hours before bed: No Past Medical History: Diagnosis Date Aneurysm (CMS/HCC) Eosinophilia Epigastric pain Gout History of repair of mitral valve 09/16/2021 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) use of inhaled 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 Moderate persistent asthma, uncomplicated (CMS/HCC) Nasal polyp Obesity Oral candidiasis Severe persistent asthma with exacerbation (CMS/HCC) Severe persistent asthma, uncomplicated (CMS/HCC) Past Surgical History: Procedure Laterality Date CT ANGIOGRAM HEART CORONARY 12/11/2016 CT ANGIOGRAM TAVR 12/11/2016 CT ANGIOGRAM HEART CORONARY 09/17/2023 CT ANGIOGRAM TAVR 09/17/2023 MITRAL VALVE REPLACEMENT TONSILLECTOMY Family History Problem Relation Name Age of Onset Hypertension Mother Coronary artery disease Mother Asthma Father COPD Father COPD Brother Social History Tobacco Use Smoking status: Never Smokeless tobacco: Never Substance Use Topics Alcohol use: Never Allergies: Azithromycin, Erythromycin base, and Niacin General: No fever or chills HEENT: No nasal congestion or runny nose Pulmonary: No shortness of breath or cough Cardiovascular: No chest pain or palpitations GI: No nausea or vomiting : No dysuria or hematuria Musculoskeletal: No new aches or pains or muscle weakness Infectious: no recurrent fevers or infections Dermatologic: No rashes or skin lesions Neurologic: No new headaches or dizziness Vitals: 01/26/24 1013 BP: (!) 142/96 Pulse: 76 SpO2: 95% Body mass index is 33.91 kg/m . weight: 250 lb Neurologic exam: General: Normal body habitus, cooperative, pleasant Mental status: Awake, alert to person, place and time. Recent and remote memory are intact. Attention and concentration are normal. Fund of knowledge is appropriate for level of education. HEENT: NC/AT Cranial nerves: CN II: Visual rodarte full to confrontation. No loss of vision CN III, IV, : pupils equal round and reactive to light. Extraocular movements intact. No ptosis present. CN V: Facial sensation is normal. CN VII: Full and symmetric facial movement. CN VIII: Hearing is normal CN IX and X: Palate elevates symmetrically. CN XI: Shoulder shrug is normal bilaterally. CN XII: Tongue is midline without atrophy or fasciculation. Speech: Clear and fluent no aphasia or dysarthria Pronator drift: Negative bilateral upper extremity Coordination: Intact, no signs of dysmetria Good finger to nose and rapid alternating movements Sensory: Sensation is intact to light, temperature and vibratory touch throughout four extremities. Motor: LUE 5/5 RUE 5/5 LLE 5/5 RLE 5/5 Tone: Physiologic, no tremor, bradykinesia or rigidity DTR: Bilateral Biceps 2/4 Bilateral BR 2/4 Bilateral Patellar 1/4 No spasticity Gait: Normal to casual gait Romberg's Negative Review and summary of old records: Assessment/Plan Diagnoses and all orders for this visit: RANJANA (obstructive sleep apnea) Hypersomnia Snoring Shift work sleep disorder 63-year-old male with a moderate obstructive sleep apnea with an apnea-hypopnea index of 28 leading to daytime hypersomnolence and snoring. Patient now has his CPAP machine and he has seen somewhat of an improvement. 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 He has no set sleep schedule. He is compliant with his machine using 100 percent of the time with 87 percent of the time greater than 4 hours and average nightly usage of 5 hours with a residual AHI of 1.9 therefore it is working when he is using it. He will take it off on his longer our nights and not put it back on. He was counseled he should be wearing this machine whenever sleeping. He has a history of atrial fibrillation and we are trying to prevent him from going back into atrial fibrillation. His most recent compliant was not as good and I did again counseled him he needs to get this mask and machine on every single night all night long. He would benefit from regular sleep schedule however we are not going to convinced some of that. Patient does complain sometimes of too much pressure however he is not even maxing out at 15 cm of water. We could try to lower the top end of the pressure but with him being on auto PAP I am not sure that is going to be helpful. He can get a sleep apnea pillow to help prevent leak and be able to sleep on his side. Plan PSG was reviewed with him He was placed on auto PAP at 5-15 cm of water. Compliance reviewed, his best out of 90 days was compliant but needs to wear it all night every night The patient was counseled on proper sleep hygiene and adequate hours of sleep. The patient was counseled on the risks of stroke, AR, and sudden with RANJANA, along with the need for compliance with the CPAP/BiPAP treatment. Call if having issues. The diagnosis was all discussed with the patient. All questions were answered and they agreed with the treatment plan. Patient will call if there are any new issues or questions. Pt has been fully educated on their diagnosis, treatment options, follow up plan, and return instructions Return to clinic: 1 year documented in this encounter [facility] 01-19-2024 History of Present illness Narrative Subjective Patient ID: Ede Davies is a 63 y.o. male who presents for Sinusitis (1 mo follow up) Pt states sx are improved. Review of Systems Family History Problem Relation Name Age of Onset Hypertension Mother Coronary artery disease Mother Asthma Father COPD Father COPD Brother Active Ambulatory Problems Diagnosis Date Noted Aneurysm of thoracic aorta (CMS/HCC) 01/12/2017 Chronic obstructive lung disease (CMS/HCC) 09/16/2021 Chronic pansinusitis 10/13/2022 Hypertensive disorder (CMS/HCC) 09/16/2021 Solitary pulmonary nodule 09/16/2021 Nasal polyposis 12/07/2022 Anticoagulated 12/07/2022 Resolved Ambulatory Problems Diagnosis Date Noted Arthralgia of upper arm 10/13/2022 History of repair of mitral valve 09/16/2021 Past Medical History: Diagnosis Date Aneurysm (CMS/HCC) Eosinophilia Epigastric pain 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 Moderate persistent asthma, uncomplicated (CMS/HCC) Nasal polyp Obesity Oral candidiasis Severe persistent asthma with exacerbation (CMS/HCC) Severe persistent asthma, uncomplicated (CMS/HCC) Past Surgical History: Procedure Laterality Date CT ANGIOGRAM HEART CORONARY 12/11/2016 CT ANGIOGRAM TAVR 12/11/2016 CT ANGIOGRAM HEART CORONARY 09/17/2023 CT ANGIOGRAM TAVR 09/17/2023 MITRAL VALVE REPLACEMENT TONSILLECTOMY Allergies Allergen Reactions Azithromycin Erythromycin Base Other Reaction(s): drug allergy Niacin Other Reaction(s): vitamins Current Outpatient Medications on File Prior to Visit Medication Sig Dispense Refill apixaban (Eliquis) 5 MG tablet Take by mouth twice a day. aspirin 81 MG chewable tablet Chew 81 mg 1 (one) time. Dupixent 300 MG/2ML injection Inject 300 mg under the skin every 14 (fourteen) days fluticasone (Flonase) 50 MCG/ACT nasal spray Administer 2 sprays into each nostril Daily Shake gently. Before first use, prime pump. After use, clean tip and replace cap. 48 g 3 ipratropium-albuterol (Duo-Neb) 0.5-2.5 mg/3 mL nebulizer solution Take 3 mL by nebulization in the morning and 3 mL in the evening and 3 mL before bedtime. lisinopril 5 MG tablet Take 5 mg by mouth in the morning and 5 mg before bedtime. metoprolol tartrate (Lopressor) 25 MG tablet Take 25 mg by mouth in the morning and 25 mg before bedtime. [DISCONTINUED] amiodarone (Pacerone) 200 MG tablet Take by mouth. [DISCONTINUED] atorvastatin (Lipitor) 20 MG tablet Take 20 mg by mouth 1 (one) time each day at the same time. [DISCONTINUED] montelukast (Singulair) 10 MG tablet Take 1 tablet (10 mg) by mouth at bedtime 90 tablet 3 [DISCONTINUED] saccharomyces boulardii (Florastor) 250 MG capsule Take 250 mg by mouth in the morning and 250 mg before bedtime. No current facility-administered medications on file prior to visit. Objective Last Recorded Vitals Vitals: 01/19/24 0800 BP: 137/79 ENT Physical Exam Constitutional Appearance: patient appears well-developed, well-nourished and well-groomed, Communication/Voice: communication appropriate for developmental age; vocal quality normal; Nose Nose comments: Chicho moderate polyposis Assessment/Plan Diagnoses and all orders for this visit: Nasal polyposis Still some residual polyposis but sx much improved. Given comorbidities will defer surgery. 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 Do not wear perfume, make-up, nail telugu, or lotions on the day of your [...] need to make any changes, please call [phone]. Notify your surgeon if you develop any illness such as a cold, cough, fever, sore throat or vomiting between now and your surgery. Thank you for entrusting us with your care. [facility] Surgical Services Team [facility] 10-05-2023 Note Attestation signed by Lucien Pascual MD at 10/06/2023 8:57 AM I agree with the above findings and plan of care. Lucien Pascual Time Spent 25min Cardiothoracic Surgery Progress [...] than on previous study. Echo done at [place] 07/17 showing EF of 50-55%, mitral valve [...] 6 months Cardiothoracic Surgery outpatient Office Number [phone]. Cardiothoracic Surgery outpatient . [facility] 08-17-2023 Note [facility]rophys[facility] Consult Note Reason [...] ascending aortic aneurysm, mitral valve repair at [facility] 2004 and hypertension seen in ED follow-up for new onset atrial fibrillation. He presented to the [facility] emergency department where he was found [...] on file Intimate Partner Violence: Unknown (07/15/2023) [place] Safety & Environment Fear of Current or [...] @LABRESULTS@ Lab Results (more content not included)... [facility] 09-13-2022 Note PROCEDURE: CT ABD/PE LVIS [...] authenticated by: IGOR BOB Date: 2022-09-13 14:23 [facility] 06-23-2022 Note Indication: Divertic ulitis. Comparison: [...] authenticated by: BRENDA PALMA Date: 2022-06-23 20:47 [facility] Evaluation + Plan note No data available for this section [facility] Evaluation note Diagnosis Nasal polyposis- Primary Unspecified nasal polyp [facility] Diagnosis RANJANA (obstructive sleep apnea) Obstructive sleep apnea (adult) (pediatric) Hypersomnia Hypersomnia, unspecified Snoring Other dyspnea and respiratory abnormality Shift work sleep disorder Circadian rhythm sleep disorder, shift work type [facility] No data available for this section [facility] data available for this section [facility] Summary Purpose Family History No Family History [...] section and content) DATE CREATED AUTHOR 11/09/2017 [facility] DATE CREATED AUTHOR AUTHOR'S ORGANIZ ATION 07/28/2018 [facility] DATE CREATED AUTHOR AUTHOR'S ORGANIZ ATION 08/25/2018 [facility] DATE CREATED AUTHOR AUTHOR'S ORGANIZ ATION 10/02/2022 [facility] pital DATE CREATED AUTHOR AUTHOR'S ORGANIZ ATION 11/24/2022 [facility] DATE CREATED AUTHOR AUTHOR'S ORGANIZ ATION 01/27/2024 [facility] dical Specialists [facility] DATE CREATED AUTHOR AUTHOR'S ORGANIZ ATION 06/08/2024 [facility] Patient Care team informatio n (unrecognized section and content) Certified Professional Coder Relationship Specialty Start Date End Date Jake St MD [address] [place] [address] PCP - General Family Medicine 10/26/22 Certified Professional Coder Relationship Specialty Start Date End Date Jake St MD [address] [place] [address] PCP - General Family Medicine 10/26/22 Certified Professional Coder Relationship Specialty Start Date End Date Jake St MD [address] [place] [address] PCP - General Family Medicine 10/26/22 Certified Professional Coder Relationship Specialty Start Date End Date Jake St MD [address] [place] [address] PCP - General Family Medicine 10/26/22 Certified Professional Coder Relationship Specialty Start Date End Date Jake St MD [address] [place] [id number] PCP - General Family Medicine 10/26/22 Reason for Visit (unrecogniz ed section and content) Reason Comments Sinusitis 1 mo follow up Reason Comments Sleep Apnea Reason Onset Date Comments Med Refill 07/03/2024 FOR RECORDS PERTAINING TO PATIENTS WHO ARE [...] BE BASED ON THE PRIMARY CLINICAL RECORDS. [facility]. provides no warranty or guarantee of the accuracy or completeness of information in this document.
[2024-07-04 09:46] LABS: Basophils Percent Auto 0.5 % (0.2-2.0); Eosinophils Percent Auto 0.7 % (0.9-7.0); Hematocrit 44.4 % (42.0-54.0); Hemoglobin 14.8 g/dL (14.0-18.0); Lymphocytes Absolute Auto 1.1 10^3/uL (1.2-3.8); Lymphocytes Percent Auto 24.6 % (20.5-60.0); Mean Corpuscular HGB Conc 33.3 g/dL (29.9-35.2); Mean Corpuscular Hemoglobin 30.1 pg (25.9-34.0); Mean Corpuscular Volume 90.2 fL (80.0-94.0); Monocytes Absolute Auto 0.8 10^3/uL (0.3-0.8); Monocytes Percent Auto 18.3 % (1.7-12.0); Neutrophils Absolute Auto 2.4 10^3/uL (1.4-6.5); Neutrophils Percent Auto 55.9 % (43.0-75.0); Platelet Count 193 10^3/uL (150-450); Red Blood Count 4.92 10^6/uL (4.70-6.10); Red Cell Distribution Width 14.3 % (11.0-15.0); White Blood Count 4.3 10^3/uL (4.0-11.0)
--- NOTE | 2024-07-04 09:52 | XR_ITS ---
The [address] [address] Patient Name: GINA DAVIES MRN: [id number] date: 1960 Sex: M Assigned Patient Location: ER Current Patient Location: ER Accession/Order Number: [id number] Exam Date: 07/04/2024 09:40 Report Date: 07/04/2024 10:15 At the request of: KATLIN ZELAYA Procedure: XR chest 2V EXAMINATION: XR chest 2V HISTORY: Cough, chest wall pain COMPARISON: 04/09/2024 TECHNIQUE: PA and lateral FINDINGS: LUNGS: No significant pulmonary parenchymal abnormalities. VASCULATURE: No increased pulmonary vasculature. PLEURA: No pneumothorax, effusion, or pleural thickening. CARDIAC: No cardiomegaly or cardiac silhouette abnormality. MEDIASTINUM: No visible mass or adenopathy. Median sternotomy wires. Valve replacement. BONES: No fracture or visible bone lesion. Remote healed left mid clavicle fracture OTHER: Negative. XR/XR chest 2V IMPRESSION: No acute disease. Electronically authenticated by: ROSY ROLAND Date: 07/04/2024 10:15
[2024-07-04 10:49] LABS: Alanine Aminotransferase 88 U/L (16-63); Albumin Globulin Ratio 0.9; Albumin Level 3.7 g/dL (3.4-5.0); Alkaline Phosphatase 65 U/L (46-116); Anion Gap 19.1; Aspartate Amino Transferase 106 U/L (15-37); BUN Creatinine Ratio 8.3; Bilirubin Total 0.7 mg/dL (0.2-1.0); Calcium 8.6 mg/dL (8.5-10.1); Carbon Dioxide 21.9 mmol/L (21.0-32.0); Chloride 101 mmol/L (98-107); Estimated GFR (African America 37 (>=60 mL/min/1.73m^2); Estimated GFR (Non-African Ame 31 (>=60 mL/min/1.73m^2); Globulin 4.1 g/dL; Glucose 117 mg/dL (74-106); Sodium 138 mmol/L (136-145); Total Protein 7.8 g/dL (6.4-8.2)
[2024-07-04 10:51] VITALS: BP 121/78; PULSE 66; O2SAT 96
[2024-07-04 10:51] LABS: Troponin I High Sensitivity 9.5 pg/mL (4.0-76.1)
== END 2024-07-04 11:48 | disposition home or self-care (01) ==
PROVIDERS: Emergency Provider Emergency Medicine; PCP Family Medicine
DX: R07.89 Other chest pain (principal); J06.9 Acute upper respiratory infection, unspecified; N18.9 Chronic kidney disease, unspecified; I71.21 Aneurysm of the ascending aorta, without rupture; Z79.01 Long term (current) use of anticoagulants; Z79.899 Other long term (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
CPT/HCPCS: 36415; 71046; 80053; 84484; 85025; 93005; 99285

== ENCOUNTER 2025-04-02 08:15 | Outpatient (OUT) | payer BC, SELFPAY ==
--- OUTSIDE RECORDS SUMMARY | 2024-01-10 02:30 | XMS_ITS ---
Author Organization [facility] in [place] Address [address] [place] [address] Care Team Providers Care Autocad Operator Name Role Phone Jake Delong DO Primary Care Provider Lucas Abad Unavailable [phone] REASON FOR VISIT 1 YEAR-ASTHMA Encounters Encounter Location Date Provider Diagnosis Pulmonary Medicine [place] [address] [place] [address] 01/10/2024 Lucas Skaggs Plan Of Treatment No Information Progress Notes * Ede DAVIES DDOB: [birth year] (65 yo M)Acc No.[id number]:01/10/2024 UNLOCKED PROGRESS NOTE Follow Up Patient: Hany CROUCH Ede Eva :?Lucas Skaggs DODOB:1960???Age:63 Y ???Sex:MaleDate:4Phone:[phone]:[address] [place] [id number]:Jake Delong DO Subjective: * Chief Complaints: * 1 . 1 YEAR-ASTHMA. * Medical History: Objective: * Vitals: Assessment: Plan: * Treatment: * * Electronic signature of Lucas Skaggs DO on 04/02/2025 at 08:18 AM ESTSign off status: PendingVisit Status:?OFF CANC (OFFICE CANCEL) * Provider: Panfilo Skaggs DO Date: 0 01/10/2024 Generated for Printing/Faxing/eTransmitting on:?04/02/2025 08:18 AM EST
--- OUTSIDE RECORDS SUMMARY | 2025-04-02 08:18 | XMS_ITS | Patient Health Record ---
Author Organization [facility] [place] Address [address] [place] [address] Care Team Providers Care Health And Physical Education Teacher Name Role Phone Jake Delong DO Primary Care Provider Unavaila ble Allergies Allergen (clinical drug ingredient) Drug/Non Drug Allergy documented on EMR Reaction Allergy Type Onset Date Status niacin Niacin Unknown Drug Allergy ActiveerythromycinErythromycinUnknownDrug AllergyActive Reason For Referral No Information Medications Medication SIG (Take, Route, Frequency, Duration) Notes Start Date End Date Status Amiodarone HCl 200 MG Oral; Duration: 90 Days ActiveBreo Ellipta 200-25 MCG/ACT1 puff Inhalation QD; Duration: 30 daysRinse after useActiveIpratropium-Albuterol 0.5-2.5 (3) MG/3ML3mL Inhalation QID; Duration: 90 daysActiveFluticasone Propionate 50 MCG/ACTNasal; Duration: 30 Days ActiveEliquis 5 MGOral; Duration: 30 DaysActiveIpratropium Shelby 0.02 % Inhalation; Duration: 30 DaysNot-TakingLisinopril 5 MGOral; Duration: 18 Days ActiveMetoprolol Tartrate 25 MGOral; Duration: 30 DaysActiveAlbuterol Sulfate HFA 108 (90 Base) MCG/ACT2 puffs as needed for SOB Inhalation Q4H; Duration: 30 daysActive Immunizations Vaccine Route Administration Date Status Comme nts SARS-COV-2 (COVID 19 Pfizer 30mcg/0.3mL) Unknown 11/17/2020 Administered Social History Tobacco Use: Social History Observation Description Date Details (start date - stop date) Never Smoker NA - NA Tobacco Use/Smoking Question Answer Notes Patient is a nonsmoker Problems Problem Type SNOMED Code ICD Code Onset Dates Problem Status W/U Status Risk Notes Problem Obesity (383680388) Obesity, unspecified (E66.9) ActiveconfirmedProblemUncomplicated severe persistent asthma (497272813)Severe persistent asthma, uncomplicated (J45.50)ActiveconfirmedProblemLong-term current use of inhaled steroid (882245923)skilled nursing (current) use of inhaled steroids (Z79.51)ActiveconfirmedProblemMultiple polyps of nasal cavity and/or nasal sinus (disorder) (2441210248)Nasal polyps (J33.9)ActiveconfirmedProblemPeripheral eosinophilia (D72.19)Activeconfirmed Plan Of Treatment No Information Insurance Providers Payer Name Payer Address Payer Phone Subscriber Number Group Number Insured Name Patient Relationship to Insured Coverage Start Date Coverage End Date [employer] PPO PLUS LOCAL PLAN [address] [place] [address] [id number] Ludy Ferrerelf - patient is the insured Medical (General) History Medical History History ICD Code Severe persistent asthma, uncomplicated J45.50 skilled nursing (current) use of inhaled stero ids Z79.51 Peripheral eosinophilia D72.19 Nasal polyps J33.9 Gout M10.9 Thoracic aortic aneurysm without rupture , unspecified part I71.20 Hiatal hernia K44.9 Surgical History Surgery Date(Month/Year) tonsillectomy mitral valve replacement
--- OUTSIDE RECORDS SUMMARY | 2025-04-02 08:19 | XMS_ITS | Clinical Summary ---
Author Organization [facility] Address [address] [place] [address] Care Team Providers Care Bathhouse Keeper Name Role Phone House, Jake Cantrell MD Primary Care Provider [phone] Allergies Active AllergyReactionsCriticalityNoted NhwxOcsmacdiGnntkdrbxekl89/07/2023 Erythromycin Base10/13/2022 Other Reaction(s): drug allergy Ywichj8010/13/2022 Other Reaction(s): vitamins Medications MedicationSigDispense QuantityRefillsLast FilledStart DateEnd DateStatus apixaban (Eliquis) 5 MG tablet Take by mouth twice a day.09/14/2022ctive aspirin 81 MG chewable tablet Chew 81 mg 1 (one) time.Active ipratropium-albuterol (Duo-Neb) 0.5-2.5 mg/3 mL nebulizer solution Take 3 mL by nebulization in the morning and 3 mL in the evening and 3 mL before bedtime.Active lisinopril 5 MG tablet Take 5 mg by mouth in the morning and 5 mg before bedtime.Active metoprolol tartrate (Lopressor) 25 MG tablet Take 25 mg by mouth in the morning and 25 mg before bedtime.08/27/2022ctive fluticasone (Flonase) 50 MCG/ACT nasal spray Indications:Nasal polyposisAdminister 2 sprays into each nostril Daily Shake gently. Before first use, prime pump. After use, clean tip and replace cap. 48 g ctive Dupilumab (Dupixent) 300 MG/2ML solution auto-injector Indications:Nasal polyposisINJECT 1 PEN UNDER THE SKIN EVERY OTHER WEEK 12 mL 5Active Active Problems ProblemNoted DateDiagnosed DateAtrial btqkubuhpopo93/11/2025enign hypertensive heart disease without congestive heart hrfoerq6106/05/2024Gout04/12/2023Heart riorcr1406/12/2022 Overview (07/04/2024): Apr 15, 2005 Entered By: OCTAVIO LOUIS Comment: dental abx prophylaxis advised Mitral valve uxcefus9404/12/2023Nonrheumatic mitral (valve) insufficiency 04/12/2023Obesity, tuoqevqgers40/20/7527Ullwusbhbffqxl51/20/2023 Overview (07/04/2024): Apr 14, 2005 Entered By: OCTAVIO LOUIS Comment: bilateral knees Peripheral cycxloohnvom23/20/2023resence of prosthetic heart valve04/12/2023 Nasal fnljqotfm82/17/4328Rtdzanhqgzjdqa32/17/2023hronic sydvzzbeowwt06/23/2023 Chronic obstructive lung mcdjzcj7709/16/2021Hypertensive dyofnygw38/26/2022 Solitary pulmonary rstold7109/16/20218206Ibdkohm26/07/2018Elevated IgE level04/29/2018 Rpdwfviyjdcv17/07/2018Positive radioallergosorbent test (RAST)04/29/2018Aneurysm of thoracic aorta01/12/2017 Resolved Problems ProblemNoted DateDiagnosed DateResolved DateArthralgia of upper arm10/13/2022 10/13/2022History of repair of mitral valve Immunizations ImmunizationAdministration DatesNext VrqWBZC-SfC-4, Yruvzpjqqno03/27/2021, 09/28/2020 Family History Medical HistoryRelationNameCommentsCOPDBrotherAsthmaFatherCOPDFatherCoronary artery diseaseMotherHypertensionMotherRelationNameStatusCommentsBrotherFather DeceasedMotherDeceased Social History Tobacco UseTypesPacks/DayYears UsedDateSmoking Tobacco: NeverSmokeless Tobacco: Never Tobacco Cessation:Counseling Given: Not Answered Alcohol UseStandard Drinks/WeekCommentsNever0 (1 standard drink = 0.6 oz pure alcohol)Sex and Gender InformationValueDate RecordedSex Assigned at BirthNot on fileLegal KkrCclh1408/05/2022 10:12 PM EDTGender IdentityNot on fileSexual OrientationNot on file Last Filed Vital Signs Vital SignReadingTime TakenCommentsBlood Ypsevmhw884/72007/04/2024 8:47 AM EST Gwotj712007/04/2024 8:47 AM ESTTemperature--Respiratory Rate--Oxygen Vsrponxomg21% 01/26/2024 10:13 AM EDTInhaled Oxygen Concentration--Uhguqt627 kg (250 lb) 07/04/2024 8:47 AM JHHRfxuwk476.9 cm (6')07/04/2024 8:47 AM ESTBody Mass Index 33.9107/04/2024 8:47 AM EST Plan of Treatment DateTypeDepartmentCare Team (Latest Contact Info)Wcqplobbule93/10/2026 8:30 AM ESTOffice Visit [facility] [address] [facility] [address] [place] [id number] Amy Goldstein MD [address] [facility] [address] [place] [address] Insurance Care Teams Team MemberRelationshipSpecialtyStart Date Jake Delong MD PCP - GeneralFamily Medicine10/26/22
--- OUTSIDE RECORDS SUMMARY | 2025-04-02 08:19 | XMS_ITS | Clinical Summary ---
Author Organization [facility] Address [id number] [place] [address] Care Team Providers Care Feed Handler Name Role Phone Baljeet, Jake Cantrell DO Primary Care Provider [phone] Allergies Active AllergyReactionsCriticalityNoted RtciCptkeiysWgvnrwqtwbqd47/16/2018 Medications MedicationSigDispense QuantityRefillsLast FilledStart DateEnd DateStatus albuterol (PROVENTIL,VENTOLIN) 2.5 mg /3 mL (0.083 %) nebulizer solution Inhale 3 mL by nebulization every 6 (six) hours as needed.Active PROAIR HFA 90 mcg/actuation inhaler Inhale 2 puffs every 6 (six) hours as needed.Active metoprolol tartrate (LOPRESSOR) 50 mg tablet Take 50 mg by mouth daily.5001/09/2018Active montelukast (SINGULAIR) 10 mg tablet Take 1 tablet (10 mg total) by mouth nightly. 30 tablet 111Active azithromycin (ZITHROMAX Z-ELISSA) 250 mg tablet Take 2 tablets the first day then 1 tablet every day for 4 days. 6 tablet 05/09/2018Active Active Problems Patient Care Coordination No te Formatting of this note migh t be different from the original. Cardiac Cath 03/21/10 MVR 03/24/10 Echo 55% 08/10/14 Holter 05/08/10 Carotid 03/21/10 CHADS 2 Score 1 CHADS2-VASc Score 1 ProblemNoted DateDiagnosed DatePulmonary moucea3604/29/2018Elevated IgE level 04/29/2018Positive radioallergosorbent test (RAST)04/29/2018Eosinophilia 04/29/20180774Iysecqi74/07/2018Cardiac murmurHypertensionPresence of prosthetic heart valveNonrheumatic mitral (valve) insufficiencyThoracic aortic aneurysm without ruptureAtrial fibrillation Immunizations ImmunizationAdministration DatesNext DueInfluenza, Injectable, quadrivalent (PF) 2018 Social History Tobacco UseTypesPacks/DayYears UsedDateSmoking Tobacco: NeverSmokeless Tobacco: NeverAlcohol UseStandard Drinks/WeekCommentsNo0 (1 standard drink = 0.6 oz pure alcohol)AUDIT-CAnswerDate RecordedFrequency of Alcohol ConsumptionNever 2018Average Number of DrinksNot on file2018Frequency of Binge DrinkingNot on file2018ChildcareAnswerDate RecordedChildcareUnknown 10/27/2018EmploymentAnswerDate AioqfzqhKowgvnjiabBhicpzy55/06/2019Purpose - Life AnswerDate RecordedPurpose and direction in wxqbQglnfxb95/11/2021Sex and Gender InformationValueDate RecordedSex Assigned at BirthNot on fileLegal SexMale 12/27/2014 11:23 AM EDTGender IdentityNot on fileSexual OrientationNot on file Last Filed Vital Signs Vital SignReadingTime TakenCommentsBlood Crfmrjjo852/7605/09/2018 12:03 AM EST Xbigs451605/09/2018 12:03 AM ZWRRmqmtrggmaj75.7 ??C (98 ??F)05/08/2018 9:37 PM EST Respiratory Frlu075607/10/2017 12:03 AM ESTOxygen Yzwylrceiq12%05/08/2018 10:05 PM ESTInhaled Oxygen Concentration--Pdaafy645.1 kg (225 lb)05/08/2018 9:34 PM EST Dodiva329.3 cm (5' 11 )05/08/2018 9:34 PM ESTBody Mass Index31.38107/09/2017 9:34 PM EST Plan of Treatment Health MaintenanceDue DateLast DoneCommentsDepression Zpajjmhfl68/24/1970Tobacco Auwuddxgj04/24/1970Adult BMI Xzpxlaynm30/24/1976DTaP,Tdap and Td Vaccines (1 - Tdap)1977Zoster (Shingles) Vaccine (1 of 2)2008Fall Risk Screening 2023Influenza Fdnqacq74RSV ( or age 60+ yrs) (1 - 1-dose 75+ series)2033 Medical Devices Not on file Insurance Care Teams Team MemberRelationshipSpecialtyStart DateEnd Date Jake Delong DO PCP - [facility]11/29/16
--- OUTSIDE RECORDS SUMMARY | 2025-04-02 08:19 | XMS_ITS | Clinical Summary ---
Author Organization [facility] Address [address] [place] [address] Care Team Providers Care Shaper Machine Hand Name Role Phone Jake Delong DO Primary Care Provider [phone] Allergies Active AllergyReactionsCriticalityNoted SeniVfvhwivlMmtbgexmdrjm08/07/2023 ErythromycinShortness of chbogkOcxp35/05/2024 Medications MedicationSigDispense QuantityRefillsLast FilledStart DateEnd DateStatus Dupixent Pen 300 mg/2 mL pen injector 300 mg every 14 (fourteen) days. Last dose 08/3009/3Active lisinopril 20 mg tablet Indications:Benign hypertensive heart disease without congestive heart failure Take 1 tablet (20 mg) by mouth once daily as directed. 90 tablet 501/6Active metoprolol tartrate (Lopressor) 25 mg tablet Indications:PalpitationsTake 1 tablet (25 mg) by mouth two times daily. 180 tablet 5Active apixaban (Eliquis) 5 mg tablet Indications:Persistent atrial fibrillation (CMS/HCC)Take 1 tablet (5 mg) by mouth two times daily. 180 tablet 5Active Active Problems ProblemNoted DateDiagnosed DateBenign hypertensive heart disease without congestive heart vilclwz1206/05/2024Other bursitis mnzmplufx57 Cardiac plqfov62AF (paroxysmal atrial fibrillation)04/12/2023 GoutLong term current use of inhaled ikaxaru98/ 11/20/2023Mitral valve poevbub69Nonrheumatic mitral (valve) mswsesnatztkb83Nasal polypObesity, aothfghgexb58Osteoarthritis Overview (04/12/2023): Apr 14, 2005 Entered By: OCTAVIO LOUIS Comment: bilateral knees Peripheral aksbzgpmudrh13Severe persistent asthma, yeukunuphkssr77nticoagulatedhronic kveonetzebbl64hronic obstructive lung zvivrwp4909/16/2021 History of repair of mitral valve09/16/2021Hypertensive /26/2022 Solitary pulmonary ubckxj5309/16/20211278Gmsuehl76Elevated IgE level Eosinophiliaositive radioallergosorbent test (RAST)neurysm of thoracic aorta01/12/2017 Resolved Problems ProblemNoted DateDiagnosed DateResolved DatePresence of prosthetic heart valve /01/2025 Encounters DateTypeDepartmentCare XkbpFmmewaedhuy44/22/2025Telephone [facility] [place] [address] [place] [address] Anna Valverde MA from Last 3 Months Family History Medical HistoryRelationNameCommentsCABGMotherCoronary artery diseaseMother RelationNameStatusCommentsFatherDeceasedMotherDeceased Social History Tobacco UseTypesPacks/DayYears UsedDateSmoking Tobacco: NeverPassive Smoke Exposure: NeverSmokeless Tobacco: Never Tobacco Cessation:Counseling Given: Not Answered Alcohol UseStandard Drinks/WeekCommentsNot Currently0 (1 standard drink = 0.6 oz pure alcohol)Humiliation, Afraid, Rape, and Kick questionnaireAnswerDate RecordedWithin the last year, have you been afraid of your partner or ex-partner?No05/05/2024Within the last year, have you been humiliated or emotionally abused in other ways by your partner or ex-partner?No05/05/2024 Within the last year, have you been kicked, hit, slapped, or otherwise physically hurt by your partner or ex-partner?No05/05/2024Within the last year, have you been raped or forced to have any kind of sexual activity by your part ner or ex-partner?No05/05/2024HQ-2AnswerDate RecordedPatient Health Questionnaire-2 Tpmya954UT Safety & EnvironmentAnswerDate RecordedFear of Current or Ex-PartnerNot on file07/15/2023Emotionally AbusedNot on file 07/15/2023hysically AbusedNot on file07/15/2023Sexually AbusedNot on file 07/15/2023hysically or Sexually AbusedNot on file07/15/2023Sex and Gender InformationValueDate RecordedSex Assigned at MweekBqju34/18/2023 8:44 AM EST Legal UnbSbiv2511/19/2021 9:27 PM EDTGender CmpltdeiWbpm45/18/2023 8:44 AM EST Sexual OrientationHeterosexual or Rksdhqmj46/18/2023 8:44 AM EST Last Filed Vital Signs Vital SignReadingTime TakenCommentsBlood Tgopefgz172/8206 9:10 AM EDT Rzjhz835810/30/2024 9:10 AM VZKSvoypozdsbm16.4 ??C (97.5 ??F)05/23/2024 1:24 PM ESTRespiratory Hsfz982906/28/2023 2:35 PM ESTOxygen Rdcmamrnhx00%10/30/2024 9:10 AM EDTInhaled Oxygen Concentration--Jhxcih245 kg (254 lb)10/30/2024 9:10 AM EDT Qcanug192.9 cm (6')10/30/2024 9:10 AM EDTBody Mass Index34.45010/30/2024 9:10 AM EDT Plan of Treatment DateTypeDepartmentCare Team (Latest Contact Info)Zezpksrhuog57/15/2025 9:40 AM ESTOffice Visit [facility] [address] [place] [phone] Rohit Mccarty MD [address] [place] [address] 05/08/2025 1:00 PM ESTFollow-Up [facility] [address] [place] [phone] Freedom Hoffmann MD [address] [facility] [place] [place] [address] Health MaintenanceDue DateLast DoneCommentsCT Dzpzwuthtcig1958Colonoscopy 1958Colorectal Cancer Qgfklwqcu1958FIT-DNA1958FIT1958 FOBT1958Medicare Annual Wellness (AWV)1958 5108Pvnzsxpycgxjm1958 Pneumococcal Vaccine: 50+ Years (1 of 2 - PCV)1977Adult Zgumaob0003/16/1980 Zoster Vaccines (1 of 2)2008COVID-19 Vaccine ( - season) , 09/28/2020, 09/28/2020Influenza Vaccine (#1)2025 2018Depression Yopboagbf88Fall Risk Zylrlybdd24/31/2025 05/23/2024HIB VaccinesAged OutNo longer eligible based on patient's age to complete this topicHPV VaccinesAged OutNo longer eligible based on patient's age to complete this topicIPV VaccinesAged OutNo longer eligible based on patient's age to complete this topicMeningococcal B VaccineAged OutNo longer eligible based on patient's age to complete this topicMeningococcal VaccineAged OutNo longer eligible based on patient's age to complete this topicRotavirus Vaccines Aged OutNo longer eligible based on patient's age to complete this topic Insurance Advance Directives * Full Code (Latest Code Status on File) Date ActivatedDate TmbiivslgvaQacuqcfx91/5/2024 11:18 AM04/27/2024 5:18 PM * Full Code Date ActivatedDate WmxnguwltzdMniwkzch37/18/2023 12:13 PM05/10/2023 3:00 PM Care Teams Team MemberRelationshipSpecialtyStart DateEnd Date Jake Delong DO [address] [place] [address] [facility]07/24/22
--- OUTSIDE RECORDS SUMMARY | 2025-04-02 08:24 | XMS_ITS | CCD ---
Author Organization [facility] Team Providers Care Staff Analyst Name Role Phone COMPANY, [employer] Unavailable Unavailable [...] Care Unavailable MACIEL, DR CONNORS Admitting Unavailable MACIEL, DR CONNORS Attending Unavailable TUSTIN, DR ROSY Muhammad Consulting Unavailable HOUSE, DR [...] DR KOKO Canales Admitting Unavailabl e RANULFO BREWER Consulting Unavailable Jake St Primary Care Physician [phone] Juan Goldstein Referring Unavailable Juan Goldstein Attending Unavailable Juan Goldstein Admitting Unavailable Jake St MD Primary Care Provider AGUSTÍNS, JUAN H Attending Unavailable JHONATANMIS, JUAN H Attending Unavailable JHONATANMIS, JUAN H Attending Unavailable NICOLAS MEJIA Attending Unavailable DIANE, NIKHIL Attending Unavailable DIANE, NIKHIL Attending Unavailable GILBERTO WELSH Attending Unavailable BLAISE, GILBERTO Attending Unavailable DIANE, NIKHIL Attending Unavailable NIKHIL BENSON Admitting Unavailable NIKHIL BENSON Referring Unavailable DIANE, NIKHIL Referring Unavailable CONNIE WOOTEN Attending Unavailable BRODERICK PACK Attending Unavailable JE, CONNIE Referring Unavailable DERISO, TAMEKA Referring Unavailable Allergies Allergy ClassificationReported Allergen(s)Allergy TypeDate of OnsetReaction(s) Facility (13 sources)ErythromycinDrug Memghxd87-69-4633Pdt [facility] Repository (1 source)NiacinDrug Vcjljro09-00-0029Mhf [facility] Repository (13 sources)Azithromycin; Translations: [AZITHROMYCIN]Drug Vedczzc80-19-7920[facility] Work Phone: (12 sources)NiacinDrug Wpepgyy79-92-5851[facility] (1 source)Erythromycin; Translations: [ERYTHROMYCIN]Drug Bkpuzcd63-88-1911 [facility] Repository Medications Current Medications MedicationDrug Class(es)DatesSig (Normalized)Sig (Original)albuterol 0.833 mg/ml / ipratropium bromide 0.167 mg/ml inhalation solution (12 sources)Anticholinergic, beta2-Adrenergic Agonistipratropium-albuterol (Duo- Neb) 0.5-2.5 mg/3 mL nebulizer solution Take 3 mL by nebulization in themorning and 3 mL in the evening and 3 mL before bedtime. Activeamiodarone hydrochloride 200 mg oral tablet (3 sources)AntiarrhythmicStart: 09-22-2022 End: 25-14-0990dlfxpwnavr (Pacerone) 200 MG tablet Take by mouth. 09/22/2022 01/19/2024 Discontinued (Therapy completed)amoxicillin 875 mg / clavulanate 125 mg oral tablet (3 sources)Penicillin-class AntibacterialStart: 07-04-2024 End: 83-04-1631ykuc 1 tablet by mouth in the morningamoxicillin-clavulanate (Augmentin) 875-125 MG tablet Indications: Nasal polyposis Take 1 tablet (875 mg) by mouth in the morning and 1 tablet (875 mg) before bedtime. Do all this for 10 days. 20 tablet 07/04/2024 07/14/2024 Activeapixaban 5 mg oral tablet (12 sources)Factor Xa InhibitorStart: 06-36-6047bmaubxqz (Eliquis) 5 MG tablet Take by mouth twice a day. 09/14/2022 Activeaspirin 81 mg chewable tablet (12 sources)Platelet Aggregation Inhibitor, Nonsteroidal Anti-inflammatory Drug aspirin 81 MG chewable tablet Chew 81 mg 1 (one) time. Activeatorvastatin 20 mg oral tablet (3 sources)HMG-CoA Reductase Inhibitor End: 54-64-7008iggo 1 tablet by mouth once dailyatorvastatin (Lipitor) 20 MG tablet Take 20 mg by mouth 1 (one) time each day at the same time. 01/19/2024 Discontinued (Therapy completed)2 ml dupilumab 150 mg/ml auto-injector (14 sources)Interleukin-4 Receptor alpha AntagonistStart: 86-72-1943Xlsqzhafr (Dupixent) 300 MG/2ML solution auto-injector Indications: Nasal polyposis INJECT 1 PEN UNDER THE SKIN EVERY OTHER WEEK 12 mL 3 10/04/2024 ActiveStart: 07-10-2024 End: 14-38-0205Ithfnumqc (Dupixent) 300 MG/2ML solution auto-injector Indications: Nasal polyposis 1 injection every other week for 90 days 12 mL 07/10/2024 10/04/2024 DiscontinuedStart: 03-18-2023 End: 20-54-2950Lnuymwvk 300 MG/2ML injection Inject 300 mg under the skin every 14 (fourteen) days 03/18/2023 07/10/2024 Discontinuedfluticasone propionate 0.05 mg/actuat metered dose nasal spray (12 sources)CorticosteroidStart: 12-21-2023 End: 99-21-4198pvyq 2 spray(s) nasal route once dailyfluticasone (Flonase) 50 MCG/ACT nasal spray Indications: Nasal polyposis Administer 2 sprays into each nostril Daily Shake gently. Before first use, prime pump. After use, clean tip and replace cap.48 g 3 12/21/2023 12/20/2024 Activelisinopril 5 mg oral tablet (12 sources)Angiotensin Converting Enzyme Inhibitortake 1 tablet by mouth in the morninglisinopril 5 MG tablet Take 5 mg by mouth in the morning and 5 mg before bedtime. Activemetoprolol tartrate 25 mg oral tablet (11 sources)beta-Adrenergic BlockerStart: 64-52-0043hitu 1 tablet by mouth in the morningmetoprolol tartrate (Lopressor) 25 MG tablet Take 25 mg by mouth in the morning and 25 mg before bedtime. 08/27/2022 Activemontelukast 10 mg oral tablet (3 sources)Leukotriene Receptor AntagonistStart: 12-21-2023 End: 23-08-4882vrnc 1 tablet by mouth at bedtimemontelukast (Singulair) 10 MG tablet Indications: Nasal polyposis Take 1 tablet (10 mg) by mouth atbedtime 90 tablet 3 12/21/2023 01/19/2024 Discontinued (Therapy completed)predniSONE 20 mg oral tablet (3 sources)Start: 07-04-2024 End: 21-66-9910xmlx 1 tablet by mouth in the morningpredniSONE (Deltasone) 20 MG tablet Indications: Nasal polyposis Take 1 tablet (20 mg) by mouth in the morning and 1 tablet (20 mg) before bedtime. Do all this for 6 days. 12 tablet 07/04/2024 07/10/2024 Activesaccharomyces boulardii 250 mg oral capsule (3 sources)Start: 10-04-2019 End: 97-16-2142euwn 1 capsule by mouth in the morningsaccharomyces boulardii (Florastor) 250 MG capsule Take 250 mg by mouth in the morning and 250 mg before bedtime. 10/04/2019 01/19/2024 Discontinued (Therapy completed) Problems Active Problems Problem ClassificationProblemDateDocumented DateEpisodic/ChronicAbdominal pain (5 sources)Unspecified abdominal pain; Translations: [UNSPECIFIED ABDOMINAL PAIN]Onset: 32-19-9932FlcasrgpUciujdxkqyhqnn/social admission (1 source)Encounter for pre-employment examination; Translations: [Encounter for pre-employment examination]Onset: 35-81-4605TufbtzfoQgvzsr; peripheral; and visceral artery aneurysms (12 sources)Aneurysm of thoracic aorta; Translations: [Aneurysm of thoracic aorta]Onset: 658349-43-3271SqqfrdpAifvkud dysrhythmias (7 sources)Unspecified atrial fibrillation; Translations: [Atrial fibrillation] Onset: 640185-23-2742HzanqauHizdknso (2 sources)Cataract; Translations: [AGE RELATED NUCLEAR CATARACT-LEFT EYE, 2+NS 2+CS]Onset: 88-95-1559Shusztg obstructive pulmonary disease and bronchiectasis (13 sources)Chronic obstructive pulmonary disease, unspecified; Translations: [Chronic obstructive lung disease]Onset: 010805-79-5422OxklhqwKxdmqmkj of white blood cells (8 sources)Eosinophil count raised; Translations: [Eosinophilia]Onset: 036799-92-1880BneubhyOcvugisjs of lipid metabolism (2 sources)Mixed hyperlipidemia; Translations: [Mixed hyperlipidemia]Onset: 30-93-7804YxtpjdnBjkmrlrby hypertension (12 sources)Hypertensive disorder; Translations: [Essential (primary) hypertension]Onset: 564721-69-8587FhusxjnWfhl and other crystal arthropathies (4 sources)Gout; Translations: [Gout, unspecified]Onset: ChronicHeart valve disorders (13 sources)Presence of prosthetic heart valve; Translations: [Mitral valve disorder]Onset: 035445-75-2528AfvnselMrtntnvhrynn with complications and secondary hypertension (6 sources)Benign hypertensive heart disease without congestive heart failure; Translations: [Hypertensive heart disease without heart failure]Onset: 122616-65-4949NoqyucwOmxefn and vomiting (5 sources)Nausea; Translations: [Vomiting, unspecified]Onset: 06-23-2022 EpisodicOsteoarthritis (4 sources)Osteoarthritis; Translations: [Unspecified osteoarthritis, unspecified site]Onset: 312532-49-5582BwvxdefPkewk lower respiratory disease (1 source)Personal history of pneumonia (recurrent); Translations: [PERSONAL HX OF PNEUMONIA RECURRENT]Onset: 20-83-8353WlrnxgsbCeayc nervous system disorders (2 sources)Circadian rhythm sleep disorder of shift work type; Translations: [Circadian rhythm sleep disorder,shift work type]49-84-7509HjtttwuHcoii nutritional; endocrine; and metabolic disorders (4 sources)Obesity; Translations: [Obesity, unspecified]Onset: 04-12-2023 48-73-8095NhmaamqKitbi upper respiratory disease (18 sources)Polyp of nasal cavity and/or nasal sinus; Translations: [Nasal polyp, unspecified]Onset: 691053-54-3104ZepeuiqlAetes upper respiratory infections (12 sources)Chronic pansinusitis; Translations: [Chronic pansinusitis]Onset: 191493-53-1531KjtnztwZsefhwhz codes; unclassified (2 sources)Obstructive sleep apnea syndrome; Translations: [Obstructive sleep apnea (adult) (pediatric)]08-51-3603HsnwsrxEvncpfeb codes; unclassified (2 sources)Hypersomnia; Translations: [Hypersomnia, unspecified]01-26-2024 ChronicUnclassified (2 sources)AGE RELATED NUCLEAR CAT- 2+NS, 2+CS; Translations: [AGE RELATED NUCLEAR CAT- 2+NS, 2+CS]Onset: 96-86-8477Iwuyijlvvnxe (3 sources)THORAC AORTC ANEURYSM W/O RUPTR UNS; Translations: [THORAC AORTC ANEURYSM W/O RUPTR UNS]Onset: 05-20-3948Uvebbfzqaael (3 sources)CONTACT W/AND (SUSP) EXPOS COVID-19; Translations: [CONTACT W/AND (SUSP) EXPOS COVID-19]Onset: 20-97-7948Pintucdcrtbn (2 sources)COUGH, UNSPECIFIED; Translations: [COUGH, UNSPECIFIED]Onset: 92-95-1564Crbtsqcjueuu (1 source)Aneurysm of the ascending aorta, without rupture; Translations: [Aneurysm of the ascending aorta, without rupture]Onset: 76-45-3594Rszrj infection (1 source)COVID-19; Translations: [COVID-19]Onset: 01-19-2022 Past or Other Problems Problem ClassificationProblemDateDocumented DateEpisodic/ChronicAllergic reactions (4 sources)Allergy test positive; Translations: [Other allergy, initial encounter]Onset: 871824-67-4620KyaqvszjIyzgl valve disorders (4 sources)Heart murmur; Translations: [Cardiac murmur, unspecified]Onset: 655279-17-1320VlgkeeefWwnxzqrioouds and screening for infectious disease (4 sources)Increased immunoglobulin; Translations: [Other specified abnormal immunological findings in serum]Onset: 922904-70-0472RvomqkhhBthae aftercare (3 sources)Other buttermaker 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 churn (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; Translations: [OTH CUTTER ALUMINUM SHEET CURRENT DRUG THERAPY]Onset: 87-06-1975SfeqsiecYzakj aftercare (12 sources)Drug therapy finding; Translations: [skilled nursing (current) use of anticoagulants]Onset: 976750-55-4528RsihncznFrcus gastrointestinal disorders (1 source)Diarrhea, unspecified; Translations: [DIARRHEA UNSPECIFIED]Onset: 95-25-0961HjtoilfrIppgs lower respiratory disease (12 sources)Solitary nodule of lung; Translations: [Solitary pulmonary nodule] Onset: 296883-66-9628SxlxiawgGixxn lower respiratory disease (2 sources)Snoring; Translations: [Snoring]75-02-8012FwazxipuBndvz lower respiratory disease (4 sources)Dyspnea; Translations: [Dyspnea, unspecified]Onset: 04-29-2018 03-90-3091FcraxnhmLlyyn male genital disorders (1 source)Scrotal pain; Translations: [SCROTAL PAIN]Onset: 84-39-7122Ijcsuzoh Other non-traumatic joint disorders (11 sources)Arthralgia of the upper arm; Translations: [Pain in unspecified elbow]Onset: 10-13-2022 Resolved: 760144-74-6144AbxffdtlOjbhq non-traumatic joint disorders (1 source)Pain in upper arm; Translations: [Pain in unspecified elbow]Onset: 10-13-2022 Resolved: 651514-56-3154SbuxtkmvWvohm upper respiratory disease (3 sources)Nasal congestion; Translations: [NASAL CONGESTION]Onset: 04-21-2022 EpisodicOther upper respiratory infections (1 source)Acute sinusitis, unspecified; Translations: [ACUTE SINUSITIS UNSPECIFIED]Onset: 48-59-0377FrstogthJawusnxz codes; unclassified (12 sources)History of repair of mitral valve; Translations: [Other specified postprocedural states]Onset: 09-16-2021 Resolved: 101510-20-2169MbnkxwlcRfijgtmt codes; unclassified (2 sources)Other specified postprocedural states; Translations: [Other specified postprocedural states]Onset: 17-26-8566VonqlxrkVjdbjlolhqpw (1 source)THORAC AORTC ANEURYSM W/O RUPTR UNS; Translations: [THORAC AORTC ANEURYSM W/O RUPTR UNS]Onset: 69-97-4119Ayfqzlwneibw (1 source)CONTACT W/AND (SUSP) EXPOS COVID-19; Translations: [CONTACT W/AND (SUSP) EXPOS COVID-19]Onset: 59-94-4342Tcqxrvqxyqar (1 source)COUGH, UNSPECIFIED; Translations: [COUGH, UNSPECIFIED]Onset: 14-41-7642Lyobnyqohojr (1 source)Aneurysm of the ascending aorta, without rupture; Translations: [Aneurysm of the ascending aorta, without rupture]Onset: 51-04-0061Qwylmer tract infections (1 source)Tubulo-interstitial nephritis, not specified as acute or chronic; Translations: [TUBULO-INTERST NEPHRIT NOT AC/CHRN]Onset: 18-08-7525Ungkskwg Results Test NameValueInterpretationReference RangeFacilityOffice Visiton 10-30-2024 Follow-up [id number] Ede Davies 1960 M Date Provider Department Center 10/30/2024 GILBERTO CATALAN Family History Problem Relation Age of Onset Other Mother Coronary artery disease Mother Family Status - Relation Status Age at Mother Father Level of Service:92277 MO OFFICE/OUTPATIENT ESTABLISHED MOD MDM 30 MIN Reason for Visit and Comments: Hypertension [685000] Atrial Fibrillation [80] Valve Disorder [3372]NormalUniversity Hospitals Samaritan Medical CenterOffice Visiton 76-17-2801Bdpsxw-up [id number] Delgado Daviesy D 1960 Date Provider Department Center 06/05/2024 72711-YMAULX NADIYAZOEY [facility] Family History Problem Relation Age of Onset Other Mother Coronary artery disease Mother Family Status - Relation Status Age at Mother Father Level of Service:86235 MO OFFICE/OUTPATIENT ESTABLISHED MOD MDM 30 MIN Reason for Visit and Comments: Atrial Fibrillation [80] - Denies palpitations, lightheadedness/syncope, and bleeding on Eliquis. Follow up afib ablation [Other] - 1 mo s/p afib ablation on 04/27/2024 Hypertension [614063] - Takes lisinopril and metoprolol both bid. Thoracic aortic aneurysm [Other][facility] Abstracton [id number] DaviesEde pedro 1960 M Date Provider Department Center 05/25/20242019[facility] Family History Problem Relation Age of Onset Other Mother Coronary artery disease Mother Family Status - Relation Status Age at MotherNormalUniversWilson Street HospitalFollow-Upon 15-94-5825Ewdxqr-Up [id number] DaviesEde pedro 1960 [facility] Provider Department Center 05/23/2024 50201-KJZ, [facility] Family History Problem Relation Age of Onset Other Mother Coronary artery disease Mother Family Status - Relation Status Age at Mother Level of Service:71570 MO OFFICE/OP CONSLTJ NEW/EST PT MOD MDM 40 MINUTES Reason for Visit and Comments: Follow-up [597926] - Aortic Aneurysm Surveilance CT 04/03/24 @ [facility] Reports in Media and images uploaded under imaging.[facility] CenterTelephoneon [id number] DaviesEde pedro 1960 Date Provider Department Center 05/11/2024 1987-[facility] [place] [facility] Family History Problem Relation Age of Onset Other Mother Coronary artery disease Mother Family Status - Relation Status Age at Mother Reason for Visit and Comments: afib ablation f/u [Other][facility]36on 64-49-409137Itpn health underwriter returned phone call to patient from voicemail message he left regarding moving his appointment up. Patient confused and had moved up cardiology appointment not our appointment. I reviewed appointment details again with patient.[facility]37on 57-76-430155Yoqzyjvb all medications as prescribed. Return to clinic in 2 months.[facility] CenterFollow-Up on 08-17-8215Antqql-[id number] Ede Davies 1960 M Date Provider Department Center 05/05/2024 42422-MEOGUOBTCONNIE WOOTEN [facility] CARD [place] [facility] Family History Problem Relation Age of Onset Other Mother Coronary artery disease Mother Family Status - Relation Status Age at Mother Level of Service:21705 MO OFFICE/OUTPATIENT ESTABLISHED LOW MDM [address] [facility]HP[facility] 79-44-1902ROUH Electrophysiology Consult Note Reason for visit: s/p [...] ascending aortic aneurysm, mitral valve repair at [facility] 2004 and hypertension seen in ED follow-up for new onset atrial fibrillation. He presented to the [facility] emergency department where he was found [...] Use: Not At Risk (2018) Received from [employer], [employer] AUDIT-C Frequency of Alcohol Consumption: Never Average Number of Drinks: Not on file Frequency of Binge Drinking: Not on file Financial Resource Strain: Not on file Food Insecurity: Not on file Transportation Needs: Not on file Physical Activity: Not on file Stress: Not on file Social Connections: Not on file Intimate Partner Violence: Unknown (07/15/2023) [place] Safety & Environment Fear of Current or [...] Last dose 09/20 ipratropium (more content not included)...NormalUnWVUMedicine Barnesville HospitalNURSNOTEon 42-42-2641WDCSQAUBGwlou is at bedside delivering prescriptions [facility] CenterNURSNOTEGave discharge instructions to patient and familyNormalUniversWilson Street HospitalNURSNOTEFamily is at bedsideNormalUniversWilson Street HospitalNURSNOTEEKG is at bedsideNoal [facility] Medical CenterPOCT GLUCOSE METER UNSOLICITED RESULTSon 08-66-5211Xnoqdxg [Mass/Vol]108 mg/bELsho18-525GubfampcsrWVUMedicine Barnesville HospitalComment on above:Order Comment: Waived Testing in the ED is performed under the ED CLIA certificate #[id number].Result Comment: pltubp39Ifmuafpxo By: #### [id number] ####[facility] (BEAKER)[address] [place] [address] PROTIME-INRon 59-49-0084SHQ IN PPP BY COAGULATION ASSAY1.13Wmknce0.90-1.10 [facility]ar[facility] Medical CenterComment on above:Result Comment: ACC RECOMMENDED INR FOR WARFARIN THERAPY CONDITION INR PROPHYLAXIS OF VENOUS THROMBOSIS 2-3 (HIGH-RISK SURGERY) TREATMENT OF VENOUS THROMBOSIS 2-3 TREATMENT OF PULMONARY EMBOLISM 2-3 PREVENTION OF SYSTEMIC EMBOLISM: 2-3 ACUTE MYOCARDIAL INFARCTION TISSUE HEART VALVES VALVULAR HEART DISEASE ATRIAL FIBRILLATION RECURRENT SYSTEMIC EMBOLISM MECHANICAL HEART VALVE 2.5-3.5 FROM: ORAL ANTICOAGULANTS. MECHANISM OF ACTION, CLINICAL EFFECTIVENESS, AND OPTIMAL THERAPEUTIC RANGE. CHEST 1995;108:231S-246S.Performed By: #### [id number] ####[facility] (BEFELICITA)[address] [place], [place] [address]YJQKQLPSPQD TIME (PT) IN PPP BY COAGULATION ASSAY14.0 TbhfczxDbhqrz72.3-14.8UnWVUMedicine Barnesville HospitalComment on above:Performed By: #### [id number] ####[facility] (BEAKER)[address] [place], [place] [address]Zaby for Procedureon 08-20-1268Oxnd for [id number] Ede Davies 1960 M Date Provider Department Center 04/27/20241986-[facility] [place] [facility] Family History Problem Relation Age of Onset Other Mother Coronary artery disease Mother Family Status - Relation Status Age at MotherNormalUniversWilson Street HospitalFollow-Upon 52-84-4447Smyvmf-Up [id number] DaviesEde pedro 1960 M Date Provider Department Center 04/18/2024 NIKHIL SANDERS LAURIE Day Family History Problem Relation Age of Onset Other Mother Coronary artery disease Mother Family Status - Relation Status Age at Mother Level of Service:21311 MO OFFICE/OUTPATIENT ESTABLISHED HIGH MDM [address] [facility] [facility] HospitalAbstracton [id number] DaviesEde pedro 1960 M Date Provider Department Center 03/28/20242019-WALTER ALAN HVCTS [place] [facility] Family History Problem Relation Age of Onset Other Mother Coronary artery disease Mother Family Status - Relation Status [facility]Prep for Procedureon 03-01-2024 Prep for [id number] DaviesEde pedro 1960 M Date Provider Department Center 03/01/2024 1987-[facility] [place] [facility] Family History Problem Relation Age of Onset Other Mother Coronary artery disease Mother Family Status - Relation Status [facility] at MotherS[facility] HospitalalUniMercy Health [facility] Regional Medical CenterOffice Visiton 13-77-2682Hjevvk- up [id number] DaviesEde pedro 1960 M Date Provider Department Center 02/29/2024 241-NIKHIL BENSON LAURIE Day Family History Problem Relation Age of Onset Other Mother Coronary artery disease Mother Family Status - Relation Status Age at Mother Level of Service:98988 MO OFFICE/OUTPATIENT ESTABLISHED LOW MDM [address] [facility] [facility] HospitalCT Maxillofacial w/o Contraston 18-01-0147SS Maxillofacial w/o ContrastExam Date/Time: 11/23/2022 07:03 EDT Reason for Exam: J32.[address] maxillofacial without intravenous contrast medium. HISTORY: Surgery. FINDINGS: Imaging guidance was obtained for surgical procedure. Radiopaque marker was placed on the right lateral cheek beneficial and just inferior to the right zygomaticomaxillary junction. IMPRESSION: Imaging guidance for surgery as discussed. Ordering Provider: Juan Goldstein FINAL REPORT Dictated: 11/23/2022 3:10 pm Toney Kamara MD Signed (Electronic Signature): 11/23/2022 3:10 pm Signed by: Toney Kamara MD Transcribed by: ERWIN Technologist: [facility] HospitalConsent for Treatmenton 09-19-8968Ggkxzyv for Treatment [id number]:127[facility] SystemPhysician Orderon 34-23-9016Xlldqyuvm Order [id number]#1.00CD:127[facility] Health SystemECHOCARDIO M/2D COMPLETEon 04-67-8189KAUNWBBYRR M/2D COMPLETEPatient: EDE DAVIES Exam Date: 09/21/2022 : 1960 Gender:M Ordering : MRS. DENISE HIGGINS MARKETING TECHNOLOGY COORDINATOR Admission #: [id number] Family : DR JAKE ST D.OMague Order #: [id number] CLICK HERE TO VIEW EXAM ECHOCARDIOGRAM REPORT [...] Approved by: Nikhil Benson on 09/22/2022 at 12:18[facility] ColumbusCBC AUTO DIFFon 54-20-1685QGHU #0.1 103/ulNormal0.0-0.1The [facility] HospitalComment on above:Performed By: #### CBC #### [facility] [address] [address] [address] Reynaldo LiuBasophils/100 WBC (Bld)0.6 %Normal0.2-2.0The [facility] Comment on above:Performed By: #### CBC #### [facility] [address] [address] [address] Reynaldo Lugo #0.5 103/ulNormal0.0-0.7The [facility] HospitalComment on above: Performed By: #### CBC #### [facility] [address] [address] [address] Reynaldo Doyleosinophils/100 WBC (Bld)4.4 %Normal0.9-7.0The [facility] Comment on above:Performed By: #### CBC #### [facility] [address] [address] [address] Reynaldo Doylerythrocyte distribution width (RBC) [Ratio]13.5 %Hgkumz13.0-15.0 The [facility] HospitalComment on above:Performed By: #### CBC #### [facility] [address] [address] [address] Reynaldo LiuHematocrit (Bld) [Volume fraction]44.5 %Vivkja29.0-54.0The [facility] HospitalComment on above:Performed By: #### CBC #### [facility] [address] [address] [address] Reynaldo LiuHemoglobin (Bld) [Mass/Vol]14.5 g/aPJdmvmg17.0-18.0The [facility] HospitalComment on above:Performed By: #### CBC #### [facility] [address] [address] [address] Reynaldo Metzger #0.03 10e3/ulNormal0.00-0.03The [facility] HospitalComment on above:Performed By: #### CBC #### [facility] [address] [address] [address] Reynaldo Metzger %0.3 %Normal0.0-0.5The [facility] HospitalComment on above: Performed By: #### CBC #### [facility] [address] [address] [address] Reynaldo Schofield #2.7 103/ulNormal1.2-3.8The [facility] HospitalComment on above:Performed By: #### CBC #### [facility] [address] [address] [address] Reynaldo Walkerhocytes/100 WBC (Bld)25.0 %Dhynws54.5-60.0The [facility] HospitalComment on above:Performed By: #### CBC #### [facility] [address] [place] [address] Dr. Reynaldo Churchill DIFF REQNONormalThe [facility] HospitalComment on above: Performed By: #### CBC #### [facility] [address] [address] [address] Reynaldo Chavez (RBC) [Entitic mass]29.6 tuXurjyv30.9-34.0The [facility] HospitalComment on above:Performed By: #### CBC #### [facility] [address] [place] [address] Dr. Reynaldo Chavez (RBC) [Mass/Vol]32.6 g/qSExzfxn03.9-35.2The [facility] HospitalComment on above:Performed By: #### CBC #### [facility] [address] [place] [address] Dr. Reynaldo Chavez (RBC) [Entitic vol]90.8 nOQorcms78.0-94.0The [facility] HospitalComment on above:Performed By: #### CBC #### [facility] [address] [place] [address] Dr. Reynaldo Garcia #1.0 103/ulCritically high0.3-0.8The [facility] Comment on above:Performed By: #### CBC #### [facility] [address] [address] [address] Reynaldo Garciaocytes/100 WBC (Bld)9.3 %Normal1.7-12.0The [facility] Comment on above:Performed By: #### CBC #### [facility] [address] [place] [address] Dr. Reynaldo MontemayorUT #6.6 103/ulCritically high1.4-6.5The [facility] Comment on above:Performed By: #### CBC #### [facility] [address] [place] [address] Dr. Reynaldo Montemayorutrophils/100 WBC (Bld)60.4 %Ceyzrl70.0-75.0The [facility] HospitalComment on above:Performed By: #### CBC #### [facility] [address] [place] [address] Dr. Reynaldo Berrylet mean volume (Bld) [Entitic vol]10.6 fLNormal9.5-13.5The [facility] HospitalComment on above:Performed By: #### CBC #### [facility] [address] [place] [address] Dr. Reynaldo LiuPLT298 103/ppKtisus262-680Sdl [facility] HospitalComment on above: Performed By: #### CBC #### [facility] [address] [place] [address] Dr. Reynaldo LiuRBC4.90 106/ulNormal4.70-6.10The [facility] HospitalComment on above:Performed By: #### CBC #### [facility] [address] [place] [address] Dr. Reynaldo LiuWBC10.9 103/ulNormal4.0-11.0The [facility] HospitalComment on above:Performed By: #### CBC #### [facility] [address] [place] [address] Dr. Jacobs ChangER URINE PROFILEon 63-09-7690Dnrregoxq Ql (U)NegativeNormal NEGATIVEThe [facility] HospitalComment on above:Performed By: #### ERUR ####[facility] [address] [address]Dr. Yilan ChangClarity (U)CLEARNormalCLEARGood Samaritan Hospital HospitalComment on above: Performed By: #### ERUR ####[facility] [address]kybcdj[address] [place], [place] [address]Dr. Yilan ChangColor (U)LT. YELLOWNormalYELLOWGood Samaritan Hospital HospitalComment on above:Performed By: #### ERUR ####[facility] Kvtozev[address] [place], [place] [address]Dr. Yilan ChangERUAHDA micrscopic examination will be performed if indicated.NormalThe [facility] HospitalComment on above:Performed By: #### ERUR ####[facility] Dslvrhzdbo[address] [place], [place] [address]Dr. Yilan ChangGlucose Ql (U) NegativeNormalNEGATIVEGood Samaritan Hospital HospitalComment on above:Performed By: #### ERUR ####[facility] Cuvwmcfpcm[address] [place], [place] [address]Dr. Yilan ChangHemoglobin Ql (U)NegativeNormalNEGATIVEKettering Memorial Hospital Comment on above:Performed By: #### ERUR ####[facility] Jdzeitngcv[address] [place], [place] [address]Dr. Yilan ChangKetones Ql (U)NegativeNormal NEGATIVEKettering Memorial HospitalComment on above:Performed By: #### ERUR ####[facility] [address]xdgwq[address] [place], [place] [address]Dr. Yilan ChangLEUKOCYTESNegativeNormalNEGATIVEGood Samaritan Hospital HospitalComment on above:Performed By: #### ERUR ####[facility] Wbnkhqfeob[address] [place], [place] [address]Dr. Yilan ChangNitrite Ql (U)NegativeNormalNEGATIVEKettering Memorial HospitalComment on above:Performed By: #### ERUR ####[facility] Tfhdpvmpgw[address] [place], [place] [address]Dr. Yilan ChangpH (U)6.5 [pH] Normal5-9The [facility] HospitalComment on above:Performed By: #### ERUR ####[facility] [address] [address]Dr. Reynaldo LiuSPEC GRAVITY1.829Iwknjm8.005-<=1.025The [facility] HospitalComment on above:Performed By: #### ERUR ####[facility] [address] [address]Dr. Reynaldo LiuUA PROTEINNegativeNormalNEGATIVE/ TRACE The [facility] HospitalComment on above:Performed By: #### ERUR ####[facility] [address] [address]Dr. Reynaldo LiuUR MICRO INDNOT INDICATEDNormalThe [facility] HospitalComment on above:Performed By: #### ERUR ####[facility] [address] [address]Dr. Reynaldo LiuUrobilinogen Qn (U)0.2 {Pastor'U}/dLNormal0.2 - 1.0The [facility] HospitalComment on above:Performed By: #### ERUR ####[facility] [address] [address]DrMague LiuPROF CHEM 8 (BAS METB)on 52-37-1650Qxylv gap [Moles/Vol]11.9 mmol/LNormalThe [facility] HospitalComment on above:Performed By: #### BMP #### [facility] [address] [address] [address] Reynaldo LiuCalcium [Mass/Vol]8.7 mg/dLNormal8.5-10.1The [facility] Comment on above:Performed By: #### BMP #### [facility] [address] [address] [address] Reynaldo LiuChloride [Moles/Vol]105 mmol/BTigkkn13-457Pqu [facility] Comment on above:Performed By: #### BMP #### [facility] [address] [address] [address] Reynaldo LiuCO2 [Moles/Vol]27.5 mmol/ZSuvcmh82.0-32.0The [facility] Comment on above:Performed By: #### BMP #### [facility] [address] [place] [address] Dr. Reynaldo LiuCreatinine [Mass/Vol]1.67 mg/dLCritically high0.70-1.30The [facility] HospitalComment on above:Performed By: #### BMP #### [facility] [address] [address] [address] Reynaldo DoyleGFR-AF XDAVBRIM48 mL/min/1.92c1Wyhhkrbkrm low>=60The [facility] HospitalComment on above:Performed By: #### BMP #### [facility] [address] [place] [address] Dr. Reynaldo DoyleGFR-NON AF TOSEQXVG52 mL/min/1.78d1Qcddtpsbdi low>=60The [facility] HospitalComment on above:Performed By: #### BMP #### [facility] [address] [place] [address] Dr. Reynaldo LiuGlucose [Mass/Vol]96 mg/jAUgaygd19-823Wvi [facility] Comment on above:Performed By: #### BMP #### [facility] [address] [place] [address] Dr. Reynaldo LiuPotassium [Moles/Vol]4.4 mmol/LNormal3.5-5.1The [facility] Comment on above:Performed By: #### BMP #### [facility] [address] [place] [address] Dr. Reynaldo LiuSodium [Moles/Vol]140 mmol/TCfkjfh329-076Rpn [facility] Comment on above:Performed By: #### BMP #### [facility] [address] [place] [address] Dr. Reynaldo LiuUrea nitrogen [Mass/Vol]18.0 mg/dLNormal7.0-18.0The [facility] HospitalComment on above:Performed By: #### BMP #### [facility] [address] [place] [address] Dr. Reynaldo LiuUrea nitrogen/Creatinine [Mass ratio]10.8 mg/mgNormalThe [facility] HospitalComment on above:Performed By: #### BMP #### [facility] [address] [place] [address] Dr. Reynaldo LevinINEon 55-67-4985Nltxqxpcjs [Mass/Vol]1.34 mg/dLCritically high0.70-1.30The [facility] HospitalComment on above:Performed By: #### CREA #### [facility] [address] [place] [address] Dr. Jacobs ChangEGFR-AF SOMALI>60Normal>=60The [facility] HospitalComment on above:Performed By: #### CREA #### [facility] [address] [place] [address] Dr. Reynaldo DoyleGFR-NON AF VEKTZTOO47 mL/min/1.80n5Qfdjhlkrqi low>=60The [facility] HospitalComment on above:Performed By: #### CREA #### [facility] [address] [place] [address] Dr. Reynaldo Miller CHEST WO W CONon 03-54-3327UUR CHEST WO W CONEXAMINATION: CTA CHEST WO W CON HISTORY: Thoracic aortic aneurysm [...] Electronically authenticated by: ROSY ROLAND Date: 2022-07-24 15:42NormalThe [facility] W MANUAL DIFFon 07-22-4194FRFUMEYE LYMPH #NormalKettering Memorial HospitalComment on above:Performed By: #### DENIS ####[facility] [address]waiafnusj[address] [place], [place] [address]Dr. Yilan Liu ATYPICAL LYMPH %NormalKettering Memorial HospitalComment on above:Performed By: #### DENIS ####[facility] Spvqpibblf64[address] [place], [place] [address]Dr. Yilan ChangBAND #0.0 103/ulNormal0.0-0.3The [facility] HospitalComment on above:Performed By: #### DENIS ####[facility] Yvbbyttgba[address] [place], [place] [address]Dr. Yilan ChangBAND %0 %Normal0-5ThDelaware County Hospital Comment on above:Performed By: #### DENIS ####[facility] Eahuabxzku99[address] [place], [place] [address]Dr. Yilan ChangBASOM #0.00 103/ulNormal 0.00-0.10The [facility] HospitalComment on above:Performed By: #### DENIS ####[facility] [address]lxhbbjkao06[address] [place], [place] [address]Dr. Yilan ChangBASOM %0.0 %Critically low0.2-2.0[facility] HospitalComment on above:Performed By: #### DENIS ####[facility] Icspfxvcgk[address] [place], [place] [address]Dr. Yilan ChangBLAST #NormalKettering Memorial Hospital Comment on above:Performed By: #### DENIS ####[facility] [address]iaeroaewz[address] [place], [place] [address]Dr. Yilan ChangBLAST %NormalKettering Memorial HospitalComment on above:Performed By: #### DENIS ####[facility] Kpuvbrgizv[address] [place], [place] [address]Dr. Yilan ChangCORRECTED WBC Normal4.0-11.0The [facility] HospitalComment on above:Performed By: #### DENIS ####[facility] [address] [address]Dr. Yilan ChangEOS #0.00 103/ulNormal0.00-0.70The [facility] HospitalComkarmanos cancer center on above: Performed By: #### CBCMAN ####[facility] [address] [address]Dr. Yilan ChangEOS%0.0 %Critically low0.9-7.0The [facility] HospitalComment on above:Performed By: #### CBCMAN ####[facility] Koxhliazwq[address] [place], [place] [address]Dr. Yilan ChangHCT 43.6 %Mvgubx53.0-54.0The [facility] HospitalComkarmanos cancer center on above:Performed By: #### CBCMAN ####[facility] Ohdwlpmjvr[address] [place], [place] [address]Dr. Yilan HczkgRTT62.5 g/loIbeizt08.0-18.0The [facility] HospitalComkarmanos cancer center on above:Performed By: #### CBCMAN ####[facility] Siwowhzcts[address] [place], [place] [address]Dr. Yilan ChangLYMPHM #1.34 103/ulNormal1.20-3.80The [facility] HospitalComkarmanos cancer center on above:Performed By: #### CBCMAN ####[facility] Pjtrvzdmbq[address] [place], [place] [address]Dr. Yilan Liu LYMPHM%7.0 %Critically low20.5-60.0The [facility] on above: Performed By: #### CBCMAN ####[facility] Igifatjxql[address] [place], [place] [address]Dr. Yilan AsbkrJOC17.0 ihSknckv44.9-34.0The [facility] HospitalComkarmanos cancer center on above:Performed By: #### CBCMAN ####[facility] Qhyukrurij[address] [place], [place] [address]Dr. Yilan QiuxzPFSJ40.3 g/dl Gaoxtr45.9-35.2The [facility] HospitalComkarmanos cancer center on above:Performed By: #### CBCMAN ####[facility] [address] [address]Dr. Yimolly IwjhiWMA79.2 uJImpgum14.0-94.0The [facility] HospitalComment on above: Performed By: #### DENIS ####[facility] [address] [address]Dr. Yilan ChangMETAMYELOCYTE #NormalThe [facility] HospitalComment on above:Performed By: #### CBCANDIE ####[facility] [address] [address]Dr. Yilan ChangMETAMYELOCYTE %NormalThe [facility] HospitalComment on above:Performed By: #### DENIS ####[facility] Zlpqmcqthu[address] [place], [place] [address]Dr. Yilan ChangMONOM#1.72 103/ulCritically high0.30-0.80The [facility] HospitalComment on above:Performed By: #### DENIS ####[facility] Fckntdyckc[address] [place], [place] [address]Dr. Yilan ChangMONOM%9.0 %Normal1.7-12.0The [facility] HospitalComment on above:Performed By: #### DENIS ####[facility] Wtqxjyyrvg[address] [place], [place] [address]Dr. Yilan ChangMPV 10.9 fLNormal9.5-13.5The [facility] HospitalComment on above:Performed By: #### DENIS ####[facility] [address]jxfldzph[address] [place], [place] [address]Dr. Yilan ChangMYELOCYTE #NormalThe [facility] HospitalComment on above: Performed By: #### CBCANDIE ####[facility] [address] [address]Dr. Yilan ChangMYELOCYTE %NormalThe [facility] Comment on above:Performed By: #### CBCANDIE ####[facility] Brsdidnwmw[address] [place], [place] [address]Dr. Yilan ChangNRBCNormalThe [facility] HospitalComment on above:Performed By: #### CBCANDIE ####[facility] [address] [address]Dr. Reynaldo CxdswNHM702 103/ul Cwssko545-542Pla [facility] HospitalComment on above:Performed By: #### DENIS ####[facility] Fvlrkjrsux[address] [place], [place] [address]Dr. Reynaldo ChangRBC5.00 106/ulNormal4.70-6.10The [facility] HospitalComment on above: Performed By: #### CBCANDIE ####[facility] [address]msejmvqns[address] [place], [place] [address]Dr. Reynaldo YwkhwLBF67.7 %Cvsxqk10.0-15.0The [facility] HospitalComment on above:Performed By: #### DENIS ####[facility] Kzaumoofip[address] [place], [place] [address]Dr. Reynaldo LiuSEG #16.04 103/ulCritically high1.40-6.50The [facility] HospitalComment on above:Performed By: #### DENIS ####[facility] Mrqcrfwdgx[address] [place], [place] [address]Dr. Reynaldo LiuSEG %84.0 %Critically high43.0-75.0The [facility] HospitalComment on above:Performed By: #### DENIS ####[facility] Wshuksgipy[address] [place], [place] [address]Dr. Reynaldo ChangTOXIC GRANULATION2+NormalThe [facility] HospitalComment on above:Performed By: #### CBCANDIE ####[facility] [address]jvldkhm[address] [place], [place] [address]Dr. Reynaldo YwzsiIDQ47.1 103/ulCritically high4.0-11.0The [facility] Comment on above:Performed By: #### CBCANDIE ####[facility] Zpinnfgawb[address] [place], [place] [address]DrMague Jacobs ChangER URINE PROFILEon 06-23-2022 Bilirubin Ql (U)NegativeNormalNEGATIVEThe [facility] HospitalComment on above: Performed By: #### FRANKO EVANS #### [facility] [address] [place] [address] Dr. Reynaldo Dunn (U)CLEARNormalCLEARKettering Memorial HospitalComment on above: Performed By: #### CRISTINA, ERUR #### [facility] [address] [address] [address] Reynaldo Rich (U)LT. YELLOWNormalYELLOWKettering Memorial HospitalComment on above:Performed By: #### CRISTINA, ERUR #### [facility] [address] [address] [address] Reynaldo Zaman micrscopic examination will be performed if indicated. NormalKettering Memorial HospitalComment on above:Performed By: #### CRISTINA, ERUR #### [facility] [address] [place] [address] Dr. Reynaldo LiuGlucose Ql (U)NegativeNormalNEGATIVEKettering Memorial HospitalComment on above:Performed By: #### CRISTINA, ERUR #### [facility] [address] [place] [address] Dr. Reynaldo LiuHemoglobin Ql (U)TRACE-INTACTAbnormalNEGChildren's Hospital of ColumbusComment on above:Performed By: #### CRISTINA, ERUR #### [facility] [address] [place] [address] Dr. Reynaldo LiuKetxavier Ql (U)15 mg/dlAbnormalNEGATIVEMarion Hospital on above:Performed By: #### CRISTINA, ERUR #### [facility] [address] [address] [address] Reynaldo LiuLEUKOCYTESNegativeNormalNEGATIVETrinity Health System West Campus on above:Performed By: #### CRISTINA, ERUR #### [facility] [address] [address] [address] Reynaldo LiuNitrite Ql (U)NegativeNormalNEGATIVEKettering Memorial HospitalComment on above:Performed By: #### CRISTINA, ERUR #### [facility] [address] [address] [address] Reynaldo LiupH (U)6.0 [pH]Normal5-9The [facility] HospitalComment on above: Performed By: #### CRISTINA ERUR #### [facility] [address] [place] [address] Dr. Reynaldo LiuProtein (U) [Mass/Vol]30 mg/dLAbnormalNEGATIVE/ TRACEThe [facility] HospitalComkarmanos cancer center on above:Performed By: #### CRISTINA ERUR #### [facility] [address] [place] [address] Dr. Reynaldo LiuSPEC GRAVITY1.578Wnqdzp4.005-<=1.025The [facility] HospitalComkarmanos cancer center on above:Performed By: #### VICKY EVANSR #### [facility] [address] [place] [address] Dr. Reynaldo Childress MICRO INDINDICATEDNormalThe [facility] HospitalComkarmanos cancer center on above: Performed By: #### CRISTINA ERUR #### [facility] [address] [place] [address] Dr. Reynaldo Zepedabilinogen Qn (U)0.2 {Pastor'U}/dLNormal0.2 - 1.0The [facility] HospitalComkarmanos cancer center on above:Performed By: #### VICKY EVANSR #### [facility] [address] [place] [address] Dr. Reynaldo LiuLACTATE/LACTIC ACIDon 86-29-4898Bhtdnvv [Moles/Vol]1.4 mmol/L Normal0.4-1.9The [facility] on above:Performed By: #### LACT #### [facility] [address] [place] [address] Dr. Reynaldo LiuLIPASEon 11-70-7101Qdqhwy [Catalytic activity/Vol]80.0 U/LNormal 73.0-393.0The [facility] on above:Performed By: #### CMP, LIPA ####[facility] [address] [address]Dr. Reynaldo LiuPROF 14(COMP METB)on 73-38-8965Qwynufa [Mass/Vol]3.8 g/dLNormal 3.4-5.0The [facility] HospitalComment on above:Performed By: #### CMP, LIPA ####[facility] [address] [address]Dr. Yilan ChangAlbumin/Globulin [Mass ratio]1.0 {ratio}NormalKettering Memorial Hospital Comment on above:Performed By: #### CMP, LIPA ####[facility] [address] [address]Dr. Yilan ChangALP [Catalytic activity/Vol]72 U/EDciarn98-764Svz [facility] HospitalComment on above:Performed By: #### CMP, LIPA ####[facility] [address]fcibytjrr[address] [place], [place] [address]Dr. Yilan ChangALT [Catalytic activity/Vol]71 U/L Critically rbcj45-16Yzk [facility] HospitalComment on above:Performed By: #### CMP, LIPA ####[facility] [address]pfcoqprqy[address] [place], [place] [address]Dr. Yilan ChangAnion gap [Moles/Vol]19.5 mmol/LNormalThe [facility] Comment on above:Performed By: #### CMP, LIPA ####[facility] [address]bfxflucs[address] [place], [place] [address]Dr. Yilan ChangAST [Catalytic activity/Vol]96 U/LCritically xfle27-57Sib [facility] HospitalComment on above: Performed By: #### CMP, LIPA ####[facility] Yoctysqjfq[address] [place], [place] [address]Dr. Yilan ChangBilirubin [Mass/Vol]1.0 mg/dLNormal 0.2-1.0The [facility] HospitalComment on above:Performed By: #### CMP, LIPA ####[facility] [address]xlchwb[address] [place], [place] [address]Dr. Yilan ChangCalcium [Mass/Vol]9.1 mg/dLNormal8.5-10.1The [facility] HospitalComment on above:Performed By: #### CMP, LIPA ####[facility] [address]shqcndlii[address] [place], [place] [address]Dr. Yilan ChangChloride [Moles/Vol]100 mmol/L Uqknaz95-073Tgu [facility] HospitalComment on above:Performed By: #### CMP, LIPA ####[facility] [address] [address]Dr. Yilan ChangCO2 [Moles/Vol]21.5 mmol/JKjppdw17.0-32.0The [facility] HospitalComment on above:Performed By: #### CMP, LIPA ####[facility] Lnqxurennp[address] [place], [place] [address]Dr. Yilan ChangCreatinine [Mass/Vol]1.89 mg/dL Critically high0.70-1.30The [facility] HospitalComment on above:Performed By: #### CMP, LIPA ####[facility] [address]qsxnoptkh[address] [place], [place] [address]Dr. Yilan ChangEGFR-AF NGCDNEEE43 mL/min/1.70p5Ytxhsvfcbr low>=60The [facility] HospitalComment on above:Performed By: #### CMP, LIPA ####[facility] [address]whkdyjua[address] [place], [place] [address]Dr. Yilan ChangEGFR- NON AF UDCIRMQZ17 mL/min/1.48r4Lrkigizbur low>=60The [facility] HospitalComment on above:Performed By: #### CMP, LIPA ####[facility] [address]gyegontcq[address] [place], [place] [address]Dr. Yilan ChangGlobulin (S) [Mass/Vol]3.9 g/dL NormalThe [facility] HospitalComment on above:Performed By: #### CMP, LIPA ####[facility] Zacuyindpq[address] [place], [place] [address]Dr. Yilan ChangGlucose [Mass/Vol]117 mg/dLCritically gynv51-385Lsq [facility] Comment on above:Performed By: #### CMP, LIPA ####[facility] [address]aukccvn[address] [place], [place] [address]Dr. Yilan ChangPotassium [Moles/Vol]4.0 mmol/LNormal3.5-5.1The [facility] HospitalComment on above: Performed By: #### CMP, LIPA ####[facility] [address] [address]Dr. Reynaldo NoeProtein [Mass/Vol]7.7 g/dLNormal6.4-8.2 The [facility] HospitalComment on above:Performed By: #### CMP, LIPA ####[facility] [address] [address]Dr. Reynaldo Noe Sodium [Moles/Vol]137 mmol/HFimejj176-512Jpl [facility] HospitalComment on above: Performed By: #### CMP, LIPA ####[facility] [address] [address]Dr. Reynaldo LiuUrea nitrogen [Mass/Vol]22.0 mg/dL Critically high7.0-18.0The [facility] HospitalComment on above:Performed By: #### CMP, LIPA ####[facility] [address] [address]Dr. Reynaldo ChangUrea nitrogen/Creatinine [Mass ratio]11.6 mg/mgNoRegency Hospital CompanyComment on above:Performed By: #### CMP, LIPA ####[facility] [address] [address]DrMague Wagner MICROSCOPIC ONLYon 36-49-2902NRIRHISMBRTD SEENNormalNONE SEENKettering Memorial HospitalComment on above:Performed By: #### VICKY EVANSR #### [facility] [address] [place] [address] Dr. Reynaldo Chowdhury identified Cx Nom (U)NOT INDICATEDNormMary Rutan HospitalComment on above:Performed By: #### VICKY EVANSR #### [facility] [address] [address] [address] Reynaldo De Santiago SEENNormalNONE SEENKettering Memorial HospitalComment on above:Performed By: #### CRISTINA ERUR #### [facility] [address] [address] [address] Reynaldo Firtz LM Nom (Urine sed)NONE SEENNormalNONE SEENThe [facility] HospitalComment on above:Performed By: #### UMICRO, ERUR #### [facility] [address] [place] [address] Dr. Jacobs ChangEpithelial cells LM Ql (Urine sed)FEWAbnormalNONE SEEN /RAREThe [facility] HospitalComment on above:Performed By: #### UMICRO, ERUR #### [facility] [address] [place] [address] Dr. Reynaldo LiuMUCOUSNONE SEENNormalNONE SEENThe [facility] HospitalComment on above:Performed By: #### UMICRO, ERUR #### [facility] [address] [place] [address] Dr. Reynaldo LiuYjdgkCIT4-1Ezgqdfwr0-4Hvj [facility] HospitalComment on above:Performed By: #### CRISTINA, ERUR #### [facility] [address] [place] [address] Dr. Reynaldo LiuWBC5-10AbnormalNONE SEENThe [facility] HospitalComment on above: Performed By: #### MALATHIICRO, ERUR #### [facility] [address] [place] [address] Dr. Reynaldo Franco-19 PCR ([facility])on 66-88-6557ZWBZ-CoV-2 (COVID-19) RNA SARANYA+probe Ql (Unsp spec)Not detectedNormalNOT DETECTEDThe [facility] Comment on above:Result Comment: This test is not yet approved or cleared by the [place] FDA. When there are no FDA-approved or cleared tests available, and other criteria are met, FDA can make tests available under an emergency access mechanism called an Emergency Use Authorization (EUA). The EUA for this test is supported by the [employer] of Health and Human Service's (HHS's) declaration that circumstances exist to justify the emergency use of in vitro diagnostics for the detection and/or diagnosis of the virus that causes COVID- 19. This EUA will remain in effect (meaning [...] of clinical signs and symptoms consistent with SARS-CoV-2.Performed By: #### CVDTBH #### [facility] [address] [address] [address] Reynaldo LiuCovid-19 PCR ([facility])on 67-41-6903FEGA-CoV-2 (COVID-19) RNA SARANYA+probe Ql (Unsp spec)DetectedCritically abnormalNOT DETECTEDThe [facility] Hospitalment on above:Result Comment: This test is not yet approved or cleared by the [place] FDA. When there are no FDA-approved or cleared tests available, and other criteria are met, FDA can make tests available under an emergency access mechanism called an Emergency Use Authorization (EUA). The EUA for this test is supported by the [place] of Health and Human Service's declaration that circumstances exist to justify the emergency use of in vitro diagnostics for the detection and/or diagnosis of the virusthat causes COVID-19. This EUA will remain in effect for the duration of the COVID-19 declaration ju stifying emergency of IVDs, unless it is terminated or revoked by the FDA (after which the test mayno longer be used).Performed By: #### CVDTBH #### [facility] [address] [address] [address] Reynaldo LiuPROF CHEM 8 (BAS METB)on 34-62-0925Nseve gap [Moles/Vol]16.2 mmol/LNormalSelect Medical Specialty Hospital - Trumbullment on above:Performed By: #### BMP ####[facility] [address] [place], [place] [address]OtDr. Jacobs ChangCalcium [Mass/Vol]8.3 mg/dLCritically low8.5-10.1The [facility] HospitalComment on above:Performed By: #### BMP ####[facility] [address] [address] ChangChloride [Moles/Vol]101 mmol/RUeiskk03-745Vol [facility]on HospitalComment on above:Performed By: #### BMP ####[facility] [address] [place], [place] [address]Dr.Reynaldo ChangCO2 [Moles/Vol]20.9 mmol/LCritically low21.0-32.0The [facility] HospitalComment on above:Performed By: #### BMP ####[facility] [address] [place], [place] [address]Dr.Reynaldo ChangCreatinine [Mass/Vol]1.55 mg/dLCritically high0.70-1.30The [facility] HospitalComment on above:Performed By: #### BMP ####[facility] [address] [place], [place] [address]Dr.Randilan ChangEGFR-AF LHSQLQRZ32 mL/min/1.73m2 Critically low>=60The [facility] HospitalComment on above:Performed By: #### BMP ####[facility] [address] [place], [place] [address]Dr. Randilan ChangEGFR-NON AF VMYTIGFL70 mL/min/1.04u3Umimfsakyl low>=60The [facility] HospitalComment on above:Performed By: #### BMP ####[facility] [address] [place], [place] [address]Dr.Randimolly ChangGlucose [Mass/Vol]110 mg/dLCritically tjzt54-457Yyh [facility] HospitalComment on above: Performed By: #### BMP ####[facility] [address] [place], [place] [address]Dr.Randimolly ChangPotassium [Moles/Vol]4.1 mmol/LNormal 3.5-5.1The [facility] HospitalComment on above:Performed By: #### BMP ####[facility] [address] [place], [place] [address]Dr.Reynaldo Liu Sodium [Moles/Vol]134 mmol/LCritically msd973-565Yfa [facility] HospitalComment on above:Performed By: #### BMP ####[facility] [address] [place], [place] [address]Dr.Randimolly ChangUrea nitrogen [Mass/Vol]23.0 mg/dL Critically high7.0-18.0[facility]tering Memorial HospitalComment on above:Performed By: #### BMP ####[facility] [address] [place], [place] [address]Qr. Reynaldo LiuUrea nitrogen/Creatinine [Mass ratio]14.8 mg/mgNoRegency Hospital CompanyComment on above:Performed By: #### BMP ####[facility] [address] [place], [place] [address]Tr.Reynaldo LiuXR CHEST 1 Von 27-24-7828LV CHEST 1 VEXAM: XR CHEST 1 V INDICATION: SHORTNESS OF BREATH. COMPARISON: Chest radiograph 09/30/2019 TECHNIQUE: Single frontal view of the chest FINDINGS: Changes of median sternotomy and valvuloplasty. Normal cardiomediastinal contours. Clear lungs. No pleural effusion or pneumothorax. No acute osseous abnormality. IMPRESSION: No acute cardiopulmonary process. Electronically authenticated by: RANULFO BREWER Date: 2022-01-18 14:27[facility] Hospital - ColumbusDRUG SCREEN DOT COMPANYon 63-27-1201Clm at Specimen Collection= [facility] on above:Order Comment: [employer] Performed By: #### [id number] ####[address] [address]DRUG SCREEN DOT COMPANYSent to reference lab. See separate report.[facility]Comkar[facility] center on above:Order Comment: [employer] national incPerformed By: #### [id number] ####[address] [address] Vital Signs Date TimeVital SignValuePerforming HcmreyoryZcmjynaj03-93-9415 08:47-0500Body ftebsv090.9 cmJuan Goldstein MD Work Phone: [facility] HospitalMnxkedmuiz23-68-1426 08:47-0500Body mass index (BMI) [Ratio]33.91 kg/j3UqogpaJuan Goldstein MD Work Phone: [facility] HospitalWvsmxkbbnx65-60-9019 08:47-0500Body iqrddv542.4 kgJuan Goldstein MD Work Phone: [facility] HospitalNoeecywkrt04-12-4846 08:47-0500Diastolic blood hjxcalqh01 mm[Hg]Juan Goldstein MD Work Phone: [facility] HospitalNrgdimgjfx36-90-0871 08:47-0500Heart rate81 /min Juan Goldstein MD Work Phone: [facility] HospitalVxifedkdni47-42-9720 08:47-0500Systolic blood aojclttv827 mm[Hg]Juan Goldstein MD Work Phone: [facility] HospitalCnwtwwrlts24-80-4150 10:13-0400Body .9 cmNicole Monroe DO Work Phone: [facility] HospitalLqsfpitdpk02-48-4261 10:13-0400Body mass index (BMI) [Ratio]33.91 kg/f8Wzvgqu Monroe DO Work Phone: [facility] HospitalMczruyrqab38-35-2787 10:13-0400Body exiwxq639.4 kgNicole Monroe DO Work Phone: [facility] HospitalKlqieelodl21-85-6235 10:13-0400Diastolic blood iixwdekd33 mm[Hg]Nicolas Monroe DO Work Phone: [facility] HospitalKrsgnrgddn88-30-2288 10:13-0400Heart rate76 /min Nicolas Monroe DO Work Phone: [facility] HospitalZuzbxjgygy28-00-2015 10:13-2899OvW0% (BldA) [Mass fraction]95 %Nicolas Monroe DO Work Phone: [facility] HospitalNpxzwgijcn30-44-7998 10:13-0400Systolic blood qwnimfpj753 mm[Hg]Nicolas Monroe DO Work Phone: [facility] HospitalZgzdflqzkp30-08-3305 08:00-0400Body hosxpa864.9 cmJuan Goldstein MD Work Phone: [facility] HospitalQntfmkcogd57-55-0150 08:00-0400Body mass index (BMI) [Ratio]33.91 kg/a0JefikaJuan Goldstein MD Work Phone: [facility] HospitalSlfxxxcxsj47-76-8999 08:00-0400Body yexnpu491.4 kgJuan Goldstein MD Work Phone: no Xbavzabehv37-91-3444 08:00-0400Diastolic blood zacaomgt32 mm[Hg]Juan Goldstein MD Work Phone: PN Cimcsmsgoz84-14-5622 08:00-0400Systolic blood tvxqtakd445 mm[Hg]Juan Goldstein MD Work Phone: [facility] Encounters Encounter DateEncounter TypeCare ProviderFacilityStart: 10-30-2024 End: 66-98-4878vgzpdxkzjaFIHGNFostoria City Hospitaltart: 10-02-2024 End: 84-55-3653VrrannJewyck H Timmis MD Work Phone: [facility] CI ENTComment on above:Nasal polyposisStart: 07-10-2024 End: 71-27-7480WhnqgsNmryqo H Timmis MD Work Phone: [facility] CI ENTComment on above:Nasal polyposis (Primary Dx)Start: 07-04-2024 End: 27-79-0071Pillpy flowsheetHijoseluis Goldstein MD Work Phone: [facility] CI ENTStart: 07-04-2024 End: 43-07-9844Ljmdfgkasandra Goldstein MD Work Phone: [facility] CI ENTStart: 07-04-2024 End: 46-18-1138Esvqoa outpatient visit 25 minutesJuan Goldstein MD Work Phone: [facility] CI ENTComment on above:Nasal polyposis (Primary Dx)Start: 07-04-2024 End: 58-58-4150cwuagyrvnvFKQWUP H TIMMISNot AvailableStart: 07-03-2024 End: 27-75-5375Sriebjqsu encounterJuan Goldstein MD Work Phone: [facility] CI ENTComment on above:Med RefillStart: 06-05-2024 End: 95-21-3397jjnltxbyqlLTHHHBluffton Hospital CenterStart: 82-73-2456yvgvdghjzsBYT LEEUC Healthtart: 05-05-2024 End: 01-16-7215wpifgcnjlgOMBOIFNJ RAINMount St. [facility] Hospital Start: 80-93-6541qcxkpvphpuXAAYMarion Hospitaltart: 04-27-2024 End: 10-06-3428fsfvwzpjxcSEHE [facility] Systemtart: 04-26-2024 End: 36-38-8855kqebjbjajvYLPTHCF St. Vincent Hospitaltart: 04-18-2024 End: 52-09-0952olemrrnxreQCNGMarion Hospitaltart: 02-29-2024 End: 73-25-0053zrmnbipaxkCJDQEast Liverpool City Hospitaltart: 01-26-2024 End: 54-69-7044Gmjnwh flowsheetNicole Monroe DO Work Phone: [facility] STATE ROUTEStart: 01-26-2024 End: 76-27-0733Vxomdq flowsheetNicole Monroe DO Work Phone: noMS [facility] STATE ROUTEStart: 01-26-2024 End: 50-18-2652Zlhste outpatient new 45 minutesNicole Monroe DO Work Phone: noMS [facility] STATE ROUTEComment on above:RANJANA (obstructive sleep apnea); Hypersomnia; Snoring; Shift work sleep disorderStart: 01-26-2024 End: 48-05-0763dwsyfnqkziOAZGZU DANNERNot AvailableStart: 01-19-2024 End: 63-77-9815Isrnpe Jovani Goldstein MD Work Phone: [facility] CI ENTStart: 01-19-2024 End: 72-22-3934Juoriq Jovani Goldstein MD Work Phone: [facility] CI ENTStart: 01-19-2024 End: 50-13-3116Hgursf outpatient visit 15 minutesJuan Goldstein MD Work Phone: MS ENTComment on above:Nasal polyposis (Primary Dx)Start: 01-19-2024 End: 22-84-5187orsutmnevdVUIZLQ Michel JHONATANCARLOSSNot AvailableStart: 12-21-2023 End: 04-25-7042jffsxgbewoLGMVAR H TIMMISNot AvailableStart: 11-23-2022 End: 72-69-9317alxdwevublQgrqir H TimmisFacility:FTMCStart: 11-23-2022 End: 45-87-5678Anfryen encounter procedureJuan Goldstein [facility] Start: 09-21-2022 End: 22-45-2412ffovywjinzVK DOCTOR MISCFacility:K6Auwxm: 09-13-2022 End: 93-79-8029uxojtiozglFBEYV LEWIS .Facility:C3Tqnbi: 44-29-1369uyoxcgwsfdFI DOCTOR MISCFacility:W6Uwwij: 27-44-9062Ikyidwgac for preprocedural laboratory examinationDR [facility] HospitalStart: 07-24-2022 End: 67-97-5732zyktuxkddfPY ROSY ROLANDFacility:J2Kncvm: 06-23-2022 End: 24-66-5370vxrkushttcXR KOKO MÁRQUEZFacility:U9Cekly: 04-21-2022 End: 37-22-0791bpyjtkaqlrRM LIV MALDONADO .Facility:H1Okghk: 01-23-2022 End: 63-65-8764cybblhhdlnMO JAKE STFacility:L5Udncs: 01-18-2022 End: 99-04-7957gkzrrwpmqcHJ JAKE STFacility:U9Hmmgl: 08-22-2018 End: 47-40-9858Ejdmjsy encounter procedureAvita Health System Start: 08-01-2018 End: 35-18-7146Tdesfip encounter procedureAvita Health System Start: 07-26-2018 End: 56-30-8565Sysomfc encounter procedureDEFAULT PHYSICIANFacility:UTMCStart: 11-03-2017 End: 27-52-8160AqkkelpWLTQW COMPANYFacility:[facility] Procedures DateProcedureProcedure DetailPerforming ClinicianStart: 94-56-6628JWNJ GENERAL KIRSTINMIKAEL HUGHESStart: 76-03-2165OQVP CODEKIRSTIN HUGHESStart: 15-64-6156HHCAQLHY OXYGEN THERAPY PROTOCOLBLAIR HUGHESStart: 49-05-4698PMUFPIF COMMUNICATIONBL ELLEN Start: 76-51-3651RBHXN SIGNSBL CLARKStart: 07-83-1027HSZRZEHXU PATIENTBLAIR HUGHESStart: 77-80-2232JVUVUVCC OXYGEN THERAPY PROTOCOLBLAIR HUGHESStart: 12-97-8641OGKQEOE COMMUNICATIONKIRSTIN HUGHESStart: 81-33-5026YVKNUY INFORMED CONSENTBLAIR HUGHESStart: 31-17-4747UNJG GENERALKIRSTIN HUGHESStart: 08-01-2018 DISCHARGE PATIENTBLAIR HUGHESStart: 01-66-7430NSWT CODEKIRSTIN HUGHESStart: 26-87-2551ICDNLQMZ OXYGEN THERAPY PROTOCOLKIRSTIN HUGHESStart: 86-93-2755TVMKKSQ COMMUNICATIONKIRSTIN HUGHESStart: 73-45-5071XCIPB SIGNSKIRSTIN CLARKStart: 08-01-2018 INITIATE OXYGEN THERAPY PROTOCOLBLAIR HUGHESStart: 87-50-5078EYWBOFZ COMMUNICATIONKIRSTIN HUGHESStart: 76-55-5972HRMKGK INFORMED CONSENTTIFFANYAIR HUGHES Plan of Treatment DateCare ActivityDetailAuthorStart: 07-03-2025 End: 15-92-7955Nlelkzt encounter vyjkxmkvj68/10/2026 8:30 AM EST Office Visit [facility] [address] [facility] [address] [place] [address] Juan Goldstein MD [address] [facility] [address] [place] [address] [facility] CI ENTStart: 03-73-5460Lppbmtanv vaccination Influenza Vaccine (Season Ended)[facility] HealthcareStart: 11-07-2024 End: 22-95-1903Gdfuoby encounter klpgczoml44/17/2025 8:00 AM EDT Office Visit [facility] [address] [facility] [address] [place] [address] Juan Goldstein MD [address] [place] [address] [facility] CI ENTStart: 07-04-2024 End: 68-64-2470Iqeeivt encounter procedureNOMS CI ENTComment on above:Arrived Start: 01-26-2024 End: 24-46-5616Lzcobdm encounter procedureNOMS SHAVON STATE ROUTEComment on above:ArrivedStart: 02-35-0097Tzfkwctec vaccinationInfluenza Vaccine (#1)[facility] HealthcareStart: 01-19-2024 End: 55-10-5069Qbkmuum encounter qlsubqvfm73/28/2024 8:00 AM EDT Office Visit [facility] [address] [place] [address] Juan Goldstein MD [address] [place] [address] ArrivedNOMS CI ENTComment on above:ArrivedStart: 25-72-4611Xzbflxlgfzaz Vaccine: 65+ Years (1 of 1 - PCV)Pneumococcal Vaccine: 65+ Years (1 of 1 - PCV)[facility] HealthcareStart: 77-34-4242Trurpwtdimwn Vaccine: 65+ Years (1 of 1 - PCV)Pneumococcal Vaccine: 65+ Years (1 of 1 - PCV)[facility] HealthcareStart: 65-09-7819Eliseyooq for malignant neoplasm of colonNONE Healthcare Immunizations Immunization DateImmunizationNotesCare ObsgylpcMjxtnodk86-16-0629OHJW-EmQ-8, UnspecifiedJuan Goldstein MD Work Phone: [facility] Wsxbrlkpnh49-62-0308UUJZ-GjQ-7, UnspecifiedJuan Goldstein MD Work Phone: [facility] HospitalYfsgbjdcup91-29-5709lzfrighan virus vaccine, unspecified formulationJuan Goldstein MD Work Phone: [facility] Healthcare Payers DatePayer CategoryPayerPolicy [id number] HospitalBS [id number] 55-38-6711QsvyhpmLa Palma [facility] [id number] 2020- [address] [address] [place] [address] [id number] [id number] 2018Mqkhqhj83-79-4090Exwemav Health [id number] 2.0.1.751993.3.57[id number] 2.16.1.443251.3.57[id number] 2.0.1.893585.3.57[id number] 2.16840.1.321169.3.57[id number] 2.16840.1.157048.3.57[id number] 2.16840.1.334722.3.57[id number] 2.16840.1.259077.3.57[id number] 2.16.840.1.162499.3.57[id number] 2.16.840.1.836100.3.57[id number] 2.16.840.1.888222.3.57[id number] 2.16.840.1.080006.3.57[id number] 2.16.840.1.407607.3.57[id number] 2.16.840.1.195921.3.57[id number] 2.16.840.1.191429.3.57[id number] 2.16.840.1.032601.3.57[id number] 2.16.840.1.006784.3.579.2.1259 Social History DateTypeDetailFacilityTobacco smoking statusProMedica Flower Hospitaltart: 12-21-2023 End: 27-36-4918Rit Assigned At BirthMalSelect Medical Specialty Hospital - Youngstowntart: 84-49-8929Xhymxqw smoking status NHISNever smoked tobaccoNOMS HealthcareStart: 67-08-1685Wfojylm use and exposureSmokeless tobacco non-userNOMS Healthcare Start: 01-19-2024 End: 75-42-2753Ekkoropxt beverage intakeLifetime non-drinker (finding)[facility] HealthcareStart: 12-21-2023 End: 21-10-3613Afunmxo of Social functionNOMS HealthcareStart: 69-24-1835Seb assigned at birthNot on [facility] Healthcare Clinical Notes 06-23-2022 to 10-30-2024 Note Date & YtirPfkxLehhqheh62-74-4326 NoteBellevue Office Reason for visit: Follow-up, status post A-fib ablation, cardiomyopathy, mitral valve repair, thoracic aortic aneurysm, and hypertension. 10/30/2024 Patient is here for follow-up visit. He states that his blood pressure has been much better since lisinopril dose was increased. He states that he has been doing well. He denies any chest discomfort at rest or with exertion. He denies exertional dyspnea, orthopnea or paroxysmal nocturnal dyspnea. He denies dizziness, syncope or near syncope. He denies palpitations, legs edema or discomfort on exertion. 06/05/2024 Patient is here today for follow-up [...] ascending aortic aneurysm, mitral valve repair at [facility] 2004 and hypertension seen in ED follow-up for new onset atrial fibrillation. He presented to the [facility] emergency department where he was found [...] Medical History: Diagnosis Date Abnormal ECG Aneurysm ASCENDING THORACIC AORTA 4.3 CM Arrhythmia Atrial fibrillation (CMS/HCC) COPD (chronic obstructive pulmonary disease) (CMS/HCC) Heart valve disease Hypertension Obesity BMI 34.04 Sleep apnea PSH: Past Surgical History: Procedure Laterality Date CARDIAC VALVE REPLACEMENT CATARACT EXTRACTION SH: Social Determinants of Health Tobacco Use: Low Risk (10/30/2024) Patient History Smoking Tobacco Use: Never Smokeless Tobacco Use: Never Passive Exposure: Never Alcohol Use: Not At Risk (2018) Received from [employer], [employer] AUDIT-C Frequency of Alcohol Consumption: Never Average Number of Drinks: Not on file Frequency of Binge Drinking: Not on file Financial Resource Strain: Not on file Food Insecurity: Not on file Transportation Needs: Not on file Physical Activity: Not on file Stress: No (more content not included)...[facility] 07-04-2024 History of Present illness Narrative* Juan Goldstein MD - 07/04/2024 9:00 AM EST Subjective Patient ID: Ede Davies is a 64 y.o. male who presents for Nasal Polyps (Refill Dupixent ) Pt has been off Dupixent since March due to a change in insurance. Family History Problem Relation Name Age of Onset Hypertension Mother Coronary artery disease Mother Asthma Father COPD Father COPD Brother Active Ambulatory Problems Diagnosis Date Noted Aneurysm of thoracic aorta ([facility]/HCC) 01/12/2017 Chronic obstructive lung disease ([facility]/HCC) 09/16/2021 Chronic pansinusitis 10/13/2022 Hypertensive disorder ([facility]/HCC) 09/16/2021 Solitary pulmonary nodule 09/16/2021 Nasal polyposis 12/07/2022 Anticoagulated 12/07/2022 Atrial fibrillation ([facility]) 07/04/2024 Benign hypertensive heart disease without congestive heart failure ([facility]) 06/05/2024 Dyspnea 04/29/2018 Elevated IgE level 04/29/2018 Eosinophilia 04/29/2018 Gout 04/12/2023 Heart murmur 04/12/2023 Mitral valve disease 04/12/2023 Nonrheumatic mitral (valve) insufficiency 04/12/2023 Obesity, unspecified 04/12/2023 Osteoarthritis 04/12/2023 Peripheral eosinophilia 04/12/2023 Positive radioallergosorbent test (RAST) 04/29/2018 Presence of prosthetic heart valve 04/12/2023 Resolved Ambulatory Problems Diagnosis Date Noted Arthralgia of upper arm 10/13/2022 History of repair of mitral valve 09/16/2021 Past Medical History: Diagnosis Date Aneurysm (CMS/HCC) 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 lisinopril 5 MG tablet Take 5 mg by mouth in the morning and 5 mg before bedtime. (Patient taking differently: Take 20 mg by mouth Daily) metoprolol tartrate (Lopressor) 25 MG tablet Take 25 mg by mouth in the morning and 25 mg before bedtime. No current facility-administered medications on file prior to visit. Objective Last Recorded Vitals Vitals: 07/04/24 0847 BP: 114/72 Pulse: 81 ENT Physical Exam Nose Nose comments: Chicho nasal polyps. Assessment/Plan Diagnoses and all orders for this visit: Nasal polyposis Polyps exacerbated since pt has been off Dupixent. I will tx with prednisone and augmentin while Dupixent restarted documented in this encounterRay County Memorial HospitalQqyucszrns26-64-4309 Telephone encounter Note* Telephone Encounter - Tricia Goldstein - 07/03/2024 2:11 PM EST Pt is scheduled with Dr Goldstein 07/04/24. [facility] Yckpjeixpi49-61-3335 Miscellaneous Notes* Telephone Encounter - Tricia Goldstein - 07/03/2024 2:11 PM EST Pt is scheduled with Dr Goldstein 07/04/24. * Telephone Encounter - Juan Goldstein MD - 07/03/2024 1:19 PM EST Move up appt * Telephone Encounter - Tricia Goldstein - 07/03/2024 1:10 PM EST As of beginning of this year pt has not used dupixent due to insurance change. He has an appt scheduled for October for the refill but he needs it sooner. Should we reschedule the appt sooner for the refill. He said he was taking it every other week. documented in this encounterNOColumbia Regional HospitalEmjpbwyvuz80-41-9375 Telephone encounter Note* Telephone Encounter - Juan Goldstein MD - 07/03/2024 1:19 PM EST Move up appt [facility] Ivsyrsvesh20-28-6833 Telephone encounter Note* Telephone Encounter - Tricia Goldstein - 07/03/2024 1:10 PM EST As of beginning of this year pt has not used dupixent due to insurance change. He has an appt scheduled for October for the refill but he needs it sooner. Should we reschedule the appt sooner for the refill. He said he was taking it every other week. É MIGUEL DURANT Vdomjoxuim67-62-5133 NoteBellevue Office Reason for visit: Follow-up, status post A-fib [...] ascending aortic aneurysm, mitral valve repair at [facility] 2004 and hypertension seen in ED follow-up for new onset atrial fibrillation. He presented to the [facility] emergency department where he was found [...] Use: Not At Risk (2018) [facility] from [employer], [facility]Go[facility] A[facility] Frequency of Alcohol Consumption: Never Average [...] Allergies Allergen Reactions Erythromycin Shortness of breath Azithrom (more content not included)...[facility] 05-23-2024 NoteCardiac Surgery Follow Up: 62-year-old male with past medical history [...] and follow up in our clinic 12 monthsUnWVUMed[facility]12-13-2024 NoteUT Electrophysiology Consult Note Reason for visit: s/p [...] ascending aortic aneurysm, mitral valve repair at [facility] 2004 and hypertension seen in ED follow-up for new onset atrial fibrillation. He presented to the [facility] emergency department where he was found [...] Use: Not At Risk (2018) Received from [employer], [employer] AUDIT-C Frequency of Alcohol Consumption: Never Average Number of Drinks: Not on file Frequency of Binge Drinking: Not on file Financial Resource Strain: Not on file Food Insecurity: Not on file Transportation Needs: Not on file Physical Activity: Not on file Stress: Not on file Social Connections: Not on file Intimate Partner Violence: Unknown (07/15/2023) [place] Safety & Environment Fear of Current or [...] every day by oral (more content not included)...[facility]12-05-2024 NotePatient: Ede Eva Nabil Procedure Summary Date: 04/27/24 Room / Location: [facility] SPACE TECHNOLOGIST 1 / [facility] (Cath) Anesthesia Start: 0800 Anesthesia [...] were no known notable events for this encounter.[facility]12-05-2024 NoteATRIAL FIBRILLATION ABLATION PROCEDURE NOTE DATE OF PROCEDURE: [...] ascending aortic aneurysm, mitral valve repair at [facility] 2004 and hypertension seen in ED follow-up for new onset atrial fibrillation. He presented to the [facility] emergency department where he was found [...] a radial arterial line was placed by fl. RFV: 8Fx3, [employer] SF Bi-Directional over [...] Entrainment revealed this to (more content not included)...[facility]12-05-2024 NoteAirway Date/Time: 04/27/2024 8:23 AM Urgency: elective Airway not difficult General Information and Staff Patient location during procedure: OR Anesthesiologist: Emmett Lewis MD Resident/TURFGRASS TECHNICIAN/CAA: Fallon Jones MD Performed: resident/TURFGRASS TECHNICIAN/CAA Indications and Patient Condition Indications for airway [...] approach: 1 Number of other approaches [facility]: [id number] NoteArterial Line: Date/Time: 04/27/2024 7:40 AM An arterial [...] mL - 04/27/2024 7:40:00 AM Staffing Performed: resident/TURFGRASS TECHNICIAN/CAA Anesthesiologist: Emmett Lewis MD Resident/TURFGRASS TECHNICIAN: Fallon Jones MD Performed by: Fallon Jones MD Authorized by: Emmett Lewis MDUniversity Hospitals [facility]12-05-2024 NotePatient: Ede Davies Procedure Information Date/Time: 04/27/24 0800 Procedure: Ablation a-fib paroxysmal - PC APPROVED Location: [facility] SPACE TECHNOLOGIST 1 EP / [facility] (Cath) Providers: Nikhil Benson MD Relevant Problems Cardio (+) Aneurysm of thoracic aorta (CMS/HCC) (+) Atrial fibrillation (CMS/HCC) (+) Cardiac murmur (+) Hypertensive disorder (+) Nonrheumatic mitral (valve) insufficiency Pulmonary (+) Chronic obstructive lung disease (CMS/HCC) (+) Severe persistent asthma, uncomplicated Echocardiogram - [place] Name: ZE DAVIES Study Date: 07/26/2018 10:44 AM B/P: 124 mmHg/68 mmHg HR: 53 bpm Date of : 1960 Location: [place] Height: 71 in. Age: 58 year(s) Patient [...] products. Plan discussed with resident. Additional Equipment [facility]sUniversity [facility]11-26-2024 Note [place] Electrophysiology Consult Note Reason for visit: s/p [...] ablation ECHO 07/22/23 06/08/23 Pt is s/p [facility] and is doing better. Has more energy [...] ascending aortic aneurysm, mitral valve repair at [facility] 2004 and hypertension seen in ED follow-up for new onset atrial fibrillation. He presented to the [facility] emergency department where he was found [...] Tobacco Use: Low Risk (01/26/2024) Received from [facility], [facility] Patient History Smoking Tobacco Use: Never Smokeless Tobacco Use: Never Passive Exposure: Not on file Alcohol Use: Not At Risk (2018) [facility] Frequency of Alcohol Consumption: Never Average Number of Drinks: Not on file Frequency of Binge Drinking: Not on file Financial Resource Strain: Not on file Food Insecurity: Not on file Transportation Needs: Not on file Physical Activity: Not on file Stress: Not on file Social Connections: Not on file Intimate Partner Violence: Unknown (07/15/2023) [place] Safety & Environment Fear of Current or [...] injector 300 mg every (more content not included)...[facility]10-08-2024 Note[place] Electrophysiology Consult Note Reason for visit: s/p [...] ascending aortic aneurysm, mitral valve repair at [facility] 2004 and hypertension seen in ED follow-up for new onset atrial fibrillation. He presented to the [facility] emergency department where he was found [...] on file Intimate Partner Violence: Unknown (07/15/2023) [place] Safety & Environment Fear of Current or [...] MOUTH AT BEDTIME 180 (more content not included)...[facility]09-04-2024 History of Present illness Narrative* Nicolas Mejia, DO - 01/26/2024 10:30 AM EDT Images from the original note were not [...] His sleeping times vary. 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 He has a CPAP machine. [...] sleep restful or restorative: Yes Bedtime: Varies, Transplanter Orchid Is it hard or easy to fall [...] History of repair of mitral valve 09/16/2021 skilled nursing (current) use of inhaled steroids Moderate persistent [...] apnea with an apnea-hypopnea index of 28 leadingto daytime hypersomnolence and snoring. Patient now has [...] greater than 4 hours and average nightly usageof 5 hours with a residual AHI of 1.9 therefore it is working when he is using it. He will take it off on his longer our nights and not put it back on. He was counseled he should be wearing this machine whenever sleeping. He has a history of atrial fibrillation and we are trying to prevent him fromgoing back into atrial fibrillation. 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 [DISCONTINUED] montelukast (Singulair) 10 MG tablet [...] defer surgery. Continue dup[ixent documented in this encounterRay County [facility] [id number] NotePROCEDURE: CT ABD/PELVIS WO CON DATE: 09/13/2022 12:22 PM CDT [...] Electronically authenticated by: IGOR BOB Date: 2022-09-13 14:23[facility]01-31-2023 NoteIndication: Diverticulitis. Comparison: 05/22/2019 exam. Procedure: Axial images were [...] Electronically authenticated by: BRENDA PALMA Date: 2022-06-23 20:47[facility] note No data available for this section [facility] Diagnosis Nasal polyposis- Primary Unspecified nasal polyp documented in this encounter [facility] note* Diagnosis RANJANA (obstructive sleep apnea) Obstructive sleep apnea (adult) (pediatric) Hypersomnia Hypersomnia, unspecified Snoring Other dyspnea and respiratory abnormality Shift work sleep disorder Circadian rhythm sleep disorder, shift work type documented in this encounter [facility] HealthcareEvaluation note* Diagnosis Nasal polyposis- Primary Unspecified nasal polyp documented in this encounter [facility] note* Diagnosis Nasal polyposis- Primary Unspecified nasal polyp documented in this encounter [facility] Healthcare[facility] note* Diagnosis Nasal polyposis Unspecified nasal polyp documented in this encounter [facility] HealthcareHospital Discharge instructions No data available for this section [facility] No data available for this section [facility] Summary Purpose Family History No Family History [...] section and content) DATE CREATED AUTHOR 11/09/2017 [facility] DATE CREATED AUTHOR AUTHOR'S ORGANIZ ATION 07/28/2018 [facility] DATE CREATED AUTHOR AUTHOR'S ORGANIZ ATION 08/25/2018 [facility] DATE CREATED AUTHOR AUTHOR'S ORGANIZ ATION 10/02/2022 [facility] DATE CREATED AUTHOR AUTHOR'S ORGANIZ ATION 11/24/2022 [facility] DATE CREATED AUTHOR AUTHOR'S ORGANIZ ATION 07/05/2024 [facility] DATE CREATED AUTHOR AUTHOR'S ORGANIZ ATION 02/24/2025 [facility] Patient Care team informatio n (unrecognized section and content) Team MemberRelationshipSpecialtyStart DateEnd Date Jake St MD [address] [place] [address] PCP - Generalmily Medicine10/26/22Team MemberRelationshipSpecialtyStart DateEnd Date Jake St MD [address] [place] [address] PCP - GeneralFamily Medicine10/26/22Team MemberRelationshipSpecialtyStart DateEnd Date Jake St MD [address] [place] [address] PCP - Generalmily Medicine10/26/22Team MemberRelationshipSpecialtyStart DateEnd Date Jake St MD [address] [place] [address] PCP - [facility]10/26/22Te MemberRelationshipSpecialtyStart DateEnd [facility] Jake St MD [address] [place] [address] PCP - [facility]10/26/22Te MemberRelationshipSpecialtyStston[facility] Jake St MD [address] [place] [address] [facility] - [facility]10/26/22Te MemberRelationshipSpecialtyStstonington Date[facility] Jake St MD [address] [place] [address] PCP - [facility]10/26/22Te MemberRelationshipSpecialtyStstonington Date[facility] Jake St MD [address] [place] [address] [facility] - [facility]10/26/22Te MemberRelationsSaint John's HospitalialtyStSaint [facility] Jake St MD [address] [place] [address] PCP - [facility]10/26/22 Reason for Visit (unrecogniz ed section and content) ReasonCommentsSinusitis1 mo follow upReasonCommentsSleep ApneaReasonOnset Date CommentsMed Gvsgsq6607/03/2024ReasonCommentsNasal PolypsRefill DupixentReason CommentsNew Med RequestReasonCommentsMed Refill FOR RECORDS PERTAINING TO PATIENTS WHO ARE [...] BE BASED ON THE PRIMARY CLINICAL RECORDS. [facility]. provides no warranty or guarantee of the accuracy or completeness of information in this document.
--- NOTE | 2025-04-02 08:26 | CT_ITS ---
The [address] [address] Patient Name: GINA DAVIES MRN: [id number] date: 1960 Sex: M Assigned Patient Location: LAB Current Patient Location: LAB Accession/Order Number: [id number] Exam Date: 04/02/2025 09:00 Report Date: 04/02/2025 09:49 At the request of: GILBERTO WELSH MD Procedure: CT angio chest CTA CHEST WITH CONTRAST CLINICAL HISTORY: Follow-up thoracic aortic aneurysm COMPARISON: 04/03/2024 TECHNIQUE: Spiral images were obtained through the chest following intravenous administration of 100 mL of Omnipaque 350. Images were reviewed using both narrow and wide window settings. Sagittal, coronal and 3 D volume-rendered reconstructions were performed and reviewed. This CT exam was performed using one or more following dose reduction techniques: Automated exposure control, adjustment of the mA and/or kV according to patient size, or use of iterative reconstruction technique. FINDINGS: There is prior median sternotomy. The heart is top normal in size. 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 There is no pericardial effusion. Mild coronary artery disease is seen. There is continued mild dilatation of the ascending aorta with diameter 4.3 cm. No dissection is seen. There is adequate opacification of the pulmonary arteries. No emboli are identified. Similar small mediastinal lymph nodes are seen. There is thoracic dextroscoliotic curvature and tiny endplate spurs. Dependent atelectasis is present. There is no developing consolidation, effusion or pneumothorax. An 8 mm left lower lobe pulmonary nodule is again visualized and is unchanged. Limited cuts through the upper abdomen show renal cortical scarring. CT/CT angio chest IMPRESSION: STABLE MILD DILATATION ASCENDING AORTA. NO CT EVIDENCE OF PULMONARY EMBOLISM. STABLE LEFT LOWER LOBE PULMONARY NODULE. NO ACUTE INTRATHORACIC FINDINGS. Impression dictated by: Cristal Alcaraz M.D. 04/02/2025 9:49 AM Dictation Location: [place] [address] Electronically authenticated by: [id number] Y Date: 04/02/2025 09:49
[2025-04-02 08:36] LABS: Estimated GFR (African America 46 (>=60 mL/min/1.73m^2); Estimated GFR (Non-African Ame 38 (>=60 mL/min/1.73m^2)
== END 2025-04-02 08:16 | disposition home or self-care (01) ==
LOC: LAB 08:15
PROVIDERS: PCP Family Medicine; Visit Provider Internal Medicine Cardiovascular Disease
DX: I71.21 Aneurysm of the ascending aorta, without rupture (principal); R91.1 Solitary pulmonary nodule
CPT/HCPCS: 36415; 71275; 82565; Q9967

== ENCOUNTER 2025-05-04 08:28 | Outpatient (OUT) | payer BC, SELFPAY ==
--- OUTSIDE RECORDS SUMMARY | 2025-05-04 08:32 | XMS_ITS | CCD ---
Author Organization [facility] Team Providers Care Tax Manager Public Name Role Phone COMPANY, [employer] Unavailable Unavailable [...] Admitting Unavailable HOUSE, DR CONNORS Attending Unavailable WALL, DR ROSY Muhammad Consulting Unavailable HOUSE, DR [...] MACIEL, DR CONNORS Primary Care Unavailable IGOR BBO Consulting Unavailable WILLI, DR KOKO Canales Admitting Unavailsandor e MACIEL, DR CONNORS Primary Care Unavailable SHANTHI ., DARRICK TIMMONS Consulting Unavailabl josé miguel MÁRQUEZ, DR KOKO Canales Attending Unavailabl e BRENDA PALMA Consulting Unavailable ERICA ., DR PECK Attending Unavailable ERICA ., DR PECK Consulting Unavailable REICA ., DR PECK Admitting Unavailable MACIEL, DR CONNORS Primary Care Unavailable MACIEL, DR CONNORS Primary Care Unavailable WILLI, DR KOKO Canales Attending Unavailabl josé imguel MÁRQUEZ, DR KOKO Canales Consulting Unavailabl josé miguel MÁRQUEZ, DR KOKO Canales Admitting Unavailabl e RANULFO BREWER Consulting Unavailable Jake St Primary Care Physician Juan Goldstein Referring Unavailable Juan Glodstein Attending Unavailable Juan Goldstein Admitting Unavailable Jake [...] Allergen(s)Allergy TypeDate of OnsetReaction(s) Facility (13 sources)ErythromycinDrug Pppvzyd04-94-4628Fxf [facility] Repository (1 source)NiacinDrug Azchlpd30-13-8199Eod [facility] Repository (13 sources)Azithromycin; Translations: [AZITHROMYCIN]Drug Gzlavng23-51-5430[facility] Work Phone: (12 sources)NiacinDrug Ysxjxio43-68-1256[facility] (1 source)Erythromycin; Translations: [ERYTHROMYCIN]Drug Sabvzya74-06-1125 [facility] Repository Medications Current Medications MedicationDrug Class(es)DatesSig (Normalized)Sig (Original)albuterol 0.833 mg/ml / ipratropium bromide 0.167 mg/ml inhalation solution (12 sources)Anticholinergic, beta2-Adrenergic Agonistipratropium-albuterol (Duo- Neb) 0.5-2.5 mg/3 mL nebulizer solution Take 3 mL by nebulization in themorning and 3 mL in the evening and 3 mL before bedtime. Activeamiodarone hydrochloride 200 mg oral tablet (3 sources)AntiarrhythmicStart: 09-22-2022 End: 78-88-5579ljeczycpdr (Pacerone) 200 MG tablet Take by mouth. 09/22/2022 01/19/2024 Discontinued (Therapy completed)amoxicillin 875 mg / clavulanate 125 mg oral tablet (3 sources)Penicillin-class AntibacterialStart: 07-04-2024 End: 79-32-3634yryt 1 tablet by mouth in the morningamoxicillin-clavulanate (Augmentin) 875-125 MG tablet Indications: Nasal polyposis Take 1 tablet (875 mg) by mouth in the morning and 1 tablet (875 mg) before bedtime. Do all this for 10 days. 20 tablet 07/04/2024 07/14/2024 Activeapixaban 5 mg oral tablet (12 sources)Factor Xa InhibitorStart: 04-14-7582vocdeccb (Eliquis) 5 MG tablet Take by mouth twice a day. 09/14/2022 Activeaspirin 81 mg chewable tablet (12 sources)Platelet Aggregation Inhibitor, Nonsteroidal Anti-inflammatory Drug aspirin 81 MG chewable tablet Chew 81 mg 1 (one) time. Activeatorvastatin 20 mg oral tablet (3 sources)HMG-CoA Reductase Inhibitor End: 91-41-8451bkop 1 tablet by mouth once dailyatorvastatin (Lipitor) 20 MG tablet Take 20 mg by mouth 1 (one) time each day at the same time. 01/19/2024 Discontinued (Therapy completed)2 ml dupilumab 150 mg/ml auto-injector (14 sources)Interleukin-4 Receptor alpha AntagonistStart: 10-83-4795Fahcbdboz (Dupixent) 300 MG/2ML solution auto-injector Indications: Nasal polyposis INJECT 1 PEN UNDER THE SKIN EVERY OTHER WEEK 12 mL 3 10/04/2024 ActiveStart: 07-10-2024 End: 36-53-8837Unnpgtwti (Dupixent) 300 MG/2ML solution auto-injector Indications: Nasal polyposis 1 injection every other week for 90 days 12 mL 07/10/2024 10/04/2024 DiscontinuedStart: 03-18-2023 End: 46-20-1035Ndsohenp 300 MG/2ML injection Inject 300 mg under the skin every 14 (fourteen) days 03/18/2023 07/10/2024 Discontinuedfluticasone propionate 0.05 mg/actuat metered dose nasal spray (12 sources)CorticosteroidStart: 12-21-2023 End: 41-73-5869coco 2 spray(s) nasal route once dailyfluticasone (Flonase) [...] 25 mg oral tablet (11 sources)beta-Adrenergic BlockerStart: 66-16-4468sujp 1 tablet by mouth in the morningmetoprolol tartrate (Lopressor) 25 MG tablet Take 25 mg by mouth in the morning and 25 mg before bedtime. 08/27/2022 Activemontelukast 10 mg oral tablet (3 sources)Leukotriene Receptor AntagonistStart: 12-21-2023 End: 29-90-7957teff 1 tablet by mouth at bedtimemontelukast (Singulair) 10 MG tablet Indications: Nasal polyposis Take 1 tablet (10 mg) by mouth atbedtime 90 tablet 3 12/21/2023 01/19/2024 Discontinued (Therapy completed)predniSONE 20 mg oral tablet (3 sources)Start: 07-04-2024 End: 42-86-1451cbtd 1 tablet by mouth in the morningpredniSONE (Deltasone) 20 MG tablet Indications: Nasal polyposis Take 1 tablet (20 mg) by mouth in the morning and 1 tablet (20 mg) before bedtime. Do all this for 6 days. 12 tablet 07/04/2024 07/10/2024 Activesaccharomyces boulardii 250 mg oral capsule (3 sources)Start: 10-04-2019 End: 89-90-8758zmsa 1 capsule by mouth in the morningsaccharomyces boulardii (Florastor) 250 MG capsule Take 250 mg by mouth in the morning and 250 mg before bedtime. 10/04/2019 01/19/2024 Discontinued (Therapy completed) Problems Active Problems Problem ClassificationProblemDateDocumented DateEpisodic/ChronicAbdominal pain (5 sources)Unspecified abdominal pain; Translations: [UNSPECIFIED ABDOMINAL PAIN]Onset: 14-98-9012NcxbbwsrQswryspqkutjdw/social admission (1 source)Encounter for pre-employment examination; Translations: [Encounter for pre-employment examination]Onset: 27-93-4950KxlwnhnaQvymsp; peripheral; and visceral artery aneurysms (12 sources)Aneurysm of thoracic aorta; Translations: [Aneurysm of thoracic aorta]Onset: 071429-56-4324XoaiaymQfridnu dysrhythmias (7 sources)Unspecified atrial fibrillation; Translations: [Atrial fibrillation] Onset: 340542-61-6473BkpxlsdJqrwcopi (2 sources)Cataract; Translations: [AGE RELATED NUCLEAR CATARACT-LEFT EYE, 2+NS 2+CS]Onset: 05-86-0780Tztujfe obstructive pulmonary disease and bronchiectasis (13 sources)Chronic obstructive pulmonary disease, unspecified; Translations: [Chronic obstructive lung disease]Onset: 236248-96-1344GrffgavXskozljo of white blood cells (8 sources)Eosinophil count raised; Translations: [Eosinophilia]Onset: 086935-03-7651QdrrsoqVistpfmmq of lipid metabolism (2 sources)Mixed hyperlipidemia; Translations: [Mixed hyperlipidemia]Onset: 68-23-9491ZldkoynSbasbrwsk hypertension (12 sources)Hypertensive disorder; Translations: [Essential (primary) hypertension]Onset: 647608-97-7696YnuzdrqGmiz and other crystal arthropathies (4 sources)Gout; Translations: [Gout, unspecified]Onset: ChronicHeart valve disorders (13 sources)Presence of prosthetic heart valve; Translations: [Mitral valve disorder]Onset: 746177-02-3044UyamtrhLnoecnzfrkht with complications and secondary hypertension (6 sources)Benign hypertensive heart disease without congestive heart failure; Translations: [Hypertensive heart disease without heart failure]Onset: 788486-76-3966BhqsrpwGfvxdz and vomiting (5 sources)Nausea; Translations: [Vomiting, unspecified]Onset: 06-23-2022 EpisodicOsteoarthritis (4 sources)Osteoarthritis; Translations: [Unspecified osteoarthritis, unspecified site]Onset: 258332-10-4418MmwmqkhQczrs lower respiratory disease (1 source)Personal history of pneumonia (recurrent); Translations: [PERSONAL HX OF PNEUMONIA RECURRENT]Onset: 18-87-5197OvizrxfwWjhxu nervous system disorders (2 sources)Circadian rhythm sleep disorder of shift work type; Translations: [Circadian rhythm sleep disorder,shift work type]74-62-8706McngkqgZlllb nutritional; endocrine; and metabolic disorders (4 sources)Obesity; Translations: [Obesity, unspecified]Onset: 04-12-2023 68-99-1755EdrlvtoJeixz upper respiratory disease (18 sources)Polyp of nasal cavity and/or nasal sinus; Translations: [Nasal polyp, unspecified]Onset: 108055-79-8387IhtjadcgJyiix upper respiratory infections (12 sources)Chronic pansinusitis; Translations: [Chronic pansinusitis]Onset: 081080-54-0699XzrbqmyXobjojkd codes; unclassified (2 sources)Obstructive sleep apnea syndrome; Translations: [Obstructive sleep apnea (adult) (pediatric)]62-54-7169JxqdcwmUannmdoy codes; unclassified (2 sources)Hypersomnia; Translations: [Hypersomnia, unspecified]01-26-2024 ChronicUnclassified (2 sources)AGE RELATED NUCLEAR CAT- 2+NS, 2+CS; Translations: [AGE RELATED NUCLEAR CAT- 2+NS, 2+CS]Onset: 02-33-7267Xqqqtwtzmtic (3 sources)THORAC AORTC ANEURYSM W/O RUPTR UNS; Translations: [THORAC AORTC ANEURYSM W/O RUPTR UNS]Onset: 61-91-9812Xnhmttotohdr (3 sources)CONTACT W/AND (SUSP) EXPOS COVID-19; Translations: [CONTACT W/AND (SUSP) EXPOS COVID-19]Onset: 37-96-6084Mfpzmwunwrml (2 sources)COUGH, UNSPECIFIED; Translations: [COUGH, UNSPECIFIED]Onset: 52-87-6471Rgazacdbsvkr (1 source)Aneurysm of the ascending aorta, without rupture; Translations: [Aneurysm of the ascending aorta, without rupture]Onset: 11-42-3930Zmyuu infection (1 source)COVID-19; Translations: [COVID-19]Onset: 01-19-2022 Past or Other Problems Problem ClassificationProblemDateDocumented DateEpisodic/ChronicAllergic reactions (4 sources)Allergy test positive; Translations: [Other allergy, initial encounter]Onset: 273090-97-8459GqtqnyoaKmlga valve disorders (4 sources)Heart murmur; Translations: [Cardiac murmur, unspecified]Onset: 419002-09-8757SpwwznvmMlygyparaibih and screening for infectious disease (4 sources)Increased immunoglobulin; Translations: [Other specified abnormal immunological findings in serum]Onset: 973069-88-4595RmszlwgkDejga aftercare (3 sources)Other watermelon inspector (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; Translations: [OTH EMERGENCY PLANNER CURRENT DRUG THERAPY]Onset: 14-80-7150SjbzmudwNkzkw aftercare (12 sources)Drug therapy finding; Translations: [long-term (current) use of anticoagulants]Onset: 495171-27-7193PdazlbuaLmngj gastrointestinal disorders (1 source)Diarrhea, unspecified; Translations: [DIARRHEA UNSPECIFIED]Onset: 17-83-8872PyiyuuqlBbmer lower respiratory disease (12 sources)Solitary nodule of lung; Translations: [Solitary pulmonary nodule] Onset: 105876-71-8245QypgwbccAuqll lower respiratory disease (2 sources)Snoring; Translations: [Snoring]89-95-5602CojdmwhpGkwmv lower respiratory disease (4 sources)Dyspnea; Translations: [Dyspnea, unspecified]Onset: 04-29-2018 00-22-2087VxojpxznMsjlm male genital disorders (1 source)Scrotal pain; Translations: [SCROTAL PAIN]Onset: 07-61-0261Ojulbadv Other non-traumatic joint disorders (11 sources)Arthralgia of the upper arm; Translations: [Pain in unspecified elbow]Onset: 10-13-2022 Resolved: 851591-28-6635PrywtoyoGvplo non-traumatic joint disorders (1 source)Pain in upper arm; Translations: [Pain in unspecified elbow]Onset: 10-13-2022 Resolved: 513230-68-9841OdqtvikcAsarv upper respiratory disease (3 sources)Nasal congestion; Translations: [NASAL CONGESTION]Onset: 04-21-2022 EpisodicOther upper respiratory infections (1 source)Acute sinusitis, unspecified; Translations: [ACUTE SINUSITIS UNSPECIFIED]Onset: 27-14-5850YiafafgxFnfujqcq codes; unclassified (12 sources)History of repair of mitral valve; Translations: [Other specified postprocedural states]Onset: 09-16-2021 Resolved: 885892-23-2580YppsylylLzbccdes codes; unclassified (2 sources)Other specified postprocedural states; Translations: [Other specified postprocedural states]Onset: 22-17-7266TwjerihqQvfyesgnuozc (1 source)THORAC AORTC ANEURYSM W/O RUPTR UNS; Translations: [THORAC AORTC ANEURYSM W/O RUPTR UNS]Onset: 65-51-3850Gavomrbavbdy (1 source)CONTACT W/AND (SUSP) EXPOS COVID-19; Translations: [CONTACT W/AND (SUSP) EXPOS COVID-19]Onset: 03-97-9635Gmwmperlxqnh (1 source)COUGH, UNSPECIFIED; Translations: [COUGH, UNSPECIFIED]Onset: 05-90-3811Sauvwzaqawda (1 source)Aneurysm of the ascending aorta, without rupture; Translations: [Aneurysm of the ascending aorta, without rupture]Onset: 61-09-2842Wycehhv tract infections (1 source)Tubulo-interstitial nephritis, not specified as acute or chronic; Translations: [TUBULO-INTERST NEPHRIT NOT AC/CHRN]Onset: 08-81-4432Rvdmzheb Results Test NameValueInterpretationReference RangeFacilityOffice Visiton 10-30-2024 Follow-up [id number] Ede Davies 1960 M Date Provider Department Center 10/30/2024 GILBERTO CATALAN Family History Problem Relation Age of Onset Other Mother Coronary artery disease Mother Family Status - Relation Status Age at Mother Father Level of Service:35387 [place] OFFICE/OUTPATIENT ESTABLISHED MOD MDM 30 MIN Reason for Visit and Comments: Hypertension [452554] Atrial Fibrillation [80] Valve Disorder [3372]NormalUpper Valley Medical CenterOffice Visiton 50-01-8189Eprelu-up [id number] Delgado Daviesy D 1960 Date Provider Department Center 06/05/2024 04947-TSVIVK NADIYAZOEY [facility]on [facility] Family History Problem Relation Age of Onset Other Mother Coronary artery disease Mother Family Status - Relation Status Age at Mother Father Level of Service:92405 [place] OFFICE/OUTPATIENT ESTABLISHED MOD MDM 30 MIN Reason for Visit and Comments: Atrial Fibrillation [80] - Denies palpitations, lightheadedness/syncope, and bleeding on Eliquis. Follow up afib ablation [Other] - 1 mo s/p afib ablation on 04/27/2024 Hypertension [669207] - Takes lisinopril and metoprolol both bid. Thoracic aortic aneurysm [Other][facility] Abstracton [id number] DaviesEde pedro 1960 M Date Provider Department Center 05/25/20242019[facility] Family History Problem Relation Age of Onset Other Mother Coronary artery disease Mother Family Status - Relation Status Age at MotherNormalUniversOhioHealth Berger HospitalFollow-Upon 08-05-4101Hfeatq-Up [id number] DaviesEde pedro 1960 [facility] Provider Department Center 05/23/2024 85090-MKL, J[facility] Family History Problem Relation Age of Onset Other Mother Coronary artery disease Mother Family Status - Relation Status Age at Mother Level of Service:11827 [place] OFFICE/OP CONSLTJ NEW/EST PT MOD MDM 40 MINUTES Reason for Visit and Comments: Follow-up [365045] - Aortic Aneurysm Surveilance CT 04/03/24 @ Shavon Reports in Media and images uploaded under imaging.[facility] MemorialTelephoneon [id number] DaviesEde pedro 1960 Date Provider Department Center 05/11/2024 1987-WILLIS RUBALCAVA [facility] VASC LAB [place] HeartVAS Family History Problem Relation Age of Onset Other Mother Coronary artery disease Mother Family Status - Relation Status Age at Mother Reason for Visit and Comments: afib ablation f/u [Other][facility]36on 78-73-554221Pgdk sba underwriter returned phone call to patient from voicemail message he left regarding moving his appointment up. Patient confused and had moved up cardiology appointment not our appointment. I reviewed appointment details again with patient.[facility]37on 48-72-902435Jtlcgbjm all medications as prescribed. Return to clinic in 2 months.[facility] MemorialFollow-Up on 57-23-4725Pbobgq-[id number] Ede Davies 1960 M Date Provider Department Center 05/05/2024 27622-GHOYDBJACONNIE WOOTEN [facility] CARD [place] HeartVAS Family History Problem Relation Age of Onset Other Mother Coronary artery disease Mother Family Status - Relation Status Age at Mother Level of Service:83439 [place] OFFICE/OUTPATIENT ESTABLISHED LOW [facility] 87-67-7056ZROH Electrophysiology Consult Note Reason for visit: s/p [...] ascending aortic aneurysm, mitral valve repair at [facility] 2004 and hypertension seen in ED follow-up for new onset atrial fibrillation. He presented to the [facility] emergency department where he was found [...] Use: Not At Risk (2018) Received from [employer], [employer] AUDIT-C Frequency of Alcohol Consumption: Never Average Number of Drinks: Not on file Frequency of Binge Drinking: Not on file Financial Resource Strain: Not on file Food Insecurity: Not on file Transportation Needs: Not on file Physical Activity: Not on file Stress: Not on file Social Connections: Not on file Intimate Partner Violence: Unknown (07/15/2023) [place] Safety & Environment Fear of Current or [...] Last dose 09/20 ipratropium (more content not included)...NormalUnNewark HospitalNURSNOTEon 44-01-9352EEUFPHQLZxnpe is at bedside delivering prescriptions [facility] MemorialNURSNOTEGave discharge instructions to patient and familyNormalUniversOhioHealth Berger HospitalNURSNOTEFamily is at bedsideNormalUniversOhioHealth Berger HospitalNURSNOTEEKG is at bedsideNoal [facility] CenterPOCT GLUCOSE METER UNSOLICITED RESULTSon 20-23-0260Ttwofrb [Mass/Vol]108 mg/zOKiem23-323FwanbsvfjrNewark HospitalComment on above:Order Comment: Waived Testing in the ED is performed under the ED CLIA certificate #[id number].Result Comment: [id number] By: #### [id number] ####[facility] (BEAKER)[address] [place] [address] PROTIME-INRon 66-20-0676ZBT IN PPP BY COAGULATION ASSAY1.88Hopwjb1.90-1.10 [facility] Medical CenterComment on above:Result Comment: ACC RECOMMENDED [...] OPTIMAL THERAPEUTIC RANGE. CHEST 1995;108:231S-246S.Performed By: #### [id number] ####[facility] (BEFELICITA)[address] [place], [place] [address]PVIVGCBCNLK TIME (PT) IN PPP BY COAGULATION ASSAY14.0 FfuhfycDqfswi46.3-14.8UnNewark HospitalComment on above:Performed By: #### [id number] ####[facility] (BEAKER)[address] [place], [place] [address]Yhjv for Procedureon 82-04-3361Meba for [id number] Ede Davies 1960 M Date Provider Department Center 04/27/20241986-WILLIS RUBALCAVA [facility] Family History Problem Relation Age of Onset Other Mother Coronary artery disease Mother Family Status - Relation Status Age at MotherNormalUniversOhioHealth Berger HospitalFollow-Upon 32-26-2953Gqlscn-Up [id number] DaviesEde pedro 1960 M Date Provider Department Center 04/18/2024 NIKHIL SANDERS LAURIE Day Family History Problem Relation Age of Onset Other Mother Coronary artery disease Mother Family Status - Relation Status Age at Mother Level of Service:08509 [place] OFFICE/OUTPATIENT ESTABLISHED HIGH MDM [facility] [id number] DaviesEde pedro 1960 M Date Provider Department Center 03/28/20242019-WALTER ALAN HVCTS [place] HeartVAS Family History Problem Relation Age of Onset Other Mother Coronary artery disease Mother Family Status - Relation Status [facility] for Procedureon 03-01-2024 Prep for [id number] DaviesEde pedro 1960 M Date Provider Department Center 03/01/2024 1987-WILLIS RUBALCAVA [facility] VASC LAB [place] HeartVAS Family History Problem Relation Age of Onset Other Mother Coronary artery disease Mother Family Status - Relation Status Age at MotherPutnam County Memorial HospitalalUniTrumbull Memorial HospitalOffice Visiton 38-68-8366Kkspsx- up [id number] DaviesEde pedro 1960 M Date Provider Department Center 02/29/2024 241-NIKHIL BENSON LAURIE Day Family History Problem Relation Age of Onset Other Mother Coronary artery disease Mother Family Status - Relation Status Age at Mother Level of Service:94533 [place] OFFICE/OUTPATIENT ESTABLISHED LOW MDM [facility]CT Maxillofacial w/o Contraston 72-50-2429SN Maxillofacial w/o ContrastExam Date/Time: 11/23/2022 07:03 EDT [...] Toney Kamara MD Transcribed by: ERWIN Technologist: [facility] City HospitalConsent for Treatmenton 72-42-0179Gouzqhg for Treatment [id number]:127[facility] HospitalPhysician Orderon 19-55-0463Guonraxwj Order [id number]#1.00CD:127[facility] HospitalECHOCARDIO M/2D COMPLETEon 91-89-2869CBZKNCWYSN M/2D COMPLETEPatient: EDE DAVIES Exam Date: 09/21/2022 : 1960 Gender:M Ordering : MRS. DENISE HIGGINS SEWAGE DISPOSAL WORKER Admission #: [id number] Family : DR JAKE ST D.OMague Order #: [id number] CLICK HERE TO VIEW EXAM ECHOCARDIOGRAM REPORT [...] Approved by: Nikhil Benson on 09/22/2022 at 12:18[facility]uff[facility] HospitalCBC AUTO DIFFon 45-86-9364XLUZ #0.1 103/ulNormal0.0-0.1The [facility] HospitalComment on above:Performed By: #### CBC #### [facility] [address] [address] [address] Reynaldo LiuBasophils/100 WBC (Bld)0.6 %Normal0.2-2.0The [facility] Comment on above:Performed By: #### CBC #### [facility] [address] [address] [address] Reynaldo Lugo #0.5 103/ulNormal0.0-0.7The [facility] HospitalComment on above: Performed By: #### CBC #### [facility] [address] [address] [address] Reynaldo Doyleosinophils/100 WBC (Bld)4.4 %Normal0.9-7.0The [facility] Comment on above:Performed By: #### CBC #### [facility] [address] [address] [address] Reynaldo Doylerythrocyte distribution width (RBC) [Ratio]13.5 %Pwrota81.0-15.0 The [facility] HospitalComment on above:Performed By: #### CBC #### [facility] [address] [address] [address] Reynaldo LiuHematocrit (Bld) [Volume fraction]44.5 %Bqfpnm98.0-54.0The [facility] HospitalComment on above:Performed By: #### CBC #### [facility] [address] [address] [address] Reynaldo LiuHemoglobin (Bld) [Mass/Vol]14.5 g/mTUiiovn65.0-18.0The [facility] HospitalComment on above:Performed By: #### CBC #### [facility] [address] [address] [address] Reynaldo Metzger #0.03 10e3/ulNormal0.00-0.03The [facility] HospitalComment on above:Performed By: #### CBC #### [facility] [address] [address] [address] Reynaldo Metzger %0.3 %Normal0.0-0.5The [facility] HospitalComment on above: Performed By: #### CBC #### [facility] [address] [address] [address] Reynaldo Schofield #2.7 103/ulNormal1.2-3.8The [facility] HospitalComment on above:Performed By: #### CBC #### [facility] [address] [address] [address] Reynaldo Walkerhocytes/100 WBC (Bld)25.0 %Kxhnkc63.5-60.0The [facility] HospitalComment on above:Performed By: #### CBC #### [facility] [address] [place] [address] Dr. Reynaldo Churchill DIFF REQNONormalThe [facility] HospitalComment on above: Performed By: #### CBC #### [facility] [address] [address] [address] Reynaldo Chavez (RBC) [Entitic mass]29.6 xsOnsref53.9-34.0The [facility] HospitalComment on above:Performed By: #### CBC #### [facility] [address] [place] [address] Dr. Reynaldo Chavez (RBC) [Mass/Vol]32.6 g/dXGecowr85.9-35.2The [facility] HospitalComment on above:Performed By: #### CBC #### [facility] [address] [place] [address] Dr. Reynaldo Chavez (RBC) [Entitic vol]90.8 gQLwaccw24.0-94.0The [facility] HospitalComment on above:Performed By: #### CBC #### [facility] [address] [place] [address] Dr. Reynaldo Garcia #1.0 103/ulCritically high0.3-0.8The [facility] Comment on above:Performed By: #### CBC #### [facility] [address] [address] [address] Reynaldo Garciaocytes/100 WBC (Bld)9.3 %Normal1.7-12.0The [facility] Comment on above:Performed By: #### CBC #### [facility] [address] [place] [address] Dr. Reynaldo MontemayorUT #6.6 103/ulCritically high1.4-6.5The [facility] Comment on above:Performed By: #### CBC #### [facility] [address] [place] [address] Dr. Reynaldo Montemayorutrophils/100 WBC (Bld)60.4 %Cvmmgu43.0-75.0The [facility] HospitalComment on above:Performed By: #### CBC #### [facility] [address] [place] [address] Dr. Reynaldo Berrylet mean volume (Bld) [Entitic vol]10.6 fLNormal9.5-13.5The [facility] HospitalComment on above:Performed By: #### CBC #### [facility] [address] [place] [address] Dr. Reynaldo LiuPLT298 103/vrRpxgkl944-200Oue [facility] HospitalComment on above: Performed By: #### CBC #### [facility] [address] [place] [address] Dr. Reynaldo LiuRBC4.90 106/ulNormal4.70-6.10The [facility] HospitalComment on above:Performed By: #### CBC #### [facility] [address] [place] [address] Dr. Reynaldo LiuWBC10.9 103/ulNormal4.0-11.0The [facility] HospitalComment on above:Performed By: #### CBC #### [facility] [address] [place] [address] Dr. Jacobs ChangER URINE PROFILEon 03-07-0960Rvmmbiccf Ql (U)NegativeNormal NEGATIVEThe [place] HospitalComment on above:Performed By: #### ERUR ####[facility] [address] [address]Dr. Yilan ChangClarity (U)CLEARNormalCLEARSelect Medical [facility] HospitalComment on above: Performed By: #### ERUR ####[facility] Uxtzrlallc[address] [place], [place] [address]Dr. Yilan ChangColor (U)LT. YELLOWNormalYELLOWSelect Medical [facility] HospitalComment on above:Performed By: #### ERUR ####[facility] Ptshwfwvvn6[address] [place], [place] [address]Dr. Yilan ChangERUAHDA micrscopic examination will be performed if indicated.NormalThe [place] HospitalComment on above:Performed By: #### ERUR ####[facility] Zqkemljpye[address] [place], [place] [address]Dr. Yilan ChangGlucose Ql (U) NegativeNormalNEGATIVESelect Medical [facility] HospitalComment on above:Performed By: #### ERUR ####[facility] Afwnwtwpqg72[address] [place], [place] [address]Dr. Yilan ChangHemoglobin Ql (U)NegativeNormalNEGATIVEUniversity Hospitals Ahuja [facility] Center Comment on above:Performed By: #### ERUR ####[facility] Qzyayierro[address] [place], [place] [address]Dr. Yilan ChangKetones Ql (U)NegativeNormal NEGATIVEUniversity Hospitals Ahuja Medical CenterComment on above:Performed By: #### ERUR ####[facility] Nymmevewpa60[address] [place], [place] [address]Dr. Yilan ChangLEUKOCYTESNegativeNormalNEGATIVESelect Medical [facility] HospitalComment on above:Performed By: #### ERUR ####[facility] Ovpvztjxfi10[address] [place], [place] [address]Dr. Yilan ChangNitrite Ql (U)NegativeNormalNEGATIVEUniversity Hospitals Ahuja Medical CenterComment on above:Performed By: #### ERUR ####[facility] Sxtfutzgis[address] [place], [place] [address]Dr. Yilan ChangpH (U)6.5 [pH] Normal5-9The [facility] HospitalComment on above:Performed By: #### ERUR ####[facility] Pwnsnymcsb[address] [place] [address]Dr. Reynaldo LiuSPEC GRAVITY1.272Tikmsh7.005-<=1.025The [facility] HospitalComment on above:Performed By: #### ERUR ####[facility] Bl[address]yeclon[address] [place] [address]Dr. Reynaldo LiuUA PROTEINNegativeNormalNEGATIVE/ TRACE The [facility] HospitalComment on above:Performed By: #### ERUR ####[facility] Lybsbfxdgz[address] [place] [place] [address]Dr. Reynaldo LiuUR MICRO INDNOT INDICATEDNormalThe [facility] HospitalComment on above:Performed By: #### ERUR ####[facility] Ydasixjryr[address] [place] [place] [address]Dr. Reynaldo LiuUrobilinogen Qn (U)0.2 {Pastor'U}/dLNormal0.2 - 1.0The [facility] HospitalComment on above:Performed By: #### ERUR ####[facility] Svnnmiqymt[address] [place] [place] [address]DrMague LiuPROF CHEM 8 (BAS METB)on 22-16-4848Aguyr gap [Moles/Vol]11.9 mmol/LNormalThe [facility] HospitalComment on above:Performed By: #### BMP #### [facility] [address] [address] [address] Reynaldo LiuCalcium [Mass/Vol]8.7 mg/dLNormal8.5-10.1The [facility] Comment on above:Performed By: #### BMP #### [facility] [address] [address] [address] Reynaldo LiuChloride [Moles/Vol]105 mmol/KUqoplt97-195Uai [facility] Comment on above:Performed By: #### BMP #### [facility] [address] [address] [address] Reynaldo LiuCO2 [Moles/Vol]27.5 mmol/SOeswzp84.0-32.0The [facility] Comment on above:Performed By: #### BMP #### [facility] [address] [place] [address] Dr. Reynaldo LiuCreatinine [Mass/Vol]1.67 mg/dLCritically high0.70-1.30The [facility] HospitalComment on above:Performed By: #### BMP #### [facility] [address] [address] [address] Reynaldo DoyleGFR-AF NEHDAFSG43 mL/min/1.21z1Voowefigxy low>=60The [facility] HospitalComment on above:Performed By: #### BMP #### [facility] [address] [place] [address] Dr. Reynaldo DoyleGFR-NON AF MCVCYSOV00 mL/min/1.62b2Uqsrmejdlg low>=60The [facility] HospitalComment on above:Performed By: #### BMP #### [facility] [address] [place] [address] Dr. Reynaldo LiuGlucose [Mass/Vol]96 mg/kSQmmvwy83-747Xtf [facility] Comment on above:Performed By: #### BMP #### [facility] [address] [place] [address] Dr. Reynaldo LiuPotassium [Moles/Vol]4.4 mmol/LNormal3.5-5.1The [facility] Comment on above:Performed By: #### BMP #### [facility] [address] [place] [address] Dr. Reynaldo iLuSodium [Moles/Vol]140 mmol/ARkfutp690-862Wvk [facility] Comment on above:Performed By: #### BMP #### [facility] [address] [place] [address] Dr. Reynaldo LiuUrea nitrogen [Mass/Vol]18.0 mg/dLNormal7.0-18.0The [facility] HospitalComment on above:Performed By: #### BMP #### [facility] [address] [place] [address] Dr. Reynaldo LiuUrea nitrogen/Creatinine [Mass ratio]10.8 mg/mgNormalThe [facility] HospitalComment on above:Performed By: #### BMP #### [facility] [address] [place] [address] Dr. Reynaldo LevinINEon 52-62-4513Wwrigzmalw [Mass/Vol]1.34 mg/dLCritically high0.70-1.30The [facility] HospitalComment on above:Performed By: #### CREA #### [facility] [address] [place] [address] Dr. Jacobs ChangEGFR-AF ENGLISH>60Normal>=60The [facility] HospitalComment on above:Performed By: #### CREA #### [facility] [address] [place] [address] Dr. Reynaldo DoyleGFR-NON AF XQZRQYSR71 mL/min/1.72r7Dzlkdtokap low>=60The [facility] HospitalComment on above:Performed By: #### CREA #### [facility] [address] [place] [address] Dr. Reynaldo Miller CHEST WO W CONon 68-22-5735UEI CHEST WO W CONEXAMINATION: CTA CHEST WO [...] authenticated by: ROSY ROLAND Date: 2022-07-24 15:42NormalThe [facility] W MANUAL DIFFon 54-42-8207VILDEFUV LYMPH #NormalUniversity Hospitals Ahuja Medical CenterComment on above:Performed By: #### DENIS ####[facility] Hszmuuxjgo32[address] [place], [place] [address]Dr. Yilan Liu ATYPICAL LYMPH %NormalUniversity Hospitals Ahuja Medical CenterComment on above:Performed By: #### DENIS ####[facility] Rszebvhfii3284[address] [place], [place] [address]Dr. Yilan ChangBAND #0.0 103/ulNormal0.0-0.3The [facility] HospitalComment on above:Performed By: #### DENIS ####[facility] Hxlihhscpv[address] [place], [place] [address]Dr. Yilan ChangBAND %0 %Normal0-5ThChillicothe VA Medical Center Comment on above:Performed By: #### DENIS ####[facility] Ahuruspuxq177[address] [place], [place] [address]Dr. Yilan ChangBASOM #0.00 103/ulNormal 0.00-0.10The [facility] HospitalComment on above:Performed By: #### DENIS ####[facility] Zreeaywnih[address] [place], [place] [address]Dr. Yilan ChangBASOM %0.0 %Critically low0.2-2.0[facility]huja Medical CenterComment on above:Performed By: #### DENIS ####[facility] Euciddhcai[address] [place], [place] [address]Dr. Yilan ChangBLAST #NormalUniversity Hospitals Ahuja Medical Center Comment on above:Performed By: #### DENIS ####[facility] Ftprgccdet6[address] [place], [place] [address]Dr. Yilan ChangBLAST %NormalUniversity Hospitals Ahuja Medical CenterComment on above:Performed By: #### DENIS ####[facility] Qddepncrma22[address] [place], [place] [address]Dr. Yilan ChangCORRECTED WBC Normal4.0-11.0The [place] HospitalComment on above:Performed By: #### DENIS ####[facility] [address]qspem[address] [place] [place] [id number]. Yilan ChangEOS #0.00 103/ulNormal0.00-0.70The [facility] HospitalComformerly [facility] on above: Performed By: #### CBCMAN ####[facility] J[address]mcqz[address] [id number]. Yilan ChangEOS%0.0 %Critically low0.9-7.0The [facility] HospitalComment on above:Performed By: #### CBCMAN ####[facility] Ynehavectc[address] [place], [place] [address]Dr. Yilan ChangHCT 43.6 %Wrkjvq05.0-54.0The [facility] HospitalComformerly [facility] on above:Performed By: #### CBCMAN ####[facility] Vbsxwyahxo[address] [place], [place] [address]Dr. Yilan EqucpBXZ61.5 g/wmWhioxo63.0-18.0The [facility] HospitalComformerly [facility] on above:Performed By: #### CBCMAN ####[facility] Hzvmfoscvs3[address] [place], [place] [address]Dr. Yilan ChangLYMPHM #1.34 103/ulNormal1.20-3.80The [facility] HospitalComformerly [facility] on above:Performed By: #### CBCMAN ####[facility] Zmmvhqiweh[address] [place], [place] [address]Dr. Yilan Liu LYMPHM%7.0 %Critically low20.5-60.0The [facility] on above: Performed By: #### CBCMAN ####[facility] Xwkqpyvsbc[address] [place], [place] [address]Dr. Yilan EvxkiFXH52.0 yzXwrrxk77.9-34.0The [facility] HospitalComformerly [facility] on above:Performed By: #### CBCMAN ####[facility] Tpmzskzroj[address] [place], [place] [address]Dr. Yilan GnxqbOWOK03.3 g/dl Oaxarh58.9-35.2The [facility] HospitalComformerly [facility] on above:Performed By: #### CBCMAN ####[facility] H[address]qwnm[address] [place] [address]Dr. Yimolly QqwuwMFM96.2 tRFjjzzl41.0-94.0The [place] HospitalComment on above: Performed By: #### DENIS ####[facility] Xxrabksqfh[address] [address]Dr. Yilan ChangMETAMYELOCYTE #NormalThe [facility] HospitalComment on above:Performed By: #### CBCANDIE ####[facility] Pwfistmkoq[address] [place] [place] [address]Dr. Yilan ChangMETAMYELOCYTE %NormalThe [facility] HospitalComment on above:Performed By: #### DENIS ####[facility] Aeopgeyepf[address] [place], [place] [address]Dr. Yilan ChangMONOM#1.72 103/ulCritically high0.30-0.80The [facility] HospitalComment on above:Performed By: #### DENIS ####[facility] Whuvgdbdyb11[address] [place], [place] [address]Dr. Yilan ChangMONOM%9.0 %Normal1.7-12.0The [facility] HospitalComment on above:Performed By: #### DENIS ####[facility] Nfoqesioli[address] [place], [place] [address]Dr. Yilan ChangMPV 10.9 fLNormal9.5-13.5The [facility] HospitalComment on above:Performed By: #### DENIS ####[facility] Mfwmktgvpv[address] [place], [place] [address]Dr. Yilan ChangMYELOCYTE #NormalThe [facility] HospitalComment on above: Performed By: #### CBCANDIE ####[facility] [address]mhwfvmcwp[address] [place] [place] [address]Dr. Yilan ChangMYELOCYTE %NormalThe [facility] Comment on above:Performed By: #### CBCANDIE ####[facility] Kiuzciwnew[address] [place], [place] [address]Dr. Yilan ChangNRBCNormalThe [facility] HospitalComment on above:Performed By: #### CBCANDIE ####[facility] Hidpibfgyg[address] [place] [id number]. Reynaldo ZpmcgUFT433 103/ul Ndqwgn751-934Oad [facility] HospitalComment on above:Performed By: #### DENIS ####[facility] Orolluqrwp8[address] [place], [place] [address]Dr. Reynaldo ChangRBC5.00 106/ulNormal4.70-6.10The [facility] HospitalComment on above: Performed By: #### CBCANDIE ####[facility] Xldrrrrvng[address] [place], [place] [address]Dr. Reynaldo XegvxTUS30.7 %Ihysdv10.0-15.0The [facility] HospitalComment on above:Performed By: #### DENIS ####[facility] Ksxqroczvo[address] [place], [place] [address]Dr. Reynaldo LiuSEG #16.04 103/ulCritically high1.40-6.50The [facility] HospitalComment on above:Performed By: #### DENIS ####[facility] Kezbmjlxhf[address] [place], [place] [address]Dr. Reynaldo LiuSEG %84.0 %Critically high43.0-75.0The [facility] HospitalComment on above:Performed By: #### DENIS ####[facility] Jvwcwfznmh[address] [place], [place] [address]Dr. Reynaldo ChangTOXIC GRANULATION2+NormalThe [facility] HospitalComment on above:Performed By: #### CBCANDIE ####[facility] Isymailfjz[address] [place], [place] [address]Dr. Reynaldo VvouyUOR84.1 103/ulCritically high4.0-11.0The [facility] Comment on above:Performed By: #### CBCANDIE ####[facility] Ixwoitdrhy[address] [place], [place] [address]DrMague Jacobs ChangER URINE PROFILEon 06-23-2022 Bilirubin Ql (U)NegativeNormalNEGATIVEThe [facility] HospitalComment on above: Performed By: #### FRANKO EVANS #### [facility] [address] [place] [address] Dr. Reynaldo Dunn (U)CLEARNormalCLEARUniversity Hospitals Ahuja Medical CenterComment on above: Performed By: #### CRISTINA, ERUR #### [facility] [address] [address] [address] Reynaldo Rich (U)LT. YELLOWNormalYELLOWUniversity Hospitals Ahuja Medical CenterComment on above:Performed By: #### CRISTINA, ERUR #### [facility] [address] [address] [address] Reynaldo Zaman micrscopic examination will be performed if indicated. NormalUniversity Hospitals Ahuja Medical CenterComment on above:Performed By: #### CRISTINA, ERUR #### [facility] [address] [place] [address] Dr. Reynaldo LiuGlucose Ql (U)NegativeNormalNEGATIVEUniversity Hospitals Ahuja Medical CenterComment on above:Performed By: #### CRISTINA, ERUR #### [facility] [address] [place] [address] Dr. Reynaldo LiuHemoglobin Ql (U)TRACE-INTACTAbnormalNEGCleveland Clinic Mentor HospitalComment on above:Performed By: #### CRISTINA, ERUR #### [facility] [address] [place] [address] Dr. Reynaldo LiuKetxavier Ql (U)15 mg/dlAbnormalNEGATIVEWooster Community Hospital on above:Performed By: #### CRISTINA, ERUR #### [facility] [address] [address] [address] Reynaldo LiuLEUKOCYTESNegativeNormalNEGATIVEWhite Hospital on above:Performed By: #### CRISTINA, ERUR #### [facility] [address] [address] [address] Reynaldo LiuNitrite Ql (U)NegativeNormalNEGATIVEUniversity Hospitals Ahuja Medical CenterComment on above:Performed By: #### CRISTINA, ERUR #### [facility] [address] [address] [address] Reynaldo LiupH (U)6.0 [pH]Normal5-9The [facility] HospitalComment on above: Performed By: #### CRISTINA ERUR #### [facility] [address] [place] [address] Dr. Reynaldo LiuProtein (U) [Mass/Vol]30 mg/dLAbnormalNEGATIVE/ TRACEThe [facility] HospitalComformerly [facility] on above:Performed By: #### CRISTINA ERUR #### [facility] [address] [place] [address] Dr. Reynaldo LiuSPEC GRAVITY1.468Rdlcrw0.005-<=1.025The [facility] HospitalComformerly [facility] on above:Performed By: #### VICKY EVANSR #### [facility] [address] [place] [address] Dr. Reynaldo Childress MICRO INDINDICATEDNormalThe [facility] HospitalComformerly [facility] on above: Performed By: #### CRISTINA ERUR #### [facility] [address] [place] [address] Dr. Reynaldo Zepedabilinogen Qn (U)0.2 {Pastor'U}/dLNormal0.2 - 1.0The [facility] HospitalComformerly [facility] on above:Performed By: #### VICKY EVANSR #### [facility] [address] [place] [address] Dr. Reynaldo LiuLACTATE/LACTIC ACIDon 37-25-4126Evwzzau [Moles/Vol]1.4 mmol/L Normal0.4-1.9The [facility] on above:Performed By: #### LACT #### [facility] [address] [place] [address] Dr. Reynaldo LiuLIPASEon 69-59-9557Qlnjzr [Catalytic activity/Vol]80.0 U/LNormal 73.0-393.0The [facility] on above:Performed By: #### CMP, LIPA ####[facility] [address]jk[address] [address]Dr. Reynaldo LiuPROF 14(COMP METB)on 23-83-8770Apkpbpu [Mass/Vol]3.8 g/dLNormal 3.4-5.0The [facility] HospitalComment on above:Performed By: #### CMP, LIPA ####[facility] Dtohjyxygq[address] [address]Dr. Yilan ChangAlbumin/Globulin [Mass ratio]1.0 {ratio}NormalUniversity Hospitals Ahuja Medical Center Comment on above:Performed By: #### CMP, LIPA ####[facility] [address]ngbugl[address] [address]Dr. Yilan ChangALP [Catalytic activity/Vol]72 U/PRhiskt75-338Ncc [facility] HospitalComment on above:Performed By: #### CMP, LIPA ####[facility] [address]vfnuywdnq[address] [place], [place] [address]Dr. Yilan ChangALT [Catalytic activity/Vol]71 U/L Critically kjlk75-18Rrc [facility] HospitalComment on above:Performed By: #### CMP, LIPA ####[facility] Ubhisysuqi18[address] [place], [place] [address]Dr. Yilan ChangAnion gap [Moles/Vol]19.5 mmol/LNormalThe [facility] Comment on above:Performed By: #### CMP, LIPA ####[facility] Ymwefsicjh6[address] [place], [place] [address]Dr. Yilan ChangAST [Catalytic activity/Vol]96 U/LCritically fkrs10-42Htu [facility] HospitalComment on above: Performed By: #### CMP, LIPA ####[facility] Ymysdurzym[address] [place], [place] [address]Dr. Yilan ChangBilirubin [Mass/Vol]1.0 mg/dLNormal 0.2-1.0The [facility] HospitalComment on above:Performed By: #### CMP, LIPA ####[facility] [address]neazevyef[address] [place], [place] [address]Dr. Yilan ChangCalcium [Mass/Vol]9.1 mg/dLNormal8.5-10.1The [facility] HospitalComment on above:Performed By: #### CMP, LIPA ####[facility] Nuhmkpyfuy[address] [place], [place] [address]Dr. Yilan ChangChloride [Moles/Vol]100 mmol/L Fivofp25-182Vkv [facility] HospitalComment on above:Performed By: #### CMP, LIPA ####[facility] [address]dsczyzld[address] [address]Dr. Yilan ChangCO2 [Moles/Vol]21.5 mmol/VJenifu57.0-32.0The [facility] HospitalComment on above:Performed By: #### CMP, LIPA ####[facility] Uiidhbbbri[address] [place], [place] [address]Dr. Yilan ChangCreatinine [Mass/Vol]1.89 mg/dL Critically high0.70-1.30The [facility] HospitalComment on above:Performed By: #### CMP, LIPA ####[facility] Paxfftovcv[address] [place], [place] [address]Dr. Yilan ChangEGFR-AF NDJTHRYL15 mL/min/1.81q9Fqdljlqrjy low>=60The [facility] HospitalComment on above:Performed By: #### CMP, LIPA ####[facility] Vexbhonehl[address] [place], [place] [address]Dr. Yilan ChangEGFR- NON AF FWGXMPLN00 mL/min/1.98y5Sqyfieaflt low>=60The [facility] HospitalComment on above:Performed By: #### CMP, LIPA ####[facility] Oeagmkwiii[address] [place], [place] [address]Dr. Yilan ChangGlobulin (S) [Mass/Vol]3.9 g/dL NormalThe [facility] HospitalComment on above:Performed By: #### CMP, LIPA ####[facility] Hvigtlhzht[address] [place], [place] [address]Dr. Yilan ChangGlucose [Mass/Vol]117 mg/dLCritically kwsn33-218Edl [facility] Comment on above:Performed By: #### CMP, LIPA ####[facility] [address]yeynpbxqh[address] [place], [place] [address]Dr. Yilan ChangPotassium [Moles/Vol]4.0 mmol/LNormal3.5-5.1The [facility] HospitalComment on above: Performed By: #### CMP, LIPA ####[facility] [address]sm[address] [address]Dr. Reynaldo NoeProtein [Mass/Vol]7.7 g/dLNormal6.4-8.2 The [facility] HospitalComment on above:Performed By: #### CMP, LIPA ####[facility] [address]izfcnfri[address] [address]Dr. Reynaldo Noe Sodium [Moles/Vol]137 mmol/BMassaw866-418Xbv [facility] HospitalComment on above: Performed By: #### CMP, LIPA ####[facility] [address]mfh[address]ohkz[address] [address]Dr. Reynaldo LiuUrea nitrogen [Mass/Vol]22.0 mg/dL Critically high7.0-18.0The [facility] HospitalComment on above:Performed By: #### CMP, LIPA ####[facility] Q[address]vwzt[address] [address]Dr. Reynaldo ChangUrea nitrogen/Creatinine [Mass ratio]11.6 mg/mgNoMercy HealthComment on above:Performed By: #### CMP, LIPA ####[facility] [address]wsibrssg[address] [place] [address]DrMague Wagner MICROSCOPIC ONLYon 92-47-2338IEIECQWDEDOW SEENNormalNONE SEENUniversity Hospitals Ahuja Medical CenterComment on above:Performed By: #### VICKY EVANSR #### [facility] [address] [place] [address] Dr. Reynaldo Chowdhury identified Cx Nom (U)NOT INDICATEDNormCleveland Clinic Marymount HospitalComment on above:Performed By: #### VICKY EVANSR #### [facility] [address] [address] [address] Reynaldo De Santiago SEENNormalNONE SEENUniversity Hospitals Ahuja Medical CenterComment on above:Performed By: #### CRISTINA ERUR #### [facility] [address] [address] [address] Reynaldo Fritz LM Nom (Urine sed)NONE SEENNormalNONE SEENThe [facility] HospitalComment on above:Performed By: #### UMICRO, ERUR #### [facility] [address] [place] [address] Dr. Jacobs ChangEpithelial cells LM Ql (Urine sed)FEWAbnormalNONE SEEN /RAREThe [facility] HospitalComment on above:Performed By: #### UMICRO, ERUR #### [facility] [address] [place] [address] Dr. Reynaldo LiuMUCOUSNONE SEENNormalNONE SEENThe [facility] HospitalComment on above:Performed By: #### UMICRO, ERUR #### [facility] [address] [place] [address] Dr. Reynaldo LiuAcmvgEOV4-9Tpacyehf2-7Cpy [facility] HospitalComment on above:Performed By: #### CRISTINA, ERUR #### [facility] [address] [place] [address] Dr. Reynaldo LiuWBC5-10AbnormalNONE SEENThe [facility] HospitalComment on above: Performed By: #### MALATHIICRO, ERUR #### [facility] [address] [place] [address] Dr. Reynaldo Franco-19 PCR ([place])on 22-59-9601AQUU-CoV-2 (COVID-19) RNA SARANYA+probe Ql (Unsp spec)Not detectedNormalNOT DETECTEDThe [facility] Comment on above:Result Comment: This test is not yet approved or cleared by the [place] FDA. When there are no FDA-approved or cleared tests available, and other criteria are met, FDA can make tests available under an emergency access mechanism called an Emergency Use Authorization (EUA). The EUA for this test is supported by the Psychologists of Health and Human Service's (HHS's) declaration [...] consistent with SARS-CoV-2.Performed By: #### CVDTBH #### [facility] [address] [address] [address] Reynaldo LiuCovid-19 PCR ([place])on 40-02-4405KEIK-CoV-2 (COVID-19) RNA SARANYA+probe Ql (Unsp spec)DetectedCritically abnormalNOT DETECTEDThe [facility] Defiance Hospitalment on above:Result Comment: This test is not yet approved or cleared by the [place] FDA. When there are no FDA-approved or cleared tests available, and other criteria are met, FDA can make tests available under an emergency access mechanism called an Emergency Use Authorization (EUA). The EUA for this test is supported by the [place] of Health and Human Service's declaration that [...] longer be used).Performed By: #### CVDTBH #### [facility] [address] [address] [address] Reynaldo LiuPROF CHEM 8 (BAS METB)on 45-76-3308Uqcpm gap [Moles/Vol]16.2 mmol/LNormalKnox Community Hospitalment on above:Performed By: #### BMP ####[facility] [address] [place], [place] [address]HjDr. Jacobs ChangCalcium [Mass/Vol]8.3 mg/dLCritically low8.5-10.1The [facility] HospitalComment on above:Performed By: #### BMP ####[facility] [address] [id number] ChangChloride [Moles/Vol]101 mmol/RFunpkk80-663Apv Shavon HospitalComment on above:Performed By: #### BMP ####[facility] [address] [place], [place] [address]Dr.Reynaldo ChangCO2 [Moles/Vol]20.9 mmol/LCritically low21.0-32.0The [facility] HospitalComment on above:Performed By: #### BMP ####[facility] [address] [place], [place] [address]Dr.Reynaldo ChangCreatinine [Mass/Vol]1.55 mg/dLCritically high0.70-1.30The [facility] HospitalComment on above:Performed By: #### BMP ####[facility] R[address] [place], [place] [address]Dr.Randilan ChangEGFR-AF CHNCRHBS47 mL/min/1.73m2 Critically low>=60The [facility] HospitalComment on above:Performed By: #### BMP ####[facility] [address] [place], [place] [address]Dr. Randilan ChangEGFR-NON AF HZKKXTPQ35 mL/min/1.43n7Pahnvdrbiq low>=60The [facility] HospitalComment on above:Performed By: #### BMP ####[facility] [address] [place], [place] [address]Dr.Randimolly ChangGlucose [Mass/Vol]110 mg/dLCritically apxn56-010Oex [facility] HospitalComment on above: Performed By: #### BMP ####[facility] [address] [place], [place] [address]Dr.Randimolly ChangPotassium [Moles/Vol]4.1 mmol/LNormal 3.5-5.1The [facility] HospitalComment on above:Performed By: #### BMP ####[facility] Ib[address] [place], [place] [address]Dr.Reynaldo Liu Sodium [Moles/Vol]134 mmol/LCritically lcr480-515Rgk [facility] HospitalComment on above:Performed By: #### BMP ####[facility] [address] [place], [place] [address]Dr.Randimolly ChangUrea nitrogen [Mass/Vol]23.0 mg/dL Critically high7.0-18.0University Hospitals Ahuja Medical CenterComment on above:Performed By: #### BMP ####[facility] [address] [place], [place] [address]Ti. Reynaldo LiuUrea nitrogen/Creatinine [Mass ratio]14.8 mg/mgNoMercy HealthComment on above:Performed By: #### BMP ####[facility] [address] [place], [place] [address]Ak.Reynaldo LiuXR CHEST 1 Von 02-15-5691FI CHEST 1 VEXAM: XR CHEST 1 V INDICATION: SHORTNESS OF BREATH. COMPARISON: Chest radiograph 09/30/2019 TECHNIQUE: Single frontal view of the chest FINDINGS: Changes of median sternotomy and valvuloplasty. Normal cardiomediastinal contours. Clear lungs. No pleural effusion or pneumothorax. No acute osseous abnormality. IMPRESSION: No acute cardiopulmonary process. Electronically authenticated by: RANULFO BREWER Date: 2022-01-18 14:27[facility] Bluffton HospitalDRUG SCREEN DOT COMPANYon 90-76-2197Nlv at Specimen Collection= [facility] on above:Order Comment: [employer] Performed By: #### [id number] ####[address] [address]DRUG SCREEN DOT COMPANYSent to reference lab. See separate report.[facility] on above:Order Comment: [employer] incPerformed By: #### [id number] ####[address] [address] Vital Signs Date TimeVital SignValuePerforming SwjajdzqqAzfldvum73-62-7239 08:47-0500Body rxgjaf063.9 cmJuan Goldstein MD Work Phone: [facility] LouisVnwxbkegsq38-28-5520 08:47-0500Body mass index (BMI) [Ratio]33.91 kg/y9JkczpjJuan Goldstein MD Work Phone: [facility] LouisRyvvqsvysl47-41-3871 08:47-0500Body uqqopx292.4 kgJuan Goldstein MD Work Phone: [facility] LouisTtpyiimknp30-45-4299 08:47-0500Diastolic blood maekwwcv99 mm[Hg]Juan Goldstein MD Work Phone: [facility] LouisQmkyuluyjp49-24-2969 08:47-0500Heart rate81 /min Juan Goldstein MD Work Phone: [facility]. LouisClyaxcxzur93-25-1726 08:47-0500Systolic blood sewdndcj419 mm[Hg]Juan Goldstein MD Work Phone: [facility] LouisWptbbgxnqu83-82-3710 10:13-0400Body yqjsbc229.9 cmNicole Monroe DO Work Phone: [facility] LouisGfjdjiqpmp89-72-2988 10:13-0400Body mass index (BMI) [Ratio]33.91 kg/q0Cpvwjn Monroe DO Work Phone: [facility] LouisSlofiuhowg89-06-7853 10:13-0400Body .4 kgNicole Monroe DO Work Phone: [facility] LouisKlbxmsluii08-13-5380 10:13-0400Diastolic blood ovuaswat46 mm[Hg]Nicolas Monroe DO Work Phone: [facility] LouisJdqwecqjsh39-08-3354 10:13-0400Heart rate76 /min Nicolas Monroe DO Work Phone: [facility]. LouisLdftfutvoa19-32-6527 10:13-4512ItY0% (BldA) [Mass fraction]95 %Nicolas Monroe DO Work Phone: [facility] LouisGrbaxapfyg25-64-3065 10:13-0400Systolic blood grhvpuuf851 mm[Hg]Nicolas Monroe DO Work Phone: [facility]. LouisIaqoicnden62-40-5847 08:00-0400Body eljijq739.9 cmJuan Goldstein MD Work Phone: [facility] LouisPzpgzvdsyx17-13-5818 08:00-0400Body mass index (BMI) [Ratio]33.91 kg/i8KvrxtyJuan Goldstein MD Work Phone: [facility] LouisGagobcgqdx66-09-0819 08:00-0400Body wkoujc845.4 kgJuan Goldstein MD Work Phone: no Hfvyhzxmca60-84-4313 08:00-0400Diastolic blood omyvydwv71 mm[Hg]Juan Goldstein MD Work Phone: [place] Mklzkqxfus56-01-1407 08:00-0400Systolic blood mm[Hg]Juan Goldstein MD Work Phone: [facility] Encounters Encounter DateEncounter TypeCare ProviderFacilityStart: 10-30-2024 End: 22-06-6965wynrmgbbptOZYZOKettering Health Washington Townshiptart: 10-02-2024 End: 22-10-3369AcxfvbCvplmr H Timmis MD Work Phone: [facility] CI ENTComment on above:Nasal polyposisStart: 07-10-2024 End: 98-30-8489IvuwjoLidzyu H Timmis MD Work Phone: [facility] CI ENTComment on above:Nasal polyposis (Primary Dx)Start: 07-04-2024 End: 48-32-7635Lhsdxo flowsheetHijoseluis Goldstein MD Work Phone: [facility] CI ENTStart: 07-04-2024 End: 69-50-6167Jdyrxakasandra Goldstein MD Work Phone: [facility] CI ENTStart: 07-04-2024 End: 99-66-5501Mxnwir outpatient visit 25 minutesJuan Goldstein MD Work Phone: [facility] CI ENTComment on above:Nasal polyposis (Primary Dx)Start: 07-04-2024 End: 66-88-5565ibhbdnckvdBXVKIY H TIMMISNot AvailableStart: 07-03-2024 End: 99-01-2143Tiuuolcoe encounterJuan Goldstein MD Work Phone: [facility] CI ENTComment on above:Med RefillStart: 06-05-2024 End: 13-26-4801kiuavbhrmqBTGUPGeorgetown Behavioral Hospital CenterStart: 57-76-3839nayyuzzryoXXS LEEZanesville City Hospitaltart: 05-05-2024 End: 37-40-1449ztbyuojqlpDWNTBEUW RAINKettering Health Dayton Start: 10-88-2598awjyrfhcsqUVJSCincinnati Shriners Hospitaltart: 04-27-2024 End: 19-19-1699jsvakdefynNCPE [facility] Centertart: 04-26-2024 End: 57-70-3925ydkkqmuwjvSVWWFWJ [facility] Centertart: 04-18-2024 End: 85-14-3512ntqyvhavvwYAGVCincinnati Shriners Hospitaltart: 02-29-2024 End: 22-21-0090ncdhjbvllgLEHAPomerene Hospitaltart: 01-26-2024 End: 65-19-2677Lifecz flowsheetNicole Monroe DO Work Phone: [facility] ROUTEStart: 01-26-2024 End: 20-57-1480Jogbgl flowsheetNicole Monroe DO Work Phone: noMS [facility] STATE ROUTEStart: 01-26-2024 End: 04-54-8953Deykov outpatient new 45 minutesNicole Monroe DO Work Phone: noMS [facility] STATE ROUTEComment on above:RANJANA (obstructive sleep apnea); Hypersomnia; Snoring; Shift work sleep disorderStart: 01-26-2024 End: 83-45-4285qejlezpkcrJMDVFP DANNERNot AvailableStart: 01-19-2024 End: 61-06-2595Xmoqki Jovani Goldstein MD Work Phone: [facility] CI ENTStart: 01-19-2024 End: 41-78-2886Ycofol Jovani Goldstein MD Work Phone: [facility] CI ENTStart: 01-19-2024 End: 13-18-8799Hfywyr outpatient visit 15 minutesJuan Goldstein MD Work Phone: MS ENTComment on above:Nasal polyposis (Primary Dx)Start: 01-19-2024 End: 08-82-8074jnapsvhzadOMUKKV Michel JHONATANCARLOSSNot AvailableStart: 12-21-2023 End: 31-43-6372lwuvtjblhdYGEPYZ H TIMMISNot AvailableStart: 11-23-2022 End: 00-89-9463zdxkrfdvmdEngoxh H TimmisFacility:FTMCStart: 11-23-2022 End: 15-29-6420Savhchz encounter procedureJuan Goldstein [facility] Start: 09-21-2022 End: 00-79-1475nwnfczcupbRG DOCTOR MISCFacility:B9Madbj: 09-13-2022 End: 02-36-7959hbqrgvrcsbEEBCH LEWIS .Facility:W7Yuivl: 92-15-7497mkqbkxlecdKI DOCTOR MISCFacility:D9Qsblu: 88-79-3428Aufunkmal for preprocedural laboratory examinationDR [facility] HospitalStart: 07-24-2022 End: 50-83-9237eglraehiyeVW ROSY ROLANDFacility:Y0Tygrs: 06-23-2022 End: 69-49-5275smbihpmbjdUU KOKO MÁRQUEZFacility:C1Ockxz: 04-21-2022 End: 92-82-8578ewmbmznyhbEG LIV MALDONADO .Facility:N8Kguku: 01-23-2022 End: 11-78-9807llfzzeqzucCN JAKE STFacility:U7Flwsi: 01-18-2022 End: 28-92-6520hsklfhwvulKT JAKE STFacility:G7Mvdxu: 08-22-2018 End: 20-43-5417Zkadgul encounter procedureToledo Hospital Start: 08-01-2018 End: 59-41-2922Kykmfzc encounter procedureToledo Hospital Start: 07-26-2018 End: 14-83-0129Mpcgslt encounter procedureDEFAULT PHYSICIANFacility:UTMCStart: 11-03-2017 End: 65-17-6961WgkkjgrYXPSZ COMPANYFacility:[facility] Procedures DateProcedureProcedure DetailPerforming ClinicianStart: 15-86-0910LYOJ GENERAL KIRSTINMIKAEL HUGHESStart: 47-36-3371WKIJ CODEKIRSTIN HUGHESStart: 15-59-1330NOVIAYBR OXYGEN THERAPY PROTOCOLBLAIR HUGHESStart: 12-61-0515AGDKOXX COMMUNICATIONBL ELLEN Start: 80-27-4810NBSIS SIGNSBL CLARKStart: 79-53-8383KXTADMYJX PATIENTBLAIR HUGHESStart: 95-81-1763AKOBAUNP OXYGEN THERAPY PROTOCOLBLAIR HUGHESStart: 25-34-5365OSYJBNY COMMUNICATIONKIRSTIN HUGHESStart: 77-44-0185HZGISF INFORMED CONSENTBLAIR HUGHESStart: 05-89-9570IWFY GENERALKIRSTIN HUGHESStart: 08-01-2018 DISCHARGE PATIENTBLAIR HUGHESStart: 04-39-4261ICSO CODEKIRSTIN HUGHESStart: 69-93-5670WDETXHIG OXYGEN THERAPY PROTOCOLKIRSTIN HUGHESStart: 77-46-2061VPQDFZR COMMUNICATIONKIRSTIN HUGHESStart: 16-84-1199DIABD SIGNSKIRSTIN CLARKStart: 08-01-2018 INITIATE OXYGEN THERAPY PROTOCOLBLAIR HUGHESStart: 42-27-5750BKPWFSQ COMMUNICATIONKIRSTIN HUGHESStart: 50-88-0806QFAOUG INFORMED CONSENTTIFFANYAIR HUGHES Plan of Treatment DateCare ActivityDetailAuthorStart: 07-03-2025 End: 92-25-3969Xqdmwnb encounter bowutghdo51/10/2026 8:30 AM EST Office Visit [facility] [address] [facility] [address] [place] [address] Juan Goldstein MD [address] [facility] [address] [place] [address] [facility] CI ENTStart: 16-15-7158Sbaecniqj vaccination Influenza Vaccine (Season Ended)[facility] HealthcareStart: 11-07-2024 End: 05-34-7771Jksghkf encounter tatjblfph71/17/2025 8:00 AM EDT Office Visit [facility] [address] [facility] [address] [place] [address] Juan Goldstein MD [address] [place] [address] [facility] CI ENTStart: 07-04-2024 End: 67-16-2162Bqjpumb encounter procedureNOMS CI ENTComment on above:Arrived Start: 01-26-2024 End: 48-65-8596Ithcejt encounter procedureNOMS [facility]AVON STATE ROUTEComment on above:ArrivedStart: 24-40-7927Jltkormmt vaccinationInfluenza Vaccine (#1)[facility] HealthcareStart: 01-19-2024 End: 66-98-4418Nknhyxu encounter ieqxwyzwe54/28/2024 8:00 AM EDT Office Visit [facility] [address] [place] [address] Juan Goldstein MD [address] [place] [address] ArrivedNOMS CI ENTComment on above:ArrivedStart: 79-76-4800Mpemwufzjvgt Vaccine: 65+ Years (1 of 1 - PCV)Pneumococcal Vaccine: 65+ Years (1 of 1 - PCV)[facility] HealthcareStart: 43-28-7897Pxhtxoiykfvj Vaccine: 65+ Years (1 of 1 - PCV)Pneumococcal Vaccine: 65+ Years (1 of 1 - PCV)[facility] HealthcareStart: 79-99-1876Mwcnwuhcu for malignant neoplasm of colonNOMA Healthcare Immunizations Immunization DateImmunizationNotesCare ZvvrbdwhWqctvkek57-16-6921EFUS-OlZ-1, UnspecifiedJuan Goldstein MD Work Phone: [facility] Umvdwowsnt87-32-8047NCEH-YjB-9, UnspecifiedJuan Goldstein MD Work Phone: [facility] LouisUmpzqjmkis34-81-7057vmfiwazqc virus vaccine, unspecified formulationJuan Goldstein MD Work Phone: [facility] Healthcare Payers DatePayer CategoryPayerPolicy [id number] [facility] Medical CenterBS [id number] 80-27-3635BuachgqAlhambra Hospital [facility] [id number] 2020- [address] [address] [place] [address] [id number] [id number] [id number] Health [id number] 2.0.1.588337.3.57[id number] 2.16.1.771658.3.57[id number] 2.0.1.786146.3.57[id number] 2.16840.1.766613.3.57[id number] 2.16840.1.047202.3.579.2.55723-43-5044Ujtkgdc0896000 2.16840.1.902709.3.57[id number] 2.16840.1.872525.3.57[id number] 2.16.840.1.760441.3.57[id number] 2.16.840.1.592987.3.57[id number] 2.16.840.1.433927.3.579.[id number] 2.16.840.1.007097.3.57[id number] 2.16.840.1.805486.3.57[id number] 2.16.840.1.276641.3.579.2.[id number] 2.16.840.1.340818.3.579.2.091787-29-9505Jlwbihx8432186 2.16.840.1.503364.3.57[id number] 2.16.840.1.343697.3.579.2.1259 Social History DateTypeDetailFacilityTobacco smoking statusMercy Health Clermont Hospitaltart: 12-21-2023 End: 86-58-9499Aat Assigned At BirthMalNationwide Children's Hospitaltart: 61-80-9969Xziscfn smoking status NHISNever smoked tobaccoNOMS HealthcareStart: 25-44-1572Nmtcsip use and exposureSmokeless tobacco non-userNOMS Healthcare Start: 01-19-2024 End: 92-37-5166Ybagnlnnd beverage intakeLifetime non-drinker (finding)[facility] HealthcareStart: 12-21-2023 End: 16-13-8173Hbxvthi of Social functionNOMS HealthcareStart: 78-61-3532Jyz assigned at birthNot on [facility] Healthcare Clinical Notes 06-23-2022 to 10-30-2024 Note Date & NorlZfklAkkxgotz33-22-1929 NoteB[facility]vue Office Reason for visit: Follow-up, status [...] ascending aortic aneurysm, mitral valve repair at [facility] 2004 and hypertension seen in ED follow-up for new onset atrial fibrillation. He presented to the [facility] emergency department where he was found [...] Use: Not At Risk (2018) Received from [employer], [employer] AUDIT-C Frequency of Alcohol Consumption: Never Average Number of Drinks: Not on file Frequency of Binge Drinking: Not on file Financial Resource Strain: Not on file Food Insecurity: Not on file Transportation Needs: Not on file Physical Activity: Not on file Stress: No (more content not included)...[facility] 07-04-2024 History of Present illness [...] Diagnosis Date Noted Aneurysm of thoracic aorta ([facility]/HCC) 01/12/2017 Chronic obstructive lung disease ([facility]/HCC) 09/16/2021 Chronic pansinusitis 10/13/2022 Hypertensive disorder ([facility]/HCC) 09/16/2021 Solitary pulmonary nodule 09/16/2021 Nasal polyposis 12/07/2022 Anticoagulated 12/07/2022 Atrial fibrillation ([facility]) 07/04/2024 Benign hypertensive heart disease without congestive heart failure ([facility]) 06/05/2024 Dyspnea 04/29/2018 Elevated IgE level 04/29/2018 [...] augmentin while Dupixent restarted documented in this encounterThe Rehabilitation Institute of St. LouisGeqvfhacew13-49-5349 Telephone encounter Note* Telephone Encounter - Tricia Goldstein - 07/03/2024 2:11 PM EST Pt is scheduled with Dr Goldstein 07/04/24. [facility] Dojsqcxbis00-17-9163 Miscellaneous Notes* Telephone Encounter - Tricia Goldstein [...] it every other week. documented in this encounterNOCedar County Memorial HospitalYignpzqzku04-88-5661 Telephone encounter Note* Telephone Encounter - Juan Goldstein MD - 07/03/2024 1:19 PM EST Move up appt [facility] Ylqdtetkvg97-59-5844 Telephone encounter Note* Telephone Encounter - Tricia [...] it every other week. É MIGUEL DURANT Yzdywiwzqd91-00-3042 NoteBellevue Office Reason for visit: Follow-up, status [...] ascending aortic aneurysm, mitral valve repair at [facility] 2004 and hypertension seen in ED follow-up for new onset atrial fibrillation. He presented to the [facility] emergency department where he was found [...] Use: Not At Risk (2018) [facility] from [employer], [facility] AUD[facility]C Frequency of Alcohol Consumption: Never Average [...] Shortness of breath Azithrom (more content not included)...[facility] 05-23-2024 NoteCardiac Surgery Follow Up: [...] and follow up in our clinic 12 monthsUnNewark [facility]12-13-2024 NoteUT Electrophysiology Consult Note Reason for [...] ascending aortic aneurysm, mitral valve repair at [facility] 2004 and hypertension seen in ED follow-up for new onset atrial fibrillation. He presented to the [facility] emergency department where he was found [...] Use: Not At Risk (2018) Received from [employer], [employer] AUDIT-C Frequency of Alcohol Consumption: Never Average Number of Drinks: Not on file Frequency of Binge Drinking: Not on file Financial Resource Strain: Not on file Food Insecurity: Not on file Transportation Needs: Not on file Physical Activity: Not on file Stress: Not on file Social Connections: Not on file Intimate Partner Violence: Unknown (07/15/2023) [place] Safety & Environment Fear of Current or [...] every day by oral (more content not included)...[facility]12-05-2024 NotePatient: Ede Eva Nabil Procedure Summary Date: 04/27/24 Room / Location: [facility] MUD ANALYSIS OPERATOR 1 / [facility]ULAR [facility] (Cath) Anesthesia Start: 0800 Anesthesia [...] were no known notable events for this encounter.[facility]12-05-2024 NoteATRIAL FIBRILLATION ABLATION PROCEDURE NOTE [...] ascending aortic aneurysm, mitral valve repair at [facility] 2004 and hypertension seen in ED follow-up for new onset atrial fibrillation. He presented to the [facility] emergency department where he was found [...] a radial arterial line was placed by nv. RFV: 8Fx3, [employer] SF Bi-Directional over [...] Entrainment revealed this to (more content not included)...[facility]12-05-2024 NoteAirway Date/Time: 04/27/2024 8:23 AM Urgency: elective Airway not difficult General Information and Staff Patient location during procedure: OR Anesthesiologist: Emmett Lewis MD Resident/PEWTER FABRICATOR/CAA: Fallon Jones MD Performed: resident/PEWTER FABRICATOR/CAA Indications and Patient Condition Indications for airway [...] approach: 1 Number of other approaches attempted: 0UnNewark Hospital 04-27-2024 NoteArterial Line: Date/Time: 04/27/2024 7:40 [...] mL - 04/27/2024 7:40:00 AM Staffing Performed: resident/PEWTER FABRICATOR/CAA Anesthesiologist: Emmett Lewis MD Resident/PEWTER FABRICATOR: Fallon Jones MD Performed by: Fallon Jones MD Authorized by: Emmett Lewis MDUpper [facility] Medical Center12-05-2024 NotePatient: Ede Davies Procedure Information Date/Time: 04/27/24 0800 Procedure: Ablation a-fib paroxysmal - PC APPROVED Location: [facility] MUD ANALYSIS OPERATOR 1 EP / [facility] (Cath) Providers: Nikhil Benson MD Relevant Problems Cardio (+) Aneurysm of thoracic aorta (CMS/HCC) (+) Atrial fibrillation (CMS/HCC) (+) Cardiac murmur (+) Hypertensive disorder (+) Nonrheumatic mitral (valve) insufficiency Pulmonary (+) Chronic obstructive lung disease (CMS/HCC) (+) Severe persistent asthma, uncomplicated Echocardiogram - [place] Name: ZE DAVIES Study Date: 07/26/2018 10:44 AM B/P: 124 mmHg/68 mmHg HR: 53 bpm Date of : 1960 Location: [place] Height: 71 in. Age: 58 year(s) Patient [...] products. Plan discussed with resident. Additional Equipment RequestsUpper Valley Medical Center11-26-2024 Note [place] Electrophysiology Consult Note Reason for visit: s/p [...] ablation ECHO 07/22/23 06/08/23 Pt is s/p [facility] and is doing better. Has more energy [...] ascending aortic aneurysm, mitral valve repair at [facility] 2004 and hypertension seen in ED follow-up for new onset atrial fibrillation. He presented to the [facility] emergency department where he was found [...] Tobacco Use: Low Risk (01/26/2024) Received from [facility] [employer], [facility] [employer] Patient History Smoking Tobacco Use: Never Smokeless Tobacco Use: Never Passive Exposure: Not on file Alcohol Use: Not At Risk (2018) [facility] Frequency of Alcohol Consumption: Never Average Number of Drinks: Not on file Frequency of Binge Drinking: Not on file Financial Resource Strain: Not on file Food Insecurity: Not on file Transportation Needs: Not on file Physical Activity: Not on file Stress: Not on file Social Connections: Not on file Intimate Partner Violence: Unknown (07/15/2023) [place] Safety & Environment Fear of Current or [...] injector 300 mg every (more content not included)...[facility]10-08-2024 NoteUT Electrophysiology Consult Note Reason [...] ascending aortic aneurysm, mitral valve repair at [facility] 2004 and hypertension seen in ED follow-up for new onset atrial fibrillation. He presented to the [facility] emergency department where he was found [...] MOUTH AT BEDTIME 180 (more content not included)...[facility]09-04-2024 History of Present illness Narrative* [...] His sleeping times vary. 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 History of Present illness Narrative* Juan Goldstein [...] defer surgery. Continue dup[ixent documented in this encounterThe [facility] [id number] NotePROCEDURE: CT ABD/PELVIS WO CON DATE: 09/13/2022 [...] Electronically authenticated by: IGOR BOB Date: 2022-09-13 14:23[facility]01-31-2023 NoteIndication: Diverticulitis. Comparison: 05/22/2019 exam. Procedure: Axial [...] Electronically authenticated by: BRENDA PALMA Date: 2022-06-23 20:47[facility] note No data available for this section [facility] Diagnosis Nasal polyposis- Primary Unspecified nasal polyp documented in this encounter [facility] HealthcareEvaluation note* Diagnosis RANJANA (obstructive sleep apnea) Obstructive sleep apnea (adult) (pediatric) Hypersomnia Hypersomnia, unspecified Snoring Other dyspnea and respiratory abnormality Shift work sleep disorder Circadian rhythm sleep disorder, shift work type documented in this encounter [facility] HealthcareEvaluation note* Diagnosis Nasal polyposis- Primary Unspecified nasal polyp documented in this encounter [facility] HealthcareEvaluation note* Diagnosis Nasal polyposis- Primary Unspecified nasal polyp documented in this encounter [facility] HealthcareEvaluation note* Diagnosis Nasal polyposis Unspecified nasal polyp documented in this encounter [facility] HealthcareHospital Discharge instructions No data available for this section [facility] No data available for this section [facility] Summary Purpose Family History No [...] section and content) DATE CREATED AUTHOR 11/09/2017 [facility] DATE CREATED AUTHOR AUTHOR'S ORGANIZ ATION 07/28/2018 [facility] DATE CREATED AUTHOR AUTHOR'S ORGANIZ ATION 08/25/2018 [facility] DATE CREATED AUTHOR AUTHOR'S ORGANIZ ATION 10/02/2022 [facility] DATE CREATED AUTHOR AUTHOR'S ORGANIZ ATION 11/24/2022 [facility] DATE CREATED AUTHOR AUTHOR'S ORGANIZ ATION 07/05/2024 [facility] DATE CREATED AUTHOR AUTHOR'S ORGANIZ ATION 02/24/2025 [facility] Patient Care team informatio n (unrecognized section and content) Team MemberRelationshipSpecialtyStart DateEnd Date Jake St MD [address] [place] [address] PCP - Generalmily Medicine10/26/22Team MemberRelationshipSpecialtyStart DateEnd Date Jake St MD [address] [place] [address] PCP - GeneralFamily Medicine10/26/22Team MemberRelationshipSpecialtyStart DateEnd Date Jake St MD [address] [place] [address] PCP - Generalmily Medicine10/26/22Team MemberRelationshipSpecialtyStart DateEnd Date Jake St MD [address] [place] [address] PCP - [facility]10/26/22Te MemberRelationshipSpecialtyStart DateEnd [facility] Jake [address] MD [address] [place] [address] PCP - [facility]10/26/22Te MemberRelationshipSpecialtyStshawnee [facility] [address] [place] [address] [facility] - [facility]10/26/22Te MemberRelationshipSpecialtyStshawnee Date[facility] [address] [place] [address] PCP - [facility]10/26/22Te MemberRelationshipSpecialtyStshawnee Date[facility] [address] [place] [address] [facility] - [facility]10/26/22Te MemberRelationsChristian HospitalialtyStBaptist [facility] Jake [address] MD [address] [place] [address] PCP - [facility]10/26/22 Reason for Visit (unrecogniz ed section and content) ReasonCommentsSinusitis1 mo follow upReasonCommentsSleep ApneaReasonOnset Date CommentsMed [place]5207/03/2024ReasonCommentsNasal PolypsRefill DupixentReason CommentsNew Med RequestReasonCommentsMed Refill FOR [...] BE BASED ON THE PRIMARY CLINICAL RECORDS. [employer] [facility]. provides no warranty or guarantee of the accuracy or completeness of information in this document.
[2025-05-04 09:27] LABS: Alanine Aminotransferase 20 U/L (16-63); Aspartate Amino Transferase 18 U/L (15-37); Cholesterol 121 mg/dL (<=200); HDL Cholesterol 30 mg/dL (40-60); Triglycerides 68 mg/dL (<=150); VLDL CHOLESTEROL 13.6 mg/dL
== END 2025-05-04 08:29 | disposition home or self-care (01) ==
LOC: LAB 08:29
PROVIDERS: PCP Family Medicine; Visit Provider Internal Medicine Cardiovascular Disease
DX: E78.2 Mixed hyperlipidemia (principal)
CPT/HCPCS: 36415; 80061; 84450; 84460